=== PATIENT | male | born 1965 | race Asian ===

== ENCOUNTER 2022-06-20 12:45 | Outpatient (REF) | payer MEDICAID, SELFPAY ==
--- NOTE | ~2022-06-20 | XR_ITS ---
EXAMINATION: XR HAND, RIGHT CLINICAL INFORMATION: Thumb pain. COMPARISON: None available. TECHNIQUE: PA, lateral, and oblique views of the right hand. FINDINGS: First digit: No evidence of acute fracture or dislocation. Joint spaces are relatively maintained. No abnormal soft tissue calcification. No acute fracture or dislocation in the remainder of the visualized bones. No significant arthropathy XR/XR hand RT min 3V IMPRESSION: No radiographic evidence of acute fracture or dislocation of the thumb.
--- NOTE | ~2022-06-20 | XR_ITS ---
EXAMINATION: XR FOOT, RIGHT CLINICAL INFORMATION: Heel pain. COMPARISON: None available. TECHNIQUE: AP, lateral, and oblique views of the right foot. FINDINGS: No visible acute fracture or dislocation. Alignment is anatomic. Joint spaces are relatively maintained. Moderate Achilles tendon insertional enthesopathy. XR/XR foot RT min 3V IMPRESSION: Moderate calcaneal enthesopathy at the Achilles tendon insertion. No evidence of acute fracture.
== END 2022-06-20 12:46 | disposition home or self-care (01) ==
LOC: HO.XRAY 12:45
PROVIDERS: Visit Provider Family Medicine
DX: M79.671 Pain in right foot (principal); M65.311 Trigger thumb, right thumb
CPT/HCPCS: 73130; 73630

== ENCOUNTER 2022-06-20 13:19 | Emergency (ER) | payer MEDICAID, SELFPAY ==
[2022-06-20 14:07] VITALS: BP 96/71; PULSE 85; RESP 18; TEMP 36.7; O2SAT 99; BMI 26.2
--- NOTE | 2022-06-20 14:11 | ED.GENADULT ---
HPI - General Adult General Chief complaint: Extremity Problem <ARIK Brooks - Last Filed: 06/20/22 20:44> Stated complaint: pain in R hand <ARIK Brooks Last Filed: 06/20/22 20:44> Time Seen by Provider: 06/20/22 14:51 <ARIK Brooks Last Filed: 06/20/22 20:44> Source: patient <ARIK Collins Last Filed: 06/20/22 17:36> Mode of arrival: ambulatory <ARIK Collins Last Filed: 06/20/22 17:36> Limitations: no limitations <ARIK Collins Last Filed: 06/20/22 17:36> History of Present Illness HPI narrative: Patient is a 56 year old assigned male at with no reported medical history presenting to the emergency department today with right thumb pain. Patient states that over the last 2 weeks he has had worsening right thumb pain and is having a harder time holding objects. Patient states that he is unable to touch his right thumb to his other fingers on his right hand. Patient denies any dizziness, lightheadedness, abdominal pain, nausea, vomiting, fever, chills, blurry vision, double vision, loss of vision, chest pain, difficulty breathing, shortness of breath, back pain, night sweats, pain with urination, increased urinary frequency, increased urinary urgency, blood in his urine or stool, syncope or a near syncopal episode, recent trauma or falls, bowel incontinence, bladder incontinence, bowel retention, bladder retention, or any other complaints at this time. <ARIK Collins - Last Filed: 06/20/22 17:36> Onset (ago): week(s) (2) <ARIK Collins - Last Filed: 06/20/22 17:36> Location: right (thumb) <ARIK Collins Last Filed: 06/20/22 17:36> Radiation: non-radiation <ARIK Collins Last Filed: 06/20/22 17:36> Severity: mild <ARIK Collins Last Filed: 06/20/22 17:36> Severity scale (1-10): 2 <ARIK Collins Last Filed: 06/20/22 17:36> Relieving factors: none <ARIK Collins Last Filed: 06/20/22 17:36> Exacerbating factors: none <ARIK Collins Last Filed: 06/20/22 17:36> Associated symptoms: denies other symptoms <ARIK Collins Last Filed: 06/20/22 17:36> Treatments prior to arrival: none <ARIK Collins Last Filed: 06/20/22 17:36> Related Data Home medications: Previous Rx's Medication Instructions Recorded prednisone 20 mg tablet 20 mg PO DAILY 7 days #7 tabs 06/20/22 <ARIK Brooks Last Filed: 06/20/22 20:44> Allergies/adverse reactions: Allergies Allergy/AdvReac Type Severity Reaction Status Date / Time No Known Allergies Allergy Unverified 11/28/19 19:02 [No Known Allergies*] <ARIK Brooks Last Filed: 06/20/22 20:44> Review of Systems Constitutional: Constitutional: Reports no additional constitutional complaints, Denies chills, Denies fever(s) and Denies night sweats <ARIK Collins Last Filed: 06/20/22 17:36> Eyes: Eyes: Reports no additional eye complaints, Denies blurry vision, Denies change in vision, Denies diplopia, Denies eye discharge, Denies loss of vision and Denies eye pain <ARIK Collins Last Filed: 06/20/22 17:36> ENT: Denies dizziness <ARIK Collins Last Filed: 06/20/22 17:36> Cardiovascular: Cardiovascular: Reports no additional cardiovascular complaints, Denies chest pain, Denies lightheadedness, Denies Loss of Consciousness and Denies dyspnea <ARIK Collins Last Filed: 06/20/22 17:36> Respiratory: Respiratory: Reports no additional respiratory complaints and Denies dyspnea <ARIK Collins Last Filed: 06/20/22 17:36> Gastrointestinal: Gastrointestinal: Reports no additional gastrointestinal complaints, Denies abdominal pain, Denies melena, Denies hematochezia, Denies change in bowel habits and Denies change in stool character <ARIK Collins Last Filed: 06/20/22 17:36> Genitourinary: Genitourinary: Reports no additional male genitourinary complaints, Denies hematuria, Denies oliguria, Denies difficulty urinating, Denies dysuria, Denies urinary frequency, Denies urinary hesitancy, Denies urinary incontinence and Denies urinary urgency <ARIK Collins - Last Filed: 06/20/22 17:36> Musculoskeletal: Musculoskeletal: Reports no additional musculoskeletal complaints, Denies numbness and Denies tingling <ARIK Collins - Last Filed: 06/20/22 17:36> Comments: right thumb pain <ARIK Collins - Last Filed: 06/20/22 17:36> Neurologic: Denies dizziness, Denies loss of vision, Denies numbness and Denies tingling <ARIK Collins - Last Filed: 06/20/22 17:36> Psychiatric: Psychiatric: Reports no additional psychiatric complaints <ARIK Collins - Last Filed: 06/20/22 17:36> Endocrine: Endocrine: Reports no additional endocrine complaints <ARIK Collins - Last Filed: 06/20/22 17:36> Hematologic/Lymphatic: Hematologic/Lymphatic: Reports no additional hematologic/lymphatic complaints <ARIK Collins - Last Filed: 06/20/22 17:36> Allergic/Immunologic: Allergic/Immunologic: Reports no additional allergic/immunologic complaints <ARIK Collins - Last Filed: 06/20/22 17:36> [facility] Past Medical History Attestation statement: The following information was validated with the patient. <ARIK Collins - Last Filed: 06/20/22 17:36> Source: old records reviewed and nursing notes reviewed <ARIK Collins - Last Filed: 06/20/22 17:36> Physical Exam ED Vital Signs: Vital Signs - 24 hr 06/20/22 14:07 Temperature 98.0 F Pulse Rate 85 Respiratory Rate 18 Blood Pressure 96/71 Pulse Oximetry 99 Oxygen Delivery Method Room Air BMI result Body Mass Index 26.2 <ARIK Brooks - Last Filed: 06/20/22 20:44> Vital Signs - 24 hr 06/20/22 14:07 Temperature 98.0 F Pulse Rate 85 Respiratory Rate 18 Blood Pressure 96/71 Pulse Oximetry 99 Oxygen Delivery Method Room Air BMI result Body Mass Index 26.2 <ARIK Collins - Last Filed: 06/20/22 17:36> Const General: cooperative, no acute distress, alert and awake <ARIK Collins - Last Filed: 06/20/22 17:36> Nutritional Appearance: well nourished <ARIK Collins - Last Filed: 06/20/22 17:36> Orientation/consciousness: patient oriented x3 <ARIK Collins - Last Filed: 06/20/22 17:36> Limitations: no limitations <ARIK Collins - Last Filed: 06/20/22 17:36> HENMT Head: Yes normal to inspection and Yes atraumatic <ARIK Collins - Last Filed: 06/20/22 17:36> Ears: hearing grossly normal bilaterally and external ears normal <ARIK Collins - Last Filed: 06/20/22 17:36> General nose exam: Normal external nose present, no nasal discharge noted and no epistaxis <ARIK Collins - Last Filed: 06/20/22 17:36> Face and sinus: Yes normal facial exam, No abrasion and No laceration <ARIK Collins - Last Filed: 06/20/22 17:36> Mouth: Normal oral and palatal mucosa present, no drooling and no muffled voice <ARIK Collins - Last Filed: 06/20/22 17:36> Eyes General: appearance normal, both eyes and all related structures <ARIK Collins - Last Filed: 06/20/22 17:36> Periorbital: periorbital findings normal <ARIK Collins - Last Filed: 06/20/22 17:36> Eyelids: Yes eyelids normal <ARIK Collins - Last Filed: 06/20/22 17:36> Conjunctivae: conjunctivae normal <RAIK Collins - Last Filed: 06/20/22 17:36> Pupils: Equal, round and reactive pupils present <ARIK Collins - Last Filed: 06/20/22 17:36> EOM: EOMs intact bilaterally <Nia Gerber NH - Last Filed: 06/20/22 17:36> Neck Neck: Yes normal visual inspection, Yes full ROM and Yes no lymphadenopathy <Nia Gerber NH - Last Filed: 06/20/22 17:36> Chest Chest palpation & inspection: normal inspection of the chest <Nia Gerber NH - Last Filed: 06/20/22 17:36> Resp Effort & Inspection: normal respiratory effort and able to speak in complete sentences <Nia Gerber NH - Last Filed: 06/20/22 17:36> GI Inspection: Yes normal to inspection <Nia Gerber NH - Last Filed: 06/20/22 17:36> Neuro General: patient oriented x3 and moves all extremities <Nia Gerber NH - Last Filed: 06/20/22 17:36> Cranial nerves: Yes Equal, round and reactive pupils present <Nia Gerber NH - Last Filed: 06/20/22 17:36> Cognition (Neuro): normal cognition <Nia Gerber NH - Last Filed: 06/20/22 17:36> Motor exam (neuro): 5/5 motor strength present throughout <Nia Gerber NH - Last Filed: 06/20/22 17:36> Sensory Exam: Normal double simultaneous stimulation for sensation <Nia Gerber NH - Last Filed: 06/20/22 17:36> Coordination: [id number] test normal <Nia Gerber NH - Last Filed: 06/20/22 17:36> Extrem Other: minimal swelling to the base of the right thumb, patient unable to touch tip of thumb to tips of other fingers on right hand <Nia Gerber NH - Last Filed: 06/20/22 17:36> General: Yes capillary refill normal <Nia Gerber NH - Last Filed: 06/20/22 17:36> Psych Appearance: grossly normal <Nia Fierroel PA - Last Filed: 06/20/22 17:36> Mental Status: mental status grossly normal <Nia GerberARIK - Last Filed: 06/20/22 17:36> Affect: normal affect <Nia FierroARIK gallegos - Last Filed: 06/20/22 17:36> Attitude: cooperative <ARIK Collins - Last Filed: 06/20/22 17:36> Thought process: Normal thought process present <ARIK Collins Last Filed: 06/20/22 17:36> Thought content: Normal thought content present <ARIK Collins Last Filed: 06/20/22 17:36> Insight: Good insight present (Psych) <ARIK Collins - Last Filed: 06/20/22 17:36> Course Course Course Narrative: RME: 56 yold male presents to the ED for 2 weeks of right thumb pain without any trauma. patient already has xray pending today. no swelling, redness, warmth, or deformity of thumb or rest of extremity. motor exam of thumb limited due to pain. RUE extremity motor, neuro, vascualr exam is intact. <ARIK Brooks - Last Filed: 06/20/22 20:44> Procedures Orthopedic Splinting/Casting Injury #1: Side: right <ARIK Collins - Last Filed: 06/20/22 17:36> Upper Extremity Injury Location: wrist and hand <ARIK Collins Last Filed: 06/20/22 17:36> Upper Extremity Immobilizer: thumb spica <ARIK Collins Last Filed: 06/20/22 17:36> Medical Decision Making Medical Decision Making MDM Narrative: Patient is a 56 year old assigned male at with no reported medical history presenting to the emergency department today with right thumb pain. Patient's physical exam showed minimal swelling to the base of the right thumb and the patient was unable to touch the tip of his right thumb to the tips of the other right fingers. Patient's right hand x-ray showed no acute process. I explained my physical exam findings as well as all test results to the patient. I answered all questions asked by the patient. Patient's right hand was placed in a thumb spica splint. Patient PMS was intact prior to and after splint placement. I stressed the importance of the patient taking his medication as prescribed. I stressed the importance of the patient following up with his primary care provider and an orthopedic provider. I stressed the importance of the patient returning to the emergency department immediately if his symptoms were to worsen or if he were to develop any dizziness, shortness of breath, difficulty breathing, chest pain, blurry vision, loss of vision, nausea, vomiting, abdominal pain, fever, chills, back pain, or any other complaints. Patient verbalized agreement and understanding with this treatment plan and discharge. <ARIK Collins Last Filed: 06/20/22 17:36> Differential Diagnosis Differential Diagnoses: The differential diagnosis associated with the presentation includes <ARIK Collins Last Filed: 06/20/22 17:36> Right UCL injury, right thumb sprain, right thumb strain <ARIK Collins Last Filed: 06/20/22 17:36> Independent Interpretation I performed an independent interpretation of an: Plain X-Ray <ARIK Collins Filed: 06/20/22 17:36> Interpretation: My interpretation is in agreement with the radiologist's impression of this imaging study. EXAMINATION: XR FOOT, RIGHT CLINICAL INFORMATION: Heel pain.? COMPARISON: None available.? TECHNIQUE: AP, lateral, and oblique views of the right foot. FINDINGS: No visible acute fracture or dislocation. Alignment is anatomic. Joint spaces are relatively maintained. Moderate Achilles tendon insertional enthesopathy.? XR/XR foot RT min 3V IMPRESSION: Moderate calcaneal enthesopathy at the Achilles tendon insertion. No evidence of acute fracture. Dictated By: Mario Martinez MD Signed By: Electronically signed by Mario Martinez MD 06/20/22 0008 <ARIK Collins Last Filed: 06/20/22 17:36> Discharge Plan Discharge Clinical Impression: Sprain, thumb <ARIK Brooks Last Filed: 06/20/22 20:44> Patient Disposition: Home, Self-Care <ARIK Brooks - Last Filed: 06/20/22 20:44> Instructions: Sprain (ED), Skier's Thumb (ED) <ARIK Brooks - Last Filed: 06/20/22 20:44> Additional Instructions: Follow up with your primary care provider and an orthopedic provider, as scheduled. Return to the emergency department immediately if your symptoms worsen or if you develop any dizziness, shortness of breath, difficulty breathing, chest pain, blurry vision, loss of vision, nausea, vomiting, abdominal pain, fever, chills, back pain, or any other complaints. <ARIK Brooks - Last Filed: 06/20/22 20:44> Prescriptions: New prednisone 20 mg tablet 20 mg PO DAILY 7 Days Qty: 7 0RF <ARIK Brooks - Last Filed: 06/20/22 20:44> Referrals: [facility] [Provider Group] (Follow up with Stephanie Juarez PA-C tomorrow at 1:30pm) <ARIK Brooks - Last Filed: 06/20/22 20:44> Stand Alone Forms: Work/School Release <ARIK Brooks - Last Filed: 06/20/22 20:44> Interventions: ED Discharge Assessment Last Done: 06/20/22 15:30 <ARIK Brooks - Last Filed: 06/20/22 20:44> Discharge Date/Time: 06/20/22 15:31 <ARIK Brooks - Last Filed: 06/20/22 20:44> Print Language: Djiboutian <ARIK Brooks - Last Filed: 06/20/22 20:44>
== END 2022-06-20 15:31 | disposition home or self-care (01) ==
PROVIDERS: Emergency Provider Emergency Medicine
DX: S63.601A Unspecified sprain of right thumb, initial encounter (principal); X58.XXXA Exposure to other specified factors, initial encounter; Y93.9 Activity, unspecified; Y92.9 Unspecified place or not applicable; Y99.9 Unspecified external cause status
CPT/HCPCS: 29130; 99282; 99284

== ENCOUNTER → 2022-06-21 13:09 | Outpatient (BNVA) | payer MEDICAID, SELFPAY | PROVIDERS: PCP Family Medicine; Visit Provider Physician Assistant | DX: M65.311 Trigger thumb, right thumb (principal) | CPT/HCPCS: 20550; 99202; J1100 ==

== ENCOUNTER → 2022-07-06 12:04 | Outpatient (BNVA) | payer MEDICAID, SELFPAY | PROVIDERS: PCP Family Medicine; Visit Provider Orthopaedic Surgery | DX: M65.311 Trigger thumb, right thumb (principal) | CPT/HCPCS: 99212 ==

== ENCOUNTER → 2022-07-20 08:38 | Outpatient (BNVA) | payer MEDICAID, SELFPAY | PROVIDERS: PCP Family Medicine; Visit Provider Orthopaedic Surgery | DX: M65.311 Trigger thumb, right thumb (principal) | CPT/HCPCS: 99212 ==

== ENCOUNTER 2022-07-25 10:16 | Day surgery (SDC) | payer MEDICAID, SELFPAY ==
[2022-07-25 10:27] VITALS: BMI 25.8
[2022-07-25 13:25] VITALS: BP 112/60; PULSE 89; RESP 18; O2SAT 100
--- NOTE | 2022-07-25 13:27 | MHC.SHP ---
Pre-Procedural Eval Section A Date of Service: 07/25/22 The patient is an INPATIENT: No Changes since office visit: No Cold of Flu in the past 2 weeks, No New Medical Problems, No Changes in Medication and No Patient answered all questions The History & Physical has been completed within 30 days and I have reviewed it.: Yes Section B Chief Complaint: Trigger thumb, right thumb Allergies: Allergies Allergy/AdvReac Type Severity Reaction Status Date / Time No Known Allergies Allergy Verified 07/25/22 10:28 [No Known Allergies*] Plan I have reviewed the history and physical and performed a pertinent physical examination on my patient. No changes have occurred unless specified. Time Spent With Patient Time: Total time managing care of this patient today ____ minutes.
--- NOTE | 2022-07-25 13:29 | W.PM.OPN ---
Operative Note Operative Note Date of Service: 07/25/22 Narrative: Operative Note Preop diagnosis: 1. Right thumb Trigger finger Postop diagnosis: 1. right thumb Trigger finger Procedure: 1. right thumb A1 scott release Surgeon: Sandee Harley MD Anesthesia: local block using 1% lidocaine with epinephrine Findings: No locking or catching after A1 scott release EBL: Less than 5 mL Tourniquet time: None Specimens: None Complications: None Disposition: Brought to recovery room in stable condition Plan: Follow-up for 10-14 days for wound check and suture removal Indications: The patient is 56 years old, with a right thumb trigger finger that has been unresponsive to nonoperative management. The risks and benefits of operative treatment including but not limited to risk of damage to blood vessels, nerves, tendons, infection, persistent pain, persistent symptoms, recurrence or possible need for additional surgery were discussed with the patient and the patient wishes to proceed with surgery. Procedure: Once consent was obtained a local block was performed in the preop area using a combination of 1% lidocaine with epinephrine. The patient was then brought back to the operating suite and placed on the operative table in supine position. The right upper extremity was prepped and draped in a standard surgical fashion. Once assured that we had a good block, a 1.5 cm oblique incision was made centered over the A1 scott of the right thumb . The incision was made through the skin to the subcutaneous tissues using a #15 blade. Careful dissection was made down to the level of the A1 scott using tenotomy scissors, with care being taken to protect the nearby neurovascular structures. A longitudinal incision was made in the A1 scott 1st using a #15 blade, then using tenotomy scissors under direct visualization. The A1 scott was noted to be thickened. Following our A1 scott release, we no longer saw any locking or catching of the digit with flexion and extension. Once satisfied with our A1 scott release the wound was copiously irrigated with normal saline and hemostasis was obtained with a brief period of local pressure. The skin edges were reapproximated with some 5.0 nylon suture material and a sterile dressing was applied. The patient appears to have tolerated the procedure well and with no complications. All digits were well vascularized at the conclusion of the case.
== END 2022-07-25 13:30 | disposition home or self-care (01) ==
PROVIDERS: PCP Family Medicine; Visit Provider Orthopaedic Surgery
PROC: (CPT 26055; principal; 2022-07-25 11:40)
DX: M65.311 Trigger thumb, right thumb (principal); E11.9 Type 2 diabetes mellitus without complications
CPT/HCPCS: 26055; J0171

== ENCOUNTER → 2022-08-09 08:40 | Outpatient (BNVA) | payer MEDICAID, SELFPAY | PROVIDERS: PCP Family Medicine; Visit Provider Orthopaedic Surgery | DX: M65.311 Trigger thumb, right thumb (principal) | CPT/HCPCS: 99212 ==

== ENCOUNTER 2022-12-22 10:17 | Outpatient (REF) | payer MEDICAID, SELFPAY ==
--- NOTE | ~2022-12-22 | XR_ITS ---
EXAMINATION: XR CERVICAL SPINE CLINICAL INFORMATION: Posterior neck and left shoulder pain status-post fall 2 weeks prior. COMPARISON: None available. TECHNIQUE: Frontal, lateral and odontoid views are obtained. FINDINGS: Vertebral body heights and alignment are normal. At C5-C6, there is moderate disc space narrowing, with spondylosis. The remaining disc spaces are well-maintained. No acute fracture or spondylolisthesis is seen. The posterior elements are intact. There is no prevertebral soft tissue swelling. The dens and C7-T1 interface are normal. XR/XR cervical spine 3V IMPRESSION: At C5-C6, there is moderate degenerative disc disease and spondylosis.
--- NOTE | ~2022-12-22 | XR_ITS ---
EXAMINATION: XR SHOULDER, LEFT CLINICAL INFORMATION: Pain status-post fall 2 weeks prior. COMPARISON: None available. TECHNIQUE: AP external rotation, Grashey, scapular Y, and axillary views of the left shoulder. FINDINGS: Bony alignment and mineralization are normal. The glenohumeral joint is intact. The acromioclavicular and coracoclavicular intervals are normal. There is mild osteoarthritic change of the acromioclavicular joint. No fracture or dislocation is seen. There is no abnormal soft tissue calcification or foreign body. No left pneumothorax is seen. XR/XR shoulder LT min 2V IMPRESSION: 1. No fracture or dislocation is seen. 2. There is mild osteoarthritic change of the left acromioclavicular joint.
== END 2022-12-22 10:18 | disposition home or self-care (01) ==
LOC: HO.HHCX 10:17
PROVIDERS: Visit Provider Family Medicine
DX: M25.512 Pain in left shoulder (principal); M54.2 Cervicalgia
CPT/HCPCS: 72040; 73030

== ENCOUNTER → 2023-01-25 07:53 | Outpatient (REF) | payer MEDICAID, SELFPAY ==
--- NOTE | 2023-01-25 07:56 | CA_ITS ---
Transthoracic Echocardiogram Patient (Last, First, Middle): Jackie Marlow, Gender: Male Date of : 1965 Age: 57 Procedure Date: 01/25/2023 Procedure Type: Transthoracic Echocardiogram Location: OP Height: 182.88 cm Weight: 82.56 kg BSA: 2.05 m2 Heart Rate: bpm BP: 130 / 75 mmHg Block Mason: LULY/MARIANNA Referring MD: Mandie Chavez DO Symptoms: SYNCOPE R55 Study Quality: Adequate ECG Rhythm: Sinus Conclusions: - The left ventricular systolic function is normal. The calculated ejection fraction is 58% by biplane method. - No obvious valvular pathology seen on this study. Findings Left Ventricle Normal left ventricular cavity size. There is normal left ventricular wall thickness. The left ventricular systolic function is normal. The calculated ejection fraction is 58% by biplane method. There is no evidence of regional wall motion abnormalities. Diastolic function is normal for age. Right Ventricle Normal right ventricular cavity size and systolic function. Atria Both atria are normal in size. Aortic Valve There is a normal trileaflet aortic valve. There is no aortic valve stenosis. There is trace (trivial) aortic valve regurgitation. Mitral Valve The mitral valve appears normal. There is trace mitral valve regurgitation. There is no mitral valve stenosis. Pulmonic Valve The pulmonic valve is likely normal. Tricuspid Valve Normal tricuspid valve structure. There is trace tricuspid valve regurgitation. There is no evidence of pulmonary hypertension. Great Vessels The asc aorta is normal in size. Venous The inferior vena cava is normal in size and collapses greater than 50% with inspiration. Pericardium/Pleural There is no evidence of pericardial effusion. Prior Study Comparison No prior study available for comparison. Recommendations, Care & Conclusions No obvious valvular pathology seen on this study. Measurements 2D Linear Measurements IVSd: 1.00 0.6-0.9/0.6-1.0 cm LVIDd: 4.37 3.9-5.3/4.2-5.9 cm LVIDd Index: 2.13 2.4-3.2/2.2-3.1 cm/m2 LVIDs: 2.56 2.0-3.6 cm LVPWd: 1.04 0.7-1.1 cm LA Diam: 2.50 2.7-3.8/3.0-4.0 cm LAIDs Index: 1.22 1.5-2.3 cm/m2 LV Mass: 187.12 67-162/88-224 g LV Mass Index: 91.28 43-95/49-115 g/m2 LVOT Diam: 2.00 3.0+(-)1.3 cm 2D Systolic Function EF 4C: 57.00 >55% EF 2C: 57.40 >55% EF BiP: 57.60 >55% Mitral Valve MV Pk E: 0.63 MV PK A: 0.69 MV Decel Time: 179.00 E/A: 0.90 E'Lateral: 7.29 E'Medial: 6.20 E/E' Med: 10.20 E/E' Lat: 8.70 PHT: 52.00 MVA PHT: 4.23 Decel [place]: 3.55 Aortic Valve AoV Pk Justin: 1.44 AoV Mn Justin: 1.04 AoV VTI: 0.27 AoV Pk Grad: 8.00 Aov Mn Grad: 5.00 TIP Cont.VTI: 2.11 LVOT LVOT Pk Justin: 1.03 LVOT Mn Justin: 0.68 LVOT VTI: 0.18 LVOT Pk Grad: 4.00 LVOT Mn Grad: 2.00 LVOT Diam: 2.00 LVOT Area: 3.14 Diastolic Function MV Pk E: 0.63 MV Pk A: 0.69 E/A: 0.90 E'Medial: 6.20 E/E' Med: 10.20 E' Laterial: 7.29 E/E' Lat: 8.70 Right Ventricle TAPSE (mm): 21.70 TVS' Justin: 12.30 Tricuspid Valve RA Press: 3.00 Great Vessels Aorta Sinus of Valsalva: 3.09 2.0-3.[address] [place]: 2.42 1.7-3.4 cm Ao Asc: 3.40 2.1-3.4 cm Updated in Other Vendor System with Status of Final Hang Barnett MD electronically signed on 01/27/2023 11:43:49 AM with status of Final
== END ==
LOC: HO.CARD 07:53
PROVIDERS: PCP Family Medicine; Visit Provider Family Medicine
DX: R55 Syncope and collapse (principal)
CPT/HCPCS: 93306

== ENCOUNTER → 2023-01-25 07:56 | Outpatient (BNV) | payer MEDICAID, SELFPAY | PROVIDERS: PCP Family Medicine; Visit Provider Internal Medicine | DX: R55 Syncope and collapse (principal) | CPT/HCPCS: 93306 ==

== ENCOUNTER 2023-01-27 17:50 | Outpatient (REF) | payer MEDICAID, SELFPAY ==
[2023-01-27 18:45] LABS: Influenza A PCR NEGATIVE (Negative); Influenza B PCR NEGATIVE (Negative); Resp Syncy Virus RNA Qual PCR NEGATIVE (Negative); SARS COV2 PCR INHOUSE NEGATIVE (Negative)
== END 2023-01-27 17:51 | disposition home or self-care (01) ==
LOC: HO.LNP 17:50
PROVIDERS: Visit Provider Family Medicine
DX: Z11.52 Encounter for screening for COVID-19 (principal); J06.9 Acute upper respiratory infection, unspecified
CPT/HCPCS: 0241U; 87070

== ENCOUNTER 2023-02-15 12:00 | Outpatient (RCR) | payer MEDICAID, SELFPAY ==
[2023-01-24 08:05] VITALS: BP 132/76
== END 2023-04-12 08:34 | disposition home or self-care (01) ==
LOC: HO.PT 12:00
PROVIDERS: PCP Family Medicine; Visit Provider Family Medicine
DX: R55 Syncope and collapse (principal)
CPT/HCPCS: 97110; 97112; 97162

== ENCOUNTER 2023-03-14 18:45 | Outpatient (REF) | payer MEDICAID, SELFPAY | END 2023-03-14 18:46 | disposition home or self-care (01) | LOC: HO.HHCLNP 18:45 | PROVIDERS: Visit Provider Emergency Medicine | DX: L02.415 Cutaneous abscess of right lower limb (principal) | CPT/HCPCS: 87070; 87077; 87186; 87205 ==

== ENCOUNTER 2024-01-08 09:02 | Outpatient (REF) | payer MEDICAID, SELFPAY ==
[2024-01-08 11:25] LABS: MANUAL DIFF FLAG NO
[2024-01-08 11:35] LABS: Basophils Absolute Auto 0.1 X10*3/uL (0.0-0.2); Basophils Percent Auto 0.6 % (0-2); Eosinophils Absolute Auto 0.4 X10*3/uL (0.0-0.4); Eosinophils Percent Auto 4.9 % (0-4); Hematocrit 41.3 % (42.0-52.0); Hemoglobin 13.5 g/dl (14.0-18.0); Imm Gran Abs Auto 0.06 X10*3/uL (0.00-0.03); Imm Gran Pct Auto 0.7 % (0.0-0.4); Lymphocytes Absolute Auto 1.5 X10*3/uL (1.2-4.9); Lymphocytes Percent Auto 16.4 % (20-40); Mean Corpuscular HGB Conc 32.7 g/dl (31.0-36.0); Mean Corpuscular Hemoglobin 26.6 pg (27.0-33.0); Mean Corpuscular Volume 81.3 fL (80.0-98.0); Mean Platelet Volume 11.4 fL (9.4-12.4); Monocytes Absolute Auto 0.7 X10*3/uL (0.1-1.2); Neutrophils Absolute Auto 6.2 x10*3/uL (2.0-8.3); Neutrophils Percent Auto 69.4 % (45-73); Platelet Count 250 X10*3/uL (160-400); Red Blood Count 5.08 X10*6/uL (4.60-5.80); Red Cell Distribution Width 13.6 % (11.0-16.0)
[2024-01-08 11:45] LABS: Estimated Average Glucose 163 mg/dL; Hemoglobin A1c % 7.3 % (<6.0); Total Hemoglobin (HGBA1C) 3577.4513 umol/L
[2024-01-08 12:08] LABS: Alanine Aminotransferase 37 U/L (0-40); Alkaline Phosphatase 95 U/L (39-117); Anion Gap 14 (12-20); Aspartate Amino Transferase 67 U/L (5-37); Bilirubin Total 0.4 mg/dL (0.0-1.0); Blood Urea Nitrogen 11 mg/dL (9-16); Calcium 8.9 mg/dL (8.4-10.2); Carbon Dioxide 21 mmol/L (22-29); Chloride 106 mmol/L (96-108); Cholesterol 137 mg/dL (<200); Estimated Glomerular Filt Rate > 60; Glucose Random 235 mg/dL (60-115); HDL Cholesterol 28 mg/dL (>40); LDL Cholesterol Calculated 63 mg/dL (<100); Potassium 3.8 mmol/L (3.3-5.1); Sodium 137 mmol/L (135-145); Total Protein 7.1 g/dL (6.5-8.0); Triglycerides 234 mg/dL (<150)
[2024-01-08 12:09] LABS: TSH reflex Free T4 1.26 uIU/mL (0.32-4.0); Vitamin D 25-OH Total 22.9 ng/mL (>30)
[2024-01-08 12:21] LABS: HIV AB/AG Nonreactive (Nonreactive); HIV Num 1 0.05 S/CO (0.00-0.99); ~HepC Num1 0.14 S/CO (0.00-0.79); ~Hepatitis C Antibody Nonreactive (Nonreactive)
[2024-01-08 13:21] LABS: Vitamin B12 226 pg/mL (200-900)
[2024-01-10 09:48] LABS: RPR Rapid Plasma Reagin NON-REACTIVE (NON-REACTIVE)
== END 2024-01-08 09:03 | disposition home or self-care (01) ==
LOC: HO.HHCL 09:02
PROVIDERS: Visit Provider Internal Medicine
DX: E11.21 Type 2 diabetes mellitus with diabetic nephropathy (principal); M79.604 Pain in right leg
CPT/HCPCS: 36415; 80053; 80061; 82306; 82607; 82746; 83036; 84443; 85025; 86592; 86803; 87389

== ENCOUNTER 2024-01-23 08:26 | Outpatient (REF) | payer MEDICAID, SELFPAY ==
--- NOTE | 2024-01-23 08:29 | EMG_ITS ---
Right tibial and peroneal motor studies were performed. Right superficial peroneal, sural and median and lateral mixed plantar studies were performed. Tibial H-reflex was obtained, and paraspinal muscles were tested with a needle. IMPRESSION: Mild axonal sensory motor peripheral neuropathy. MD YAMILE Adams/SETHL / [id number]
== END 2024-01-23 08:27 | disposition home or self-care (01) ==
LOC: HO.NEURO 08:26
PROVIDERS: Visit Provider Internal Medicine
DX: M79.604 Pain in right leg (principal)
CPT/HCPCS: 95886; 95910

== ENCOUNTER 2024-02-06 17:51 | Outpatient (REF) | payer MEDICAID, SELFPAY ==
[2024-02-06 18:01] LABS: Appearance Urine Turbid; Color Urine Yellow; Glucose Urine UA 500 mg/dL (Negative); Leukocyte Esterase Urine Negative (Negative); Nitrite Urine Negative (Negative); PH 5.5 (5.0-9.0); UMIC TRIGGER UACC YES; Urine Blood Moderate (2+) (Negative); Urine Ketones Trace mg/dL (Negative); Urine Protein Trace mg/dL (Neg-Trace)
[2024-02-06 18:07] LABS: Bacteria Urine None Seen (None Seen); Hyaline Casts Urine 0-2 /LPF (0-2); Squamous Epithelial Cell Urine 0-2 /HPF (0-2); UACC Culture Trigger YES
== END 2024-02-06 17:52 | disposition home or self-care (01) ==
LOC: HO.HHCLNP 17:51
PROVIDERS: Visit Provider Student in an Organized Health Care Education/Training Program
DX: R10.9 Unspecified abdominal pain (principal)
CPT/HCPCS: 81001; 87086

== ENCOUNTER 2024-02-15 09:44 | Outpatient (REF) | payer MEDICAID, SELFPAY | END 2024-02-15 09:45 | disposition home or self-care (01) | LOC: HO.HMGCX 09:44 | PROVIDERS: PCP Student in an Organized Health Care Education/Training Program; Visit Provider Student in an Organized Health Care Education/Training Program | DX: R10.9 Unspecified abdominal pain (principal) | CPT/HCPCS: 76770 ==

== ENCOUNTER 2024-02-15 16:07 | Outpatient (REF) | payer MEDICAID, SELFPAY | END 2024-02-15 16:08 | disposition home or self-care (01) | LOC: HO.XRAY 16:07 | PROVIDERS: PCP Student in an Organized Health Care Education/Training Program; Visit Provider Student in an Organized Health Care Education/Training Program | DX: R10.9 Unspecified abdominal pain (principal); M79.671 Pain in right foot | CPT/HCPCS: 73630; 74019 ==

== ENCOUNTER 2024-03-25 13:06 | Outpatient (REF) | payer MEDICAID, SELFPAY | END 2024-03-25 13:07 | disposition home or self-care (01) | LOC: HO.LNP 13:06 | PROVIDERS: Visit Provider Physician Assistant | DX: L03.031 Cellulitis of right toe (principal) | CPT/HCPCS: 87070; 87077; 87186; 87205 ==

== ENCOUNTER 2024-04-15 09:47 | Emergency (ER) | payer MEDICAID, SELFPAY ==
--- NOTE | ~2024-04-15 | XR_ITS ---
EXAMINATION: XR FOOT 3 OR MORE VIEWS RIGHT HISTORY: right big toe redness. osteo? COMPARISON: Comparison is made with the prior examination dated 02/15/2024. FINDINGS: Three views of the right foot are submitted. Osseous mineralization is normal. There is no fracture or dislocation. The joint spaces are preserved. The soft tissues are unremarkable. XR/XR foot RT min 3V IMPRESSION: Unremarkable examination of the right foot. Electronically signed by: Joce Savage MD 04/15/2024 02:21 PM EST
[2024-04-15 10:08] VITALS: BP 120/81; PULSE 84; RESP 18; TEMP 36.4; O2SAT 99; BMI 25.8
--- NOTE | 2024-04-15 13:58 | ED_ITS ---
HPI - General Adult General Chief complaint: Extremity Injury, Lower Stated complaint: Toe infection sent by walk in Time Seen by Provider: 04/15/24 13:49 Source: patient Mode of arrival: ambulatory Limitations: no limitations History of Present Illness ED Provider: Marlon Machuca [facility] narrative: 58-year-old male history of diabetes and asthma presents to the ED for right big toe pain with redness swelling and drainage yellow nail border. Patient states about 4 weeks ago he tried removing or ingrown toenail and after doing this self home procedure he big toe started having redness pain and drainage. Patient was placed on antibiotics for 2 weeks and has not improved. Patient was seen at urgent care today and referred to the ED. Related Data Home Medications ?Medication ?Instructions ?Recorded ?Confirmed albuterol sulfate 90 mcg/actuation 2 puff inhalation Q4H 06/21/22 aerosol inhaler (Ventolin HFA) amlodipine 5 mg tablet 5 mg PO DAILY 06/21/22 gabapentin 600 mg tablet 600 mg PO TID 06/21/22 metformin 1,000 mg tablet 1,000 mg PO BID 06/21/22 Previous Rx's ?Medication ?Instructions ?Recorded prednisone 20 mg tablet 20 mg PO DAILY 7 days #7 tabs 06/20/22 cephalexin 500 mg capsule 500 mg PO QID 7 days #28 caps 04/15/24 doxycycline hyclate 100 mg capsule 100 mg PO BID #14 caps 04/15/24 naproxen 500 mg tablet 500 mg PO BID PRN pain #14 tabs 04/15/24 oxycodone 5 mg capsule 5 mg PO Q8H PRN pain #9 caps 04/15/24 Allergies Allergy/AdvReac Type Severity Reaction Status Date / Time No Known Allergies Allergy Verified 04/15/24 10:10 [No Known Allergies*] Review of Systems 2 Review of Systems: Right big toe pain Yes all other systems are reviewed and are negative [facility] Past Medical History Medical History Diabetes Social History Social History Patient Tobacco Use Status: Never used Tobacco Advance Directives: No Advance Directives Information Provided: Yes Do you have a plan to hurt others: No Plan Current occupational status: employed Current occupation: [employer] Physical Exam ED Vital Signs: Vital Signs - 24 hr 04/15/24 10:08 04/15/24 17:10 Temperature 97.6 F 97.6 F Pulse Rate 84 84 Respiratory Rate 18 18 Blood Pressure 120/81 120/81 Pulse Oximetry 99 99 Oxygen Delivery Method Room Air BMI result Body Mass Index 25.8 Const General: cooperative, healthy appearing, comfortable, no acute distress, well developed, alert, awake and Physically active Orientation/consciousness: patient oriented x3 [facility] Head: Yes normal to inspection, Yes No palpable skull fracture present, Yes normocephalic and Yes atraumatic Eyes General: appearance normal, both eyes and all related structures Neck Neck: Yes normal visual inspection, Yes full ROM, Yes no lymphadenopathy, Yes no meningeal signs, Yes trachea midline, Yes supple, No anterior neck swelling and No tender Chest Chest palpation & inspection: normal inspection of the chest and normal palpation of entire chest wall Resp Effort & Inspection: normal respiratory effort and able to speak in complete sentences Cardio Jugular venous distension: no JVD Heart sounds: S1 normal heart sound present and S2 normal heart sound present GI Inspection: Yes normal to inspection Palpation (GI): Soft to palpation, not firm, nontender, no guarding and not rigid General: Yes no CVA tenderness Back/Spine/Pelvis Back: no CVA tenderness and No back tenderness Skin General skin exam: no rashes or lesions noted, elasticity normal and turgor normal Neuro General: patient oriented x3, gait normal, tone normal, moves all extremities, no meningeal signs, no focal motor deficits, CN's II-XI intact bilaterally and normal sensation to monofilament Cranial nerves: Yes CN's II-XII intact bilaterally Extrem Other: General: Yes normal to inspection and Yes full ROM Psych Appearance: grossly normal, well kempt and not disheveled Medications Administered Discontinued Medications Generic Name Dose Route Start Last Admin Trade Name Freq PRN Reason Stop Dose Admin Acetaminophen 975 mg 04/15/24 16:45 04/15/24 16:54 Acetaminophen 325 Mg Tablet PO 04/15/24 16:46 975 mg ONCE ONE Administration Ceftriaxone Sodium 1 gm 04/15/24 16:25 04/15/24 16:32 Ceftriaxone Sodium 1 Gm Vial IVPUSH 04/15/24 16:26 1 gm ONCE ONE Administration Diphtheria/Tetanus/Acell Pertussis 0.5 ml 04/15/24 16:57 04/15/24 17:09 Diphth,Pertus(Acell),Tet Adult 0.5 Ml Syringe IM 04/15/24 16:58 0.5 ml .ONCE ONE Administration Ketorolac Tromethamine 30 mg 04/15/24 14:37 04/15/24 15:03 Ketorolac Tromethamine 30 Mg/Ml Vial IVPUSH 04/15/24 14:38 30 mg ONCE ONE Administration Lidocaine HCl 2 ml 04/15/24 15:23 04/15/24 15:58 Lidocaine Hcl 1 % Mpf 2 Ml Vial INFILTRATI 04/15/24 15:24 2 ml ONCE ONE Administration Lidocaine HCl 2 ml 04/15/24 15:23 04/15/24 15:58 Lidocaine Hcl 1 % Mpf 2 Ml Vial INFILTRATI 04/15/24 15:24 2 ml ONCE ONE Administration Lidocaine HCl 2 ml 04/15/24 15:23 04/15/24 15:59 Lidocaine Hcl 1 % Mpf 2 Ml Vial INFILTRATI 04/15/24 15:24 2 ml ONCE ONE Administration Lidocaine HCl 2 ml 04/15/24 15:24 04/15/24 15:59 Lidocaine Hcl 1 % Mpf 2 Ml Vial INFILTRATI 04/15/24 15:25 2 ml ONCE ONE Administration Medical Decision Making Medical Decision Making MDM Narrative: History physical exam indicate ingrown toenail with cellulitis not improving Keflex and Bactrim. Once again redness and drainage began after patient removed ingrown toenail over 3 weeks ago. Due to patient being diabetic we will do labs ESR CRP and x-ray to rule out osteomyelitis. 4:54pm: X-ray negative for osteomyelitis. Negative for elevated white blood cell count. ESR CRP slightly elevated but non concerning. Case was discussed with Dr. Ramires recommends ingrown toenail excision and than patient should follow up outpatient with his anti tank missileman. Also recommended Wound culture. Digital block was done with lidocaine 1% 8 mL. Area was cleaned with Betadine and iodine and sterile saline. Forceps and scissors was used for ingrown toenail excision. Ingrown toenail was excised. Tdap ordered. Wound culture ordered. Dr. Holbrook recommend discharging patient with another round of Keflex and doxy. Patient wants IV antibiotics although the not indicated. Patient was given IV ceftriaxone. Patient has an appointment with Podiatry next month. Patient informed to call his podiatry for earlier appointment. Not suspecting osteomyelitis, arterial occlusion, DVT, compartment syndrome, lymphangitis, necrotizing fasciitis, or any other life-threatening etiology. Differential Diagnosis Differential Diagnoses: The differential diagnosis associated with the presentation includes Admission/Observation Consideration of admission/observation: Escalation of care including admission/observation considered (Ingrown toenail, cellulitis, osteomyelitis) Lab Data MDM Lab Attestation statement: I reviewed the patient's lab results. 04/15/24 14:09 04/15/24 14:09 Labs: Lab Results 04/15/24 04/15/24 Range/Units 14:09 15:04 WBC 8.5 (4.8-10.8) X10*3/uL RBC 5.61 (4.60-5.80) X10*6/uL Hgb 15.0 (14.0-18.0) g/dl Hct 44.9 (42.0-52.0) % MCV 80.0 (80.0-98.0) fL MCH 26.7 L (27.0-33.0) pg MCHC 33.4 (31.0-36.0) g/dl RDW 14.0 (11.0-16.0) % Plt Count 257 (160-400) X10*3/uL MPV 10.4 (9.4-12.4) fL Immature Gran % (Auto) 0.7 H (0.0-0.4) % Neut % (Auto) 71.3 (45-73) % Lymph % (Auto) 16.3 L (20-40) % [place] % (Auto) 6.7 (2-11) % Eos % (Auto) 4.3 H (0-4) % Baso % (Auto) 0.7 (0-2) % Lymph # (Auto) 1.4 (1.2-4.9) X10*3/uL [place] # (Auto) 0.6 (0.1-1.2) X10*3/uL Eos # (Auto) 0.4 (0.0-0.4) X10*3/uL Baso # (Auto) 0.1 (0.0-0.2) X10*3/uL Abs Immat Gran (auto) 0.06 H (0.00-0.03) X10*3/uL Absolute Neuts (auto) 6.0 (2.0-8.3) x10*3/uL Absolute Nucleated RBC 0.000 (0.0-0.012) X10*3/uL Nucleated RBC % (auto) 0.0 (0.0-0.2) /100WBC ESR 16 H (0-15) MM/HR Sodium 140 (135-145) mmol/L Potassium 4.4 (3.3-5.1) mmol/L Chloride 104 (96-108) mmol/L Carbon Dioxide 27 (22-29) mmol/L Anion Gap 13 (12-20) BUN 11 (9-16) mg/dL Creatinine 0.96 (0.5-1.4) mg/dL Estim Creat Clear Calc 88.2 Estimated GFR > 60 POC Glucose 114 (60-115) mg/dL Random Glucose 118 H (60-115) mg/dL Lactic Acid 1.3 (0.5-2.0) mmol/L Calcium 9.8 D (8.4-10.2) mg/dL Total Bilirubin 0.6 (0.0-1.0) mg/dL AST 33 (5-37) U/L ALT 37 (0-40) U/L Alkaline Phosphatase 92 (39-117) U/L C-Reactive Protein 1.09 H (< or = 0.50) mg/dL Total Protein 8.7 H (6.5-8.0) g/dL Albumin 4.8 (3.5-5.0) g/dL Independent Interpretation I performed an independent interpretation of an: Plain X-Ray Radiology Impression Discussion of test interpretation with radiology: I have reviewed the radiologist's reading. Independent Historian Clinical information obtained from an independent historian. History obtained from or confirmed by: Other (Patient) Prescription Management I considered prescription management with: Antibiotic Chronic Conditions Patient?s care impacted by: Diabetes Discharge Plan Discharge Clinical Impression: Ingrowing toenail Patient Disposition: Home, Self-Care Instructions: Ingrown Nail (ED), Nail Removal (ED) Additional Instructions: Recommend calling your anti tank missileman for earlier appointment. Recommend follow-up with your primary care provider. Return to the ED immediately for any worsening pain, redness, red streaks, bluish discolorations, calf pain, fever, chills, pus drainage, or any other concerning symptoms. [address] [address] XRay Report Signed Patient: Jackie Marlow MR#: [id number] : 1965 Acct:[id number] Age/Sex: 58 / M ADM Date: 04/15/24 Loc: HO.ED Attending Dr: Ordering Physician: Marlon Machuca Date of Service: 04/15/24 Procedure(s): XR foot RT min 3V Accession Number(s): [id number] cc: Maroln Machuca; Vi Keys MD~ EXAMINATION: XR FOOT 3 OR MORE VIEWS RIGHT HISTORY: right big toe redness. osteo? COMPARISON: Comparison is made with the prior examination dated 02/15/2024. FINDINGS: Three views of the right foot are submitted. Osseous mineralization is normal. There is no fracture or dislocation. The joint spaces are preserved. The soft tissues are unremarkable. XR/XR foot RT min 3V IMPRESSION: Unremarkable examination of the right foot. Electronically signed by: Joce Savage MD 04/15/2024 02:21 PM [facility] Dictated By: Joce Savage MD Signed By: <Electronically signed by Joce Savage MD in OV> 04/15/24 1421 DD/ 1416 TD/TT: 04/15/24 1416 Social Group Worker: Prescriptions: New cephalexin 500 mg capsule 500 mg PO QID 7 Days Qty: 28 0RF doxycycline hyclate 100 mg capsule 100 mg PO BID Qty: 14 0RF oxycodone 5 mg capsule 5 mg PO Q8H PRN (Reason: pain) Qty: 9 0RF Rx Instructions: Partial Fill upon patient request. naproxen 500 mg tablet 500 mg PO BID PRN (Reason: pain) Qty: 14 0RF No Action prednisone 20 mg tablet 20 mg PO DAILY 7 Days Qty: 7 0RF metformin 1,000 mg tablet 1,000 mg PO BID gabapentin 600 mg tablet 600 mg PO TID albuterol sulfate [Ventolin HFA] 90 mcg/actuation HFA aerosol inhaler 2 puff inhalation Q4H amlodipine 5 mg tablet 5 mg PO DAILY Stand Alone Forms: Work/School Release Interventions: ED Discharge Assessment Last Done: 04/15/24 17:10 Discharge Date/Time: 04/15/24 17:16 Print Language: Romanian
[2024-04-15 14:16] LABS: MANUAL DIFF FLAG NO
[2024-04-15 14:19] LABS: Basophils Absolute Auto 0.1 X10*3/uL (0.0-0.2); Basophils Percent Auto 0.7 % (0-2); Eosinophils Absolute Auto 0.4 X10*3/uL (0.0-0.4); Eosinophils Percent Auto 4.3 % (0-4); Hematocrit 44.9 % (42.0-52.0); Imm Gran Abs Auto 0.06 X10*3/uL (0.00-0.03); Imm Gran Pct Auto 0.7 % (0.0-0.4); Lymphocytes Absolute Auto 1.4 X10*3/uL (1.2-4.9); Lymphocytes Percent Auto 16.3 % (20-40); Mean Corpuscular HGB Conc 33.4 g/dl (31.0-36.0); Mean Corpuscular Hemoglobin 26.7 pg (27.0-33.0); Mean Platelet Volume 10.4 fL (9.4-12.4); Monocytes Absolute Auto 0.6 X10*3/uL (0.1-1.2); Monocytes Percent Auto 6.7 % (2-11); Neutrophils Percent Auto 71.3 % (45-73); Platelet Count 257 X10*3/uL (160-400); Red Blood Count 5.61 X10*6/uL (4.60-5.80); White Blood Count 8.5 X10*3/uL (4.8-10.8)
[2024-04-15 14:33] LABS: Lactic Acid 1.3 mmol/L (0.5-2.0)
[2024-04-15 14:38] LABS: Alanine Aminotransferase 37 U/L (0-40); Albumin Level 4.8 g/dL (3.5-5.0); Anion Gap 13 (12-20); Aspartate Amino Transferase 33 U/L (5-37); Bilirubin Total 0.6 mg/dL (0.0-1.0); Blood Urea Nitrogen 11 mg/dL (9-16); C Reactive Protein 1.09 mg/dL (< or = 0.50); Calcium 9.8 mg/dL (8.4-10.2); Carbon Dioxide 27 mmol/L (22-29); Chloride 104 mmol/L (96-108); Creatinine Clr Calc Pharmacy 88.2; Estimated Glomerular Filt Rate > 60; Glucose Random 118 mg/dL (60-115); Potassium 4.4 mmol/L (3.3-5.1); Sodium 140 mmol/L (135-145); Total Protein 8.7 g/dL (6.5-8.0)
[2024-04-15 14:52] LABS: Erythrocyte Sedimentation Rate 16 MM/HR (0-15)
[2024-04-15] MEDS: Ketorolac Tromethamine 30 MG/ML VIAL IVPUSH (15:03)
[2024-04-15 15:08] LABS: Glucose, Whole Blood 114 mg/dL (60-115)
[2024-04-15] MEDS: Lidocaine HCl 1 % MPF 2 ML VIAL INFILTRATI ×4 (15:58→15:59)
--- OUTSIDE RECORDS SUMMARY | 2024-04-15 16:18 | XMS_ITS | Encounter Summary ---
Author Organization [employer] Address [address] [place] [address] 7 h Floor [place] [id number] Care Team Providers Care Facility Practice Specialist Name Role Phone Carmelita Escalona Primary Care Provider +1- [phone] Vi Keys MD Primary Care Pro vider Encounter Details Date Type Department Care Team (Latest Contact Info) Description 11/23/2021 Abstract [facility] Dental, Provider, DDS Social History Tobacco Use Types Packs/Day Years Used Date Smoking Tobacco: Never Assessed Sex and Gender Information Value Date Recorded Sex Assigned at Male 01/10/2022 10:28 AM EDT Legal Sex Male 10:28 AM EDT Gender Identity Choose not to disclose 10:28 AM EDT Sexual Orientation Choose not to disclose 2021 10:28 AM EDT documented as of this encounter Plan of Treatment Upcoming Encounters Date Type Department Care Team (Late st Contact Info) Description 05/03/2024 3:00 PM EST Office Visit [facility] [address] [place] [address] Fannie Castañeda, OD [address] [place] [address] documented as of this encounter Visit Diagnoses Not on filedocumented in this encounter Care Teams Facility Practice Specialist Relationship Specialty Start Date End Date Carmelita Escalona FNP PCP - General Family Medicine 11/02/21 12/19/22 Vi Keys MD [address] [place] [address] PCP - General Internal Medicine 12/20/22 documented as of this encounter
--- OUTSIDE RECORDS SUMMARY | 2024-04-15 16:18 | XMS_ITS | Clinical Summary ---
Author Organization [facility] Address [address] [place] [address] Phone Care Team Providers Care Helmet Hat Puncher Name Role Phone Unavailable Primary Care Provider Unavailabl e Social History Tobacco Use Types Packs/Day Years Used Date Smoking Tobacco: Never Assessed Sex and Gender Information Value Date Recorded Sex Assigned at Not on file Gender Identity Not on file Sexual Orientation Not on file Plan of Treatment Upcoming Encounters Date Type Department Care Team ([facility] Contact Info) Description 05/07/2024 1:15 PM EST Consult Orthopedic Surgery [facility] [address] [phone] Nish Tavera DPM [address] [address] Health Maintenance Due Date Last Done Comments DTaP,Tdap,and Td Vaccines (1 - Tdap) 10/31/1983 Hepatitis B Vaccines (1 of 3 - 19+ 3-dose series) 10/31/1983 Zoster Vaccines (1 of 2) 2014 COVID-19 Vaccine (2023-2 5 season) 2023 Influenza Vaccine (#1) 2023 Cholesterol Screening (Lipid Panel) 02/23/2024 Colorectal Cancer Screening: Colonoscopy 02/23/2024 Depression Screening 02/23/2024 HIV Screening 02/23/2024 Hepatitis C Screening 02/23/2024 Social Influencers of Health Screening 02/23/2024 RSV Immunization Patients 60 + Years Old (1 - 1-dose 75+ series) 10/31/2039 HIB Vaccines Aged Out No longer eligi ble based on patient's age to complete this topic HPV Vaccines Aged Out No longer eligi ble based on patient's age to complete this topic Hepatitis A Vaccines Aged Out No long er eligible based on patient's age to complete this topic IPV Vaccines Aged Out No longer eligi ble based on patient's age to complete this topic MMR Vaccines Aged Out No longer eligi ble based on patient's age to complete this topic Meningococcal ACWY Vaccine Aged Out N o longer eligible based on patient's age to complete this topic Pneumococcal Vaccine: Pediat rics (0 to 5 Years) and At-Risk Patients (6 to 64 Years) Aged Out No longer eligible b ased on patient's age to complete this topic RSV Immunization Patients Un kimi 20 months Aged Out No longer eligible b ased on patient's age to complete this topic Varicella Vaccines Aged Out No longer eligible based on patient's age to complete this topic , [facility] [place] [id number]
--- OUTSIDE RECORDS SUMMARY | 2024-04-15 16:18 | XMS_ITS | Encounter Summary ---
Author Organization [employer] Address [address] [facility] 7t [place] [address] Care Team Providers Care Expanded Duty Dental Assistant Name Role Phone Carmelita Escalona Primary Care Provider +1- [phone] Vi Keys MD Primary Care Pro vider Reason for Visit * Reason Onset Date Comments Referral 06/20/2022 Encounter Details Date Type Department Care Team ([facility] st Contact Info) Description 06/20/2022 Telephone [facility] [address] [place] [address] Carmelita Escalona FNP [address] [place] [address] Dept [place] [address] Referral Social History Tobacco Use Types Packs/Day Years Used Date Smoking Tobacco: Never Passive Smoke Exposure: Never Smokeless Tobacco: Never Alcohol Use Standard Drinks/Week Comments Never 0 (1 standard drink = 0.6 oz pur e alcohol) Depression Answer Date Recorded Patient Health Questionnaire-9 Score 0 08/19/2022 Housing Stability Answer Date Recorded What is your housing situation today? I have karen angulo 12/27/[address] you li ve. Do you have problems with any of the following? None of the above 12/27/2022 Food Insecurity Answer Date Recorded Within the past 12 months, y ou worried that your food would run out before you got money to buy more: Never True 12/27/2022 Within the past 12 months,th e food you bought just didn't last and you didn't have enough money to get more: Never True Transportation Answer Date Recorded In the past 12 months, has l ack of transportation kept you from medical appts, meetings, work or from getting things needed for daily living? No 12/27/2022 Utilities Answer Date Recorded In the past 12 months, has t he electric, gas, oil or water company threatened to shut off services in your home? No 12/27/2022 Depression Answer Date Recorded Patient Health Questionnaire-2 Score 0 08/19/2022 Sex and Gender Information Value Date Recorded Sex Assigned at Male 01/10/2022 10:28 AM EDT Legal Sex Male 10:28 AM EDT Gender Identity Choose not to disclose 10:28 AM EDT Sexual Orientation Choose not to disclose 2021 10:28 AM EDT COVID-19 Exposure Response Date Recorded In the last 10 days, have yo u been in contact with someone who was confirmed or suspected to have Coronavirus/COVID-19? No / Unsure 08/19/2022 2:50 PM EDT documented as of this encounter Miscellaneous Notes * Telephone Encounter - Robin Atkinson - 06/20/2022 2:36 PM EDT Tc from pt requesting to new referral for orthopedics , pt was referred however needs a sooner apptthan August. Please contact at [phone] documented in this encounter Plan of Treatment Upcoming Encounters Date Type Department Care Team (Late st Contact Info) Description 05/03/2024 3:00 PM EST Office Visit [facility] [address] [place] [address] Fannie Castañeda, OD [address] [place] [address] documented as of this encounter Visit Diagnoses Not on filedocumented in this encounter Care Teams Expanded Duty Dental Assistant Relationship Specialty Start Date End Date Carmelita Escalona FNP PCP - General Family Medicine 11/02/21 12/19/22 Vi Keys MD [address] [place] [address] PCP - General Internal Medicine 12/20/22 documented as of this encounter
--- OUTSIDE RECORDS SUMMARY | 2024-04-15 16:18 | XMS_ITS | Encounter Summary ---
Author Organization [employer] Address [address] [facility] [address]t [place] [address] Care Team Providers Care Cemetery Vault Installer Name Role Phone Carmelita Escalona Primary Care Provider +1- [phone] Vi Keys MD Primary Care Pro vider Reason for Visit * Reason Onset Date Comments ER Follow-up 12/09/2022 Encounter Details Date Type Department Care Team ([facility] st Contact Info) Description 12/09/[address] [facility] [address] [place] [address] Carmelita Escalona FNP [address] [facility] Dept [place] [address] ER Follow-up Social History Tobacco Use Types Packs/Day Years Used Date Smoking Tobacco: Never Passive Smoke Exposure: Never Smokeless Tobacco: Never Alcohol Use Standard Drinks/Week Comments Never 0 (1 standard drink = 0.6 oz pur e alcohol) Depression Answer Date Recorded Patient Health Questionnaire-9 Score 0 08/19/2022 Depression Answer Date Recorded Patient Health Questionnaire-2 Score 0 08/19/2022 Sex and Gender Information Value Date Recorded Sex Assigned at Male 01/10/2022 10:28 AM EDT Legal Sex Male 10:28 AM EDT Gender Identity Choose not to disclose 10:28 AM EDT Sexual Orientation Choose not to disclose 2021 10:28 AM EDT documented as of this encounter Miscellaneous Notes * Telephone Encounter - Lauren Perez RN - 12/09/2022 1:36 PM EDT T/C to pt. For below message, pt. Was admitted at [facility] for loss of vision and suspected seizure from12/07 to 12/09. P. Schedule for HDF on 12/22/2022. Pt. Verbally agreed and understood. HDF summery and ED summery scanned into pt.'s chart. * Telephone Encounter - Nisa Ramos - 12/09/2022 10:50 AM EDT Patient calling to report ED visit on 12/09/2022 at [facility]. Diagnosed with nothing. Patient advised will forward to nurse for follow up. No symptoms Please contact pt at [phone] documented in this encounter Plan of Treatment Upcoming Encounters Date Type Department Care Team (Late st Contact Info) Description 05/03/2024 3:00 PM EST Office Visit [facility] [address] [place] [address] Garry, Fannie, OD [address] [place] [address] documented as of this encounter Visit Diagnoses Not on filedocumented in this encounter Additional Health Concerns Assessment Noted Time PHQ-9 Depression Total Score: 0 08/20/19 23 3:43 PM EDT documented as of this encounter Care Teams Cemetery Vault Installer Relationship Specialty Start Date End Date Carmelita Escalona FNP PCP - General Family Medicine 11/02/21 12/19/22 Vi Keys MD [address] [place] [address] PCP - General Internal Medicine 12/20/22 documented as of this encounter
--- OUTSIDE RECORDS SUMMARY | 2024-04-15 16:18 | XMS_ITS | Clinical Summary ---
Author Organization [facility] Address [address] [place] [address] Care Team Providers Care Pediatric Acute Care Unit Nurse Name Role Phone Unavailable Primary Care Provider Unavailabl e Source Comments PLEASE NOTE, if this patient is a minor, it may be UNLAWFUL to discuss sensitive information that is contained in these records (such as FAMILY PLANNING, MENTAL HEALTH or SUBSTANCE ABUSE) with the minor patient's parent or other person without the patient's specific authorization.[facility] Immunizations Name Administration Dates Next Due Moderna COVID-19 Vaccine, re d cap blue label, 12+ Primary Series 07/14/2020,06/15/2020 Social History Tobacco Use Types Packs/Day Years Used Date Smoking Tobacco: Never Assessed Social Connections Answer Date Recorded Social Connections and Isolation 0 06/15/2020 Financial Resource Strain Answer Date R ecorded Financial Resource Strain 0 2020 Stress Answer Date Recorded Stress 0 06/15/2020 Physical Activity Answer Date Recorded Physical Activity 0 06/15/2020 Food Insecurity Answer Date Recorded Food 0 06/15/2020 Transportation Needs Answer Date Record ed Transportation 0 06/15/2020 Housing Stability Answer Date Recorded Housing 0 06/15/2020 Safety and Environment Answer Date Todd rded Safety 0 06/15/2020 Utilities Answer Date Recorded Utilities 0 06/15/2020 Employment Answer Date Recorded Employment 0 06/15/2020 Sex and Gender Information Value Date Recorded Sex Assigned at Not on file Legal Sex Male 10:28 AM PDT Gender Identity Not on file Sexual Orientation Not on file Plan of Treatment Health Maintenance Due Date Last Done Comments Diabetes Screening 1965 Hepatitis C Screening 1965 Lipid Screening 1965 Tobacco Screening 1965 HIV Screening 10/31/1979 Hypertension Screening (#1) 1982 Imm-Hepatitis B (1 of 3 - 19 + 3-dose series) 10/31/1983 CT Colonography 2009 Colonoscopy 2009 Colorectal Cancer Screening 2009 FIT/gFOBT 2009 Fecal DNA 2009 Flexible Sigmoidoscopy 2009 Imm-Zoster, Recombinant (1 of 2) 2014 Eaj-MCHVT-15 ( season) 2023 021, 06/15/2020 Imm-Influenza (#1) 2023 03/27/2019, 0 05/30/2018, 02/15/2016, Additional history exists Alcohol and Drug Screen 03/13/2024 Depression Annual Screen 03/13/2024 Imm-DTaP/Tdap/Td (2 - Td or Tdap) 05/30/2028 [address]
--- OUTSIDE RECORDS SUMMARY | 2024-04-15 16:18 | XMS_ITS | Encounter Summary ---
Author Organization [employer] Address [address] [place] [address] Care Team Providers Care Activity Therapy Teacher Name Role Phone Vi Keys MD Primary Care Pro vider Encounter Details Date Type Department Care Team (Late st Contact Info) Description 04/15/2024 Orders Only GENERIC EXTERNAL DATA DEPARTMENT Provider, Generic External Data Social History Tobacco Use Types Packs/Day Years Used Date Smoking Tobacco: Never Passive Smoke Exposure: Never Smokeless Tobacco: Never Alcohol Use Standard Drinks/Week Comments Never 0 (1 standard drink = 0.6 oz pur e alcohol) Depression Answer Date Recorded Patient Health Questionnaire-9 Score 0 08/19/2022 Housing Stability Answer Date Recorded What is your housing situation today? I have karen angluo 12/27/[address] you li [...] Description 05/03/2024 3:00 PM EST Office Visit [facility] [address] [place] [address] GarryBrucen, OD [address] [place] [address] Pending Results Name Type Priority Associated Diagnoses Date /Time Comprehensive Metabolic Panel Lab Routine 04/15/2024 2:09 PM EST C-reactive Protein Lab Routine 2024 2:09 PM EST documented as of this encounter Procedures Procedure Name Priority Date/Time Associated Diagnosis Comments GLUCOSE, WHOLE BLOOD Routine 04/15/2024 3:04 PM EST XR FOOT 3+ VIEWS RIGHT Routine 2:16 PM EST CBC WITH AUTO DIFFERENTIAL Routine 04/15/2024 2:09 PM EST SED RATE BY MODIFIED WESTERGREN Routine 04/15/2024 2:09 PM EST C-REACTIVE PROTEIN Routine 04/15/2024 2: 09 PM EST LACTIC ACID Routine 04/15/2024 2:09 PM EST COMPREHENSIVE METABOLIC PANEL Routine 04/15/2024 2:09 PM EST documented in this encounter Results * Glucose, Whole Blood (04/15/2024 3:04 PM EST) Glucose, Whole Blood 114 60 - 115 mg/dL [facility] Comment:METER #: [id number] 04/15/2024 3:04 PM EST 04/15/2024 3:07 PM EST us Generic External Data Provider LAB BLOOD ORDERAB LES Final Result [facility] [address] [place] [phone] * XR Foot 3+ Views Right (04/15/2024 2:16 PM EST) Anatomical Region Laterality Modality Lower Extremities, Foot Right Radiogra phic Imaging 04/15/2024 2:16 PM EST Narrative 04/15/2024 2:23 PM EST ? [facility] ?[address] ?[place] [address] ?XRay Report ? Signed ? Patient: Jackie Marlow ?MR#: [id number] ? : 1965 ?Acct:[id number] ? Age/Sex: 58 / M ?ADM Date: 04/15/24 ? Loc: HO.ED ? Attending Dr: ? Ordering Physician: Marlon Machuca ?? Date of Service: 04/15/24 ?? Procedure(s): XR foot RT min 3V ?? Accession Number(s): [id number] ? cc: Marlon Machuca; Vi Keys MD ? EXAMINATION: ??XR FOOT 3 OR MORE VIEWS RIGHT ? HISTORY: right big toe redness. osteo? COMPARISON: Comparison is made with the prior examination dated ?? 02/15/2024. ? FINDINGS: ? Three views of the right foot are submitted. ??Osseous mineralization is ?? normal. ??There is no fracture or dislocation. ??The joint spaces are ?? preserved. ??The soft tissues are unremarkable. ? XR/XR foot RT min 3V ?? IMPRESSION: ? Unremarkable examination of the right foot. ? Electronically signed by: ??Joce Savage MD ??04/15/2024 02:21 PM EST ?? RP ? Dictated By: ?Joce Savaeg MD ? Signed By: ?<Electronically signed by Joce Savage MD in OV> ?04/15/24 1421 ? DD/ 1416 ? TD/TT: 04/15/24 1416 ? Service Station Equipment Mechanic: ? Procedure Note Mitchel, Image - 02/03/[address] [address] XRay Report Signed Patient: Seth Marlow#: [id number] : 1965Acct:[id number] Age/Sex: 58 / MADM Date: 04/15/24 Loc: HO.ED Attending Dr: Ordering Physician: Marlon Machuca Date of Service: 04/15/24 Procedure(s): XR foot RT min 3V Accession Number(s): [id number] cc: Marlon Machuca; Vi Keys MD EXAMINATION: XR FOOT 3 OR MORE VIEWS RIGHT HISTORY: right big toe redness. osteo? COMPARISON: Comparison is made with the prior examination dated 02/15/2024. FINDINGS: Three views of the right foot are submitted. Osseous mineralization is normal. There is no fracture or dislocation. The joint spaces are preserved. The soft tissues are unremarkable. XR/XR foot RT min 3V IMPRESSION: Unremarkable examination of the right foot. Electronically signed by: Joce Savage MD 04/15/2024 02:21 PM EST Dictated By: Joce Savage MD Signed By: <Electronically signed by Joce Savage MD in OV> 04/15/24 1421 DD/ 1416 TD/TT: 04/15/24 1416 Service Station Equipment Mechanic: [facility] External Provider IMG XR PROCEDURES Final Result * (ABNORMAL) Sed Rate by Modified Jannaren (04/15/2024 2:09 PM EST) Erythrocyte Sedimentation Rate 16(H) 0 - 15 MM/HR [facility] Comment:Patients with polycy themia and many hemoglobin abnormalitiesmay have depressed sed rates whereas patients with anemiamay have elevated sed rates. 04/15/2024 2:09 PM EST 04/15/2024 2:14 PM EST Generic External Data Provider LAB BLOOD ORDERAB LES Final Result [facility] [address] [place] [address] [phone] * Lactic Acid (04/15/2024 2:09 PM EST) [facility] Lactic Acid 1.3 0.5 - 2.0 mmol/L [facility] 04/15/2024 2:09 PM EST 04/15/2024 2:14 PM EST Generic External Data Provider LAB BLOOD ORDERAB LES Final Result Performing Organization Address City/[facility] Co de Phone Number [facility] [address] [place] [address] [phone] * (ABNORMAL) CBC auto differential (04/15/2024 2:09 PM EST) [facility] White Blood Count 8.5 4.8 - 10.8 X10*3/uL [facility] Red Blood Count 5.61 4.60 - 5.80 X10*6/uL [facility] Hemoglobin 15.0 14.0 - 18.0 g/dl [facility] Hematocrit 44.9 42.0 - 52.0 % [facility] Mean Corpuscular Volume 80.0 80.0 - 98.0 fL [facility] Mean Corpuscular Hemoglobin 26.7(L) 27.0 - 33.0 pg [facility] Mean Corpuscular HGB Conc 33.4 31.0 - 36.0 g/dl [facility] Red Cell Distribution Width 14.0 11.0 - 16.0 % [facility] Platelet Count 257 160 - 400 X10*3/uL [facility] Mean Platelet Volume 10.4 9.4 - 12.4 fL [facility] Neutrophils Percent Auto 71.3 45 - 73 % [facility] Imm Gran Pct Auto 0.7(H) 0.0 - 0.4 % [facility] Lymphocytes Percent Auto 16.3(L) 20 - 40 % [facility] Monocytes Percent Auto 6.7 2 - 11 % [facility] Eosinophils Percent Auto 4.3(H) 0 - 4 % [facility] Basophils Percent Auto 0.7 0 - 2 % [facility] NRBC Pct Auto 0.0 0.0 - 0.2 /100WBC [facility] Neutrophils Absolute Auto 6.0 2.0 - 8.3 x10*3/uL [facility] Imm Gran Abs Auto 0.06(H) 0.00 - 0.03 X10*3/uL [facility] Lymphocytes Absolute Auto 1.4 1.2 - 4.9 X10*3/uL [facility] Monocytes Absolute Auto 0.6 0.1 - 1.2 X10*3/uL [facility] Eosinophils Absolute Auto 0.4 0.0 - 0.4 X10*3/uL [facility] Basophils Absolute Auto 0.1 0.0 - 0.2 X10*3/uL [facility] NRBC Abs Auto 0.000 0.0 - 0.012 X10*3/uL [facility] 04/15/2024 2:09 PM EST 04/15/2024 2:14 PM EST us Generic External Data Provider LAB BLOOD ORDERAB LES Final Result [facility] [address] [place] [address] [phone] documented in this encounter Visit Diagnoses Not on filedocumented in this encounter Additional Health Concerns Assessment Noted Time PHQ-9 Depression Total Score: 0 08/20/19 3:43 PM EDT documented as of this encounter Care Teams Activity Therapy Teacher Relationship Specialty Start Date End Date Vi Keys MD [address] [place] [phone] PCP - General Internal Medicine 12/20/22 documented as of this encounter
--- OUTSIDE RECORDS SUMMARY | 2024-04-15 16:18 | XMS_ITS | Encounter Summary ---
Author Organization [employer] Address [address] [place] [address] Care Team Providers Care Net Making Supervisor Name Role Phone Vi Keys MD Primary Care Pro vider Reason for Visit * Reason Comments Nail Problem Encounter Details Date Type Department Care Team (Late st Contact Info) Description 04/15/2024 9:00 AM EST Office Visit [facility] [address] [place] [address] [phone] Lizandro Coyne MD [address] [place], [place] [phone] Toe infection (Primary Dx) Social History Tobacco Use Types Packs/Day Years [...] AM EDT documented as of this encounter Last Filed Vital Signs Vital Sign Reading Time Taken Comments Blood Pressure 133/85 04/15/2024 8:55 AM EST Pulse 88 04/15/2024 8:55 AM EST Temperature 36.6 ??C (97.8 ??F) 04/15/2024 8:55 AM ES T Respiratory Rate 17 04/15/2024 8:55 AM EST Oxygen Saturation 98% 04/15/2024 8:55 AM EST Inhaled Oxygen Concentration - - Weight 85.7 kg (189 lb) 04/15/2024 8:55 AM EST Height - - Body Mass Index 25.99 02/06/2024 1:33 PM EST documented in this encounter Progress Notes * Lizandro Coyne MD - 04/15/2024 9:00 AM EST Subjective Patient ID: Jackie Marlow is a 58 y.o. adult. HPI Jackie was seen in [facility] 2 weeks ago for 2 week h/o pain, swelling, tenderness, drainage at medial distal right great toe adjacent to nail. Was taking Tylenol with no relief of pain.prescribed Bactrim DS and Keflex, advised warm soaks. C&S of drainage done, grew MSSA. He returns today because sx have worsened, states unable to work due to severity of pain. Drainage persists. He finished antibiotics. Taking Tylenol with no relief. States had Podiatry tristan't in 1 month. Lives Alone. 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 Never smoked. Patient Active Problem List Diagnosis Atypical chest pain Carpal tunnel syndrome Essential hypertension Asthma Tinea pedis Tubular adenoma of colon Type 2 diabetes mellitus (CMS/HCC) Vitamin D deficiency Kidney stone Trigger finger of right thumb Chronic GERD Mixed anxiety depressive disorder Nonspecific reaction to tuberculin test Chronic left shoulder pain Right foot pain Left flank pain Health care maintenance HLD (hyperlipidemia) Transaminitis The following portions of the chart were reviewed this encounter and updated as appropriate: Tobacco Allergies Meds Problems Med Hx Surg Hx Fam Hx Review of Systems Constitutional: Negative for fever. Respiratory: Negative for shortness of breath. Cardiovascular: Negative for chest pain. Gastrointestinal: Negative for abdominal pain. Skin: Negative for rash. Neurological: Negative for headaches. Objective Physical Exam Vitals and nursing note reviewed. Constitutional: Appearance: Normal appearance. HENT: Head: Normocephalic and atraumatic. Nose: Nose normal. Eyes: Conjunctiva/sclera: Conjunctivae normal. Pupils: Pupils are equal, round, and reactive to light. Cardiovascular: Pulses: Dorsalis pedis pulses are 2+ on the right side. Pulmonary: Effort: Pulmonary effort is normal. Feet: Comments: Right great toe: swelling, tenderness, scant dried blood at medial distal corner adjacentto corner of nail. Skin: General: Skin is warm and dry. Neurological: Mental Status: Sajid is alert. Gait: Gait is intact. Psychiatric: Mood and Affect: Mood and affect normal. Behavior: Behavior normal. Procedures Assessment/Plan Diagnoses and all orders for this visit: Toe infection Worsening despite finishing courses of Keflex and Bactrim DS, warm soaks. C&S grew MSSA 03/25. ?Sx present for 4 weeks, ? osteomyelitis. Referred to ED now. * Vianca Chino RN - 04/15/2024 9:00 AM EST Expect via private car to [facility] per Dr. Coyne. Pt to F/U upon discharge. documented in this encounter Plan of Treatment Upcoming Encounters Date Type Department Care Team (Late st Contact Info) Description 05/03/2024 3:00 PM EST Office Visit [facility] [address] [place] [address] Fannie Castañeda, OD [address] [place] [address] documented as of this encounter Visit Diagnoses Diagnosis Toe infection- Primary documented in this encounter Additional Health Concerns Assessment Noted Time PHQ-9 Depression Total Score: 0 08/20/19 3:43 PM EDT documented as of this encounter Care Teams Net Making Supervisor Relationship Specialty Start Date End Date Vi Keys MD [address] [place] [phone] PCP - General Internal Medicine 12/20/22 documented as of this encounter
--- OUTSIDE RECORDS SUMMARY | 2024-04-15 16:18 | XMS_ITS | Encounter Summary ---
Author Organization [employer] Address [address] [place] [address] Care Team Providers Care Food Order Delivery Runner Name Role Phone Vi Keys MD Primary Care Pro vider Encounter Details Date Type Department Care Team (Late st Contact Info) Description 03/25/2024 Orders Only [facility] [address] [place], [place] [phone] Mandie Chavez DO [address] [place], [place] [phone] Social History Tobacco Use Types Packs/Day Years [...] Description 05/03/2024 3:00 PM EST Office Visit [facility] [address] [place], [place] [phone] Garry, Fannie, OD [address] [place] [address] documented as of this encounter Procedures Procedure Name Priority Date/Time Associated Diagnosis Comments GRAM STAIN Routine 03/25/2024 12:00 AM EST documented in this encounter Results * Gram stain (03/25/2024 12:00 AM EST) 03/25/2024 03/25/2024 Comment:Toe Rt Grt Narrative [facility] - 03/28/2024 7:25 AM EST Gram stain results: 2+ polys 2+ epithelial cells 2+ Gram-positive cocci Routine Culture Report - external Routine Culture 2+ Mixed skin hansel Staphylococcus aureus Quant Org ID 3+ Staphylococcus aureus: Clindamycin <=0.25(S) Staphylococcus aureus: Erythromycin <=0.25(S) Staphylococcus aureus: Levofloxacin 0.25(S) Staphylococcus aureus: Oxacillin 0.5(S) Staphylococcus aureus: Penicillin-G >=0.5(R) Staphylococcus aureus: Tetracycline <=1(S) Staphylococcus aureus: Trimethoprim/Sulfamethoxazole <=10(S) Specimen Source: Toe Right Great us Mandie Chavez DO LAB MICROBIOLOGY - GENERAL O RDERABLES Final Result [facility] [address] [place] [phone] documented in this encounter Visit Diagnoses Not on filedocumented in this encounter Additional Health Concerns Assessment Noted Time PHQ-9 Depression Total Score: 0 08/20/19 3:43 PM EDT documented as of this encounter Care Teams Food Order Delivery Runner Relationship Specialty Start Date End Date Vi Keys MD [address] [place] [address] PCP - General Internal Medicine 12/20/22 documented as of this encounter
--- OUTSIDE RECORDS SUMMARY | 2024-04-15 16:18 | XMS_ITS | Encounter Summary ---
Author Organization [employer] Address [address] [place] [address] Care Team Providers Care Product Safety Manager Name Role Phone Vi Keys MD Primary Care Pro vider Reason for Visit * Reason Onset Date Comments June04/04/2024 Encounter Details Date Type Department Care Team (Late st Contact Info) Description 04/04/2024 Telephone [facility] [address] [place] [address] Bailee Lopez MA June Social History Tobacco Use Types Packs/Day Years [...] encounter Miscellaneous Notes * Telephone Encounter - Bailee Lpoez MA - 04/04/2024 1:26 PM EST T/C-Corner Bead Operator called to schedule Transfer Patient for June. Patient will be on vacation onApril. Corner Bead Operator will call for July recall to schedule. documented in this encounter Plan of Treatment Upcoming Encounters Date Type Department Care Team (Late st Contact Info) Description 05/03/2024 3:00 PM EST Office Visit [facility] [address] [place], [place] [phone] Garry, Fannie, OD [address] [place], [place] [phone] documented as of this encounter Visit Diagnoses Not on filedocumented in this encounter Additional Health Concerns Assessment Noted Time PHQ-9 Depression Total Score: 0 08/20/19 3:43 PM EDT documented as of this encounter Care Teams Product Safety Manager Relationship Specialty Start Date End Date Vi Keys MD [address] [place], [place] [phone] PCP - General Internal Medicine 12/20/22 documented as of this encounter
--- OUTSIDE RECORDS SUMMARY | 2024-04-15 16:18 | XMS_ITS | Encounter Summary ---
Author Organization [employer] Address [address] [place] [address] [address] [place] [phone] Care Team Providers Care Ship'S Cook Name Role Phone Carmelita Escalona Primary Care Provider [phone] Vi Keys MD Primary Care Pro vider Encounter Details Date Type Department Care Team (Latest Contact Info) Description 07/13/2018 Abstract [facility] Dental, Provider, DDS Social History Tobacco [...] Description 05/03/2024 3:00 PM EST Office Visit [facility] [address] [place], [place] [phone] Fannie Castañeda, OD [address] [place] [address] documented as of this encounter Visit Diagnoses Not on filedocumented in this encounter Care Teams Ship'S Cook Relationship Specialty Start Date End Date Carmelita Escalona FNP PCP - General Family Medicine 11/02/21 12/19/22 Vi Keys MD [address] [place], [place] [phone] PCP - General Internal Medicine 12/20/22 documented as of this encounter
--- OUTSIDE RECORDS SUMMARY | 2024-04-15 16:18 | XMS_ITS | Encounter Summary ---
Author Organization [employer] Address [address] [place] [address] Care Team Providers Care Hand Brim Ironer Name Role Phone Vi Keys MD Primary Care Pro vider Reason for Referral * Consultation (Urgent) - Authorized Specialty Diagnoses / Procedures Referred By Britton calabrese Referred To Contact Podiatry Diagnoses Paronychia of great toe, right Mandie Chavez DO [address] [place] [address] Phone: tel: fax: Nish Tavera DPM [address] [facility] [address] [place] [id number] Phone: tel: fax: Referral ID Status Reason Start Date Expiration Date Visits Requested Visits Authorized [id number] Authorized Specialty Services Required 03/25/2024 03/25/2025 6 6 Encounter Details Date Type Department Care Team (Late st Contact Info) Description 03/25/2024 9:40 AM EST Office Visit [facility] [address] [place], [place] [phone] Mandie Chavez DO [address], [place] [phone] Paronychia of great toe, right (Primary Dx); Type 2 diabetes mellitus with diabetic nephropathy, without long-term current use of insulin ([facility]) Social History Tobacco Use Types Packs/Day Years [...] Sign Reading Time Taken Comments Blood Pressure 114/85 03/25/2024 9:55 AM EST Pulse 88 03/25/2024 9:55 AM EST Temperature 36.7 ??C (98 ??F) 03/25/2024 9:55 AM EST Respiratory Rate 16 03/25/2024 9:55 AM EST Oxygen Saturation 98% 03/25/2024 9:55 AM EST Inhaled Oxygen Concentration - - Weight 84.8 kg (187 lb) 03/25/2024 9:55 AM EST Height - - Body Mass Index 25.72 02/06/2024 1:33 PM EST documented in this encounter Progress Notes * Mandie Chavez, DO - 03/25/2024 9:40 AM EST SONIA Marlow is a 58 y.o. adult who presents for Sick Visit. He comes to [place] c/o infection in his toenail. He says that he had an ingrown toenail on his R great toe which he tried to cut ~ 2 weeks ago. He says that the pain started shortly after but has progressively worsened. He has had to sleep with his foot hanging off the bed for the last few nights o/w he wakes with exquisite pain. He has had to pray sitting in his chair for the last couple days as he can't put pressure on his toe. He says he tried tylenol 500 mg, but his pain is still 9-10/10 and isn't getting any sx relief. He says the skin around the nail is very red and swollen. He has purulent drainage. He denies any fevers, chills. He says he moisturizes his feet regularly d/t his DM. He does not follow regularly with podiatry. He was seen by them ~ 5 years ago when he had similar ingrown nail. He requests that his A1c and BG be tested today. History provided by: Patient certified court interpreter used: No Pain Severity: Severe Onset quality: Gradual Duration: 2 weeks Timing: Constant Progression: Worsening Chronicity: New Associated symptoms: no abdominal pain, no chest pain, no cough, no diarrhea, no fever, no headaches, no nausea, no rash, no shortness of breath and no vomiting Review of Systems Constitutional: Negative for activity change, appetite change, fever and unexpected weight change. Respiratory: Negative for cough, chest tightness and shortness of breath. Cardiovascular: Negative for chest pain and palpitations. Gastrointestinal: Negative for abdominal pain, diarrhea, nausea and vomiting. Skin: Positive for wound. Negative for rash. Neurological: Negative for dizziness, weakness and headaches. Patient Active Problem List Diagnosis Atypical chest pain Carpal tunnel syndrome Essential hypertension Asthma Tinea pedis Tubular adenoma of colon Type 2 diabetes mellitus (CMS/HCC) Vitamin D deficiency Kidney stone Trigger finger of right thumb Chronic GERD Mixed anxiety depressive disorder Nonspecific reaction to tuberculin test Chronic left shoulder pain Right foot pain Left flank pain Health care maintenance HLD (hyperlipidemia) Transaminitis Allergies Allergen Reactions Lisinopril Cough Pork Allergy synagogue reasons synagogue reasons OBJECTIVE Visit Vitals BP 114/85 (BP Location: Right arm, Patient Position: Sitting, BP Cuff Size: Adult) Pulse 88 Temp 98 ??F (36.7 ??C) (Temporal) Resp 16 Wt 187 lb (84.8 kg) SpO2 98% BMI 25.72 kg/m?? Smoking Status Never BSA 2.07 m?? Physical Exam Constitutional: General: Jackie is not in acute distress. Appearance: Normal appearance. Cardiovascular: Rate and Rhythm: Normal rate and regular rhythm. Heart sounds: Normal heart sounds. No murmur heard. Pulmonary: Effort: Pulmonary effort is normal. Breath sounds: Normal breath sounds. No wheezing or rhonchi. Skin: Findings: Wound present. Comments: Moderate swelling and erythema with significant TTP R great toe with small amt purulent drainage Neurological: General: No focal deficit present. Mental Status: Jackie is alert and oriented to person, place, and time. Cranial Nerves: No cranial nerve deficit. Motor: No weakness. Gait: Gait normal. Psychiatric: Mood and Affect: Mood normal. Hemoglobin A1c Date/Time Value Ref Range Status 01/08/2024 09:05 AM 7.3 (H) <6.0 % Final Comment: Hemoglobin A1C Reference Range Adults: 4.8 - 6.0 % Non diabetic: < 6.0 % Goal: < 7.0 %Additional Action Suggested: > 8.0 %Note: Hemoglobin A1c results are invalid for patients with abnormal amounts of HbF. Blood transfusions may impact the HbA1c concentration in the patient sample. Hemoglobin A1C Date/Time Value Ref Range Status 02/06/2024 01:36 PM 7.2 (A) 4.0 - 6.0 % Final Assessment/Plan Diagnoses and all orders for this visit: Paronychia of great toe, right With significant pain and TTP -provided reassurance -send bacterial culture -treat with keflex and bactrim x 1 week -encouraged frequent warm soaks -encouraged standing doses tylenol TID -trial tramadol for severe pain -referred to podiatry for eval -advised rtc if sx worsen or no improvement, he agrees with plans --Follow-up with PCP as scheduled or sooner prn-- Current Outpatient Medications: acetaminophen (Tylenol 8 Hour) 650 MG ER tablet, Take 1 tablet (650 mg) by mouth every 8 (eight) hours if needed for mild pain. Do not crush, chew, or split., Disp: 40 tablet, Rfl: 1 albuterol 108 (90 Base) MCG/ACT inhaler, Inhale 2 puffs every 4 (four) hours., Disp: 18 g, Rfl: 3 Alcohol Swabs (Alcohol Prep) pads, 1 each 2 times daily., Disp: 100 each, Rfl: 11 amLODIPine (Norvasc) 10 MG tablet, TAKE 1 TABLET BY MOUTH EVERY DAY FOR 30 DAYS, Disp: , Rfl: aspirin 81 MG chewable tablet, Chew 1 tablet (81 mg) Once per day., Disp: 90 tablet, Rfl: 1 atorvastatin (Lipitor) 20 MG tablet, Take 1 tablet by mouth every day, Disp: 90 tablet, Rfl: 3 Blood Glucose Calibration (FreeStyle Control Solution) liquid, USE 2 TIMES DAILY., Disp: , Rfl: Blood Glucose Monitoring Suppl w/Device kit, 1 each 2 times daily., Disp: 1 kit, Rfl: 0 Blood Pressure Monitoring (Blood Pressure Kit) kit, 1 each 2 (two) times a week., Disp: 1 kit, Rfl:0 cephalexin (Keflex) 500 MG capsule, Take 1 capsule (500 mg) by mouth 4 times daily for 7 days., Disp: 28 capsule, Rfl: 0 cholecalciferol (Vitamin D-3) 25 MCG (1000 UT) tablet, Take 1,000 Units by mouth Once per day., Disp: , Rfl: cyanocobalamin (Vitamin B-12) 500 MCG tablet, Take 1 tablet (500 mcg) by mouth Once per day., Disp:90 tablet, Rfl: 0 Diclofenac Sodium 1 % gel, Apply 1 Application topically if needed in the morning and at bedtime (right foot pain)., Disp: 50 g, Rfl: 1 docusate sodium (Colace) 100 MG capsule, Take 1 tab po bid prn constipation, Disp: 60 capsule, Rfl:2 econazole nitrate 1 % cream, Apply topically if needed each day for rash., Disp: 15 g, Rfl: 2 FREESTYLE LITE test strip, 1 each by Other route 2 times daily., Disp: 100 strip, Rfl: 11 gabapentin (Neurontin) 600 MG tablet, Take 1 tablet (600 mg) by mouth 3 times daily., Disp: 90 tablet, Rfl: 2 latanoprost (Xalatan) 0.005 % ophthalmic solution, Administer 1 drop into both eyes at bedtime., Disp: 2.5 mL, Rfl: 11 Lidoderm 5 % patch, Apply 1 patch topically in the morning. Remove & discard patch within 12 hours or as directed by MD., Disp: 30 patch, Rfl: 1 metFORMIN (Glucophage) 500 MG tablet, Take 2 tablets (1,000 mg) by mouth with breakfast and with evening meal., Disp: 360 tablet, Rfl: 1 psyllium (Metamucil Smooth Texture) 58.6 % powder, Take 5.12 g (3 g of fiber) by mouth 2 times daily., Disp: 283 g, Rfl: 2 sulfamethoxazole-trimethoprim (Bactrim DS) 800-160 MG tablet, Take 1 tablet by mouth 2 times daily for 7 days., Disp: 14 tablet, Rfl: 0 traMADol (Ultram) 50 MG tablet, Take 1 tablet (50 mg) by mouth every 8 (eight) hours if needed for severe pain for up to 5 days., Disp: 15 tablet, Rfl: 0 Scribe Attestation: Spencer Pinto, am serving as a scribe to document services personally performed by Mandie Kelsey, based on the patient's response to questions by provider and provider's statements to me. 03/25/24 10:32 AM Physicians Attestation: Mandie Pinto DO, have reviewed the information by the scribe, Spencer Silva, for accuracy and agree with its content. documented in this encounter Plan of Treatment Upcoming Encounters Date Type Department Care Team (Late st Contact Info) Description 05/03/2024 3:00 PM EST Office Visit [facility] [address] [place], [place] [phone] Fannie Castañeda, OD [address] [place] [address] Scheduled Orders Name Type Priority Associated Diagnoses Orde r Schedule Wound culture Microbiology Routine Paronychia of great toe, right Expected: 03/25/2024 (Approximate), Expires: 03/25/2025 Scheduled Referrals Name Type Priority Associated Diagnoses Orde r Schedule Referral to Podiatry Outpatient Referral Urgent Paronychia of great toe, right Expected: 03/25/2024 (Approximate), Expires: 03/25/2025 documented as of this encounter Visit Diagnoses Diagnosis Paronychia of great toe, right- Primary Type 2 diabetes mellitus with diabetic nephropathy, without long-term current use of insulin ([facility]) documented in this encounter Additional Health Concerns Assessment Noted Time PHQ-9 Depression Total Score: 0 08/20/19 3:43 PM EDT documented as of this encounter Care Teams Hand Brim Ironer Relationship Specialty Start Date End Date Vi Keys MD [address] [place] [address] PCP - General Internal Medicine 12/20/22 documented as of this encounter
--- OUTSIDE RECORDS SUMMARY | 2024-04-15 16:18 | XMS_ITS | Clinical Summary ---
Author Organization [employer] Address [address] [place] [address] Care Team Providers Care Plaster Tender Name Role Phone Vi Keys MD Primary Care Pro vider Allergies Active Allergy Reactions Criticality Noted Date Comments Lisinopril Cough 02/23/2021 Pork Allergy 12/22/2022 jewish reasons jewish reasons Medications econazole nitrate 1 % creamIndications: Tinea pedis of both feet Apply topically if needed each day for rash. 15 g 2 023 Active albuterol 108 (90 Base) MCG/ACT inhalerIndication s:Mild intermittent asthma without complication Inhale 2 puffs every 4 (four) hours. 18 g 3 023 2024 Active Lidoderm 5 % patch Apply 1 patch topically in the morning. Remove & discard patch within 12 hours or as directed by MD. 30 patch 1 023 Active Alcohol Swabs (Alcohol Prep) pads 1 each 2 times daily. 100 each 11 023 Active Blood Glucose Monitoring Suppl w/Device kitIndications:Ty pe 2 diabetes mellitus with diabetic nephropathy, without long-term current use of insulin ([facility]) 1 each 2 times daily. 1 kit 023 Active FREESTYLE LITE test stripIndications: Type 2 diabetes mellitus with diabetic nephropathy, without long-term current use of insulin (CMS/HCC) 1 each by Other route 2 times daily. 100 strip 11 023 Active Blood Glucose Calibration (FreeStyle Control Solution) liquid USE 2 TIMES DAILY. 023 Active Blood Pressure Monitoring (Blood Pressure Kit) kitIndications:Es sential hypertension 1 each 2 (two) times a week. 1 kit Active atorvastatin (Lipitor) 20 MG tabletIndications :Type 2 diabetes mellitus with diabetic nephropathy, without long-term current use of insulin ([facility]),Mixed hyperlipidemia Take 1 tablet by mouth every day 90 tablet 3 Active latanoprost (Xalatan) 0.005 % ophthalmic solution Administer 1 drop into both eyes at bedtime. 2.5 mL 11 2024 Active amLODIPine (Norvasc) 10 MG tablet TAKE 1 TABLET BY MOUTH EVERY DAY FOR 30 DAYS Active cholecalciferol (Vitamin D-3) 25 MCG (1000 UT) tablet Take 1,000 Units by mouth Once per day. Active cyanocobalamin (Vitamin B-12) 500 MCG tablet Take 1 tablet (500 mcg) by mouth Once per day. 90 tablet 2024 Active aspirin 81 MG chewable tablet Chew 1 tablet (81 mg) Once per day. 90 tablet 1 2024 Active metFORMIN (Glucophage) 500 MG tabletIndications :Type 2 diabetes mellitus with diabetic nephropathy, without long-term current use of insulin ([facility]) Take 2 tablets (1,000 mg) by mouth with breakfast and with evening meal. 360 tablet 1 Active Diclofenac Sodium 1 % gel Apply 1 Application topically if needed in the morning and at bedtime (right foot pain). 50 g 1 Active psyllium (Metamucil Smooth Texture) 58.6 % powder Take 5.12 g (3 g of fiber) by mouth 2 times daily. 283 g 2 2024 Active docusate sodium (Colace) 100 MG capsule Take 1 tab po bid prn constipation 60 capsule 2 Active gabapentin (Neurontin) 600 MG tabletIndications :Type 2 diabetes mellitus with diabetic nephropathy, without long-term current use of insulin ([facility]) Take 1 tablet (600 mg) by mouth 3 times daily. 90 tablet 2 Active acetaminophen (Tylenol 8 Hour) 650 MG ER tablet Take 1 tablet (650 mg) by mouth every 8 (eight) hours if needed for mild pain. Do not crush, chew, or split. 40 tablet 1 025 2024 Active acetaminophen (Tylenol) 500 MG tablet Take 2 tablets (1,000 mg) by mouth every 6 (six) hours if needed for moderate pain or fever for up to 25 doses. 40 tablet 024 2024 Discontinued cephalexin (Keflex) 500 MG capsule Take 1 capsule (500 mg) by mouth 4 times daily for 7 days. 28 capsule 025 2024 sulfamethoxazole- trimethoprim (Bactrim DS) 800-160 MG tablet Take 1 tablet by mouth 2 times daily for 7 days. 14 tablet 025 2024 traMADol (Ultram) 50 MG tabletIndications :Paronychia of great toe, right Take 1 tablet (50 mg) by mouth every 8 (eight) hours if needed for severe pain for up to 5 days. 15 tablet 025 2024 Active Problems Problem Noted Date Diagnosed Date Right foot pain 02/07/2024 Left flank pain 02/07/2024 Health care maintenance 02/07/2024 HLD (hyperlipidemia) 02/07/2024 Transaminitis 02/07/2024 Chronic left shoulder pain 01/05/2024 Chronic GERD 12/22/2022 12/22/2022 Mixed anxiety depressive disorder 12/22/2022 12/22/2022 Nonspecific reaction to tuberculin test 12/23/19 23 12/22/2022 Trigger finger of right thumb 08/21/2022 Kidney stone 01/17/2022 Atypical chest pain 11/13/2019 Essential hypertension 11/13/2019 Assessment & Plan (01/05/2024 3:55 PM EDT): - Aerobic exercise to reduce BP. Initial goal of 30 min walk 3-5x/week. Increase as tolerated. - low-sodium diet (goal: <2g/day) and heart healthy diet such as DASH to reduce BP and prevent ASCVD. - Home BP monitoring 1-2 x day with goal of <140/90. - Seek immediate medical attention for chest pain, palpitations, SOB, syncope, or sudden changes in mental status. - Do not change or discontinue current prescriptions without first consulting health care provider Type 2 diabetes mellitus 06/01/2018 Vitamin D deficiency 06/01/2018 Carpal tunnel syndrome 05/30/2018 Tubular adenoma of colon 07/28/2017 Tinea pedis 01/02/2017 Asthma 03/25/2016 Resolved Problems Problem Noted Date Diagnosed Date Resolved Date Acute low back pain 01/06/2021 08/20/19 23 Encounters Date Type Department Care Team Description 04/15/2024 9:00 AM EST Office Visit [facility] [address] [place] [phone] Lizandro Coyne MD Toe infection (Primary Dx) 04/15/2024 Orders Only GENERIC EXTERNAL DATA DEPARTMENT Provider, Generic External Data 04/04/2024 Telephone [facility] [address] [place] [address] Bailee Lopez MA June Recall 03/25/2024 9:40 AM EST Office Visit [facility] [address] [place] [phone] Mandie Chavez DO Paronychia of great toe, right (Primary Dx); Type 2 diabetes mellitus with diabetic nephropathy, without long-term current use of insulin (CMS/HCC) 03/25/2024 Orders Only [facility] [address] [place] [phone] Mandie Chavez DO 02/15/2024 11:00 AM EST Office Visit [facility] [address] [place] [address] Garry, Fannie, OD Presbyopia (Primary Dx) 02/15/2024 Travel 02/06/2024 1:30 PM EST Office Visit [facility] [address] [place] [phone] Vi Keys MD Abdominal pain, unspecified abdominal location (Primary Dx); Type 2 diabetes mellitus with diabetic nephropathy, without long-term current use of insulin ([facility]); Right foot pain; Essential hypertension; Chronic left shoulder pain; Left flank pain; Health care maintenance; Hyperlipidemia, unspecified hyperlipidemia type; Transaminitis 02/06/2024 Orders Only [facility] [address] [place] [phone] Vi Keys MD 02/06/2024 Travel 02/01/2024 Telephone [facility] [address] [place] [address] Bailee Lopez MA chart prep 01/30/2024 Telephone [facility] [address] [place] [address] GarryFannie trejo, KELLY from Last 3 Months Family History Medical History Relation Name Comments Diabetes Father Breast cancer Mother Diabetes Mother Relation Name Status Comments Father Mother Social History Tobacco Use Types Packs/Day Years Used Date Smoking Tobacco: Never Passive Smoke Exposure: Never Smokeless Tobacco: Never Tobacco Cessation:Counseling Given: Not Answered Alcohol Use Standard Drinks/Week Comments Never 0 [...] t he electric, gas, oil or water [employer] threatened to shut off services in your home? No 12/27/2022 Depression Answer Date Recorded Patient Health Questionnaire-2 Score 0 08/19/2022 Sex and Gender Information Value Date Recorded Sex Assigned at Male 01/10/2022 10:28 AM EDT Legal Sex Male 10:28 AM EDT Gender Identity Choose not to disclose 10:28 AM EDT Sexual Orientation Choose not to disclose 2021 10:28 AM EDT Last Filed Vital Signs Vital Sign Reading Time Taken Comments Blood Pressure 133/85 04/15/2024 8:55 AM EST Pulse 88 04/15/2024 8:55 AM EST Temperature 36.6 ??C (97.8 ??F) 04/15/2024 8:55 AM ES T Respiratory Rate 17 04/15/2024 8:55 AM EST Oxygen Saturation 98% 04/15/2024 8:55 AM EST Inhaled Oxygen Concentration - - Weight 85.7 kg (189 lb) 04/15/2024 8:55 AM EST Height 181.6 cm (5' 11.5 ) 02/06/2024 1:33 PM ES T Body Mass Index 25.99 02/06/2024 1:33 PM EST Plan of Treatment Upcoming Encounters Date Type Department Care Team (Late st Contact Info) Description 05/03/2024 3:00 PM EST Office Visit [facility] [address] [place], [place] [phone] Garry, Fannie, OD [address] [place] [address] Health Maintenance Due Date Last Done Comments CT Colonography 1965 Colonoscopy 1965 Colorectal Cancer Screening 1965 FIT DNA/Cologuard 1965 FIT 1965 FOBT 1965 Sigmoidoscopy 1965 Alcohol/Substance Use Screening 1976 Hepatitis B Vaccines (1 of 3 - 19+ 3-dose series) 10/31/1983 IPV Vaccines (2 of 3 - Adult catch-up series) 10/07/2009 09/09/2009 Zoster Vaccines (1 of 2) 2014 Pneumococcal Vaccine: 50+ Years (2 of 2 - PCV) 04/25/2017 04/25/2016, 04/23/2011 Diabetes: Foot Exam 02/23/2023 02/23/2022 Depression Screening 08/20/2023 08/19/2022, 08/20/19 23 SDOH Screening 08/20/2023 08/19/2022 COVID-19 Vaccine ( season) 2023 03/16/2021, 07/14/2020, 06/15/2020 Influenza Vaccine (#1) 2023 , 03/27/2019, 05/30/2018, Additional history exists Diabetes: Hemoglobin A1C 05/08/2024 024, 01/08/2024, 12/22/2022, Additional history exists Lipid Panel 01/07/2025 01/08/2024, 03/13, 11/23/2020 Tobacco Screening 04/15/2025 04/15/2024 Eye Exam 01/10/2026 01/11/2024, 12/13, 01/11/2024, Additional history exists DTaP/Tdap/Td Vaccines (2 - Td or Tdap) 05/30/2028 05/30/2018 RSV Patients and Patients Aged 60 years or older (1 - 1-dose 75+ series) 10/31/2039 Hepatitis A Vaccines Aged Out 05/09/2011, 09/10/19 10 No longer eligible based on patient's age to complete this topic Meningococcal Vaccine Aged Out 03/27/2019, 010 No longer eligible based on patient's age to complete this topic HIV Screening Completed 01/08/2024 Hepatitis C Screening Completed 01/08/2024 HIB Vaccines Aged Out No longer eligi ble based on patient's age to complete this topic HPV Vaccines Aged Out No longer eligi ble based on patient's age to complete this topic RSV under 20 months Aged Out No longe r eligible based on patient's age to complete this topic Rotavirus Vaccines Aged Out No longer eligible based on patient's age to complete this topic Procedures Procedure Name Priority Date/Time Associated Diagnosis Comments GLUCOSE, WHOLE BLOOD Routine 04/15/2024 3:04 PM EST XR FOOT 3+ VIEWS RIGHT Routine 2:16 PM EST SED RATE BY MODIFIED WESTERGREN Routine 04/15/2024 2:09 PM EST C-REACTIVE PROTEIN Routine 04/15/2024 2: 09 PM EST COMPREHENSIVE METABOLIC PANEL Routine 04/15/2024 2:09 PM EST LACTIC ACID Routine 04/15/2024 2:09 PM EST CBC WITH AUTO DIFFERENTIAL Routine 04/15/2024 2:09 PM EST GRAM STAIN Routine 03/25/2024 12:00 AM EST XR ABDOMEN 2V+ Routine 02/15/2024 4:30 PM EST XR FOOT 3+ VIEWS RIGHT Routine 4 4:17 PM EST Right foot pain US RETROPERITONEAL COMPLETE Routine 02/15/2024 9:49 AM EST Abdominal pain, unspecified abdominal location URINALYSIS, COMPLETE, WITH REFLEX TO CULTURE Routine 02/06/2024 2:10 PM EST Abdominal pain, unspecified abdominal location POCT GLYCATED HEMOGLOBIN, TOTAL Routine 02/06/2024 1:36 PM EST Type 2 diabetes mellitus with diabetic nephropathy, without long-term current use of insulin (CMS/HCC) POCT GLUCOSE Routine 02/06/2024 1:35 PM EST Type 2 diabetes mellitus with diabetic nephropathy, without long-term current use of insulin (CMS/HCC) CULTURE, URINE, ROUTINE Routine 02/06/20 24 12:00 AM EST HEPATITIS C AB W/REFL TO HCV RNA, QN, PCR Routine 01/08/2024 9:05 AM EDT Right leg pain HIV 1/2 ANTIGEN/ANTIBODY, FOURTH GENERATION W/RFL Routine 01/08/2024 9:05 AM EDT Right leg pain LIPID PANEL, STANDARD Routine 01/08/2024 9:05 AM EDT Right leg pain from Last 3 Months or Most Recently Relevant to Health Maintenance Results * Glucose, Whole Blood (04/15/2024 3:04 PM EST) Glucose, Whole Blood 114 60 - 115 mg/dL [facility] Comment:METER #: [id number] 04/15/2024 3:04 PM EST 04/15/2024 3:07 PM EST us Generic External Data Provider LAB BLOOD ORDERAB LES Final Result [facility] [address] [place] [address] [phone] * XR Foot 3+ Views Right (04/15/2024 2:16 PM EST) Only the most recent of2 resultswithin the time period is included. Anatomical Region Laterality Modality Lower Extremities, Foot Right Radiogra phic Imaging 04/15/2024 2:16 PM EST Narrative 04/15/2024 2:23 PM EST ? [facility] ?[address] ?[place] [address] ?XRay Report ? Signed ? Patient: Jackie Marlow ?MR#: [id number] ? : 1965 ?Acct:[id number] ? Age/Sex: 58 / M ?ADM Date: 04/15/24 ? Loc: HO.ED ? Attending Dr: ? Ordering Physician: Marlon Machuca ?? Date of Service: 04/15/24 ?? Procedure(s): XR foot RT min 3V ?? Accession Number(s): [id number] ? cc: Marlon Machuca; Vi Keys MD [...] EST ?? RP ? Dictated By: ?Joce Savage MD ? Signed By: ?<Electronically signed by Joce Savage MD in OV> ?04/15/241420 ? DD/ 15 ? TD/TT: 02/03/25 1416 ? Carpet Loom Fixer: ? Procedure Note Donotuseinterpreter, Image - 04/15/[address] [address] XRay Report Signed Patient: Seth Marlow#: [id number] : 1965Acct:[id number] Age/Sex: 58 / MADM Date: 04/15/24 Loc: HO.ED Attending Dr: Ordering Physician: Marlon Machuca Date of Service: 04/15/24 Procedure(s): XR foot RT min 3V Accession Number(s): [id number] cc: Marlon Machuca; Vi Keys MD EXAMINATION: [...] 04/15/24 1421 DD/ 1416 TD/TT: 04/15/24 1416 Carpet Loom Fixer: us [facility] External Provider IMG XR PROCEDURES Final Result * (ABNORMAL) CBC auto differential (04/15/2024 2:09 PM EST) White Blood Count 8.5 4.8 - 10.8 X10*3/uL [facility] Red Blood Count 5.61 4.60 - 5.80 X10*6/uL [facility] Hemoglobin 15.0 14.0 - 18.0 g/dl [facility] Hematocrit 44.9 42.0 - 52.0 % [facility] Mean Corpuscular Volume 80.0 80.0 - 98.0 fL [facility] Mean Corpuscular Hemoglobin 26.7(L) 27.0 - 33.0 pg [facility] Mean Corpuscular HGB Conc 33.4 31.0 - 36.0 g/dl [facility] Red Cell Distribution Width 14.0 11.0 - 16.0 % [facility] Platelet Count 257 160 - 400 X10*3/uL [facility] Mean Platelet Volume 10.4 9.4 - 12.4 fL [facility] Neutrophils Percent Auto 71.3 45 - 73 % [facility] Imm Gran Pct Auto 0.7(H) 0.0 - 0.4 % [facility] Lymphocytes Percent Auto 16.3(L) 20 - 40 % [facility] Monocytes Percent Auto 6.7 2 - 11 % [facility] Eosinophils Percent Auto 4.3(H) 0 - 4 % [facility] Basophils Percent Auto 0.7 0 - 2 % [facility] NRBC Pct Auto 0.0 0.0 - 0.2 /100WBC [facility] Neutrophils Absolute Auto 6.0 2.0 - 8.3 x10*3/uL [facility] Imm Gran Abs Auto 0.06(H) 0.00 - 0.03 X10*3/uL [facility] Lymphocytes Absolute Auto 1.4 1.2 - 4.9 X10*3/uL [facility] Monocytes Absolute Auto 0.6 0.1 - 1.2 X10*3/uL [facility] Eosinophils Absolute Auto 0.4 0.0 - 0.4 X10*3/uL [facility] Basophils Absolute Auto 0.1 0.0 - 0.2 X10*3/uL [facility] NRBC Abs Auto 0.000 0.0 - 0.012 X10*3/uL [facility] 04/15/2024 2:09 PM EST 04/15/2024 2:14 PM EST Generic External Data Provider LAB BLOOD ORDERAB LES Final Result Performing Organization Address [facility] Co de Phone Number [facility] [address] [place] [phone] * (ABNORMAL) Sed Rate by Modified Westergren (04/15/2024 2:09 PM EST) Erythrocyte Sedimentation Rate 16(H) 0 - 15 MM/HR [facility] Comment:Patients with polycy themia and many hemoglobin abnormalitiesmay have depressed sed rates whereas patients with anemiamay have elevated sed rates. 04/15/2024 2:09 PM EST 04/15/2024 2:14 PM EST us Generic External Data Provider LAB BLOOD ORDERAB LES Final Result Performing Organization Address [facility] Co de Phone Number [facility] [address] [place] [phone] * Lactic Acid (04/15/2024 2:09 PM EST) Lactic Acid 1.3 0.5 - 2.0 mmol/L [facility] 04/15/2024 2:09 PM EST 04/15/2024 2:14 PM EST Generic External Data Provider LAB BLOOD ORDERAB LES Final Result Performing Organization Address [facility] Co de Phone Number [facility] [address] [place] [phone] * Gram stain (03/25/2024 12:00 AM EST) 03/25/2024 03/25/2024 Comment:Toe Rt Grt Narrative [facility] - 03/28/2024 7:25 AM EST Gram [...] MICROBIOLOGY - GENERAL O RDERABLES Final Result [facility] [address] [place] [phone] [phone] * XR Abdomen 2 View minimum (02/15/2024 4:30 PM EST) Anatomical Region Laterality Modality Abdomen Radiographic Isabel ging 02/15/2024 4:30 PM EST Narrative 03/27/2024 12:36 PM EST ? [facility] ?[address] ?[place] [address] ?XRay Report ? Signed ? Patient: Jackie Marlow ?MR#: [id number] ? : 1965 ?Acct:[id number] ? Age/Sex: 58 / M ?ADM Date: 02/15/24 ? Loc: HO.XRAY ? Attending Dr: Vi Cardozo MD ? Ordering Physician: Vi Keys MD ?? Date of Service: 02/15/24 ?? Procedure(s): XR abdomen min 2V ?? Accession Number(s): [id number] ? cc: Vi Keys MD ? EXAMINATION: ?? XR ABDOMEN COMPLETE ? CLINICAL INDICATION: ?? Abdominal pain. ? COMPARISON: ?? US retroperitoneal complete 02/15/2024. ? TECHNIQUE: ?? 4 views of the abdomen. ? FINDINGS: ?? Large amount of stool throughout the colon characteristic of ?? constipation. Nonobstructive bowel gas pattern. ? Metallic object characteristic of zipper overlies the right lower ?? pelvis and additional metallic object overlies left lower quadrant on ?? single view, but these are not visualized on other views. ? A 0.8 cm calculus overlies the interpolar region of the left kidney. ?? Visualization of the bilateral kidneys is limited due to overlying ?? bowel. ? XR/XR abdomen min 2V ?? IMPRESSION: ?? 1. Large amount of stool throughout the colon characteristic of ?? constipation. Nonobstructive bowel gas pattern. ? 2. A 0.8 cm calculus overlies the interpolar region of the left kidney. ?? Visualization of the bilateral kidneys is limited due to overlying ?? bowel. ? Electronically signed by: ??Rose Hair MD ??03/27/2024 12:33 PM EST ?? RP ? Dictated By: ?oRse Hair MD ? Signed By: ?<Electronically signed by Rose Hair MD in OV> ? 03/27/24 1233 ? DD/ 1630 ? TD/TT: 02/15/24 1651 ? Carpet Loom Fixer: ? Procedure Note Mitchel, Stefano - 03/27/[address] [address] XRay Report Signed Patient: Seth Marlow#: [id number] : 1965Acct:[id number] Age/Sex: 58 / MADM Date: 02/15/24 Loc: HO.BETHANY Attending Dr: Vi Cardozo MD Ordering Physician: Vi Keys MD Date of Service: 02/15/24 Procedure(s): XR abdomen min 2V Accession Number(s): [id number] cc: Vi Keys MD EXAMINATION: XR ABDOMEN COMPLETE CLINICAL INDICATION: Abdominal pain. COMPARISON: US retroperitoneal complete 02/15/2024. TECHNIQUE: 4 views of the abdomen. FINDINGS: Large amount of stool throughout the colon characteristic of constipation. Nonobstructive bowel gas pattern. Metallic object characteristic of zipper overlies the right lower pelvis and additional metallic object overlies left lower quadrant on single view, but these are not visualized on other views. A 0.8 cm calculus overlies the interpolar region of the left kidney. Visualization of the bilateral kidneys is limited due to overlying bowel. XR/XR abdomen min 2V IMPRESSION: 1. Large amount of stool throughout the colon characteristic of constipation. Nonobstructive bowel gas pattern. 2. A 0.8 cm calculus overlies the interpolar region of the left kidney. Visualization of the bilateral kidneys is limited due to overlying bowel. Electronically signed by: Rose Hair MD 03/27/2024 12:33 PM EST RP Dictated By: Rose Hair MD Signed By: <Electronically signed by Rose Hair MD in OV> 03/27/24 1233 DD/ 1630 TD/TT: 02/15/24 1651 Carpet Loom Fixer: Vi Cardozo MD IMG XR PROCEDURES Final Result * US Retroperitoneal Complete (02/15/2024 9:49 AM EST) Anatomical Region Laterality Modality Ultrasound 02/15/2024 9:49 AM EST Narrative 03/27/2024 1:14 PM EST ? [facility] ?[address] ? [place] [address] ? Ultrasound Report ? Signed ? Patient: Jackie Marlow ?MR#: [id number] ? : 1965 ?Acct:[id number] ? Age/Sex: 58 / M ?ADM Date: 02/15/24 ? Loc: HO.HMGCX ? Attending Dr: Vi Cardozo MD ? Ordering Physician: Vi Keys MD ?? Date of Service: 02/15/24 ?? Procedure(s): US retroperitoneal comp ?? Accession Number(s): [id number] ? cc: Vi Keys MD ? EXAMINATION: ?? US RETROPERITONEAL COMPLETE (RENAL) ? CLINICAL INFORMATION: ?? Abdominal pain, evaluate for obstruction. ? COMPARISON: ?? Renal ultrasound 03/23/2018. ? TECHNIQUE: ?? Real-time imaging of the kidneys and bladder. ? FINDINGS: ? RIGHT KIDNEY: 11.1 x 4.7 x 4.9 cm (SAG x AP x TRV). Right renal 0.3 cm ?? lower pole calculus. No hydronephrosis. Renal cortical thickness is ?? normal. Limited visualization. ? 1.4 cm upper pole cyst with benign features. There is no indication for ?? followup imaging. ? LEFT KIDNEY: 10.2 x 6.2 x 5.9 cm (SAG x AP x TRV). 0.7 cm midpole and ?? 0.4 cm lower pole calculi. Left renal mild caliectasis. ? 2.6 cm left renal lower pole anechoic focus characteristic of a cyst ?? with benign features. There is no indication for followup imaging at ?? this time. ? BLADDER: Well distended. Bilateral ureteral jets are demonstrated. ?? Prevoid bladder volume is 233 mL. Postvoid bladder volume is 9 mL. Mild ?? diffuse trabeculation of the bladder wall. ? PROSTATE GLAND: The prostate volume is 26 mL. ? US/US retroperitoneal comp ?? IMPRESSION: ?? 1. Bilateral nephrolithiasis. Mild left pelvocaliectasis. ? 2. Prostate volume 26 mL. ? Electronically signed by: ??Rose Hair MD ??03/27/2024 01:12 PM EST ?? RP ? Dictated By: ?Rose Hair MD ? Signed By: ?<Electronically signed by Rose Hair MD in OV> ? 03/27/24 1312 ? DD/ 0949 ? TD/TT: 02/15/24 1009 ? Carpet Loom Fixer: ? Procedure Note Donotjenniferinterpreter, Image - 03/27/2024 [facility] [place] [address] Ultrasound Report Signed Patient: Seth Marlow#: [id number] : 1965Acct:[id number] Age/Sex: 58 / MADM Date: 02/15/24 Loc: HO.HMGCX Attending Dr: Vi Cardozo MD Ordering Physician: Vi Keys MD Date of Service: 02/15/24 Procedure(s): US retroperitoneal comp Accession Number(s): [id number] cc: Vi Keys MD EXAMINATION: US RETROPERITONEAL COMPLETE (RENAL) CLINICAL INFORMATION: Abdominal pain, evaluate for obstruction. COMPARISON: Renal ultrasound 03/23/2018. TECHNIQUE: Real-time imaging of the kidneys and bladder. FINDINGS: RIGHT KIDNEY: 11.1 x 4.7 x 4.9 cm (SAG x AP x TRV). Right renal 0.3 cm lower pole calculus. No hydronephrosis. Renal cortical thickness is normal. Limited visualization. 1.4 cm upper pole cyst with benign features. There is no indication for followup imaging. LEFT KIDNEY: 10.2 x 6.2 x 5.9 cm (SAG x AP x TRV). 0.7 cm midpole and 0.4 cm lower pole calculi. Left renal mild caliectasis. 2.6 cm left renal lower pole anechoic focus characteristic of a cyst with benign features. There is no indication for followup imaging at this time. BLADDER: Well distended. Bilateral ureteral jets are demonstrated. Prevoid bladder volume is 233 mL. Postvoid bladder volume is 9 mL. Mild diffuse trabeculation of the bladder wall. PROSTATE GLAND: The prostate volume is 26 mL. US/US retroperitoneal comp IMPRESSION: 1. Bilateral nephrolithiasis. Mild left pelvocaliectasis. 2. Prostate volume 26 mL. Electronically signed by: Rose Hair MD 03/27/2024 01:12 PM EST Dictated By: Rose Hair MD Signed By: <Electronically signed by Rose Hair MD in [place]> 03/27/24 1312 DD/ 0949 TD/TT: 02/15/24 1009 Carpet Loom Fixer: Vi Cardozo MD [place] US PROCEDURES Final Result * (ABNORMAL) Urinalysis, Complete, with Reflex to Culture (02/06/2024 2:10 PM EST) Color Urine Yellow [facility] Appearance Urine Turbid [facility] PH 5.5 5.0 - 9.0 [facility] Glucose Urine UA 500(A) Negative mg/dL [facility] Urine Blood Moderate (2+)(A) Negative [facility] Specific [place] - Urine 1.020 1.005 - 1.025 [facility] Urine Protein Trace Neg-Trace mg/dL [facility] Urine Ketones Trace Negative mg/dL [facility] Nitrite Urine Negative Negative [facility] Leukocyte Esterase Urine Negative Negative [facility] RBC Urine 6-10(A) 0 - 2 /HPF [facility] Urine WBC 6-10(A) 0 - 5 /HPF [facility] Urine Squamous Epithelial Cell 0-2 0 - 2 /HPF [facility] Urine Bacteria None Seen None Seen [facility] Hyaline Casts, Urine 0-2 0 - 2 /LPF [facility] Urine 02/06/2024 2:10 PM EST 02/06/2024 5:52 PM EST Narrative [facility] - 02/06/2024 6:10 PM EST Urine, Clean Catch Vi Cardozo MD LAB URINE ORDERAB LES Final Result Performing Organization Address City/State/[facility] Co de Phone Number [facility] [address] [place] [phone] * (ABNORMAL) POCT HGB A1C (02/06/2024 1:36 PM EST) Hemoglobin A1C 7.2(A) 4.0 - 6.0 % QC Media Lot # [id number] Lot# Expiration Date Blood 02/06/2024 1:36 PM EST Vi Cardozo MD POINT OF CARE EMILE T ENTER/EDIT ORDERABLES Final Result * (ABNORMAL) POCT Glucose (02/06/2024 1:35 PM EST) Glucose Blood, POC 236(A) 60 - 200 mg/dL QC Media Lot # [id number] Lot# Expiration Date Blood Capillary blood specimen / Unknown 02/06/2024 1:35 PM EST Vi Cardozo MD POINT OF CARE EMILE T ENTER/EDIT ORDERABLES Final Result * Culture, Urine, Routine (02/06/2024 12:00 AM EST) Urine Urine specimen obtained by clean catch procedure / Unknown 02/06/2024 02/06/2024 Comment:UACC Narrative [facility] - 02/08/2024 8:16 AM EST Urine Culture No growth. Specimen Source: Urine clean catch us Vi Cardozo MD LAB MICROBIOLOGY - GENERAL ORDERABLES Final Result [facility] [address] [place] [phone] * Hepatitis C Antibody with Reflex to HCV, RNA, Quantitative, Real-Time PCR (01/08/2024 9:05 AM EDT) Hepatitis C Antibody Nonreactive Nonreactive [facility] Comment:Antibodies to HCV no t detected; does not exclude early acuteHCV infection. Blood Venous blood specimen / Unknown 01/08/2024 9:05 AM EDT 01/08/2024 11:10 AM EDT us Vi Sierra MD LAB BLOOD ORDERABLES Final Result Performing Organization Address City/[facility]/ZIP Co de Phone Number [facility] [address] [place] [phone] * HIV-1/2 Antigen and Antibodies, Fourth Generation, with Reflexes (01/08/2024 9:05 AM EDT) HIV AB/AG Nonreactive Nonreactive [facility] Comment:HIV-1 p24 Ag and/or HIV-1/HIV-2 Ab not detected.A test result that is nonreactive does not exclude thepossibility of exposure to or infection with HIV-1 and/orHIV-2. Nonreactive results in this assay for individualswith prior exposure to HIV-1 and/or HIV-2 may be due toantigen and antibody levels that are below the limit ofdetection of this assay.The [employer] HIV Ag/Ab Combo assay result andsupplemental assay results should be interpreted inconjunction with the patient's clinical presentation,history and other laboratory results. If the results areinconsistent with clinical evidence, additional testing issuggested to confirm the result. Blood Venous blood specimen / Unknown 01/08/2024 9:05 AM EDT 01/08/2024 11:10 AM EDT Vi Sierra MD LAB BLOOD ORDERABLES Final Result [facility] [address] [place] [phone] * (ABNORMAL) Lipid Panel, Standard (01/08/2024 9:05 AM EDT) Triglycerides 234(H) <150 mg/dL [facility] Comment:Desirable Triglyceri de: less than 150 mg/dLBorderline High Triglyceride 150-199 mg/dLHigh Triglyceride: 200-499 mg/dLVery High Triglyceride: greater than or equal to 5OO mg/dL Cholesterol 137 <200 mg/dL [facility] Comment:Desirable Cholestero l: less than 200 mg/dLBorderline High Cholesterol: 200-239 mg/dLHigh Cholesterol: greater than 239 mg/dL LDL Cholesterol Calculated 63 <100 mg/dL [facility] Comment:Desirable LDL: less than 100 mg/dLNear Optimal/Above Optimal LDL: 110- 129 mg/dLBorderline High LDL: 130-159 mg/dLHigh LDL: 160-189 mg/dLVery High LDL: greater than or equal to 190 mg/dL HDL Cholesterol 28(L) >40 mg/dL [facility] Comment:Desirable HDL: great er than 40 mg/dL Note: This HDL assay may give artificially low results in patients with liver disease. Blood Venous blood specimen / Unknown 01/08/2024 9:05 AM EDT 01/08/2024 11:10 AM EDT Vi Sierra MD LAB BLOOD ORDERABLES Final Result [facility] [address] [place] [phone] from Last 3 Months or Most Recently Relevant to Health Maintenance Insurance HS FULL * Guarantor: Jackie Marlow Account Type Relation to Patient Date of Phone Billing Address Personal/Family Self [address] [facility] Antelmo Lozano MA Care Teams Plaster Tender Relationship Specialty Start Date End Date Vi Keys MD [address] [place] [address] PCP - General Internal Medicine 12/20/22
[2024-04-15] MEDS: cefTRIAXone sodium 1 GM VIAL IVPUSH (16:32)
[2024-04-15] MEDS: Acetaminophen 325 MG TABLET 975 MG PO (16:54)
[2024-04-15] MEDS: Diphth,Pertus(ACell),Tet Adult 0.5 ML SYRINGE IM (17:09)
[2024-04-15 17:10] VITALS: BP 120/81; PULSE 84; RESP 18; TEMP 36.4; O2SAT 99
[2024-04-15 17:48] LABS: Alkaline Phosphatase 92 U/L (39-117)
== END 2024-04-15 17:16 | disposition home or self-care (01) ==
PROVIDERS: Physician Assistant; Emergency Provider Emergency Medicine; PCP Student in an Organized Health Care Education/Training Program
DX: L60.0 Ingrowing nail (principal); M79.671 Pain in right foot; Z23 Encounter for immunization; Z79.899 Other long term (current) drug therapy
CPT/HCPCS: 11750; 36415; 73630; 80053; 82947; 83605; 85025; 85652; 86140; 87040; 87070; 87077; 87186; 87205; 90471; 90715; 96374; 96375; 99283; 99284; J0696; J1885; J2003

== ENCOUNTER → 2024-04-15 13:55 | Outpatient (BNV) | payer MEDICAID, SELFPAY | PROVIDERS: Emergency Provider Emergency Medicine; PCP Student in an Organized Health Care Education/Training Program; Visit Provider Radiology Diagnostic Radiology | DX: M79.674 Pain in right toe(s) (principal) | CPT/HCPCS: 73630 ==

== ENCOUNTER 2024-05-03 08:56 | Outpatient (REF) | payer MEDICAID, SELFPAY ==
--- OUTSIDE RECORDS SUMMARY | 2024-05-03 09:17 | XMS_ITS | Encounter Summary ---
Author Organization [employer] Address [address] [place] [address] Care Team Providers Care Toeing Stockings Name Role Phone Vi Keys MD Primary Care Pro vider Encounter Details Date Type Department Care Team ([facility] st Contact Info) Description 04/16/2024 Telephone [facility] [address] [place], [place] [phone] Aye Gaston, ESTEFANÍA Social History Tobacco Use Types Packs/Day Years [...] encounter Miscellaneous Notes * Telephone Encounter - Aye Gaston RN - 04/16/2024 1:20 PM EST Tc to pt via bls id: [id number] per covering provider Patient seen at ED for toenail infection-does not appear there was any evidence of osteomyelitis on the imaging. Please confirm that patient has follow-up with his simulation tech next week. If not, can schedule here but really would prefer podiatry. Pt went to [facility] ED yesterday [facility] for concerns of toe infection ( osteomyelitis). ED ruled out osteomyelitis and encouraged pt to call simulation tech to get an sooner appt. Pt reports they have a scheduled appt with their simulation tech at the end of the month. Pt advised the importance to follow up sooner in regards to toe infection. Pt reports still experiencing pain 09/19 and just took naproxen. Pt agrees to upcoming follow up scheduled on 04/25/24 with SUSANNAH Butterfield and advised to keep their scheduled follow up with the [facility]. Pt verbalized understanding and agrees with plan. * Telephone Encounter - Aye Gaston RN - 04/16/2024 1:20 PM EST ----- Message from Mayelin Langston sent at 04/16/2024 9:42 AM EST ----- Patient seen at ED for toenail infection-does not appear there was any evidence of osteomyelitis onthe imaging. Please confirm that patient has follow-up with his simulation tech next week. If not, can schedule here but really would prefer podiatry. documented in this encounter Plan of Treatment Upcoming Encounters Date Type Department Care Team (Late st Contact Info) Description 07/12/2024 3:30 PM EDT Office Visit [facility] OPTOM[facility]RY [address] [place], [place] [phone] Fannie Castañeda, KELLY [address] [place], [place] [phone] documented as of this encounter Visit Diagnoses Not on filedocumented in this encounter Additional Health Concerns Assessment Noted Time PHQ-9 Depression Total Score: 0 08/20/19 3:43 PM EDT documented as of this encounter Care Teams Toeing Stockings Relationship Specialty Start Date End Date Vi Keys MD [address] [place], [place] [phone] PCP - General Internal Medicine 12/20/22 documented as of this encounter
--- OUTSIDE RECORDS SUMMARY | 2024-05-03 09:17 | XMS_ITS | Clinical Summary ---
Author Organization [employer] Address [address] [place] [address] Care Team Providers Care Industrial Service Technician Name Role Phone Vi Keys MD Primary Care Pro vider Allergies Active Allergy Reactions Criticality Noted Date Comments Lisinopril Cough 02/23/2021 Pork Allergy 12/22/2022 samaritan reasons samaritan reasons Medications econazole nitrate 1 % creamIndications:T inea pedis of both feet Apply topically if needed each day for rash. 15 g 2 03/22/19 23 Active albuterol 108 (90 Base) MCG/ACT inhalerIndications :Mild intermittent asthma without complication Inhale 2 puffs every 4 (four) hours. 18 g 3 08/20/19 23 025 Active Lidoderm 5 % patch Apply 1 patch topically in the morning. Remove & discard patch within 12 hours or as directed by MD. 30 patch 1 08/20/19 23 Active Alcohol Swabs (Alcohol Prep) pads 1 each 2 times daily. 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) 1 each 2 times daily. 1 kit 12/23/19 Active FREESTYLE LITE test stripIndications:T ype 2 diabetes mellitus with diabetic nephropathy, without long-term current use of insulin (CMS/HCC) 1 each by Other route 2 times daily. 100 strip 11 12/23/19 Active Blood Glucose Calibration (FreeStyle Control Solution) liquid USE 2 TIMES DAILY. 12/23/19 Active Blood Pressure Monitoring (Blood Pressure Kit) kitIndications:Ess ential hypertension 1 each 2 (two) times a week. 1 kit 01/08/20 Active atorvastatin (Lipitor) 20 MG tabletIndications: Type 2 diabetes mellitus with diabetic nephropathy, without long-term current use of insulin (CMS/HCC),Mixed hyperlipidemia Take 1 tablet by mouth every day 90 tablet 3 01/05/20 Active latanoprost (Xalatan) 0.005 % ophthalmic solution Administer 1 drop into both eyes at bedtime. 2.5 mL 11 01/11/20 Active amLODIPine (Norvasc) 10 MG tablet TAKE 1 TABLET BY MOUTH EVERY DAY FOR 30 DAYS 01/17/20 Active cholecalciferol (Vitamin D-3) 25 MCG (1000 UT) tablet Take 1,000 Units by mouth Once per day. Active cyanocobalamin (Vitamin B-12) 500 MCG tablet Take 1 tablet (500 mcg) by mouth Once per day. 90 tablet 02/06/20 Active aspirin 81 MG chewable tablet Chew 1 tablet (81 mg) Once per day. 90 tablet 1 02/06/20 24 Active metFORMIN (Glucophage) 500 MG tabletIndications: Type 2 diabetes mellitus with diabetic nephropathy, without long-term current use of insulin ([facility]) Take 2 tablets (1,000 mg) by mouth with breakfast and with evening meal. 360 tablet 1 02/06/20 Active Diclofenac Sodium 1 % gel Apply 1 Application topically if needed in the morning and at bedtime (right foot pain). 50 g 1 02/06/20 Active psyllium (Metamucil Smooth Texture) 58.6 % powder Take 5.12 g (3 g of fiber) by mouth 2 times daily. 283 g 2 02/06/20 025 Active docusate sodium (Colace) 100 MG capsule Take 1 tab po bid prn constipation 60 capsule 2 02/06/20 Active gabapentin (Neurontin) 600 MG tabletIndications: Type 2 diabetes mellitus with diabetic nephropathy, without long-term current use of insulin (CMS/HCC) Take 1 tablet (600 mg) by mouth 3 times daily. 90 tablet 2 02/06/20 Active cyclobenzaprine (Flexeril) 5 MG tabletIndications: Type 2 diabetes mellitus with diabetic nephropathy, without long-term current use of insulin ([facility]) Take 1-2 tabs as needed up to TID 30 tablet 04/25/19 25 Active naproxen (Naprosyn) 375 MG tabletIndications: Type 2 diabetes mellitus with diabetic nephropathy, without long-term current use of insulin ([facility]) Take 1 tab twce daily with food as needed for back pain 40 tablet 04/25/19 25 Active acetaminophen (Tylenol 8 Hour) 650 MG ER tablet Take 1 tablet (650 mg) by mouth every 8 (eight) hours if needed for mild pain. Do not crush, chew, or split. 40 tablet 1 03/25/19 25 025 Active Problems Problem Noted Date Diagnosed Date Right foot pain 02/07/2024 Left flank pain 02/07/2024 Health care maintenance 02/07/2024 HLD (hyperlipidemia) 02/07/2024 Transaminitis 02/07/2024 Chronic left shoulder pain 01/05/2024 Chronic GERD 12/22/2022 12/22/2022 Mixed anxiety depressive disorder 12/22/2022 12/22/2022 Nonspecific reaction to tuberculin test 12/23/1912/22/2022 Trigger finger of right thumb 08/21/2022 Kidney [...] Encounters Date Type Department Care Team Description 04/25/2024 11:15 AM EST Office Visit [facility] [address] [place] [phone] Mayelin Langston ANP Type 2 diabetes mellitus with diabetic nephropathy, without long-term current use of insulin ([facility]/HCC) (Primary Dx); Low back pain at multiple sites 04/25/2024 Travel 04/16/2024 Telephone [facility] [address] [place] [phone] Aye Gaston, ESTEFANÍA 04/15/2024 9:00 AM EST Office Visit [facility] [address] [place] [phone] Lizandro Coyne MD Toe infection (Primary Dx) 04/15/2024 Orders Only GENERIC EXTERNAL DATA DEPARTMENT Provider, Generic External Data 04/04/2024 Telephone [facility] [address] [place] [address] Bailee Lopez MA June03/25/2024 9:40 AM EST Office Visit [facility] [address] [place] [phone] Mandie Chavez DO Paronychia of great toe, right (Primary Dx); Type 2 diabetes mellitus with diabetic nephropathy, without long-term current use of insulin ([facility]/HCC) 03/25/2024 Orders Only [facility] [address] [place] [phone] Mandie Chavez DO 02/15/2024 11:00 AM EST Office Visit [facility] [address] [place] [address] Garry, Fannie, OD Presbyopia (Primary Dx) 02/15/2024 Travel 02/06/2024 1:30 PM EST Office Visit [facility] [address] [place] [phone] Vi Keys MD Abdominal pain, unspecified abdominal location (Primary Dx); Type 2 diabetes mellitus with diabetic nephropathy, without long-term current use of insulin (CMS/HCC); Right foot pain; Essential hypertension; Chronic left shoulder pain; Left flank pain; Health care maintenance; Hyperlipidemia, unspecified hyperlipidemia type; Transaminitis 02/06/2024 Orders Only [facility] [address] [place] [address] Vi Keys MD 02/06/2024 Travel 02/01/2024 Telephone [facility] [address] [place] [address] Bailee Lopez MA chart prep from Last 3 Months Family History Medical [...] the past 12 months, has t he [employer], gas, oil or water [employer] threatened to shut off services in your [...] Sign Reading Time Taken Comments Blood Pressure 116/79 04/25/2024 11:09 AM EST Pulse 103 04/25/2024 11:09 AM EST Temperature 36.3 ??C (97.4 ??F) 04/25/2024 11:[address] Respiratory Rate 19 04/25/2024 11:09 AM EST Oxygen Saturation 98% 04/25/2024 11:09 AM EST Inhaled Oxygen Concentration - - Weight 85.7 kg (189 lb) 04/15/2024 8:55 AM EST Height 181.6 cm (5' 11.5 ) 02/06/2024 1:33 PM ES T Body Mass Index 25.99 02/06/2024 1:33 PM EST Plan of Treatment Upcoming Encounters Date Type Department Care Team (Late st Contact Info) Description 07/12/2024 3:30 PM EDT Office Visit [facility] [address] [place] [address] Garry, Fannie, OD [address] [place] [address] Health Maintenance Due Date Last Done Comments [...] Panel 01/07/2025 01/08/2024, 03/13, 11/23/2020 Tobacco Screening 04/25/2025 04/25/2024 Eye Exam 01/10/2026 01/11/2024, 12/13, 01/11/2024, Additional history exists DTaP/Tdap/Td Vaccines (3 - Td or Tdap) 04/15/2034 04/15/2024, 05/30/2018 RSV Patients and Patients Aged 60 [...] Date/Time Associated Diagnosis Comments GRAM STAIN Routine 04/15/2024 4:45 PM EST WOUND CULTURE Routine 04/15/2024 4:45 PM EST GLUCOSE, WHOLE BLOOD Routine 04/15/2024 3:04 PM EST BLOOD CULTURE (SECOND) Routine 2:18 PM EST XR FOOT 3+ VIEWS RIGHT Routine 2:16 PM EST SED RATE BY MODIFIED WESTERGREN Routine 04/15/2024 2:09 PM EST C-REACTIVE PROTEIN Routine 04/15/2024 2: 09 PM EST COMPREHENSIVE METABOLIC PANEL Routine 04/15/2024 2:09 PM EST LACTIC ACID Routine 04/15/2024 2:09 PM EST CBC WITH AUTO DIFFERENTIAL Routine 04/15/2024 2:09 PM EST BLOOD CULTURE (FIRST) Routine 04/15/2024 2:09 PM EST GRAM STAIN Routine 03/25/2024 12:00 AM EST XR ABDOMEN 2V+ Routine 02/15/2024 4:30 PM EST XR FOOT 3+ VIEWS RIGHT Routine 4:17 PM EST Right foot pain US [...] insulin (CMS/HCC) CULTURE, URINE, ROUTINE Routine 02/06/20 12:00 AM EST HEPATITIS C AB W/REFL TO HCV RNA, QN, PCR Routine 01/08/2024 9:05 AM EDT Right leg pain HIV 1/2 ANTIGEN/ANTIBODY, FOURTH GENERATION W/RFL Routine 01/08/2024 9:05 AM EDT Right leg pain LIPID PANEL, STANDARD Routine 01/08/2024 9:05 AM EDT Right leg pain from Last 3 Months or Most Recently Relevant to Health Maintenance Results * Gram stain (04/15/2024 4:45 PM EST) Only the most recent of2 resultswithin the time period is included. 04/15/2024 4:45 PM EST 04/15/2024 4:52 PM EST Comment:Toe Rt Grt Narrative [facility] - 04/18/2024 7:45 AM EST Gram stain results: No polys 1+ Gram-positive cocci Routine Culture Report - external Routine Culture 1+ Mixed skin hansel Staphylococcus aureus Quant Org ID 1+ Staphylococcus aureus: Clindamycin <=0.25(S) Staphylococcus aureus: Erythromycin <=0.25(S) Staphylococcus aureus: Levofloxacin 0.25(S) Staphylococcus aureus: Oxacillin 0.5(S) Staphylococcus aureus: Penicillin-G >=0.5(R) Staphylococcus aureus: Tetracycline <=1(S) Staphylococcus aureus: Trimethoprim/Sulfamethoxazole <=10(S) Specimen Source: Toe Right Great Generic External Data Provider LAB MICROBIOLOGY - GENERAL ORDERABLES Final Result Performing Organization Address [facility]/ZIP Co de Phone Number [facility] [address] [place] [address] [phone] * Glucose, Whole Blood (04/15/2024 3:04 PM EST) Glucose, Whole Blood 114 60 - 115 mg/dL [facility] Comment:METER #: [id number] 04/15/2024 3:04 PM EST 04/15/2024 3:07 PM EST Generic External Data Provider LAB BLOOD ORDERAB LES Final Result Performing Organization Address [facility] Co de Phone Number [facility] [address] [place] [phone] * Blood Culture (Second) (04/15/2024 2:18 PM EST) Blood Venous blood specimen / Unknown 04/15/2024 2:18 PM EST 04/15/2024 2:23 PM EST Comment:Blood Narrative [facility] - 04/20/2024 4:23 PM EST Blood Culture (Second) No growth after 5 days. Specimen Source: Blood us Generic External Data Provider LAB MICROBIOLOGY - GENERAL ORDERABLES Final Result [facility] [address] [place] [phone] [phone] * XR Foot 3+ Views Right (04/15/2024 2:16 PM EST) Only the most recent of2 resultswithin the time period is included. Anatomical Region Laterality Modality Lower Extremities, Foot Right Radiogra phic Imaging 04/15/2024 2:16 PM EST Narrative 04/15/2024 2:23 PM EST ? [facility] ?[address] ?[place] [address] ?XRay Report ? Signed ? Patient: Jackie Marlow ?MR#: [id number] ? : 1965 ?Acct:[id number] ? Age/Sex: 58 / M ?ADM Date: 04/15/24 ? Loc: HO.ED ? Attending Dr: ? Ordering Physician: Marlon Machuca ?? Date of Service: 04/15/24 ?? Procedure(s): XR foot RT min 3V ?? Accession Number(s): [id number] ? cc: Marlon Machuca; Vi Keys MD [...] DD/ 1416 ? TD/TT: 04/15/24 1416 ? Executive Officer Special Warfare Team: ? Procedure Note Donmatilde, Image - 04/15/[address] [address] XRay Report Signed Patient: Seth Marlow#: [id number] : 1965Acct:[id number] Age/Sex: 58 / MADM Date: 04/15/24 Loc: HO.ED Attending Dr: Ordering Physician: Marlon Machuca Date of Service: 04/15/24 Procedure(s): XR foot RT min 3V Accession Number(s): [id number] cc: Marlon Machuca; Vi Keys MD EXAMINATION: [...] in OV> 04/15/24 1421 DD/ 1416 TD/TT: 04/15/241415 Executive Officer Special Warfare Team: [facility] External Provider IMG XR PROCEDURES Final Result * Blood Culture (First) (04/15/2024 2:09 PM EST) Blood Venous blood specimen / Unknown 04/15/2024 2:09 PM EST 04/15/2024 2:14 PM EST Comment:Blood Narrative [facility] - 04/20/2024 4:14 PM EST Blood Culture (First) No growth after 5 days. Specimen Source: Blood us Generic External Data Provider LAB MICROBIOLOGY - GENERAL ORDERABLES Final Result [facility] [address] [place] [phone] * (ABNORMAL) CBC auto differential (04/15/2024 2:09 PM EST) White Blood Count 8.5 4.8 - 10.8 X10*3/uL [facility] Red Blood Count 5.61 4.60 - 5.80 X10*6/uL [facility] Hemoglobin 15.0 14.0 - 18.0 g/dl [facility] Hematocrit 44.9 42.0 - 52.0 % [facility] Mean Corpuscular Volume 80.0 80.0 - 98.0 fL [facility] Mean Corpuscular Hemoglobin 26.7(L) 27.0 - 33.0 pg [facility] Mean Corpuscular HGB Conc 33.4 31.0 - 36.0 g/dl [facility] Red Cell Distribution Width 14.0 11.0 - 16.0 % [facility] Platelet Count 257 160 - 400 X10*3/uL [facility] Mean Platelet Volume 10.4 9.4 - 12.4 fL [facility] Neutrophils Percent Auto 71.3 45 - 73 % [facility] Imm Gran Pct Auto 0.7(H) 0.0 - 0.4 % [facility] Lymphocytes Percent Auto 16.3(L) 20 - 40 % [facility] Monocytes Percent Auto 6.7 2 - 11 % [facility] Eosinophils Percent Auto 4.3(H) 0 - 4 % [facility] Basophils Percent Auto 0.7 0 - 2 % [facility] NRBC Pct Auto 0.0 0.0 - 0.2 /100WBC [facility] Neutrophils Absolute Auto 6.0 2.0 - 8.3 x10*3/uL [facility] Imm Gran Abs Auto 0.06(H) 0.00 - 0.03 X10*3/uL [facility] Lymphocytes Absolute Auto 1.4 1.2 - 4.9 X10*3/uL [facility] Monocytes Absolute Auto 0.6 0.1 - 1.2 X10*3/uL [facility] Eosinophils Absolute Auto 0.4 0.0 - 0.4 X10*3/uL [facility] Basophils Absolute Auto 0.1 0.0 - 0.2 X10*3/uL [facility] NRBC Abs Auto 0.000 0.0 - 0.012 X10*3/uL [facility] 04/15/2024 2:09 PM EST 04/15/2024 2:14 PM EST Generic External Data Provider LAB BLOOD ORDERAB LES Final Result Performing Organization Address [facility]/ZIP Co de Phone Number [facility] [address] [place] [phone] * (ABNORMAL) Sed Rate by Modified Kp (04/15/2024 2:09 PM EST) Erythrocyte Sedimentation Rate 16(H) 0 - 15 MM/HR [facility] Comment:Patients with polycy themia and many hemoglobin abnormalitiesmay have depressed sed rates whereas patients with anemiamay have elevated sed rates. 04/15/2024 2:09 PM EST 04/15/2024 2:14 PM EST us Generic External Data Provider LAB BLOOD ORDERAB LES Final Result Performing Organization Address [facility]/ZIP Co de Phone Number [facility] [address] [place] [phone] * (ABNORMAL) C-reactive Protein (04/15/2024 2:09 PM EST) Pathologist [facility] C Reactive Protein 1.09(H) < or = 0.50 mg/dL [facility] 04/15/2024 2:09 PM EST 04/15/2024 2:14 PM EST Generic External Data Provider LAB BLOOD ORDERAB LES Final Result Performing Organization Address [facility] Co de Phone Number [facility] [address] [place] [phone] * Lactic Acid (04/15/2024 2:09 PM EST) [facility] Lactic Acid 1.3 0.5 - 2.0 mmol/L [facility] 04/15/2024 2:09 PM EST 04/15/2024 2:14 PM EST [employer] External Data Provider LAB BLOOD ORDERAB LES Final Result Performing Organization Address [facility] Co de Phone Number [facility] [address] [place] [phone] * (ABNORMAL) Comprehensive Metabolic Panel (04/15/2024 2:09 PM EST) [facility] Sodium 140 135 - 145 mmol/L [facility] Potassium 4.4 3.3 - 5.1 mmol/L [facility] Chloride 104 96 - 108 mmol/L [facility] Carbon Dioxide 27 22 - 29 mmol/L [facility] Anion Gap 13 12 - 20 [facility] Urea Nitrogen (BUN) 11 9 - 16 mg/dL [facility] Creatinine, Serum 0.96 0.5 - 1.4 mg/dL [facility] Creatinine Clr Calc Pharmacy 88.2 [facility] Comment:eGFR (calculated fro m the MDRD study equation) and eCrCl(calculated from the Cockcroft-Gault equation) are based ondifferent parameters and may not yield comparable results.If eCrCl result is absurd, please check patient'sheight/weight. Estimated Glomerular Filt Rate >60 [facility] Comment:Chronic Kidney Disea se: Estimated GFR < 60 mL/min/[id number] Kidney Disease: Estimated GFR < 15 mL/min/1.73m2 Glucose 118(H) 60 - 115 mg/dL [facility] Calcium 9.8 8.4 - 10.2 mg/dL [facility] Bilirubin, Total 0.6 0.0 - 1.0 mg/dL [facility] Aspartate Amino Transferase 33 5 - 37 U/L [facility] Alanine Aminotransferase 37 0 - 40 U/L [facility] Total Protein 8.7(H) 6.5 - 8.0 g/dL [facility] Albumin Level 4.8 3.5 - 5.0 g/dL [facility] Alkaline Phosphatase 92 39 - 117 U/L [facility] 04/15/2024 2:09 PM EST 04/15/2024 2:14 PM EST us Generic External Data Provider LAB BLOOD ORDERAB LES Final Result [facility] [address] [place] [phone] [phone] * XR Abdomen 2 View minimum (02/15/2024 4:30 PM EST) Anatomical Region Laterality Modality Abdomen Radiographic Isabel ging 02/15/2024 4:30 PM EST Narrative 03/27/2024 12:36 PM EST ? [facility] ?[address] ?[place] [address] ?XRay Report ? Signed ? Patient: Ele,Jackie ?MR#: [id number] ? : 1965 ?Acct:[id number] ? Age/Sex: 58 / M ?ADM Date: 12/05/24 ? Loc: HO.XRAY ? Attending Dr: Vi Cardozo MD ? Ordering Physician: Vi Keys MD ?? Date of Service: 02/15/24 ?? Procedure(s): XR abdomen min 2V ?? Accession Number(s): [id number] ? cc: Vi Keys MD ? EXAMINATION: [...] DD/ 1630 ? TD/TT: 02/15/24 1651 ? Executive Officer Special Warfare Team: ? Procedure Note Mitchel, Image - 03/27/[address] [address] XRay Report Signed Patient: Seth Marlow#: [id number] : 1965Acct:[id number] Age/Sex: 58 / MADM Date: 02/15/24 Loc: [facility] Attending Dr: Vi Cardozo MD Ordering Physician: Vi Keys MD Date of Service: 02/15/24 Procedure(s): XR abdomen min 2V Accession Number(s): [id number] cc: Vi Keys MD EXAMINATION: XR ABDOMEN [...] 03/27/24 1233 DD/ 1630 TD/TT: 02/15/24 1651 Executive Officer Special Warfare Team: Vi Cardozo MD IMG XR PROCEDURES Final Result * US Retroperitoneal Complete (02/15/2024 9:49 AM EST) Anatomical Region Laterality Modality Ultrasound 02/15/2024 9:49 AM EST Narrative 03/27/2024 1:14 PM EST ? [facility] ?[address] [facility] [address] ? [place] [address] ? Ultrasound Report ? Signed ? Patient: Ele,Jackie ?MR#: [id number] ? : 1965 ?Acct:[id number] ? Age/Sex: 58 / M ?ADM Date: 12/05/24 ? Loc: HO.HMGCX ? Attending Dr: Vi Cardozo MD ? Ordering Physician: Vi Keys MD ?? Date of Service: 02/15/24 ?? Procedure(s): US retroperitoneal comp ?? Accession Number(s): [id number] ? cc: Vi Keys MD ? EXAMINATION: [...] DD/ 0949 ? TD/TT: 02/15/24 1009 ? Executive Officer Special Warfare Team: ? Procedure Note Mitchel, Image - 03/27/2024 [facility] [place] [address] Ultrasound Report Signed Patient: Taj MarlowKota#: [id number] : 1965Acct:[id number] Age/Sex: 58 / MADM Date: 02/15/24 Loc: HO.HMGCX Attending Dr: Vi Cardozo MD Ordering Physician: Vi Keys MD Date of Service: 02/15/24 Procedure(s): US retroperitoneal comp Accession Number(s): [id number] cc: Vi Keys MD EXAMINATION: US RETROPERITONEAL [...] 03/27/24 1312 DD/ 0949 TD/TT: 02/15/24 1009 Executive Officer Special Warfare Team: us Vi Cardozo MD IMG US PROCEDURES Final Result * (ABNORMAL) Urinalysis, Complete, with Reflex to Culture (02/06/2024 2:10 PM EST) Color Urine Yellow [facility] Appearance Urine Turbid [facility] PH 5.5 5.0 - 9.0 [facility] Glucose Urine UA 500(A) Negative mg/dL [facility] Urine Blood Moderate (2+)(A) Negative [facility] Specific [place] - Urine 1.020 1.005 - 1.025 [facility] Urine Protein Trace Neg-Trace mg/dL [facility] Urine Ketones Trace Negative mg/dL [facility] Nitrite Urine Negative Negative [facility] Leukocyte Esterase Urine Negative Negative [facility] RBC Urine 6-10(A) 0 - 2 /HPF [facility] Urine WBC 6-10(A) 0 - 5 /HPF [facility] Urine Squamous Epithelial Cell 0-2 0 - 2 /HPF [facility] Urine Bacteria None Seen None Seen [facility] Hyaline Casts, Urine 0-2 0 - 2 /LPF [facility] Urine 02/06/2024 2:10 PM EST 02/06/2024 5:52 PM EST Narrative [facility] - 02/06/2024 6:10 PM EST Urine, Clean Catch us Vi Cardozo MD LAB URINE ORDERAB LES Final Result Performing Organization Address City/State/[facility] Co de Phone Number [facility] [address] [place] [phone] * (ABNORMAL) POCT HGB A1C (02/06/2024 1:36 PM EST) Hemoglobin A1C 7.2(A) 4.0 - 6.0 % QC Media Lot # [id number] Lot# Expiration Date [id number] Blood 02/06/2024 1:36 PM EST us Vi Cardozo MD POINT OF CARE EMILE T ENTER/EDIT ORDERABLES Final Result * (ABNORMAL) POCT Glucose (02/06/2024 1:35 PM EST) Glucose Blood, POC 236(A) 60 - 200 mg/dL QC Media Lot # [id number] Lot# Expiration Date [id number] Blood Capillary blood specimen / Unknown 02/06/2024 1:35 PM EST Vi Cardozo MD POINT OF CARE EMILE T ENTER/EDIT ORDERABLES Final Result * Culture, Urine, Routine (02/06/2024 12:00 AM EST) Urine Urine specimen obtained by clean catch procedure / Unknown 02/06/2024 02/06/2024 Comment:UACC Narrative [facility] - 02/08/2024 8:16 AM EST Urine Culture No growth. Specimen Source: Urine clean catch Vi Cardozo MD LAB MICROBIOLOGY - GENERAL ORDERABLES Final Result Performing Organization Address [facility] Co de Phone Number [facility] [address] [place] [phone] * Hepatitis C Antibody with Reflex to HCV, RNA, Quantitative, Real-Time PCR (01/08/2024 9:05 AM EDT) Hepatitis C Antibody Nonreactive Nonreactive [facility] Comment:Antibodies to HCV no t detected; does not exclude early acuteHCV infection. Blood Venous blood specimen / Unknown 01/08/2024 9:05 AM EDT 01/08/2024 11:10 AM EDT us Vi Sierra MD LAB BLOOD ORDERABLES Final Result Performing Organization Address [place]/[facility] [facility]/ZIP Co de Phone Number [facility] [address] [place] [phone] * HIV-1/2 Antigen and Antibodies, Fourth Generation, with Reflexes (01/08/2024 9:05 AM EDT) HIV AB/AG Nonreactive Nonreactive [facility] Comment:HIV-1 p24 Ag and/or HIV-1/HIV-2 Ab not detected.A test result that is nonreactive does not exclude thepossibility of exposure to or infection with HIV-1 and/orHIV-2. Nonreactive results in this assay for individualswith prior exposure to HIV-1 and/or HIV-2 may be due toantigen and antibody levels that are below the limit ofdetection of this assay.The HYGIEIA HIV Ag/Ab Combo assay result andsupplemental assay results should be interpreted inconjunction with the patient's clinical presentation,history and other laboratory results. If the results areinconsistent with clinical evidence, additional testing issuggested to confirm the result. Blood Venous blood specimen / Unknown 01/08/2024 9:05 AM EDT 01/08/2024 11:10 AM EDT us Vi Sierra MD LAB BLOOD ORDERABLES Final Result [facility] [address] [place] [address] [phone] * (ABNORMAL) Lipid Panel, Standard (01/08/2024 9:05 AM EDT) Triglycerides 234(H) <150 mg/dL [facility] Comment:Desirable Triglyceri de: less than 150 mg/dLBorderline High Triglyceride 150-199 mg/dLHigh Triglyceride: 200-499 mg/dLVery High Triglyceride: greater than or equal to 5OO mg/dL Cholesterol 137 <200 mg/dL [facility] Comment:Desirable Cholestero l: less than 200 mg/dLBorderline High Cholesterol: 200-239 mg/dLHigh Cholesterol: greater than 239 mg/dL LDL Cholesterol Calculated 63 <100 mg/dL [facility] Comment:Desirable LDL: less than 100 mg/dLNear Optimal/Above Optimal LDL: 110- 129 mg/dLBorderline High LDL: 130-159 mg/dLHigh LDL: 160-189 mg/dLVery High LDL: greater than or equal to 190 mg/dL HDL Cholesterol 28(L) >40 mg/dL [facility] Comment:Desirable HDL: great er than 40 mg/dL Note: This HDL assay may give artificially low results in patients with liver disease. Blood Venous blood specimen / Unknown 01/08/2024 9:05 AM EDT 01/08/2024 11:10 AM EDT us Vi Sierra MD LAB BLOOD ORDERABLES Final Result [facility] [address] [place] [address] [phone] from Last 3 Months or Most Recently Relevant to Health Maintenance Insurance [facility] C3 HSN FULL Care Teams Industrial Service Technician Relationship Specialty Start Date End Date Vi Keys MD [address] [place] [address] [phone] PCP - General Internal Medicine 12/20/22
--- OUTSIDE RECORDS SUMMARY | 2024-05-03 09:17 | XMS_ITS | Clinical Summary ---
Author Organization [address] [facility] Address [address] [place] [address] Phone Care Team Providers Care Neurological Surgeon Name Role Phone Physician, Pcp Unknown Primary Care Provider Maggie vailable Allergies No known active allergies Medications ammonium lactate (AmLactin) 12 % lotion Apply topically if needed for dry skin. Dry skin 400 g 5 04/18/19 26 Active ciclopirox (LOPROX) 0.77 % gel Apply topically 2 (two) times a day. Left 3rd toe 45 g 5 07/18/19 25 Active mupirocin (BACTROBAN) 2 % ointment Apply topically 1 (one) time each day for 10 days. Right big toe 22 g 5 04/28/19 25 Encounters Date Type Department Care Team Description 04/18/2024 10:30 AM EST Consult Orthopedic Surgery - [place] [address] [place] [phone] Nish Tavera, DPM Dermatophytosis of nail (Primary Dx); Pain in right foot; Ingrowing nail; Cellulitis of great toe, right; Lichenification; Diabetic mononeuropathy simplex (CMS/HCC); Pain in toe of left foot [M79.675] from Last 3 Months Social History Tobacco Use Types Packs/Day Years Used Date Smoking Tobacco: Never Assessed Sex and Gender Information Value Date Recorded Sex Assigned at Not on file Legal Sex Male 11:27 AM EST Gender Identity Not on file Sexual Orientation Not on file Last Filed Vital Signs Vital Sign Reading Time Taken Comments Blood Pressure - - Pulse - - Temperature - - Respiratory Rate - - Oxygen Saturation - - Inhaled Oxygen Concentration - - Weight 83.5 kg (184 lb) 04/18/2024 10:32 AM EST Height 180.3 cm (5' 11 ) 04/18/2024 10:32 AM EST Body Mass Index 25.66 04/18/2024 10:32 AM EST Plan of Treatment Health Maintenance Due Date Last Done Comments Diabetes: Annual Foot Exam 1974 Diabetes: Annual Retina Eye Exam 1974 Hepatitis B Vaccines (1 of 3 - 19+ 3-dose series) 10/31/1983 IPV Vaccines (2 of 3 - Adult catch-up series) 10/07/2009 09/09/2009 Zoster Vaccines (1 of 2) 2014 Pneumococcal Vaccine: 50+ Years (2 of 2 - PCV) 04/25/2017 04/25/2016, 04/23/2011 Pneumococcal Vaccine: Pediatrics (0 to 5 Years) and At-Risk Patients (6 to 64 Years) (2 of 2 - PCV) 04/25/2017 04/25/2016, 04/23/2011 COVID-19 Vaccine ( season) 2023 03/16/2021, 07/14/2020, 06/15/2020 Influenza Vaccine (#1) 2023 , 03/27/2019, 05/30/2018, Additional history exists Colorectal Cancer Screening: Colonoscopy 02/23/2024 Depression Screening 02/23/2024 08/19/2022 Social Influencers of Health Screening 02/23/2024 Diabetes: Annual Urine Albumin-Creatinine Ratio (uACR) 04/18/2024 Diabetes: Blood Sugar Control Test (HGBA1C) 08/05/2024 02/06/2024 Diabetes: Annual GFR (Glomerular Filtration Rate) 04/15/2025 04/15/2024 Hypertension/CHF/CAD Annual BMP Blood Test 04/15/2025 04/15/2024 Cholesterol Screening (Lipid Panel) 01/07/2029 01/08/2024 DTaP,Tdap,and Td Vaccines (3 - Td or Tdap) 04/15/2034 04/15/2024, 05/30/2018 RSV Immunization Patients 60+ Years Old (1 - 1-dose 75+ series) 10/31/2039 Hepatitis A Vaccines Aged Out 05/09/2011, 09/10/19 10 No longer eligible based on patient's age to complete this topic Meningococcal ACWY Vaccine Aged Out 03/27/2019, No longer eligible based on patient's age [...] patient's age to complete this topic Meningococcal B Vacine Aged Out No lo nger eligible based on patient's age to complete this topic RSV Immunization Patients Under 20 months Aged Out No longer eligible based on patient's age to complete this topic Varicella Vaccines Aged Out No longer eligible based on patient's age to complete this topic Insurance , [place] [address] MEDICAID - [place] Care Teams Neurological Surgeon Relationship Specialty Start Date End Date Physician, Pcp Unknown PCP - General 04/18/24
--- OUTSIDE RECORDS SUMMARY | 2024-05-03 09:17 | XMS_ITS | Clinical Summary ---
Author Organization [facility] Address [address] [place] [address] Care Team Providers Care Grocery Store Clerk Name Role Phone Unavailable Primary Care Provider [...] 2009 Imm-Zoster, Recombinant (1 of 2) 2014 [id number] ( season) 2023 021, 06/15/2020 Imm-Influenza (#1) 2023 03/27/2019, 0 05/30/2018, 02/15/2016, Additional history exists Alcohol and Drug Screen 03/13/2024 Depression Annual Screen 03/13/2024 Imm-DTaP/Tdap/Td (2 - Td or Tdap) 05/30/2028 [address]
--- OUTSIDE RECORDS SUMMARY | 2024-05-03 09:17 | XMS_ITS | Encounter Summary ---
Author Organization [facility] Address [id number] [place] [phone] Care Team Providers Care Fire Sprinkler Installer Name Role Phone Physician, Pcp Unknown Primary Care Provider Maggie vailable Reason for Visit * Reason Comments Consult Right foot pain * Consultation (Routine) - Closed Specialty Diagnoses / Procedures Referred By Contact Referred To Contact Podiatry / Orthopaedic Surgery Diagnoses Pain in right foot Vi Keys MD [address] [place] [address] Phone: tel: fax: Nish Tavera DPM [address] [address] Phone: tel: fax: Referral ID Status Reason Start Date Expiration Date V isits Requested Visits Authorized [id number] Closed Specialty Services Required 02/23/2024 02/05/2025 6 6 Encounter Details Date Type Department Care Team (Late st Contact Info) Description 04/18/2024 10:30 AM EST Consult Orthopedic Surgery - [place] [id number] [phone] Nish Tavera DPM [address] [address] Dermatophytosis of nail (Primary Dx); Pain in right foot; Ingrowing nail; Cellulitis of great toe, right; Lichenification; Diabetic mononeuropathy simplex (CMS/HCC); Pain in toe of left foot [M79.675] Social History Tobacco Use Types Packs/Day Years Used Date Smoking Tobacco: Never Assessed Sex and Gender Information Value Date Recorded Sex Assigned at Not on file Legal Sex Male 11:27 AM EST Gender Identity Not on file Sexual Orientation Not on file documented as of this encounter Last Filed [...] Mass Index 25.66 04/18/2024 10:32 AM EST documented in this encounter Ordered Prescriptions Prescription Sig Dispense Quantity Refills Last Filled Start Date End Date ciclopirox (LOPROX) 0.77 % gel Apply topically 2 (two) times a day. Left 3rd toe 45 g 04/18/2024 5 ammonium lactate (AmLactin) 12 % lotion Apply topically if needed for dry skin. Dry skin 400 g 04/18/2024 6 mupirocin (BACTROBAN) 2 % ointment Apply topically 1 (one) time each day for 10 days. Right big toe 22 g 04/18/2024 5 documented in this encounter Progress Notes * Nish Tavera DPM - 04/18/2024 10:30 AM EST Last PCP visit:Referring MD: Vi Keys* 02/06/24 IDENTIFIER: Ele is a 58 y.o. year old male who presents for consultation. CC: Foot pain HPI: Patient presents with a complex past medical history is type II diabetic with occasional numbness and tingling to his feet he notes that he had a recurring ingrown nail of his right great toe he states he went to urgent care and was removed with some areas of dried blood he states he was started onoral antibiotic reports that the redness and swelling has continued to improve but has not gone away he notes he is getting dryness and irritation of the tops of his skin he physic they are very scaly he also notes that his left foot has some discoloration of his nail plate which is bothering him as well reports his last A1c was 7.3 on 01/08/2024 denies nausea vomiting fever chills or shortness of breath ROS: GENERAL: Pt denies nausea, fever, vomiting, chills, or shortness of breath. Pt in NAD. CARDIOLOGY: pt denies chest pain, palpitations LUNGS: pt denies shortness of breath MUSCULOSKELETAL: See HPI, otherwise no joint pain or swelling, back pain, or muscle pain. SKIN: see HPI, otherwise no lesions, rash or itching NEURO: No persistent headache, weakness or numbness The remainder of the review of systems is noncontributory PAST MEDICAL HISTORY: There is no problem list on file for this patient. Hypertension hyperlipidemia type 2 diabetes hepatic liver inflammation SOCIAL HISTORY: Social History Tobacco Use Smoking status: Not on file Smokeless tobacco: Not on file Substance Use Topics Alcohol use: Not on file ACTIVE MEDICATIONS: No outpatient medications have been marked as taking for the 04/18/24 encounter (Consult) with Nish Tavera DPM. ALLERGIES: No Known Allergies PHYSICAL EXAM: Visit Vitals Ht 1.803 m (71 ) Wt 83.5 kg (184 lb) BMI 25.66 kg/m?? BSA 2.04 m?? PODIATRIC EXAMINATION: GENERAL: Patient appears well nourished, with NAD. VASCULAR: Dorsalis pedis pulses are 2/4 bilaterally and Posterior tibial pulses are 2/4 bilaterally. Capillary filling time within normal limits the digits. No pallor on elevation or rubor on dependency. No varicosities. Denies rest pain or claudication pain. NEUROLOGICAL: Sharp/dull sensation , protective sensation 6/10 with 5.07 semmes marv bilaterally, vibratory sensation with tuning fork intact to the tibial tuberosity. ORTHOPEDIC: Good muscle strength 5/5 of all flexors and extensors. Dorsi flexion of ankle ,10 degrees, plantar flexion WNL. No muscle atrophy. DERMATOLOGICAL:. Toenails: Left Toenail(s) third digit crumbling upon debridement, subungual debris, discoloration, dystrophy, elongation, mycotic appearance, onychomycosis, pain and thickening. Abnormal curvature right great toenail ingrowth medial nail fold localized redness swelling irritation Annular scaling bilateral feet moccasin distribution Skin thinning texture shiny appearance diffuse hyperpigmentation bilaterally pedal hair decreased Extensive lichenification noted of the dorsal aspects of both feet with thickening of the skin along the midfoot and forefoot of both feet BIOMECHANICS: Ankle ROM WNL, STJ ROM wnl, MTJ ROM wnl, 1st MPJ ROM wnl. IMAGING: IMPRESSION: 1. Dermatophytosis of nail 2. Pain in right foot 3. Ingrowing nail 4. Cellulitis of great toe, right 5. Lichenification 6. Diabetic mononeuropathy simplex (CMS/HCC) PLAN: Pt was seen and examined, history reviewed. Concerns with cellulitis of right great toe were discussed and reviewed patient is already on a course of oral antibiotics recommend he finish his course Bactroban prescribed Did discuss broadening antibiotics if redness or swelling does not resolve given he is a type II diabetic Revisional nail removal minor surgical procedure of nail both matrixectomy was discussed patient states not interested at this time he thinks is getting clear without additional surgical procedures and states he is already had the nail removed I did reinforce the patient that if this does not happen minor surgical procedure of nail removal matrixectomy was discussed recovery expectations reviewedwith him in detail as well as patient-specific risk factors being a type II diabetic Concerns for dermatophytosis of nails discussed Ciclopirox prescribed Labs reviewed patient is not a candidate for oral therapy given transaminase and elevated liver function studies Treatment options for lichenification discussed reviewed Ammonium lactate prescribed for skin softener Low-grade steroid medication may be tried if this fails Discussed with patient regarding proper glucose control, exercise, and diet. Explained to patient proper shoe gear, and importance of daily foot checks. I reviewed neuropathy and why it occurs in diabetics. I educated the patient on proper blood sugar control and the importance of an HgBA1c of less than 7.0%. I reviewed the signs and symptoms of neuropathy with the patient Follow-up in 2 to 3 weeks Debridement of mycotic toenails 1: Verbal informed consent was obtained from the patient. less than6 nails were aseptically debrided in thickness and length with nail nippers Nish Tavera DPM documented in this encounter Plan of Treatment Not on file documented as of this encounter Visit Diagnoses Diagnosis Dermatophytosis of nail- Primary Pain in right foot Pain in soft tissues of limb Ingrowing nail Cellulitis of great toe, right Lichenification Lichenification and lichen simplex chronicus Diabetic mononeuropathy simplex (CMS/HCC) Type II or unspecified type diabetes mellitus with neurological manifestations, not stated as uncontrolled Pain in toe of left foot [M79.675] Pain in soft tissues of limb documented in this encounter Orders Outpatient Referral Count Last Ordered Date Fir st Ordered Date AMB REFERRAL TO PODIATRY 1 04/18/2024 documented in this encounter Care Teams Fire Sprinkler Installer Relationship Specialty Start Date End Date Physician, Pcp Unknown PCP - General 04/18/24 documented as of this encounter
--- OUTSIDE RECORDS SUMMARY | 2024-05-03 09:18 | XMS_ITS | Encounter Summary ---
Author Organization [employer] Address [address] [place] [id number] Care Team Providers Care Munitions Handler Name Role Phone Vi Keys MD Primary Care Pro vider Encounter Details Date Type Department Care Team (Late st Contact Info) Description 04/25/2024 11:15 AM EST Office Visit [facility] [address] [place], [place] [phone] Mayelin Langston, ANP [address] [place] [address] Type 2 diabetes mellitus with diabetic nephropathy, without long-term current use of insulin (CMS/[facility]) (Primary Dx); Low back pain at multiple sites Social History Tobacco Use Types Packs/Day Years [...] EST Inhaled Oxygen Concentration - - Weight - - Height - - Body Mass Index - - documented in this encounter Progress Notes * SUSANNAH Butterfield - 04/25/2024 11:15 AM EST Subjective Patient ID: Jackie Marlow is a 58 y.o. adult who presents for ED follow-up. HPI PMH diabetes, asthma, hypertension, kidney stone, GERD, depression, dyslipidemia, transaminitis Here today for emergency room follow-up after visit to [facility] for right foot great toenail infection. Was seen here at walk-in center 03/25/24, started on Keflex and Bactrim and then returned to walk-in center 04/15/2024 and sent to ED for rule out osteomyelitis due to symptoms worsening despite finishing courses of Keflex and Bactrim DS, warm soaks. C&S grew MSSA 03/25. At ED: X-ray negative for osteomyelitis. Negative for elevated white blood cell count. ESR CRP slightly elevated but non concerning. Case was discussed with Dr. Ramires recommends ingrown toenail excision and than patient should follow up outpatient with his welding machine operator plasma arc. Also recommended Wound culture. Digital block was done with lidocaine 1% 8 mL. Area was cleaned with Betadine and iodine and sterile saline. Forceps and scissors was used for ingrown toenail excision. Ingrown toenail was excised. Tdap ordered. Wound culture ordered. Dr. Holbrook recommend discharging patient with another roundof Keflex and doxy. Patient wants IV antibiotics although the not indicated. Patient was given IV ce ftriaxone. Patient has an appointment with Podiatry next month. Patient informed to call his podiatry for earlier appointment. Not suspecting osteomyelitis, arterial occlusion, DVT, compartment syndrome, lymphangitis, necrotizing fasciitis, or any other life-threatening etiology. He then was seen by podiatry 04/18/24 who noted DERMATOLOGICAL:. Toenails: Left Toenail(s) third digit crumbling [...] the midfoot and forefoot of both feet He has a follow-up appointment with Dr. Tavera (podiatry) 05/10/2024. Today he shows me right great toenail with mild redness and no swelling at the tip of the toe and medial nail fold. No discharge. He reports he stopped taking antibiotics after 7 days though he stillhad a few pills remaining. Reports pain has improved. Lab Results Component Value Date HGBA1C 7.2 (A) 02/06/2024 HGBA1C 7.3 (H) 01/08/2024 HGBA1C 6.8 (A) 12/22/2022 HGBA1C 5.9 (H) 03/23/2022 Also reports low back pain started after moving some furniture by himself at home. Started 5 days ago. No weakness or incontinence or genital numbness. Non-smoker Review of Systems Constitutional: Negative for chills and fever. HENT: Negative for sore throat. Respiratory: Negative for cough and shortness of breath. Cardiovascular: Negative for chest pain. Gastrointestinal: Negative for constipation and diarrhea. Endocrine: Negative for polydipsia, polyphagia and polyuria. Genitourinary: Negative for dysuria. Objective BP 116/79 (BP Location: Left arm, Patient Position: Sitting, BP Cuff Size: Adult) [id number] Temp 97.4 ??F (36.3 ??C) (Temporal) Resp 19 SpO2 98% Physical Exam Vitals reviewed. Constitutional: General: Jackie is not in acute distress. Appearance: Normal appearance. Jackie is not ill-appearing. HENT: Head: Normocephalic and atraumatic. Eyes: General: No scleral icterus. Extraocular Movements: Extraocular movements intact. Pupils: Pupils are equal, round, and reactive to light. Cardiovascular: Rate and Rhythm: Normal rate and regular rhythm. Pulmonary: Effort: Pulmonary effort is normal. No accessory muscle usage or respiratory distress. Musculoskeletal: Right lower leg: No edema. Left lower leg: No edema. Skin: Capillary Refill: Capillary refill takes less than 2 seconds. Comments: right great toenail with mild redness and no swelling at the tip of the toe and medial nail fold. No discharge Neurological: Mental Status: Jackie is alert and oriented to person, place, and time. Psychiatric: Mood and Affect: Mood normal. Behavior: Behavior normal. Assessment/Plan Diagnoses and all orders for this visit: Type 2 diabetes mellitus with diabetic nephropathy, without long-term current use of insulin ([facility]) and Ingrown right great toenail and paronychia Is now status post partial right great toenail removal and 7-day Keflex and doxy. Also was given IVceftriaxone at emergency room. It appears symptoms are improving. Recommend recheck CRP. Will check A1c and urine albumin and renal function as below for routine check. Follow-up with PCP for DM routine visit 3 months. - Hemoglobin A1c; Future - Albumin, Random Urine W/Creatinine; Future - Basic Metabolic Panel; Future - C-reactive Protein; Future Low back pain Started after moving some furniture by himself at home. Started 5 days ago. No weakness or incontinence or genital numbness. Recommend heat, ice, stretching and short course of cyclobenzaprine as needed and Naprosyn as below. Let us know if symptoms continue or do not improve. - cyclobenzaprine (Flexeril) 5 MG tablet; Take 1-2 tabs as needed up to TID - naproxen (Naprosyn) 375 MG tablet; Take 1 tab twce daily with food as needed for back pain documented in this encounter Plan of Treatment Upcoming Encounters Date Type Department Care Team (Late st Contact Info) Description 07/12/2024 3:30 PM EDT Office Visit [facility] [address] [place], [place] [phone] GarryFannie trejo, OD [address] [place] [address] Scheduled Orders Name Type Priority Associated Diagnoses Orde r Schedule Hemoglobin A1c Lab Routine Type 2 diabetes mellitus with diabetic nephropathy, without long-term current use of insulin (CMS/HCC) Expected: 04/25/2024 (Approximate), Expires: 04/25/2025 Albumin, Random Urine W/Creatinine Lab Routine Type 2 diabetes mellitus with diabetic nephropathy, without long-term current use of insulin (CMS/HCC) Expected: 04/25/2024 (Approximate), Expires: 04/25/2025 Basic Metabolic Panel Lab Routine Type 2 diabetes mellitus with diabetic nephropathy, without long-term current use of insulin (CMS/HCC) Expected: 04/25/2024 (Approximate), Expires: 04/25/2025 C-reactive Protein Lab Routine Type 2 diabetes mellitus with diabetic nephropathy, without long-term current use of insulin (CMS/HCC) Expected: 04/25/2024 (Approximate), Expires: 04/25/2025 documented as of this encounter Visit Diagnoses Diagnosis Type 2 diabetes mellitus with diabetic nephropathy, without long-term current use of insulin (CMS/HCC)- Primary Low back pain at multiple sites documented in this encounter Additional Health Concerns Assessment Noted Time PHQ-9 Depression Total Score: 0 08/20/19 3:43 PM EDT documented as of this encounter Care Teams Munitions Handler Relationship Specialty Start Date End Date Vi Keys MD [address] [place] [address] PCP - General Internal Medicine 12/20/22 documented as of this encounter
--- OUTSIDE RECORDS SUMMARY | 2024-05-03 09:18 | XMS_ITS | Encounter Summary ---
Author Organization [employer] Address [address] [address] [facility] [address] [place] [address] Care Team Providers Care Log Inspector Name Role Phone Vi Keys MD Primary Care Pro vider Reason for Visit * Reason Onset Date Comments June04/04/2024 Encounter Details Date Type Department Care Team (Late st Contact Info) Description 04/04/2024 Telephone [facility] [address] [place] [address] Bailee Lopez MA June Social History Tobacco [...] Miscellaneous Notes * Telephone Encounter - Bailee Lopez MA - 04/04/2024 1:26 PM EST [employer] called to schedule Transfer Patient for June. Patient will be on vacation onApril. [employer] will call for July recall to schedule. documented in this encounter Plan of Treatment Upcoming Encounters Date Type Department Care Team (Late st Contact Info) Description 07/12/2024 3:30 PM EDT Office Visit [facility] [address] [place], [place] [phone] Garry, Fannie, OD [address] [place], [place] [phone] documented as of this encounter Visit Diagnoses Not on filedocumented in this encounter Additional Health Concerns Assessment Noted Time PHQ-9 Depression Total Score: 0 08/20/19 3:43 PM EDT documented as of this encounter Care Teams Log Inspector Relationship Specialty Start Date End Date Vi Keys MD [address] [place], [place] [phone] PCP - General Internal Medicine 12/20/22 documented as of this encounter
--- OUTSIDE RECORDS SUMMARY | 2024-05-03 09:18 | XMS_ITS | Encounter Summary ---
Author Organization [employer] Address [address] [place] [address] Care Team Providers Care Dimethylaniline Sulfator Operator Name Role Phone Vi Keys MD Primary [...] as of this encounter Miscellaneous Notes * Result Encounter Note - SUSANNAH Butterfield - 04/15/2024 2:20 PM EST Patient seen at ED for toenail infection-does not appear there was any evidence of osteomyelitis onthe imaging. 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 If not, can schedule here but really would prefer podiatry. documented in this encounter Plan of Treatment Upcoming Encounters Date Type Department Care Team (Late st Contact Info) Description 07/12/2024 3:30 PM EDT Office Visit [facility] [address] [place] [address] GarryFannie, OD [address] [place] [address] Pending Results Name Type Priority Associated Diagnoses Date /Time Wound culture Microbiology Routine 4:45 PM EST documented as of this encounter Procedures Procedure Name Priority Date/Time Associated Diagnosis Comments WOUND CULTURE Routine 04/15/2024 4:45 PM EST GRAM STAIN Routine 04/15/2024 4:45 PM EST GLUCOSE, WHOLE BLOOD Routine 04/15/2024 3:04 PM EST BLOOD CULTURE (SECOND) Routine 2:18 PM EST XR FOOT 3+ VIEWS RIGHT Routine 2:16 PM EST BLOOD CULTURE (FIRST) Routine 04/15/2024 2:09 PM EST CBC WITH AUTO DIFFERENTIAL Routine 04/15/2024 2:09 PM EST SED RATE BY MODIFIED WESTERGREN Routine 04/15/2024 2:09 PM EST C-REACTIVE PROTEIN Routine 04/15/2024 2: 09 PM EST LACTIC ACID Routine 04/15/2024 2:09 PM EST COMPREHENSIVE METABOLIC PANEL Routine 04/15/2024 2:09 PM EST documented in this encounter Results * Gram stain (04/15/2024 4:45 PM EST) 04/15/2024 4:45 PM EST 04/15/2024 4:52 PM EST Comment:Toe Rt Grt Narrative [facility] - 04/18/2024 7:45 AM EST [...] <=10(S) Specimen Source: Toe Right Great us Generic External Data Provider LAB MICROBIOLOGY - GENERAL ORDERABLES Final Result Performing Organization Address City/[facility]/ZIP Co de Phone Number [facility] [address] [place] [phone] * Glucose, Whole Blood (04/15/2024 3:04 PM EST) Glucose, Whole Blood 114 60 - 115 mg/dL [facility] Comment:METER #: [id number] 04/15/2024 3:04 PM EST 04/15/2024 3:07 PM EST Generic External Data Provider LAB BLOOD ORDERAB LES Final Result [facility] [address] [place] [phone] [phone] * Blood Culture (Second) (04/15/2024 2:18 PM EST) Blood Venous blood specimen / Unknown 04/15/2024 2:18 PM EST 04/15/2024 2:23 PM EST Comment:Blood Narrative [facility] - 04/20/2024 4:23 PM EST Blood Culture (Second) No growth after 5 days. Specimen Source: Blood us Generic External Data Provider LAB MICROBIOLOGY - GENERAL ORDERABLES Final Result [facility] [address] [place] [address] [phone] * XR Foot 3+ Views Right (04/15/2024 2:16 PM EST) Anatomical Region Laterality Modality Lower Extremities, Foot Right Radiogra phic Imaging 04/15/2024 2:16 PM EST Narrative 04/15/2024 2:23 PM EST ? [facility] ?[address] ?[place] [address] ?XRay Report ? Signed ? Patient: Jackie Marlow ?MR#: [id number] ? : 1965 ?Acct:[id number] ? Age/Sex: 58 / M ?ADM Date: 04/15/24 ? Loc: HO.ED ? Attending Dr: ? Ordering Physician: Marlon Machuca ?? Date of Service: 04/15/24 ?? Procedure(s): XR foot RT min 3V ?? Accession Number(s): [id number] ? cc: Marlon Machuca; Vi Keys MD [...] DD/ 1416 ? TD/TT: 04/15/24 1416 ? Data Software Engineer: ? Procedure Note Donotjenniferinterpreter, Image - 04/15/[address] [address] XRay Report Signed Patient: Seth Marlow#: [id number] : 1965Acct:[id number] Age/Sex: 58 / MADM Date: 04/15/24 Loc: HO.ED Attending Dr: Ordering Physician: Marlon Machuca Date of Service: 04/15/24 Procedure(s): XR foot RT min 3V Accession Number(s): [id number] cc: Marlon Machuca; Vi Keys MD EXAMINATION: [...] OV> 04/15/24 1421 DD/ 1416 TD/TT: 04/15/24 141 Data Software Engineer: [facility] External Provider IMG XR PROCEDURES Final Result * Blood Culture (First) (04/15/2024 2:09 PM EST) Blood Venous blood specimen / Unknown 04/15/2024 2:09 PM EST 04/15/2024 2:14 PM EST Comment:Blood Narrative [facility] - 04/20/2024 4:14 PM EST Blood Culture (First) No growth after 5 days. Specimen Source: Blood us Generic External Data Provider LAB MICROBIOLOGY - GENERAL ORDERABLES Final Result Performing Organization Address [facility] Co de Phone Number [facility] [address] [place] [phone] * (ABNORMAL) Sed Rate by Modified Jannaren (04/15/2024 2:09 PM EST) Pathologist [facility] Erythrocyte Sedimentation Rate 16(H) 0 - 15 MM/HR [facility] Comment:Patients with polycy themia and many hemoglobin abnormalitiesmay have depressed sed rates whereas patients with anemiamay have elevated sed rates. 04/15/2024 2:09 PM EST 04/15/2024 2:14 PM EST us Generic External Data Provider LAB BLOOD ORDERAB LES Final Result Performing Organization Address [facility] Co de Phone Number [facility] [address] [place] [phone] * (ABNORMAL) C-reactive Protein (04/15/2024 2:09 PM EST) C Reactive Protein 1.09(H) < or = 0.50 mg/dL [facility] 04/15/2024 2:09 PM EST 04/15/2024 2:14 PM EST Generic External Data Provider LAB BLOOD ORDERAB LES Final Result Performing Organization Address [facility] Co de Phone Number [facility] [address] [place] [phone] * (ABNORMAL) Comprehensive Metabolic Panel (04/15/2024 2:09 PM EST) Sodium 140 135 - 145 mmol/L [facility] Potassium 4.4 3.3 - 5.1 mmol/L [facility] Chloride 104 96 - 108 mmol/L [facility] Carbon Dioxide 27 22 - 29 mmol/L [facility] Anion Gap 13 12 - 20 [facility] Urea Nitrogen (BUN) 11 9 - 16 mg/dL [facility] Creatinine, Serum 0.96 0.5 - 1.4 mg/dL [facility] Creatinine Clr Calc Pharmacy 88.2 [facility] Comment:eGFR (calculated fro m the MDRD study equation) and eCrCl(calculated from the Cockcroft-Gault equation) are based ondifferent parameters and may not yield comparable results.If eCrCl result is absurd, please check patient'sheight/weight. Estimated Glomerular Filt Rate >60 [facility] Comment:Chronic Kidney Disea se: Estimated GFR < 60 mL/min/1.47o9Ofmtvk Kidney Disease: Estimated GFR < 15 mL/min/1.73m2 Glucose 118(H) 60 - 115 mg/dL [facility] Calcium 9.8 8.4 - 10.2 mg/dL [facility] Bilirubin, Total 0.6 0.0 - 1.0 mg/dL [facility] Aspartate Amino Transferase 33 5 - 37 U/L [facility] Alanine Aminotransferase 37 0 - 40 U/L [facility] Total Protein 8.7(H) 6.5 - 8.0 g/dL [facility] Albumin Level 4.8 3.5 - 5.0 g/dL [facility] Alkaline Phosphatase 92 39 - 117 U/L [facility] 04/15/2024 2:09 PM EST 04/15/2024 2:14 PM EST us Generic External Data Provider LAB BLOOD ORDERAB LES Final Result [facility] [address] [place] [phone] * Lactic Acid (04/15/2024 2:09 PM EST) Lactic Acid 1.3 0.5 - 2.0 mmol/L [facility] 04/15/2024 2:09 PM EST 04/15/2024 2:14 PM EST us Generic External Data Provider LAB BLOOD ORDERAB LES Final Result [facility] [address] [place] [phone] * (ABNORMAL) CBC auto differential (04/15/2024 2:09 PM EST) Pathologist [facility] White Blood Count 8.5 4.8 - 10.8 X10*3/uL [facility] Red Blood Count 5.61 4.60 - 5.80 X10*6/uL [facility] Hemoglobin 15.0 14.0 - 18.0 g/dl [facility] Hematocrit 44.9 42.0 - 52.0 % [facility] Mean Corpuscular Volume 80.0 80.0 - 98.0 fL [facility] Mean Corpuscular Hemoglobin 26.7(L) 27.0 - 33.0 pg [facility] Mean Corpuscular HGB Conc 33.4 31.0 - 36.0 g/dl [facility] Red Cell Distribution Width 14.0 11.0 - 16.0 % [facility] Platelet Count 257 160 - 400 X10*3/uL [facility] Mean Platelet Volume 10.4 9.4 - 12.4 fL [facility] Neutrophils Percent Auto 71.3 45 - 73 % [facility] Imm Gran Pct Auto 0.7(H) 0.0 - 0.4 % [facility] Lymphocytes Percent Auto 16.3(L) 20 - 40 % [facility] Monocytes Percent Auto 6.7 2 - 11 % [facility] Eosinophils Percent Auto 4.3(H) 0 - 4 % [facility] Basophils Percent Auto 0.7 0 - 2 % [facility] NRBC Pct Auto 0.0 0.0 - 0.2 /100WBC [facility] Neutrophils Absolute Auto 6.0 2.0 - 8.3 x10*3/uL [facility] Imm Gran Abs Auto 0.06(H) 0.00 - 0.03 X10*3/uL [facility] Lymphocytes Absolute Auto 1.4 1.2 - 4.9 X10*3/uL [facility] Monocytes Absolute Auto 0.6 0.1 - 1.2 X10*3/uL [facility] Eosinophils Absolute Auto 0.4 0.0 - 0.4 X10*3/uL [facility] Basophils Absolute Auto 0.1 0.0 - 0.2 X10*3/uL [facility] NRBC Abs Auto 0.000 0.0 - 0.012 X10*3/uL [facility] 04/15/2024 2:09 PM EST 04/15/2024 2:14 PM EST us Generic External Data Provider LAB BLOOD ORDERAB LES Final Result [facility] [address] [place] [phone] documented in this encounter Visit Diagnoses Not on filedocumented in this encounter Additional Health Concerns Assessment Noted Time PHQ-9 Depression Total Score: 0 08/20/19 3:43 PM EDT documented as of this encounter Care Teams Dimethylaniline Sulfator Operator Relationship Specialty Start Date End Date Vi Keys MD [address] [place] [address] PCP - General Internal Medicine 12/20/22 documented as of this encounter
--- OUTSIDE RECORDS SUMMARY | 2024-05-03 09:18 | XMS_ITS | Encounter Summary ---
Author Organization [employer] Address [address] [place] [address] Care Team Providers Care Trawl Net Maker Name Role Phone Vi Keys MD Primary Care Pro vider Reason for Visit * Reason Comments Nail Problem Encounter Details Date Type Department Care Team (Late st Contact Info) Description 04/15/2024 9:00 AM EST Office Visit [facility] [address] [place] [phone] Lizandro Coyne MD [address] [place], [place] [phone] Toe infection (Primary Dx) Social History Tobacco [...] y.o. adult. HPI Jackie was seen in [facility] 2 weeks ago for 2 week h/o [...] in 1 month. Lives Alone. 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 Never smoked. Patient Active Problem List Diagnosis [...] AM EST Expect via private car to [facility] ED per Dr. Coyne. Pt to F/U upon discharge. documented in this encounter Plan of Treatment Upcoming Encounters Date Type Department Care Team (Late st Contact Info) Description 07/12/2024 3:30 PM EDT Office Visit [facility] [address] [place] [address] Fannie Castañeda, OD [address] [place] [address] documented as of this encounter Visit Diagnoses Diagnosis Toe infection- Primary documented in this encounter Additional Health Concerns Assessment Noted Time PHQ-9 Depression Total Score: 0 08/20/19 3:43 PM EDT documented as of this encounter Care Teams Trawl Net Maker Relationship Specialty Start Date End Date Vi Keys MD [address] [place] [phone] PCP - General Internal Medicine 12/20/22 documented as of this encounter
--- OUTSIDE RECORDS SUMMARY | 2024-05-03 09:18 | XMS_ITS | Encounter Summary ---
Author Organization [employer] Address [address] [place] [address] [address]t h Floor [place] [phone] Care Team Providers Care Earth Moving Technician Name Role Phone Carmelita Escalona Primary Care Provider +1- [phone] Vi Keys MD Primary Care Pro vider Encounter Details Date Type Department Care Team (Latest Contact Info) Description 11/23/2021 Abstract [facility] CONVERSIONS Dental, Provider, DDS Social [...] Description 07/12/2024 3:30 PM EDT Office Visit [facility] [address] [place] [address] Fannie Castañeda, OD [address] [place] [address] documented as of this encounter Visit Diagnoses Not on filedocumented in this encounter Care Teams Earth Moving Technician Relationship Specialty Start Date End Date Carmelita Escalona FNP PCP - General Family Medicine 11/02/21 12/19/22 Vi Keys MD [address] [place] [address] PCP - General Internal Medicine 12/20/22 documented as of this encounter
--- OUTSIDE RECORDS SUMMARY | 2024-05-03 09:18 | XMS_ITS | Encounter Summary ---
Author Organization [employer] Address [address] [facility] [address] [place] [address] Care Team Providers Care Regional Controller Name Role Phone Carmelita Escalona Primary Care Provider +1- [phone] Vi Keys MD Primary Care Pro vider Reason for Visit * Reason Onset Date Comments Referral 06/20/2022 Encounter Details Date Type Department Care Team ([facility] st Contact Info) Description 06/20/2022 Telephone [facility] MEDICINE [address] [place] [address] Carmelita Escalona FNP [address] [place] [address] Dept [place] [address] Referral Social History Tobacco Use Types Packs/Day [...] a sooner apptthan August. Please contact at [phone] documented in this encounter Plan of Treatment Upcoming Encounters Date Type Department Care Team (Late st Contact Info) Description 07/12/2024 3:30 PM EDT Office Visit [facility] OPT[facility] [address] [place] [address] Fannie Castañeda, OD [address] [place] [address] documented as of this encounter Visit Diagnoses Not on filedocumented in this encounter Care Teams Regional Controller Relationship Specialty Start Date End Date Carmelita Escalona FNP PCP - General Family Medicine 11/02/21 12/19/22 Vi Keys MD [address] [place] [address] PCP - General Internal Medicine 12/20/22 documented as of this encounter
--- OUTSIDE RECORDS SUMMARY | 2024-05-03 09:18 | XMS_ITS | Encounter Summary ---
Author Organization [employer] Address [address] [facility] [address] [place] [address] Care Team Providers Care [employer] Sigma Black Trainer Name Role Phone Carmelita Escalona Primary Care Provider +1- [phone] Vi Keys MD Primary Care Pro vider Reason for Visit * Reason Onset Date Comments ER Follow-up 12/09/2022 Encounter Details Date Type Department Care Team ([facility] st Contact Info) Description 12/09/2022 Telephone [facility] [address] [place] [address] Carmelita Escalona FNP [address] [facility] Dept [place] [address] ER Follow-up Social History Tobacco Use Types [...] For below message, pt. Was admitted at [facility] for loss of vision and suspected seizure from12/07 to 12/09. P. Schedule for HDF on 12/22/2022. Pt. Verbally agreed and understood. HDF summery and ED summery scanned into pt.'s chart. * Telephone Encounter - Nisa Ramos - 12/09/2022 10:50 AM EDT Patient calling to report ED visit on 12/09/2022 at [facility]. Diagnosed with nothing. Patient advised will forward to nurse for follow up. No symptoms Please contact pt at [phone] documented in this encounter Plan of Treatment Upcoming Encounters Date Type Department Care Team (Late st Contact Info) Description 07/12/2024 3:30 PM EDT Office Visit [facility] [address] [place] [address] Garry, Fannie, OD [address] [place] [address] documented as of this encounter Visit Diagnoses Not on filedocumented in this encounter Additional Health Concerns Assessment Noted Time PHQ-9 Depression Total Score: 0 08/20/19 23 3:43 PM EDT documented as of this encounter Care Teams Six Sigma Black Trainer Relationship Specialty Start Date End Date Carmelita Escalona FNP PCP - General Family Medicine 11/02/21 12/19/22 Vi Keys MD [address] [place] [address] PCP - General Internal Medicine 12/20/22 documented as of this encounter
--- OUTSIDE RECORDS SUMMARY | 2024-05-03 09:18 | XMS_ITS | Encounter Summary ---
Author Organization [employer] Address [address] [place] [address] [address]t [address] Floor [place] [phone] Care Team Providers Care Rn Plastics Name Role Phone Carmelita Escalona Primary Care Provider +1- [phone] Vi Keys MD Primary Care Pro vider Encounter Details Date Type Department Care Team (Latest Contact Info) Description 07/13/2018 Abstract [facility] CONVERSIONS Dental, Provider, DDS Social History [...] Description 07/12/2024 3:30 PM EDT Office Visit [facility] OPT[facility] [address] [place], [place] [phone] Fannie Castañeda, OD [address] [place] [address] documented as of this encounter Visit Diagnoses Not on filedocumented in this encounter Care Teams Rn Plastics Relationship Specialty Start Date End Date Carmelita Escalona FNP PCP - General Family Medicine 11/02/21 12/19/22 Vi Keys MD [address] [place] [address] PCP - General Internal Medicine 12/20/22 documented as of this encounter
--- OUTSIDE RECORDS SUMMARY | 2024-05-03 09:18 | XMS_ITS | Encounter Summary ---
Author Organization [employer] Address [address] [facility] [address] [place] [address] Care Team Providers Care Doctor Of Nurse Anesthesia Name Role Phone Vi Keys MD Primary Care Pro vider Encounter Details Date Type Department Care Team (Latest Contact Info) Description 04/25/2024 Travel Social History Tobacco Use Types Packs/Day Years Used Date Smoking Tobacco: Never Passive Smoke Exposure: Never Smokeless Tobacco: Never Alcohol Use Standard Drinks/Week Comments Never 0 (1 standard drink = 0.6 oz pur e alcohol) Depression Answer Date Recorded Patient Health Questionnaire-9 Score 0 08/19/2022 Housing Stability Answer Date Recorded What is your housing situation today? I have [facility] angulo 12/27/[address] you [...] Description 07/12/2024 3:30 PM EDT Office Visit [facility] [address] [place], [place] [phone] Fannie Castañeda, OD [address] [place], [place] [phone] documented as of this encounter Visit Diagnoses Not on filedocumented in this encounter Additional Health Concerns Assessment Noted Time PHQ-9 Depression Total Score: 0 08/20/19 23 3:43 PM EDT documented as of this encounter Care Teams Doctor Of Nurse Anesthesia Relationship Specialty Start Date End Date Vi Keys MD [address] [place], [place] [phone] PCP - General Internal Medicine 12/20/22 documented as of this encounter
[2024-05-03 11:23] LABS: Estimated Average Glucose 143 mg/dL; Hemoglobin A1C 177.8819 umol/L; Hemoglobin A1c % 6.6 % (<6.0); Total Hemoglobin (HGBA1C) 3627.3234 umol/L
[2024-05-03 11:41] LABS: Anion Gap 12 (12-20); Blood Urea Nitrogen 11 mg/dL (9-16); C Reactive Protein 0.67 mg/dL (< or = 0.50); Calcium 9.7 mg/dL (8.4-10.2); Carbon Dioxide 28 mmol/L (22-29); Chloride 106 mmol/L (96-108); Estimated Glomerular Filt Rate > 60; Glucose Random 173 mg/dL (60-115); Sodium 142 mmol/L (135-145)
[2024-05-03 12:07] LABS: Creatinine Urine 254.55 mg/dL; Microalbum/Creatinine Ratio Ur 34.1 ug/mg cr (<30)
== END 2024-05-03 08:57 | disposition home or self-care (01) ==
LOC: HO.HHCL 08:56
PROVIDERS: Visit Provider Nurse Practitioner Primary Care
DX: E11.21 Type 2 diabetes mellitus with diabetic nephropathy (principal)
CPT/HCPCS: 36415; 80048; 82043; 82570; 83036; 86140

== ENCOUNTER 2024-10-09 08:13 | Outpatient (AMB) | payer MEDICAID, SELFPAY ==
--- NOTE | 2024-10-09 08:15 | MHC.OFFVIS ---
Intake Visit Reasons: nephrolithiasis Intake Note: New Patient is present for nephrolithiasis Urology Rx: none Blood Thinners:none Imaging completed: Data [employer] Software Consultant Required: No Accompanied by: Self / Same As Patient Allergies No Known Allergies (No Known Allergies*) Allergy (Verified 10/09/24 08:16) HPI Comments Details: 10/09/24 History of Present Illness - The patient is a 58-year-old male presenting with nephrolithiasis. - Recent renal ultrasound revealed a 3 mm stone in the right kidney and two stones in the left kidney, the largest measuring 7 to 8 mm. - Underwent laser lithotripsy approximately a year ago, partially successful, performed twice. - Reports intermittent pain, particularly after walking long distances, with recent episodes of pain on the left side. - Increased water intake as a preventative measure. - Urinary hesitancy noted, with initial slow stream improving after 20-30 seconds. Results - Renal ultrasound-02/15/24: 3 mm stone in the right kidney lower pole, 7 mm and 4 mm stones in the left kidney. - KUB: Visible stone in the left kidney, largest measuring 7 to 8 mm. Plan - Repeat renal ultrasound to evaluate for changes in stone size or position. - Consider left shockwave lithotripsy performed as an outpatient procedure with anesthesia. - Order blood work including PSA to assess prostate health due to urinary hesitancy. [facility] Medical History Diabetes Social History Patient Tobacco Use Status: Never used Tobacco Current occupational status: employed Current occupation: [employer] Review of Systems Const All systems reviewed & are unremarkable except as noted in HPI and below Reports no additional complaints Eyes Reports no additional complaints ENT Reports no additional complaints Card Reports no additional complaints Resp Reports no additional complaints GI Reports no additional complaints Reports as per HPI Musc Reports no additional complaints Skin/Breast Reports system reviewed and no additional complaints, except as documented Neuro Reports no additional complaints Psych Reports no additional complaints Endo Reports no additional complaints Dav/Lymph Reports no additional complaints Aller/Immun Reports no additional complaints Physical Exam Const General: healthy appearing, no acute distress and well developed Orientation/consciousness: patient oriented x3 HEENT Head: Yes normocephalic and Yes atraumatic Eyes Conjunctivae: conjunctivae normal Neck Neck: Yes normal visual inspection Chest Chest palpation & inspection: normal inspection of the chest Resp Effort & Inspection: normal respiratory effort GI Inspection: Yes normal to inspection Neuro General: patient oriented x3 Psych Appearance: grossly normal Affect: normal affect Results Reviewed Results Reviewed: Date of Service: 02/15/24 US RETROPERITONEAL COMPLETE (RENAL) CLINICAL INFORMATION: Abdominal pain, evaluate for obstruction. COMPARISON: Renal ultrasound 03/23/2018. TECHNIQUE: Real-time imaging of the kidneys and bladder. FINDINGS: RIGHT KIDNEY: 11.1 x 4.7 x 4.9 cm (SAG x AP x TRV). Right renal 0.3 cm lower pole calculus. No hydronephrosis. Renal cortical thickness is normal. Limited visualization. 1.4 cm upper pole cyst with benign features. There is no indication for followup imaging. LEFT KIDNEY: 10.2 x 6.2 x 5.9 cm (SAG x AP x TRV). 0.7 cm midpole and 0.4 cm lower pole calculi. Left renal mild caliectasis. 2.6 cm left renal lower pole anechoic focus characteristic of a cyst with benign features. There is no indication for followup imaging at this time. BLADDER: Well distended. Bilateral ureteral jets are demonstrated. Prevoid bladder volume is 233 mL. Postvoid bladder volume is 9 mL. Mild diffuse trabeculation of the bladder wall. PROSTATE GLAND: The prostate volume is 26 mL. IMPRESSION: 1. Bilateral nephrolithiasis. Mild left pelvocaliectasis. 2. Prostate volume 26 mL. Assessment & Plan Assessment & Plan (1) Bilateral kidney stones: Code(s): N20.0 - Calculus of kidney Category: Medical Plan Plan - Repeat renal ultrasound to evaluate for changes in stone size or position. - Schedule Left shockwave lithotripsy - Order PSA to assess prostate health due to urinary hesitancy. Patient Instructions: The patient had an opportunity to ask questions regarding treatment plan. The patient expressed understanding and agreement with the above treatment plan. The patient is aware they should contact our office by phone for worsening of their current condition or the appearance of new symptoms. Compliance is encouraged with any medications and followup testing that is ordered. It is a privilege to be allowed the opportunity to participate in the urologic care of your patient. If you have any questions or concerns regarding treatment for the above conditions please do not hesitate to contact me. The office telephone contact is [phone]. This note is constructed in part using voice recognition software. While every effort has been made to ensure accuracy card grinder errors may have been included. Yours sincerely, Santiago Yu MD Scribe Plan - Not visible on output: Patient was informed and verbally consented to the use of an ambient scribe for clinic note documentation during this visit. Coding Level of Care Code New Pt Level 4 (24502) Diagnoses Bilateral kidney stones N20.0
--- OUTSIDE RECORDS SUMMARY | 2024-10-09 08:17 | XMS_ITS | Clinical Summary ---
Author Organization [facility] Address [address] [place] [address] Care Team Providers Care News Broadcaster Name Role Phone Unavailable Primary Care Provider Unavailabl e Source Comments PLEASE NOTE, if this patient is a minor, it may be UNLAWFUL to discuss sensitive information that is contained in these records (such as FAMILY PLANNING, MENTAL HEALTH or SUBSTANCE ABUSE) with the minor patient's parent or other person without the patient's specific authorization.[facility] Immunizations Immunization Administration Dates Next Due Moderna COVID-19 Vaccine, [...] Health Maintenance Due Date Last Done Comments Anxiety Screening 1965 Diabetes Screening 1964 Hepatitis C Screening 1964 Lipid Screening 1964 Tobacco Screening 1964 HIV Screening 10/31/1979 Hypertension Screening (#1) 1982 Imm-Hepatitis B (1 of 3 - 19 + 3-dose series) 10/31/1983 CT Colonography 2009 Colonoscopy 2009 Colorectal Cancer Screening 2009 FIT/gFOBT 2009 Fecal DNA 2009 Flexible Sigmoidoscopy 2009 Imm-Zoster, Recombinant (1 of 2) 2014 Imm-Pneumococcal 50+ (2 of 2 - PCV) 04/25/2017 04/25/2016 [id number] ( season) 2023 021, 06/15/2020 Alcohol and Drug Screen 03/13/2024 Depression Annual Screen 03/13/2024 Imm-Influenza (#1) 2024 03/27/2019, 0 05/30/2018, 02/15/2016, Additional history exists Imm-DTaP/Tdap/Td (2 - Td or Tdap) 05/30/[address]28 [address] [employer]
--- OUTSIDE RECORDS SUMMARY | 2024-10-09 08:17 | XMS_ITS | Clinical Summary ---
Author Organization [facility] Address [address] [place] [address] Phone Care Team Providers Care Prototype Deicer Assembler Name Role Phone Physician, Pcp Unknown Primary Care Provider Maggie vailable Allergies No known active allergies Medications ammonium lactate (AmLactin) 12 % lotion Apply topically if needed for dry skin. Dry skin 400 g 5 07/17/19 26 Active terbinafine (LamISIL) 250 mg tablet Take 1 tablet (250 mg total) by mouth 1 (one) time each day. 90 each 5 10/15/19 25 Active Encounters Date Type Department Care Team Description 07/16/2024 8:15 AM EDT Office Visit Orthopedic Surgery - [facility] [address] [facility] [address] [place] [phone] Nish Tavera, DPChaitanya Ingrowing nail (Primary Dx); Dermatophytosis of nail; Diabetic mononeuropathy simplex (CMS/HCC V24, CMS/HCC V28); Pain in toe of left foot [M79.675]; Pain in right foot; Lichenification from Last 3 Months Social History Tobacco [...] Concentration - - Weight 83.5 kg (184 lb 1.4 oz) 07/16/2024 8:00 A M EDT Height 180.3 cm (5' 10.98 ) 07/16/2024 8:00 AM E DT Body Mass Index 25.69 07/16/2024 8:00 AM EDT Plan of Treatment Upcoming Encounters Date Type Department Care Team (Late st Contact Info) Description 01/16/2025 8:15 AM EST Office Visit Orthopedic Surgery - [facility] [address] [phone] Nish Tavera, DPM [address] [phone] Health Maintenance Due Date Last Done Comments [...] Vaccine ( season) 2023 03/16/2021, 07/14/2020, 06/15/2020 Colorectal Cancer Screening: Colonoscopy 02/23/2024 Social Influencers of Health Screening 02/23/2024 Depression Screening 03/13/2024 Diabetes: Annual Urine Albumin-Creatinine Ratio (uACR) 04/18/2024 Diabetes: Blood Sugar Control Test (HGBA1C) 10/31/2024 05/03/2024, 02/06/2024 Influenza Vaccine (#1) 2024 , 03/27/2019, 05/30/2018, Additional history exists Diabetes: Annual GFR (Glomerular Filtration Rate) 05/03/2025 05/03/2024, 04/15/2024 Hypertension/CHF/CAD Annual BMP Blood Test 05/03/2025 05/03/2024, 04/15/2024 Cholesterol Screening (Lipid Panel) 01/07/2029 01/08/2024 DTaP,Tdap,and Td Vaccines (3 - Td or Tdap) 04/15/2034 04/15/2024, 05/30/2018 RSV Immunization Adult Patients (1 - 1-dose 75+ series) 10/31/2039 Hepatitis [...] age to complete this topic Meningococcal B Vaccine Aged Out No l onger eligible based on patient's age to complete this topic RSV Immunization Patients Under 20 months Aged Out No longer eligible based on patient's age to complete this topic Varicella Vaccines Aged Out No longer eligible based on patient's age to complete this topic Insurance MEDICAID - [place] Care Teams Prototype Deicer Assembler Relationship Specialty Start Date End Date Physician, Pcp Unknown PCP - General 04/18/24
--- OUTSIDE RECORDS SUMMARY | 2024-10-09 08:17 | XMS_ITS | Clinical Summary ---
Author Organization [employer] Address [address] [facility] [address] [place] [address] Care Team Providers Care Machine Silver Stripper Name Role Phone Vi Keys MD Primary Care Pro vider Allergies Active Allergy Reactions Criticality Noted Date Comments Lisinopril Cough 02/23/2021 Pork Allergy 12/22/2022 caodaism reasons caodaism reasons Medications Alcohol Swabs (Alcohol Prep) pads 1 each 2 times daily. 100 each 11 023 Active Blood Glucose Calibration (FreeStyle Control Solution) liquid USE 2 TIMES DAILY. 023 Active Blood Pressure Monitoring (Blood Pressure Kit) kitIndications:Es sential hypertension 1 each 2 (two) times a week. 1 kit 024 Active latanoprost (Xalatan) 0.005 % ophthalmic solution Administer 1 drop into both eyes at bedtime. 2.5 mL 11 024 2024 Active ammonium lactate (Lac-Hydrin) 12 % lotion Apply topically if needed. 025 2025 Active terbinafine (LamISIL) 250 MG tablet Take 250 mg by mouth Once per day. 025 2024 Active Blood Glucose Monitoring Suppl w/Device kitIndications:Ty pe 2 diabetes mellitus with diabetic nephropathy, without long-term current use of insulin (CMS/HCC) USE TO CHECK BLOOD SUGAR DAILY 1 kit 025 Active FREESTYLE LITE test stripIndications: Type 2 diabetes mellitus with diabetic nephropathy, without long-term current use of insulin (CMS/HCC) 1 each by Other route 2 times daily. 180 each 025 2025 Active gabapentin (Neurontin) 600 MG tabletIndications :Type 2 diabetes mellitus with diabetic nephropathy, without long-term current use of insulin ([facility]) Take 1 tablet (600 mg) by mouth 2 times daily. 180 tablet Active metFORMIN (Glucophage) 1000 MG tablet Take 1 tablet (1,000 mg) by mouth with breakfast and with evening meal. 180 tablet 2025 Active empagliflozin (Jardiance) 10 MG Take 1 tablet (10 mg) by mouth Once per day. 90 tablet 025 2025 Active amLODIPine (Norvasc) 10 MG tablet Take 1 tablet (10 mg) by mouth Once per day. 90 tablet 2024 Active lidocaine (Lidoderm) 5 % patch Apply 1 patch topically Once per day. Remove & discard patch within 12 hours or as directed by MD. 30 patch 2 Active cyanocobalamin (Vitamin B-12) 500 MCG tablet Take 1 tablet (500 mcg) by mouth Once per day. 90 tablet 025 2025 Active aspirin (Aspirin Low Dose) 81 MG chewable tablet Chew 1 tablet (81 mg) Once per day. 90 tablet Active albuterol 108 (90 Base) MCG/ACT inhalerIndication s:Mild intermittent asthma without complication Inhale 2 puffs every 4 (four) hours. 18 g 2 025 2026 Active atorvastatin (Lipitor) 20 MG tabletIndications :Type 2 diabetes mellitus with diabetic nephropathy, without long-term current use of insulin ([facility]),Mixed hyperlipidemia Take 1 tablet (20 mg) by mouth Once per day. Take 1 tablet by mouth every day 90 tablet Active Restasis 0.05 % ophthalmic emulsion Administer 1 drop into both eyes 2 times daily. Active econazole nitrate 1 % creamIndications: Tinea pedis of both feet Apply topically if needed each day for rash. 15 g 2 023 2024 Discontinued(O ther) albuterol 108 (90 Base) MCG/ACT inhalerIndication s:Mild intermittent asthma without complication Inhale 2 puffs every 4 (four) hours. 18 g 3 023 2024 Discontinued(R eorder (will not trigger notification to Pharmacy)) atorvastatin (Lipitor) 20 MG tabletIndications :Type 2 diabetes mellitus with diabetic nephropathy, without long-term current use of insulin ([facility]),Mixed hyperlipidemia Take 1 tablet by mouth every day 90 tablet 3 024 2024 Discontinued(O ther) amLODIPine (Norvasc) 10 MG tablet TAKE 1 TABLET BY MOUTH EVERY DAY FOR 30 DAYS 2024 Discontinued(R eorder (will not trigger notification to Pharmacy)) gabapentin (Neurontin) 600 MG tabletIndications :Type 2 diabetes mellitus with diabetic nephropathy, without long-term current use of insulin ([facility]) Take 1 tablet (600 mg) by mouth 3 times daily. 90 tablet 025 2024 Discontinued(R eorder (will not trigger notification to Pharmacy)) metFORMIN (Glucophage) 1000 MG tablet Take 1 tablet (1,000 mg) by mouth with breakfast and with evening meal. 180 tablet 1 025 2024 Discontinued(R eorder (will not trigger notification to Pharmacy)) cyanocobalamin (Vitamin B-12) 500 MCG tablet Take 1 tablet (500 mcg) by mouth Once per day. 90 tablet 025 2024 Discontinued(R eorder (will not trigger notification to Pharmacy)) Lidoderm 5 % patch Apply 1 patch topically Once per day. Remove & discard patch within 12 hours or as directed by MD. 30 patch 1 025 2024 Discontinued empagliflozin (Jardiance) 10 MG Take 1 tablet (10 mg) by mouth Once per day. 90 tablet 025 2024 Discontinued(R eorder (will not trigger notification to Pharmacy)) Aspirin Low Dose 81 MG chewable tablet CHEW 1 TABLET (81 MG) ONCE PER DAY. 90 tablet 1 025 2024 Discontinued(R eorder (will not trigger notification to Pharmacy)) lidocaine (Lidoderm) 5 % patch APPLY 1 PATCH TOPICALLY ONCE PER DAY. REMOVE & DISCARD PATCH WITHIN 12 HOURS OR DIRECTED BY . 30 patch 1 025 2024 Discontinued(R eorder (will not trigger notification to Pharmacy)) zoster vaccine-recombina nt adjuvanted (Shingrix) 50 MCG/0.5ML vaccine Inject 0.5 mL (50 mcg) into the muscle 1 (one) time for 1 dose. Start series 0.5 mL 025 2024 Active Problems Problem Noted Date Diagnosed Date Glaucoma 07/25/2024 Impingement syndrome of left shoulder region 08/2024 Right foot pain 02/07/2024 Health care maintenance 02/07/2024 HLD (hyperlipidemia) 02/07/2024 Transaminitis 02/07/2024 Chronic GERD 12/22/2022 12/22/2022 Mixed anxiety depressive disorder 12/22/2022 12/22/2022 Nonspecific reaction to tuberculin test 12/23/1912/22/2022 Trigger finger of right thumb 08/21/2022 Kidney stone 01/17/2022 Essential hypertension 11/13/2019 Assessment & Plan (01/05/2024 [...] Problem Noted Date Diagnosed Date Resolved Date Left flank pain 02/07/2024 09/28/2024 Acute low back pain 01/06/2021 08/20/19 23 Encounters Date Type Department Care Team Description 10/08/2024 3:30 PM EDT Office Visit [facility] [address] [place] [address] Fannie Castañeda, OD Dry eyes (Primary Dx) 10/08/2024 Travel 09/25/2024 9:45 AM EDT Office Visit [facility] [address] [place] [address] [phone] Vi Keys MD Health care maintenance (Primary Dx); Type 2 diabetes mellitus with diabetic nephropathy, without long-term current use of insulin (CMS/HCC); Mild intermittent asthma without complication; Mixed hyperlipidemia; Neck pain; Essential hypertension; Encounter for immunization; Chronic left shoulder pain; Kidney stone; Transaminitis; Glaucoma, unspecified glaucoma type, unspecified laterality 09/25/2024 Travel 09/24/2024 Telephone [facility] [address] [place] [address] [phone] Vi Keys MD CHART PREP 09/19/2024 Refill [facility] [address] [place] [address] [phone] Vi Keys MD 09/18/2024 Patient Outreach [facility] [address] [place] [address] [phone] Vi Keys MD Pre-visit Planning (SDOH screening completed on 07/24/24 ) 09/04/2024 Refill [facility] [address] [place] [address] [phone] Corina Vera MD Type 2 diabetes mellitus with diabetic nephropathy, without long-term current use of insulin (CMS/HCC) 09/04/2024 Refill [facility] [address] [place] [address] [phone] Mandie Chavez DO Type 2 diabetes mellitus with diabetic nephropathy, without long-term current use of insulin (CMS/HCC) 09/04/2024 Telephone [facility] [address] [place] [address] [phone] Elizabeth Hermosillo NP 09/03/2024 Orders Only [facility] [address] [place] [address] [phone] Vi Keys MD Type 2 diabetes mellitus with diabetic nephropathy, without long-term current use of insulin (CMS/HCC) 09/03/2024 Telephone [facility] [address] [place] [address] Vi Keys MD Medication Question 09/03/2024 Refill [facility] [address] [place] [address] Vi Keys MD Type 2 diabetes mellitus with diabetic nephropathy, without long-term current use of insulin ([facility]) 09/02/2024 Refill [facility] [address] [place] [address] Vi Keys MD Type 2 diabetes mellitus with diabetic nephropathy, without long-term current use of insulin ([facility]) 09/02/2024 Telephone [facility] [address] [place] [address] [phone] Vi Keys MD Nurse Triage 08/09/2024 Telephone [facility] [address] [place] [address] [phone] Vi Keys MD Referral 07/31/2024 Refill [facility] [address] [place] [address] [phone] Vi Keys MD 07/24/2024 9:45 AM EDT Office Visit [facility] [address] [place] [address] [phone] Vi Keys MD Nephrolithiasis (Primary Dx); Type 2 diabetes mellitus with diabetic nephropathy, without long-term current use of insulin ([facility]); Essential hypertension; Dietary counseling; Exercise counseling; Mild intermittent asthma without complication; Hyperlipidemia, unspecified hyperlipidemia type; Left flank pain; Health care maintenance; Kidney stone; Glaucoma, unspecified glaucoma type, unspecified laterality 07/24/2024 Travel 07/23/2024 Telephone [facility] [address] [place] [address] [phone] Vi Keys MD CHART PREP 07/17/2024 Patient Outreach [facility] [address] [place] [address] [phone] Vi Keys MD Pre-visit Planning ((Unable to reach for PVP screening, LVM)) 07/12/2024 11:00 AM EDT Office Visit [facility] [address] [place] [address] Fannie Castañeda, OD Low-tension glaucoma of both eyes, mild stage (Primary Dx) 07/12/2024 Travel from Last 3 Months Immunizations Immunization Administration Dates Next Due Hep A, Adult 05/09/2011,09/09/2009 IPV 09/09/2009 Influenza injectable quadriv alent IIV4 with preservative 02/15/2016,04/23/2015 Influenza injectable quadriv alent preservative free 12/10/2020,03/27/2019,05/30/2018 Influenza, IIV3, injectable 04/05/2011 Meningococcal ACWY, unspecified 09/09/2009 Meningococcal MCV4P ACYW-135 03/27/2019 Pneumococcal Conjugate PCV 20 09/25/2024 Pneumococcal Polysaccharide PPSV23 04/25/2016, Tdap 04/15/2024,05/30/2018 Typhoid, ViCPs 09/09/2009 Family History Medical History Relation Name Comments Dm2 Brother Diabetes Father Breast cancer Mother Diabetes Mother Relation Name Status Comments Brother Father Mother Social History Tobacco Use Types Packs/Day Years Used Date Smoking Tobacco: Never Passive Smoke Exposure: Never Smokeless Tobacco: Never Tobacco Cessation:Counseling Given: Not Answered Alcohol Use Standard Drinks/Week Comments Never 0 (1 standard drink = 0.6 oz pur e alcohol) Depression Answer Date Recorded Patient Health Questionnaire-9 Score 0 09/25/2024 Patient Health Questionnaire-9 Score 0 09/25/2024 Last PHQ-9: Questionnaire Data Not on file 0 09/25/2024 Housing Stability Answer Date Recorded What is your housing situation today? I have karen angulo 07/24/[address] you li ve. Do you have problems with any of the following? None of the above 07/24/2024 Food Insecurity Answer Date Recorded Within the past 12 months, y ou worried that your food would run out before you got money to buy more: Never True 07/24/2024 Within the past 12 months,th e food you bought just didn't last and you didn't have enough money to get more: Never True Transportation Answer Date Recorded In the past 12 months, has l ack of transportation kept you from medical appts, meetings, work or from getting things needed for daily living? No 07/24/2024 Utilities Answer Date Recorded In the past 12 months, has t he electric, gas, oil or water company threatened to shut off services in your home? No 07/24/2024 Depression Answer Date Recorded Patient Health Questionnaire-2 Score 0 09/25/2024 Internet Access Answer Date Recorded Internet Access Q1 No 07/24/2024 Internet Access Q2 I do not want or need it 07/11 Sex and Gender Information Value Date Recorded Sex Assigned at Male 01/10/2022 10:28 AM EDT Legal Sex Male 10:28 AM EDT Gender Identity Choose not to disclose 10:28 AM EDT Sexual Orientation Straight 09/25/2024 10 :24 AM EDT Last Filed Vital Signs Vital Sign Reading Time Taken Comments Blood Pressure 130/62 09/25/2024 10:23 AM EDT Pulse 87 09/25/2024 10:23 AM EDT Temperature 36.1 C (96.9 F) 09/25/2024 10:23 AM EDT Respiratory Rate 20 09/25/2024 10:2 3 AM EDT Oxygen Saturation 99% 09/25/2024 10: 23 AM EDT Inhaled Oxygen Concentration - - Weight 85.6 kg (188 lb 12.8 oz) 025 10:23 AM EDT Height 181.6 cm (5' 11.5 ) 09/25/2024 1 0:23 AM EDT Body Mass Index 25.97 09/25/2024 10:23 AM EDT Plan of Treatment Upcoming Encounters Date Type Department Care Team (Late st Contact Info) Description 11/20/2024 9:00 AM EDT Office Visit [facility] [address] [place] [address] [phone] Vi Keys MD [address] [place], [place] [phone] Health Maintenance Due Date Last Done Comments CT Colonography 1964 Colonoscopy 1964 Colorectal Cancer Screening 1964 FIT DNA/Cologuard 1964 FIT 1964 FOBT 1964 Sigmoidoscopy 1964 Hepatitis B Vaccines (1 of 3 - 19+ 3-dose series) 10/31/1983 IPV Vaccines (2 of 3 - Adult catch-up series) 10/07/2009 09/09/2009 Zoster Vaccines (1 of 2) 2014 Diabetes: Foot Exam 02/23/2023 02/23/2022 COVID-19 Vaccine ( season) 2023 03/16/2021, 07/14/2020, 06/15/2020 Diabetes: Hemoglobin A1C 10/24/2024 025, 05/03/2024, 02/06/2024, Additional history exists Influenza Vaccine (#1) 2024 , 03/27/2019, 05/30/2018, Additional history exists Lipid Panel 01/07/2025 01/08/2024, 03/13, 11/23/2020 Alcohol/Substance Use Screening 07/24/2025 07/24/2024 Disability Screening 07/24/2025 07/24/2024 SDOH Screening 07/24/2025 07/24/2024 Depression Screening 09/25/2025 09/25/2024, 09/26/19 Tobacco Screening 09/25/2025 09/25/2024 Eye Exam 07/12/2026 07/12/2024, 12/13, 01/11/2024, Additional history exists DTaP/Tdap/Td Vaccines [...] Completed 01/08/2024 Hepatitis C Screening Completed 01/08/2024 Pneumococcal Vaccine: 50+ Years Completed 09/25/2024, 04/25/2016, 04/23/2011 HIB Vaccines Aged Out No longer eligi [...] Procedure Name Priority Date/Time Associated Diagnosis Comments ECG 12-LEAD Routine 09/25/2024 11:13 AM EDT Essential hypertension POCT GLYCATED HEMOGLOBIN, TOTAL Routine 07/24/2024 9:57 AM EDT Type 2 diabetes mellitus with diabetic nephropathy, without long-term current use of insulin (CMS/HCC) POCT GLUCOSE Routine 07/24/2024 9:54 AM EDT Type 2 diabetes mellitus with diabetic nephropathy, without long-term current use of insulin (CMS/[facility]) AUTOMATED VISUAL FIELD, EXTENDED - OU - BOTH EYES Routine 07/12/2024 12:00 PM EDT Low-tension glaucoma of both eyes, mild stage HEPATITIS C AB W/REFL TO HCV RNA, QN, PCR Routine 01/08/2024 9:05 AM EDT Right leg pain HIV 1/2 ANTIGEN/ANTIBODY, FOURTH GENERATION W/RFL Routine 01/08/2024 9:05 AM EDT Right leg pain LIPID PANEL, STANDARD Routine 01/08/2024 9:05 AM EDT Right leg pain from Last 3 Months or Most Recently Relevant to Health Maintenance Results * ECG 12 lead (09/25/2024 11:13 AM EDT) Narrative Vi Keys MD - 09/25/2024 11:13 AM EDT EKG today 09/2024 for baseline HR 83x',Qtc 396, NSR,no ischemic findings us Vi Cardozo MD ECG ORDERABLES F inal Result * (ABNORMAL) POCT HGB A1C (07/24/2024 9:57 AM EDT) Hemoglobin A1C 7.7(A) 4.0 - 6.0 % QC Media Lot # [id number] Lot# Expiration Date , Blood 07/24/2024 9:57 AM EDT Vi Cardozo MD POINT OF CARE EMILE T ENTER/EDIT ORDERABLES Final Result * (ABNORMAL) POCT Glucose (07/24/2024 9:54 AM EDT) Glucose Blood, POC 317(A) 60 - 200 mg/dL QC Media Lot # [id number] Lot# Expiration Date Blood Capillary blood specimen / Unknown 07/24/2024 9:54 AM EDT Result [facility] Vi Cardozo MD POINT OF CARE EIMLE T ENTER/EDIT ORDERABLES Final Result * Automated Visual Field, Extended - OU - Both Eyes (07/12/2024 12:00 PM EDT) Narrative Fannie Castañeda, OD - 08/02/2024 4:17 PM EDT VISUAL FIELD INTERPRETATION Visual Field Interpretation Test Details: Jose David Oswald Pulsar/200/TOP Octopus VF Reliability Indices: False positive errors OD: 0/11 OS: 0/9 False negative errors OD: 0/12 OS: 0/10 Statistical Indices: MS [src]: OD: 20.4 dB OS: 19.5 dB MD [< 2.0 src]: OD: 1.4 dB OS: 2.2 dB sLV [< 2.5 src]: OD: 3.0 dB OS: 3.0 dB Impression: Reason for testing: Normal Tension Glaucoma (OU) Test Reliability: Borderline reliability. Patient had a hard time keeping eyes open during testing. Upper eyelids routinely drooped down over visual axis and he needed to be reminded constantly to keep eyes open and look at the fixation target. Impression: Right eye: Superior arcuate defect extending temporally Left eye: Peripheral constriction of field in superior nasal, superior temporal, and inferior temporal quadrants Progression: Right eye: Superior defect is repeatable, but today's field shows it may be progressing temporally (May be artificial due to lid defect) Left eye: Superior defect appears to have progressed to a larger arcuate extending temporally and nasally (May be artificial due to lid defect) Management Plan: Patient educated on findings. Visual field findings suggest he may be progressing, however, reliability is in question due to patient having a hard time keeping his eyes open during testing. He will follow up with Dr. Krishna [facility] for further management and treatment. Will have him return here in Advised to continue regular follow ups with his Site Leader, Dr. Krishna, at [facility] for management/treatment. Will have him return here in 6 months for his annual diabetic eye exam. us Fannie Castañeda OD OPHTH VISUAL FIELD Final Resu lt * Hepatitis C Antibody with Reflex to HCV, RNA, Quantitative, Real-Time PCR (01/08/2024 9:05 AM EDT) Hepatitis C Antibody Nonreactive Nonreactive [facility] Comment:Antibodies to HCV no t detected; does not exclude early acuteHCV infection. Blood Venous blood specimen / Unknown 01/08/2024 9:05 AM EDT 01/08/2024 11:10 AM EDT us Vi Sierra MD LAB BLOOD ORDERABLES Final Result [facility] [address] [place] [address] [phone] * HIV-1/2 Antigen and Antibodies, Fourth Generation, with Reflexes (01/08/2024 9:05 AM EDT) HIV AB/AG Nonreactive Nonreactive [facility] Comment:HIV-1 p24 Ag and/or HIV-1/HIV-2 Ab not detected.A test result that is nonreactive does not exclude thepossibility of exposure to or infection with HIV-1 and/orHIV-2. Nonreactive results in this assay for individualswith prior exposure to HIV-1 and/or HIV-2 may be due toantigen and antibody levels that are below the limit ofdetection of this assay.The [employer] HIV Ag/Ab Combo assay result andsupplemental assay results should be interpreted inconjunction with the patient's clinical presentation,history and other laboratory results. If the results areinconsistent with clinical evidence, additional testing issuggested to confirm the result. Blood Venous blood specimen / Unknown 01/08/2024 9:05 AM EDT 01/08/2024 11:10 AM EDT us Vi Sierra MD LAB BLOOD ORDERABLES Final Result [facility] [address] [place] [address] [phone] * (ABNORMAL) Lipid Panel, Standard (01/08/2024 9:05 AM EDT) Triglycerides 234(H) <150 mg/dL [facility] Comment:Desirable Triglyceri de: less than 150 mg/dLBorderline High Triglyceride 150-199 mg/dLHigh Triglyceride: 200-499 mg/dLVery High Triglyceride: greater than or equal to 5OO mg/dL Cholesterol 137 <200 mg/dL [facility] Comment:Desirable Cholestero l: less than 200 mg/dLBorderline High Cholesterol: 200-239 mg/dLHigh Cholesterol: greater than 239 mg/dL LDL Cholesterol Calculated 63 <100 mg/dL [facility] Comment:Desirable LDL: less than 100 mg/dLNear Optimal/Above Optimal LDL: 110- 129 mg/dLBorderline High LDL: 130-159 mg/dLHigh LDL: 160-189 mg/dLVery High LDL: greater than or equal to 190 mg/dL HDL Cholesterol 28(L) >40 mg/dL [facility] Comment:Desirable HDL: great er than 40 mg/dL Note: This HDL assay may give artificially low results in patients with liver disease. Blood Venous blood specimen / Unknown 01/08/2024 9:05 AM EDT 01/08/2024 11:10 AM EDT Vi Sierra MD LAB BLOOD ORDERABLES Final Result [facility] [address] [place] [phone] [phone] from Last 3 Months or Most Recently Relevant to Health Maintenance Insurance [facility] STANDARD * Guarantor: Jackie Marlow Account Type Relation to Patient Date of Phone Billing Address Personal/Family Self [address] [place] Lozano Care Teams Machine Silver Stripper Relationship Specialty Start Date End Date Vi Keys MD [address] [place] [address] [phone] PCP - General Internal Medicine 12/20/22
== END 2024-10-09 08:29 | disposition home or self-care (01) ==
LOC: HO.HUSH 08:14
PROVIDERS: PCP Student in an Organized Health Care Education/Training Program; Visit Provider Urology
DX: N20.0 Calculus of kidney (principal)
CPT/HCPCS: 99204

== ENCOUNTER → 2024-10-09 08:13 | Outpatient (BNVA) | payer MEDICAID, SELFPAY | PROVIDERS: PCP Student in an Organized Health Care Education/Training Program; Visit Provider Urology | DX: N20.0 Calculus of kidney (principal) | CPT/HCPCS: 99202 ==

== ENCOUNTER 2024-10-24 09:43 | Outpatient (REF) | payer MEDICAID, SELFPAY ==
--- NOTE | ~2024-10-24 | US_ITS ---
CLINICAL HISTORY: N20.0 - Calculus of kidney US of kidneys Comparison: US/SR - US RETROPERITONEUM - 02/15/24 09:47 EST Findings: Right kidney is normal in size and echogenicity, 10.5 cm in length. 9 mm simple cortical cyst at the midpole, 5 mm calculus at the lower pole, no hydronephrosis or abnormal vascular flow. Left kidney is normal in size and echogenicity, 10.2 cm in length. Moderate hydronephrosis. Calyceal calculi 3 mm in the upper pole, 4 mm in the midpole, 5 mm in the lower pole. No focal lesion is identified. No abnormal vascular flow. Impression: 1. Moderate left hydronephrosis, progressed, distal obstructive process needs to be excluded. Recommend CT renal stone protocol. 2. Nonobstructing bilateral nephrolithiasis. This document has been electronically signed by: Aimee Franklin MD on 10/24/2024 12:23:09
--- OUTSIDE RECORDS SUMMARY | 2024-10-24 10:25 | XMS_ITS | Clinical Summary ---
Author Organization [employer] Address [address] [facility] [facility] [address] [place] [address] Care Team Providers Care Director Emergency Name Role Phone Vi Keys MD Primary Care Pro vider Allergies Active Allergy Reactions Criticality Noted Date Comments Lisinopril Cough 02/23/2021 Pork Allergy 12/22/2022 scientology reasons scientology reasons Medications Alcohol Swabs (Alcohol Prep) pads [...] Apply topically if needed. 025 2025 Active Blood Glucose Monitoring Suppl w/Device kitIndications:Ty [...] breakfast and with evening meal. 180 tablet 025 2025 Active empagliflozin (Jardiance) 10 MG Take 1 tablet (10 mg) by mouth Once per day. 90 tablet 025 2025 Active amLODIPine (Norvasc) 10 MG tablet Take 1 tablet (10 mg) by mouth Once per day. 90 tablet 025 2024 Active lidocaine (Lidoderm) 5 % patch [...] nephropathy, without long-term current use of insulin ([facility]),Mixed hyperlipidemia Take 1 tablet (20 mg) by [...] every 4 (four) hours. 18 g 3 08/19/ 023 2024 Discontinued(R eorder (will not trigger notification to Pharmacy)) atorvastatin (Lipitor) 20 MG tabletIndications :Type 2 diabetes mellitus with diabetic nephropathy, without long-term current use of insulin ([facility]),Mixed hyperlipidemia Take 1 tablet by mouth every day 90 tablet 3 024 2024 Discontinued(O ther) amLODIPine (Norvasc) 10 MG tablet TAKE 1 TABLET BY MOUTH EVERY DAY FOR 30 DAYS 2024 Discontinued(R eorder (will not trigger notification to Pharmacy)) gabapentin (Neurontin) 600 MG tabletIndications :Type 2 diabetes mellitus with diabetic nephropathy, without long-term current use of insulin ([facility]) Take 1 tablet (600 mg) by mouth [...] eorder (will not trigger notification to Pharmacy)) empagliflozin (Jardiance) 10 MG Take 1 tablet (10 mg) by mouth Once per day. 90 tablet 025 2024 Discontinued(R eorder (will not trigger notification to Pharmacy)) Aspirin Low Dose 81 MG chewable tablet CHEW 1 TABLET (81 MG) ONCE PER DAY. 90 tablet 1 025 2024 Discontinued(R eorder (will not trigger notification to Pharmacy)) terbinafine (LamISIL) 250 MG tablet Take 250 mg by mouth Once per day. 025 2024 lidocaine (Lidoderm) 5 % patch APPLY 1 PATCH TOPICALLY ONCE PER DAY. REMOVE & DISCARD PATCH WITHIN 12 HOURS OR DIRECTED BY MD. 30 patch 1 025 2024 Discontinued(R eorder [...] Description 10/08/2024 3:30 PM EDT Office Visit [facility] [address] [place] [address] Garry, Fannie, OD Dry eyes (Primary Dx) 10/08/2024 Travel 09/25/2024 9:45 AM EDT Office Visit [facility] [address] [place] [phone] Vi Keys MD Health care maintenance (Primary Dx); Type 2 diabetes mellitus with diabetic nephropathy, without long-term current use of insulin ([facility]); Mild intermittent asthma without complication; Mixed hyperlipidemia; Neck pain; Essential hypertension; Encounter for immunization; Chronic left shoulder pain; Kidney stone; Transaminitis; Glaucoma, unspecified glaucoma type, unspecified laterality 09/25/2024 Travel 09/24/2024 Telephone [facility] [address] [place] [phone] Vi Keys MD CHART PREP 09/19/2024 Refill [facility] [address] [place] [phone] Vi Keys MD 09/18/2024 Patient Outreach [facility] [address] [place] [address] [phone] Vi Keys MD Pre-visit Planning (SDNM screening completed on 07/24/24 ) 09/04/2024 Refill [facility] [address] [place] [phone] Corina Vera MD Type 2 diabetes mellitus with diabetic nephropathy, without long-term current use of insulin ([facility]) 09/04/2024 Refill [facility] [address] [place] [phone] Madnie Chavez DO Type 2 diabetes mellitus with diabetic nephropathy, without long-term current use of insulin (CMS/HCC) 09/04/2024 Telephone [facility] [address] [place] [phone] Elizabeth Hermosillo NP 09/03/2024 Orders Only [facility] [address] [place] [address] [phone] Vi Keys MD Type 2 diabetes mellitus with diabetic nephropathy, without long-term current use of insulin (CMS/HCC) 09/03/2024 Telephone [facility] [address] [place] [phone] Vi Keys MD Medication Question 09/03/2024 Refill [facility] [address] [place] [address] Vi Keys MD Type 2 diabetes mellitus with diabetic nephropathy, without long-term current use of insulin ([facility]) 09/02/2024 Refill [facility] [address] [place] [address] Vi Keys MD Type 2 diabetes mellitus with diabetic nephropathy, without long-term current use of insulin ([facility]) 09/02/2024 Telephone [facility] [address] [place] [address] Vi Keys MD Nurse Triage 08/09/2024 Telephone [facility] [address] [place] [address] Vi Keys MD Referral 07/31/2024 Refill [facility] [address] [place] [address] Vi Keys MD 07/24/2024 9:45 AM EDT Office Visit [facility] [address] [place] [address] Vi Keys MD Nephrolithiasis (Primary Dx); Type 2 diabetes mellitus with diabetic nephropathy, without long-term current use of insulin ([facility]); Essential hypertension; Dietary counseling; Exercise counseling; Mild intermittent asthma without complication; Hyperlipidemia, unspecified hyperlipidemia type; Left flank pain; Health care maintenance; Kidney stone; Glaucoma, unspecified glaucoma type, unspecified laterality 07/24/2024 Travel from Last 3 Months Immunizations Immunization [...] Description 11/20/2024 9:00 AM EDT Office Visit [facility] [address] [place] [address] Vi Keys MD [address] [place] [address] 02/24/2025 9:00 AM EST Office Visit [facility] [address] [place] [address] Garry, Fannie, OD [address] [place] [address] Health Maintenance Due Date Last Done Comments [...] without long-term current use of insulin (CMS/HCC) HEPATITIS C AB W/REFL TO HCV RNA, QN, PCR Routine 01/08/2024 9:05 AM EDT Right leg pain HIV 1/2 ANTIGEN/ANTIBODY, FOURTH GENERATION W/RFL Routine 01/08/2024 9:05 AM EDT Right leg pain LIPID PANEL, STANDARD Routine 01/08/2024 9:05 AM EDT Right leg pain from Last 3 Months or Most Recently Relevant to Health Maintenance Results * ECG 12 lead (09/25/2024 11:13 AM EDT) Narrative iV Keys MD - 09/25/2024 11:13 AM EDT EKG today 09/2024 for baseline HR 83x',Qtc 396, NSR,no ischemic findings Vi Cardozo MD ECG ORDERABLES F inal Result * (ABNORMAL) POCT HGB A1C (07/24/2024 9:57 AM EDT) Hemoglobin A1C 7.7(A) 4.0 - 6.0 % QC Media Lot # [id number] Lot# Expiration Date 699 Blood 07/24/2024 9:57 AM EDT Vi Cardozo MD POINT OF CARE EMILE T ENTER/EDIT ORDERABLES Final Result * (ABNORMAL) POCT Glucose (07/24/2024 9:54 AM EDT) Glucose Blood, POC 317(A) 60 - 200 mg/dL QC Media Lot # [id number] Lot# Expiration Date 518 Blood Capillary blood specimen / Unknown 07/24/2024 9:54 AM EDT Vi Cardozo MD POINT OF CARE EMILE T ENTER/EDIT ORDERABLES Final Result * Hepatitis C Antibody with Reflex to HCV, RNA, Quantitative, Real-Time PCR (01/08/2024 9:05 AM EDT) Pathologist [facility] Hepatitis C Antibody Nonreactive Nonreactive [facility] Comment:Antibodies to HCV no t detected; does not exclude early acuteHCV infection. Blood Venous blood specimen / Unknown 01/08/2024 9:05 AM EDT 01/08/2024 11:10 AM EDT Vi Sierra MD LAB BLOOD ORDERABLES Final Result [facility] [address] [place] [phone] * HIV-1/2 Antigen and Antibodies, Fourth Generation, with Reflexes (01/08/2024 9:05 AM EDT) Pathologist [facility] HIV AB/AG Nonreactive Nonreactive [facility] Comment:HIV-1 p24 Ag and/or HIV-1/HIV-2 Ab not detected.A test result that is nonreactive does not exclude thepossibility of exposure to or infection with HIV-1 and/orHIV-2. Nonreactive results in this assay for individualswith prior exposure to HIV-1 and/or HIV-2 may be due toantigen and antibody levels that are below the limit ofdetection of this assay.The [place]the [employer] HIV Ag/Ab Combo assay result andsupplemental assay results should be interpreted inconjunction with the patient's clinical presentation,history and other laboratory results. If the results areinconsistent with clinical evidence, additional testing issuggested to confirm the result. Blood Venous blood specimen / Unknown 01/08/2024 9:05 AM EDT 01/08/2024 11:10 AM EDT us Vi Sierra MD LAB BLOOD ORDERABLES Final Result Performing Organization Address [facility] Co de Phone Number [facility] [address] [place] [address] [phone] * (ABNORMAL) Lipid Panel, Standard (01/08/2024 9:05 AM EDT) Triglycerides 234(H) <150 mg/dL [facility] Comment:Desirable Triglyceri de: less than 150 mg/dLBorderline High Triglyceride 150-199 mg/dLHigh Triglyceride: 200-499 mg/dLVery High Triglyceride: greater than or equal to 5OO mg/dL Cholesterol 137 <200 mg/dL [facility] Comment:Desirable Cholestero l: less than 200 mg/dLBorderline High Cholesterol: 200-239 mg/dLHigh Cholesterol: greater than 239 mg/dL LDL Cholesterol Calculated 63 <100 mg/dL [facility] Comment:Desirable LDL: less than 100 mg/dLNear Optimal/Above Optimal LDL: 110- 129 mg/dLBorderline High LDL: 130-159 mg/dLHigh LDL: 160-189 mg/dLVery High LDL: greater than or equal to 190 mg/dL HDL Cholesterol 28(L) >40 mg/dL [facility] Comment:Desirable HDL: great er than 40 mg/dL Note: This HDL assay may give artificially low results in patients with liver disease. Blood Venous blood specimen / Unknown 01/08/2024 9:05 AM EDT 01/08/2024 11:10 AM EDT us Vi Sierra MD LAB BLOOD ORDERABLES Final Result Performing Organization Address [facility]/ZIP Co de Phone Number [facility] [address] [place] [address] [phone] from Last 3 Months or Most Recently Relevant to Health Maintenance Insurance [facility] * Guarantor: Jackie Marlow Account Type Relation to Patient Date of Phone Billing Address Personal/Family Self [address] [place]oz[place] Care Teams Director Emergency Relationship Specialty Start Date End Date Vi Keys MD [address] [place] [phone] PCP - General Internal Medicine 12/20/22
--- OUTSIDE RECORDS SUMMARY | 2024-10-24 10:25 | XMS_ITS | Clinical Summary ---
Author Organization [address] [facility] Address [address] [place] [address] Phone Care Team Providers Care Director Financial Systems Name Role Phone Physician, Pcp Unknown Primary Care Provider Maggie vailable Allergies No known active allergies Medications ammonium lactate (AmLactin) 12 % lotion Apply topically if needed for dry skin. Dry skin 400 g 5 07/17/19 26 Active terbinafine (LamISIL) 250 mg tablet Take 1 tablet (250 mg total) by mouth 1 (one) time each day. 90 each 5 10/15/19 25 Social History Tobacco Use Types Packs/Day Years [...] AM EST Office Visit [facility] [place] [address] [phone] Nish Tavera, DPM [address] [address] Health Maintenance Due Date Last Done Comments [...] topic Insurance MEDICAID - [place] Care Teams Director Financial Systems Relationship Specialty Start Date End Date Physician, Pcp Unknown PCP - General 04/18/24
--- OUTSIDE RECORDS SUMMARY | 2024-10-24 10:25 | XMS_ITS | Clinical Summary ---
Author Organization [facility] Address [address] [place] [address] Care Team Providers Care Aircraft Pneudraulics Repairer Name Role Phone Unavailable Primary Care Provider [...] (2 of 2 - PCV) 04/25/2017 04/25/2016 [id number] ( season) 2023 021, 06/15/2020 Alcohol and Drug Screen 03/13/2024 Depression Annual Screen 03/13/2024 Imm-Influenza (#1) 2024 03/27/2019, 0 05/30/2018, 02/15/2016, Additional history exists Imm-DTaP/Tdap/Td (2 - Td or Tdap) 05/30/[address]28 [address] [employer]
== END 2024-10-24 09:44 | disposition home or self-care (01) ==
LOC: HO.US 09:43
PROVIDERS: PCP Student in an Organized Health Care Education/Training Program; Visit Provider Urology
DX: N20.0 Calculus of kidney (principal)
CPT/HCPCS: 76775

== ENCOUNTER → 2024-10-24 09:45 | Outpatient (BNV) | payer MEDICAID, SELFPAY | PROVIDERS: PCP Student in an Organized Health Care Education/Training Program; Visit Provider Radiology Diagnostic Radiology | DX: N13.2 Hydronephrosis with renal and ureteral calculous obstruction (principal) | CPT/HCPCS: 76775 ==

== ENCOUNTER 2024-11-22 08:48 | Outpatient (REF) | payer MEDICAID, SELFPAY ==
--- OUTSIDE RECORDS SUMMARY | 2024-11-20 09:00 | XMS_ITS | Encounter Summary ---
Author Organization [employer] Address [address] [place] [address] 7 [place] [address] Care Team Providers Care Correctional Agency Director Name Role Phone Vi Keys MD Primary Care Pro vider Reason for Referral * Consultation (Routine) - Closed Specialty Diagnoses / Procedures Referred By Britton calabrese Referred To Contact Gastroenterology Diagnoses Polyp of colon, unspecified part of colon, unspecified type Vi Keys MD [address] [place] [address] Phone: tel: fax: [facility] Referral ID Status Reason Start Date Expiration Date V isits Requested Visits Authorized [id number] Closed Specialty Services Required 11/22/2024 11/22/2025 6 6 * Consultation (Routine) - Authorized Specialty Diagnoses / Procedures Referred By Britton calabrese Referred To Contact Family Medicine Diagnoses Skin cyst Vi Keys MD [address] [place] [address] Phone: tel: fax: Referral ID Status Reason Start Date Expiration Date Visits Requested Visits Authorized [id number] Authorized Specialty Services Required 11/20/2024 11/20/2025 1 1 Encounter Details Date Type Department Care Team (Latest Contact Info) Description 11/20/2024 9:00 AM EDT Office Visit [facility] MEDICINE [address] [place] [address] [phone] Vi Keys MD [address] [place] [address] Skin cyst (Primary Dx); Type 2 diabetes mellitus with diabetic nephropathy, without long-term current use of insulin (CMS/HCC); Polyp of colon, unspecified part of colon, unspecified type; Essential hypertension; Hyperlipidemia, unspecified hyperlipidemia type; Health care maintenance; Mixed anxiety depressive disorder; Primary insomnia; Epidermal cyst Social History Tobacco Use Types Packs/Day Years [...] Orientation Straight 09/25/2024 10 :24 AM EDT documented as of this encounter Last Filed Vital Signs Vital Sign Reading Time Taken Comments Blood Pressure 126/72 11/20/2024 9:08 AM EDT Pulse 82 11/20/2024 9:08 AM EDT Temperature 36.2 C (97.1 F) 11/20/2024 9:08 AM EDT Respiratory Rate 20 11/20/2024 9:08 AM EDT Oxygen Saturation 99% 11/20/2024 9:08 AM EDT Inhaled Oxygen Concentration - - Weight 83.4 kg (183 lb 12.8 oz) 11/20/2024 9:08 AM EDT Height 181.6 cm (5' 11.5 ) 11/20/2024 9:08 AM ED T Body Mass Index 25.28 11/20/2024 9:08 AM EDT documented in this encounter Progress Notes * Vi Cardozo MD - 11/20/2024 9:00 AM EDT Subjective Patient ID: Jcakie Marlow is a 59 y.o. 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 States falling sleep at 2 am ----- Assessment and Plan: Health care maintenance -Annual exam done 09/2024 -PSA-order already -Colonoscopy 07/2017 #1 polyp bx tubular adenoma rec to repeat in 5 y ---referred today back to GI -vaccines s/p hep Ax2, meningococcal vaccine x2, covid 19 vaccine x3, Tdap 04/2024 , typhoid vaccinex1 . P20 09/2024 ,advised for RSV at pharmacy .prescribed Shingrix vaccine to our px -Pd to get advised for COVID 19 and Flu vaccine in 11/2024 --- -start medbox---got apt today for pt for 11/22/2024 at 9 am ----- Pd to do annual labs -will inform pt w results and will f pt in 3 months for chronic conditions HTN Reports home BP always < 140/90 Reported allergy to lisinopril-cause cough -opthalmo 12/2023 Low-tension glaucoma of both eyes, mild stage -apt w eye care 02/24/2025 ,seen last 09/2024 -TTE 2022 The left ventricular systolic function is normal. The calculated ejection fraction is 58%No obvious valvular pathology seen on this study. -EKG 09/2024 for baseline HR 83x',Qtc 396, NSR,no ischemic findings -continue amlodipine 10 mg -advised to bring home BP readings at next visit -Saw cards 01/2024 To f in 1 y for atypical CP DM2/HLD Capillary hb1AC 6.2 today -01/08/2024 hb1AC 7.3 <---6.8 <--- 5.9 --- trig 234, LDL 63, total ch 137, HDL 28 ASCVD 20.6% ( rec for statins and ASA) -apt w eye care 02/24/2025 ,seen last 09/2024 -apt w merchandise worker for 01/16/25 -ASA 81 mg for primary prevention -already taking lipitor for past 2 months -metformin 1000 mg BID -jardiance 10 mg daily -Referred to waist fitter --pt to schedule apt w FD -pd to do DM labs ordered already Neuropathy -EMG 01/2024 Mild axonal sensory motor peripheral neuropathy. -gabapentin 600 mg BID Transaminitis -01/08/2024 AST 67 ,ALT 37 no etoh, no herbal products ,no excess tylenol nor NSAIDS -possible associated w not controlled DM 2? -repeat chem, if persisit elevated would do Abd US -pd to repeat labs ,encouraged today to repeat Left shoulder pain -to see orthopedic for left shoulder pain --s/p inj helped Right foot pain -right foot XR 04/2024 unremarkable examination of the right foot. -01/08/2024 Vit B 12 226 -wnl but low normal ,RPR neg ,TSH wnl,hep C neg,HIV neg -EMG 01/2024 Right tibial and peroneal motor studies were performed. -----Mild axonal sensory motorperipheral neuropathy. Symptoms described today are not suggestive of neuropathy ,reports pain in right Achilles tendon area that exacerbates after walking w no deformities ,denies numbness ,tingling nor weakness -04/2023 CRP 0.67<--1.09 -vit B12 500 mg daily -repeat level and inflammatory markers -advised home foot exercises -referred to merchandise worker -already following -diclofenac gel PRN Nephrolithiasis s/p lithotripsy -Abd XR 02/2024 Large amount of stool throughout the colon characteristic of constipation. Nonobstructive bowel gas pattern. A 0.8 cm calculus overlies the interpolar region of the left kidney. -US Renal 02/2024 Right kidney: 1.4 cm upper pole cyst with benign features. Left kidney 0.4 cm lower pole calculi. Left renal mild caliectasis. 2.6 cm left renal lower pole anechoic focus characteristic of a cyst with benign features. -US renal BI 10/2024 Moderate left hydronephrosis, progressed, distal obstructive process needs to be excluded. Recommend CT renal stone protocol. Nonobstructing bilateral nephrolithiasis. -f w urologist -planned for lithotripsy for 11/27/2024 per pt Neck pain -better -XR cervical spine 2022 At C5-C6, there is moderate degenerative disc disease and spondylosis. 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 States falling sleep at 2 am -melatonin 5 mg HS -requested ( Glenis Oswald ) to call pt for anxiety and insomnia for eval and psychoTx referral ---Pt interested in CBT for anxiety and insomnia Left popliteal fossa cyst bothersome -not appears infected , likely epidemal cyst -referred today to [facility] derm for eval for excision -hydrocortisone for itching BID x 10 days only PRN Review of Systems -insomnia -left popliteal fossa soft lesion causing discomfort and itching Objective BP 126/72 (BP Location: Left arm, Patient Position: Sitting, BP Cuff Size: Adult) Pulse 82 Temp97.1 ??F (36.2 ??C) (Temporal) Resp 20 Ht 5' 11.5 (1.816 m) Wt 183 lb 12.8 oz (83.4 kg) SpO2 99% BMI 25.28 kg/m?? Physical Exam Left popliteal soft ,superficial nodule aprox 1 cm ,does not have swelling, erythema nor increase skin temp, no drainage Assessment/Plan Problem List Items Addressed This Visit Essential hypertension Type 2 diabetes mellitus (CMS/HCC) Relevant Medications empagliflozin (Jardiance) 10 MG Other Relevant Orders POCT Glucose (Completed) POCT Hgb A1c (Completed) Mixed anxiety depressive disorder Relevant Medications melatonin 5 MG tablet Health care maintenance HLD (hyperlipidemia) Insomnia Relevant Medications melatonin 5 MG tablet Epidermal cyst Relevant Medications ammonium lactate (Lac-Hydrin) 12 % lotion hydrocortisone 2.5 % cream Other Visit Diagnoses Skin cyst - Primary Relevant Medications ammonium lactate (Lac-Hydrin) 12 % lotion hydrocortisone 2.5 % cream Other Relevant Orders Referral to [facility] Derm Skin Adult Polyp of colon, unspecified part of colon, unspecified type Relevant Medications hydrocortisone 2.5 % cream Other Relevant Orders Referral to Gastroenterology documented in this encounter Plan of Treatment Upcoming Encounters Date Type Department Care Team (Late st Contact Info) Description 02/24/2025 9:00 AM EST Office Visit [facility] OPTOMETRY [address] [place] [address] Fannie Castañeda, OD [address] [place] [address] Scheduled Referrals Name Type Priority Associated Diagnoses Order Schedule Referral to [facility] Derm Skin Adult Outpatient Referral Routine Skin cyst Expected: 11/20/2024 (Approximate), Expires: 11/20/2025 Referral to Gastroenterology Outpatient Referral Routine Polyp of colon, unspecified part of colon, unspecified type Expected: 11/20/2024 (Approximate), Expires: 11/20/2025 documented as of this encounter Procedures Procedure Name Priority Date/Time Associated Diagnosis Comments POCT GLYCATED HEMOGLOBIN, TOTAL Routine 11/20/2024 9:12 AM EDT Type 2 diabetes mellitus with diabetic nephropathy, without long-term current use of insulin ([facility]) POCT GLUCOSE Routine 11/20/2024 9:09 AM EDT Type 2 diabetes mellitus with diabetic nephropathy, without long-term current use of insulin ([facility]) documented in this encounter Results * (ABNORMAL) POCT Hgb A1c (11/20/2024 9:12 AM EDT) Hemoglobin A1C 6.2(A) 4.0 - 5.7 % QC Media Lot # [id number] Lot# Expiration Date 553 Blood 11/20/2024 9:12 AM EDT Vi Cardozo MD POINT OF CARE EMILE T ENTER/EDIT ORDERABLES Final Result * POCT Glucose (11/20/2024 9:09 AM EDT) Glucose Blood, POC 198 60 - 200 mg/dL QC Media Lot # [id number] Lot# Expiration Date ,754,158 Blood Capillary blood specimen / Unknown 11/20/2024 9:09 AM EDT Vi Cardozo MD POINT OF CARE EMILE T ENTER/EDIT ORDERABLES Final Result documented in this encounter Visit Diagnoses Diagnosis Skin cyst- Primary Sebaceous cyst Type 2 diabetes mellitus with diabetic nephropathy, without long-term current use of insulin ([facility]) Polyp of colon, unspecified part of colon, unspecified type Essential hypertension Unspecified essential hypertension Hyperlipidemia, unspecified hyperlipidemia type Health care maintenance Mixed anxiety depressive disorder Primary insomnia Persistent disorder of initiating or maintaining sleep Epidermal cyst Sebaceous cyst documented in this encounter Additional Health Concerns Assessment Noted Time PHQ-9 Depression Total Score: 0 09/26/19 25 10:23 AM EDT documented as of this encounter Care Teams Correctional Agency Director Relationship Specialty Start Date End Date Vi Keys MD [address] [place] [address] PCP - General Internal Medicine 12/20/22 documented as of this encounter
--- OUTSIDE RECORDS SUMMARY | 2024-11-22 09:30 | XMS_ITS | Encounter Summary ---
Author Organization [employer] Address [address] [place] [address] 7t [place] [address] Care Team Providers Care Barrel Finisher Name Role Phone Vi Keys MD Primary Care Pro vider Reason for Visit * Reason Comments Med Change Request Encounter Details Date Type Department Care Team ([facility] st Contact Info) Description 09/03/2024 Refill [facility] MEDICINE 230 [place], [place] [phone] Vi Keys MD [address] [place] [address] Type 2 diabetes mellitus with diabetic nephropathy, without long-term current use of insulin ([facility]) Social History Tobacco Use Types [...] Description 02/24/2025 9:00 AM EST Office Visit [facility] OPTOMETRY [address] [place] [address] Fannie Castañeda, OD 230 [place] [address] documented as of this encounter Visit Diagnoses Diagnosis Type 2 diabetes mellitus with diabetic nephropathy, without long-term current use of insulin ([facility]) documented in this encounter Additional Health Concerns Assessment Noted Time PHQ-9 Depression Total Score: 0 08/20/19 23 3:43 PM EDT documented as of this encounter Care Teams Barrel Finisher Relationship Specialty Start Date End Date Vi Keys MD [address] [place] [address] PCP - General Internal Medicine 12/20/22 documented as of this encounter
--- OUTSIDE RECORDS SUMMARY | 2024-11-22 09:30 | XMS_ITS | Clinical Summary ---
Author Organization [employer] Address [address] [facility] 7t [place] [address] Care Team Providers Care Warehouse Operations Manager Name Role Phone Vi Keys MD Primary Care Pro vider Allergies Active Allergy Reactions Criticality Noted Date Comments Lisinopril Cough 02/23/2021 Pork Allergy 12/22/2022 zoroastrianism reasons zoroastrianism reasons Medications Alcohol Swabs (Alcohol Prep) pads [...] nephropathy, without long-term current use of insulin ([facility]) USE TO CHECK BLOOD SUGAR DAILY 1 kit 025 Active FREESTYLE LITE test stripIndications: Type 2 diabetes mellitus with diabetic nephropathy, without long-term current use of insulin ([facility]) 1 each by Other route 2 times [...] nephropathy, without long-term current use of insulin ([facility]) Take 1 tablet (600 mg) by mouth 2 times daily. 180 tablet 025 2024 Discontinued(R eorder (will not trigger notification to Pharmacy)) empagliflozin (Jardiance) 10 MG Take 1 tablet (10 mg) by mouth Once per day. 90 tablet 025 2024 Discontinued(R eorder (will not trigger notification to Pharmacy)) Active Problems Problem Noted Date Diagnosed Date Insomnia 11/20/2024 Epidermal cyst 11/20/2024 Glaucoma 07/25/2024 Impingement syndrome of left shoulder [...] Encounters Date Type Department Care Team Description 11/22/2024 Travel 11/20/2024 9:00 AM EDT Office Visit [facility] MEDICINE [address] [place] [address] Vi Keys MD Skin cyst (Primary Dx); Type 2 diabetes mellitus with diabetic nephropathy, without long-term current use of insulin ([facility]); Polyp of colon, unspecified part of colon, unspecified type; Essential hypertension; Hyperlipidemia, unspecified hyperlipidemia type; Health care maintenance; Mixed anxiety depressive disorder; Primary insomnia; Epidermal cyst 11/20/2024 Travel 11/19/2024 Telephone [facility] MED[facility] [address] [place] [address] Vi Keys MD chart prep 11/08/2024 Orders Only [facility] [address] [place] [address] Vi Keys MD Type 2 diabetes mellitus with diabetic nephropathy, without long-term current use of insulin (CMS/HCC) 11/07/2024 Refill [facility] [address] [place] [address] Vi Keys MD Type 2 diabetes mellitus with diabetic nephropathy, without long-term current use of insulin ([facility]/HCC) 10/24/2024 Results Follow-Up [facility] [address] [place] [address] Vi Keys MD US Renal Complete 10/24/2024 Orders Only [facility] External Provider, [facility] 10/08/2024 3:30 PM EDT Office Visit [facility] OPTOMETRY [address] [place] [address] Garry, Fannie, OD Double vision (Primary Dx) 10/08/2024 Travel 09/25/2024 9:45 AM EDT Office Visit [facility] MEDICINE [address] [place] [address] Vi Keys MD Health care maintenance (Primary Dx); Type 2 diabetes mellitus with diabetic nephropathy, without long-term current use of insulin (CMS/[facility]); Mild intermittent asthma without complication; Mixed hyperlipidemia; Neck pain; Essential hypertension; Encounter for immunization; Chronic left shoulder pain; Kidney stone; Transaminitis; Glaucoma, unspecified glaucoma type, unspecified laterality 09/25/2024 Travel 09/24/2024 Telephone [facility] [address] [place] [address] Vi Keys MD CHART PREP 09/19/2024 Refill [facility] [address] [place] [address] Vi Keys MD 09/18/2024 Patient Outreach [facility] [address] [place] [address] Vi Keys MD Pre-visit Planning ([facility] screening completed on 07/24/24 ) 09/04/2024 Refill [facility] [address] [place] [address] Corina Vera MD Type 2 diabetes mellitus with diabetic nephropathy, without long-term current use of insulin ([facility]) 09/04/2024 Refill [facility] [address] [place] [address] Mandie Chavez DO Type 2 diabetes mellitus with diabetic nephropathy, without long-term current use of insulin ([facility]) 09/04/2024 Telephone [facility] [address] [place] [address] Elizabeth Hermosillo NP 09/03/2024 Orders Only [facility] [address] [place] [address] [phone] Vi Keys MD Type 2 diabetes mellitus with diabetic nephropathy, without long-term current use of insulin (CMS/HCC) 09/03/2024 Telephone [facility] [address] [place] [address] Vi Keys MD Medication Question 09/03/2024 Refill [facility] [address] [place] [address] Vi Keys MD Type 2 diabetes mellitus with diabetic nephropathy, without long-term current use of insulin ([facility]) 09/02/2024 Refill [facility] [address] [place] [address] Vi Keys MD Type 2 diabetes mellitus with diabetic nephropathy, without long-term current use of insulin ([facility]) 09/02/2024 Telephone [facility] [address] [place] [address] Vi Keys MD Nurse Triage from Last [...] your housing situation today? I have karen adele 07/24/[address] you li [...] Sign Reading Time Taken Comments Blood Pressure 128/70 11/22/2024 9:21 AM EDT Pulse 81 11/22/2024 9:21 AM EDT Temperature 36.2 C (97.1 F) [...] Description 02/24/2025 9:00 AM EST Office Visit [facility] OPTOMETRY [address] [place], [place] [phone] Garry, Fannie, OD [address] [place] [address] Health Maintenance Due Date Last Done Comments [...] years 1-dose series) 2024 COVID-19 Vaccine ( - season) 2024 03/16/2021, 07/14/2020, 06/15/2020 Influenza Vaccine [...] nephropathy, without long-term current use of insulin (CMS/[facility]) POCT GLUCOSE Routine 11/20/2024 9:09 AM EDT Type 2 diabetes mellitus with diabetic nephropathy, without long-term current use of insulin (CMS/[facility]) US RENAL COMPLETE Routine 10/24/2024 12: 23 [...] - 5.7 % QC Media Lot # [id number] Lot# Expiration Date [id number] Blood 11/20/2024 9:12 AM EDT us Vi Cardozo MD POINT OF CARE EMILE T ENTER/EDIT ORDERABLES Final Result * POCT Glucose (11/20/2024 9:09 AM EDT) Glucose Blood, POC 198 60 - 200 mg/dL QC Media Lot # [id number] Lot# Expiration Date [id number] Blood Capillary blood specimen / Unknown 11/20/2024 9:09 AM EDT us Vi Cardozo MD POINT OF CARE EMILE T ENTER/EDIT ORDERABLES Final Result * US Renal Complete (10/24/2024 12:23 PM EDT) Anatomical Region Laterality Modality Kidney Ultrasound 10/24/2024 12:2 3 PM EDT Narrative 10/24/2024 12:23 PM EDT [place] [phone] Ultrasound Report Signed with Addenda Patient: Jackie Marlow MR#: [id number] : 1965 Acct:[id number] Age/Sex: 58 / M ADM Date: 10/24/24 Loc: . Attending Dr: Santiago Yu MD Ordering Physician: Santiago Yu MD Date of Service: 10/24/24 Procedure(s): US renal BI Accession Number(s): [id number] cc: Santiago Yu MD; Vi Keys MD [...] signed by Aimee Franklin MD in OV> 10/28/240 Addendum Cosigned By: DD/ TD/TT: 10/28/24 [...] in OV> 10/24/241222 DD/ 22 TD/TT: 10/24/241222 Sourcing Analyst: Procedure Note Donotuseinterpreter, Image - 10/28/2024 [place] [id number] Ultrasound Report Signed with Addenda Patient: Seth Marlow#: [id number] : 1965Acct:[id number] Age/Sex: 58 / MADM Date: 10/24/24 Loc: HO.US Attending Dr: Santiago Yu MD Ordering Physician: Santiago Yu MD Date of Service: 10/24/24 Procedure(s): US renal BI Accession Number(s): [id number] cc: Santiago Yu MD; Vi Keys MD [...] <Electronically signed by Aimee Franklin MD inOV> 10/28/24 1210 Addendum Cosigned By: DD/ TD/TT: [...] OV> 10/24/24 1223 DD/ 1223 TD/TT: 10/24/24 1223 Sourcing Analyst: [facility] External Provider IMG US PROCEDURES Edited [...] AM EDT) Hepatitis C Antibody Nonreactive Nonreactive [facility] Comment:Antibodies to HCV no t detected; does not exclude early acuteHCV infection. Blood Venous blood specimen / Unknown 01/08/2024 9:05 AM EDT 01/08/2024 11:10 AM EDT Vi Sierra MD LAB BLOOD ORDERABLES Final Result [facility] [address] [place] [phone] * HIV-1/2 Antigen and Antibodies, Fourth Generation, with Reflexes (01/08/2024 9:05 AM EDT) HIV AB/AG Nonreactive Nonreactive [facility] Comment:HIV-1 p24 Ag and/or HIV-1/HIV-2 Ab not detected.A test result that is nonreactive does not exclude thepossibility of exposure to or infection with HIV-1 and/orHIV-2. Nonreactive results in this assay for individualswith prior exposure to HIV-1 and/or HIV-2 may be due toantigen and antibody levels that are below the limit ofdetection of this assay.The [email or web address] HIV Ag/Ab Combo assay result andsupplemental assay results should be interpreted inconjunction with the patient's clinical presentation,history and other laboratory results. If the results areinconsistent with clinical evidence, additional testing issuggested to confirm the result. Blood Venous blood specimen / Unknown 01/08/2024 9:05 AM EDT 01/08/2024 11:10 AM EDT Vi Sierra MD LAB BLOOD ORDERABLES Final Result Performing Organization Address City/[facility]/ZIP Co de Phone Number [facility] [address] [place] [address] [phone] * (ABNORMAL) Lipid Panel, Standard (01/08/2024 9:05 AM EDT) Triglycerides 234(H) <150 mg/dL [facility] Comment:Desirable Triglyceri de: less than 150 mg/dLBorderline High Triglyceride 150-199 mg/dLHigh Triglyceride: 200-499 mg/dLVery High Triglyceride: greater than or equal to 5OO mg/dL Cholesterol 137 <200 mg/dL [facility] Comment:Desirable Cholestero l: less than 200 mg/dLBorderline High Cholesterol: 200-239 mg/dLHigh Cholesterol: greater than 239 mg/dL LDL Cholesterol Calculated 63 <100 mg/dL [facility] Comment:Desirable LDL: less than 100 [...] Sierra MD LAB BLOOD ORDERABLES Final Result [facility] [address] [place] [address] [phone] from Last 3 Months or Most Recently Relevant to Health Maintenance Insurance [facility] C3 Care Teams Warehouse Operations Manager Relationship Specialty Start Date End Date Vi Keys MD [address] [place] [address] [phone] PCP - General Internal Medicine 12/20/22
--- OUTSIDE RECORDS SUMMARY | 2024-11-22 09:30 | XMS_ITS | Encounter Summary ---
Author Organization [employer] Address [address] [facility] 7t [place] [address] Care Team Providers Care Senior Finance Manager Name Role Phone Carmelita Escalona CART DRIVER Primary Care Provider Vi Guardado MD Primary Care Pro vider Reason for Visit * Reason Onset Date Comments ER Follow-up 12/09/2022 Encounter Details Date Type Department Care Team ([facility] st Contact Info) Description 12/09/2022 Telephone [facility] [address] [place] [phone] Carmelita Escalona FNP ER Follow-up Social History [...] For below message, pt. Was [facility] for loss of vision and suspected seizure from12/07 to 12/09. P. Schedule for HDF on 12/22/2022. Pt. Verbally agreed and understood. HDF cristopher and ED cristopher scanned into pt.'s chart. * Telephone Encounter - Nisa Ramos - 12/09/2022 10:50 AM EDT Patient calling to report ED visit on 12/09/[address] [facility]. Diagnosed with nothing. Patient advised will forward to nurse for follow up. No symptoms Please contact pt at [phone] documented in this encounter Plan of Treatment Upcoming Encounters Date Type Department Care Team ([facility] st Contact Info) Description 02/24/2025 9:00 AM EST Office Visit [facility] OPTOMETRY [address] [place] [address] Fannie Castañeda, OD [address] [place] [address] documented as of this encounter Visit Diagnoses Not on filedocumented in this encounter Additional Health Concerns Assessment Noted Time PHQ-9 Depression Total Score: 0 08/20/19 3:43 PM EDT documented as of this encounter Care Teams Senior Finance Manager Relationship Specialty Start Date End Date Carmelita Escalona FNP PCP - General Family Medicine 11/02/21 12/19/22 Vi Keys MD [address] [place] [address] PCP - General Internal Medicine 12/20/22 documented as of this encounter
--- OUTSIDE RECORDS SUMMARY | 2024-11-22 09:30 | XMS_ITS | Encounter Summary ---
Author Organization [employer] Address [address] 7[address] [place] [address] Care Team Providers Care Director Ambulatory Name Role Phone Vi Keys MD Primary Care Pro vider Reason for Visit * Reason Comments Med Refill Encounter Details Date Type Department Care Team ([facility] st Contact Info) Description 09/04/2024 Refill [facility] MEDICINE [address] [place], [place] [phone] Mandie Chavez DO 230 [place], [place] [phone] Type 2 diabetes mellitus with diabetic nephropathy, without long-term current use of insulin ([facility]) Social History Tobacco Use [...] Description 02/24/2025 9:00 AM EST Office Visit [facility] OPTOMETRY [address] [place] [address] Fannie Castañeda, OD [address] [place] [address] documented as of this encounter Visit Diagnoses Diagnosis Type 2 diabetes mellitus with diabetic nephropathy, without long-term current use of insulin ([facility]) documented in this encounter Additional Health Concerns Assessment Noted Time PHQ-9 Depression Total Score: 0 08/20/19 23 3:43 PM EDT documented as of this encounter Care Teams Director Ambulatory Relationship Specialty Start Date End Date Vi Keys MD 230 [place] [address] PCP - General Internal Medicine 12/20/22 documented as of this encounter
--- OUTSIDE RECORDS SUMMARY | 2024-11-22 09:30 | XMS_ITS | Clinical Summary ---
Author Organization [facility] Address [address] [place] [address] Care Team Providers Care Junior Buyer Name Role Phone Unavailable Primary Care Provider [...] Drug Screen 03/13/2024 Depression Annual Screen 03/13/2024 Iri-XEKQF-12 (3 - 2024- season) 2024 07/14/2020, 06/15/2020 Imm-Influenza (#1) 2024 03/27/2019, 0 05/30/2018, 02/15/2016, Additional history exists Imm-DTaP/Tdap/Td (2 - Td or Tdap) 05/30/2028 05/30/2018 Imm-Hepatitis B Aged Out No longer el igible based on patient's age to complete this topic Insurance C3 [facility]
--- OUTSIDE RECORDS SUMMARY | 2024-11-22 09:30 | XMS_ITS | Encounter Summary ---
Author Organization [employer] Address [address] [facility] 7t [place] [address] Care Team Providers Care Faculty I On Call Medical Assistant Name Role Phone Vi Keys MD Primary Care Pro vider Encounter Details Date Type Department Care Team (Late st Contact Info) Description 10/24/2024 Results Follow-Up [facility] MEDICINE [address] [place], [place] [phone] Vi Keys MD 230 [place] [address] US Renal Complete Social History Tobacco Use [...] Notes * Result Encounter Note - Vi Cardozo MD - 10/24/2024 8:02 PM EDT Labs done by outside provider documented in this encounter Plan of Treatment Upcoming Encounters Date Type Department Care Team (Late st Contact Info) Description 02/24/2025 9:00 AM EST Office Visit [facility] OPTOMETRY [address] [place] [address] Garry, Fannie, OD 230 [place] [address] documented as of this encounter Visit Diagnoses Not on filedocumented in this encounter Additional Health Concerns Assessment Noted Time PHQ-9 Depression Total Score: 0 09/26/19 25 10:23 AM EDT documented as of this encounter Care Teams Faculty I On Call Medical Assistant Relationship Specialty Start Date End Date Vi Keys MD 230 [place] [address] PCP - General Internal Medicine 12/20/22 documented as of this encounter
--- OUTSIDE RECORDS SUMMARY | 2024-11-22 09:30 | XMS_ITS | Encounter Summary ---
Author Organization [employer] Address [address] 7[address] [place] [address] Care Team Providers Care Call Box Wirer Name Role Phone Vi Keys MD Primary Care Pro vider Encounter Details Date Type Department Care Team (Latest Contact Info) Description 11/22/2024 Travel Social History Tobacco Use Types Packs/Day [...] Description 02/24/2025 9:00 AM EST Office Visit [facility] OPTOMETRY [address] [place], [place] [phone] Fannie Castañeda, OD 230 [place] [address] documented as of this encounter Visit Diagnoses Not on filedocumented in this encounter Additional Health Concerns Assessment Noted Time PHQ-9 Depression Total Score: 0 09/26/19 25 10:23 AM EDT documented as of this encounter Care Teams Call Box Wirer Relationship Specialty Start Date End Date Vi Keys MD 230 [place] [address] PCP - General Internal Medicine 12/20/22 documented as of this encounter
--- OUTSIDE RECORDS SUMMARY | 2024-11-22 09:30 | XMS_ITS | Encounter Summary ---
Author Organization [employer] Address [address] [place] [address] 7t [place] [address] Care Team Providers Care Cloth Shrinker Name Role Phone Vi Keys MD Primary Care Pro vider Reason for Visit * Reason Comments Med Refill Encounter Details Date Type Department Care Team (Late st Contact Info) Description 06/27/2024 Refill [facility] MEDICINE [address] [place], [place] [phone] Vi Keys MD [address] [place] [address] Essential hypertension Social History Tobacco Use Types [...] Description 02/24/2025 9:00 AM EST Office Visit [facility] OPTOMETRY [address] [place], [place] [phone] Fannie Castañeda, OD 230 [place], [place] [phone] documented as of this encounter Visit Diagnoses Diagnosis Essential hypertension Unspecified essential hypertension documented in this encounter Additional Health Concerns Assessment Noted Time PHQ-9 Depression Total Score: 0 08/20/19 3:43 PM EDT documented as of this encounter Care Teams Cloth Shrinker Relationship Specialty Start Date End Date Vi Keys MD [address] [place] [address] PCP - General Internal Medicine 12/20/22 documented as of this encounter
--- OUTSIDE RECORDS SUMMARY | 2024-11-22 09:30 | XMS_ITS | Encounter Summary ---
Author Organization [employer] Address [address] [place] [address] 7 [place] [address] Care Team Providers Care Wardrobe Technician Name Role Phone Carmelita Escalona Primary Care Provider Maggie Vi Jean MD Primary Care Pro vider Encounter Details Date Type Department Care Team (Latest Contact Info) Description 11/23/2021 Abstract [facility] CONVERSIONS Dental, Provider, DDS Social History Tobacco [...] Visit [facility] OPTOMETRY [address] [place] [address] Fannie Castañeda, OD 230 [place] [address] documented as of this encounter Visit Diagnoses Not on filedocumented in this encounter Care Teams Wardrobe Technician Relationship Specialty Start Date End Date Carmelita Escalona FNP PCP - General Family Medicine 11/02/21 12/19/22 Vi Keys MD 230 [place] [address] PCP - General Internal Medicine 12/20/22 documented as of this encounter
--- OUTSIDE RECORDS SUMMARY | 2024-11-22 09:30 | XMS_ITS | Clinical Summary ---
Author Organization [address] [facility] Address [address] [place] [address] Phone Care Team Providers Care Rnp Name Role Phone Physician, Pcp Unknown Primary [...] Upcoming Encounters Date Type Department Care Team ([facility] Contact Info) Description 01/16/2025 8:15 AM EST Office Visit Orthopedic Surgery [facility] [address] [phone] Nish Tavera DPM [address] [phone] Health Maintenance Due Date Last [...] age to complete this topic Insurance , [place] [address] MEDICAID - [place] Care Teams Rnp Relationship Specialty Start Date End Date Physician, Pcp Unknown PCP - General 04/18/24
--- OUTSIDE RECORDS SUMMARY | 2024-11-22 09:30 | XMS_ITS | Encounter Summary ---
Author Organization [employer] Address [address] [facility] [address]t h Floor [place] [phone] Care Team Providers Care Technical Support Internship Name Role Phone Vi Keys MD Primary Care Pro vider Reason for Visit * Reason Onset Date Comments chart prep 11/19/2024 Encounter Details Date Type Department Care Team ([facility] st Contact Info) Description 11/19/2024 Telephone [facility] MEDICINE 230 [place], [place] [phone] Vi Keys MD 230 [place] [address] chart prep Social History Tobacco Use Types [...] Description 02/24/2025 9:00 AM EST Office Visit [facility] OPTOMETRY [address] [place], [place] [phone] Fannie Castañeda, OD 230 [place] [address] documented as of this encounter Visit Diagnoses Not on filedocumented in this encounter Additional Health Concerns Assessment Noted Time PHQ-9 Depression Total Score: 0 09/26/19 25 10:23 AM EDT documented as of this encounter Care Teams Technical Support Internship Relationship Specialty Start Date End Date Vi Keys MD 230 [place] [address] PCP - General Internal Medicine 12/20/22 documented as of this encounter
--- OUTSIDE RECORDS SUMMARY | 2024-11-22 09:30 | XMS_ITS | Encounter Summary ---
Author Organization [employer] Address [address] [facility] [facility] [address] [place] [address] Care Team Providers Care Account Group Supervisor Name Role Phone Vi Keys MD [...] Description 02/24/2025 9:00 AM EST Office Visit [facility] OPTOMETRY [address] [place], [place] [phone] Fannie Castañeda, OD [address] [place] [address] documented as of this encounter Visit Diagnoses Not on filedocumented in this encounter Additional Health Concerns Assessment Noted Time PHQ-9 Depression Total Score: 0 09/26/19 25 10:23 AM EDT documented as of this encounter Care Teams Account Group Supervisor Relationship Specialty Start Date End Date Vi Keys MD 230 [place] [address] PCP - General Internal Medicine 12/20/22 documented as of this encounter
--- OUTSIDE RECORDS SUMMARY | 2024-11-22 09:30 | XMS_ITS | Encounter Summary ---
Author Organization [employer] Address [address] [place] [address] 7 [place] [address] Care Team Providers Care Urgent Care Physician Assistant Name Role Phone Carmelita Escalona Primary Care Provider Vi Guardado MD Primary Care Pro vider Encounter Details Date Type Department Care Team (Latest Contact Info) Description 07/13/2018 Abstract [facility] CONVERSIONS Dental, Provider, DDS Social History [...] Description 02/24/2025 9:00 AM EST Office Visit [facility] OPTOMETRY [address] [place] [address] Fannie Castañeda, OD 230 [place] [address] documented as of this encounter Visit Diagnoses Not on filedocumented in this encounter Care Teams Urgent Care Physician Assistant Relationship Specialty Start Date End Date Carmelita Escalona FNP PCP - General Family Medicine 11/02/21 12/19/22 Vi Keys MD [address] [place] [address] PCP - General Internal Medicine 12/20/22 documented as of this encounter
--- OUTSIDE RECORDS SUMMARY | 2024-11-22 09:30 | XMS_ITS | Encounter Summary ---
Author Organization [employer] Address [address] [place] [address] 7t [place] [address] Care Team Providers Care Premium Card Cancellation Clerk Name Role Phone Vi Keys MD Primary Care Pro vider Reason for Visit * Reason Comments Med Change Request Encounter Details Date Type Department Care Team ([facility] st Contact Info) Description 11/07/2024 Refill [facility] MEDICINE [address] [place], [place] [phone] iV Keys MD 230 [place] [address] Type 2 diabetes mellitus with diabetic nephropathy, without long-term current use of insulin ([facility]) Social History Tobacco Use Types [...] Description 02/24/2025 9:00 AM EST Office Visit [facility] OPTOMETRY [address] [place] [address] Garry, Fannie, OD 230 [place], [place] [phone] documented as of this encounter Visit Diagnoses Diagnosis Type 2 diabetes mellitus with diabetic nephropathy, without long-term current use of insulin ([facility]) documented in this encounter Additional Health Concerns Assessment Noted Time PHQ-9 Depression Total Score: 0 09/26/19 25 10:23 AM EDT documented as of this encounter Care Teams Premium Card Cancellation Clerk Relationship Specialty Start Date End Date Vi Keys MD [address] [place], [place] [phone] PCP - General Internal Medicine 12/20/22 documented as of this encounter
[2024-11-22 11:22] LABS: Hematocrit 42.5 % (42.0-52.0); Hemoglobin 14.1 g/dl (14.0-18.0); Mean Corpuscular HGB Conc 33.2 g/dl (31.0-36.0); Mean Corpuscular Hemoglobin 26.4 pg (27.0-33.0); Mean Corpuscular Volume 79.4 fL (80.0-98.0); NRBC Abs Auto 0.000 X10*3/uL (0.0-0.012); NRBC Pct Auto 0.0 /100WBC (0.0-0.2); Platelet Count 262 X10*3/uL (160-400); Red Blood Count 5.35 X10*6/uL (4.60-5.80); White Blood Count 8.4 X10*3/uL (4.8-10.8)
[2024-11-22 11:51] LABS: Hemoglobin A1C 161.1327 umol/L; Total Hemoglobin (HGBA1C) 3669.4635 umol/L
[2024-11-22 11:59] LABS: HBS Num1 0.60 mIU/mL (0-7.99); HBc Num1 0.06 S/CO (0.00-0.79); HBsAGNum1 0.41 S/CO (0.00-0.99); HIV Num 1 0.04 S/CO (0.00-0.99); Hepatitis B Surface Antigen Negative (Negative); ~HepC Num1 0.07 S/CO (0.00-0.79); ~Hepatitis B Surface Antibody NONREACTIVE (Nonreactive); ~Hepatitis C Antibody Nonreactive (Nonreactive)
[2024-11-22 12:30] LABS: Alanine Aminotransferase 27 U/L (0-40); Albumin Level 4.7 g/dL (3.5-5.0); Alkaline Phosphatase 76 U/L (39-117); Anion Gap 13 (12-20); Aspartate Amino Transferase 30 U/L (5-37); Blood Urea Nitrogen 18 mg/dL (9-16); Calcium 9.0 mg/dL (8.4-10.2); Carbon Dioxide 26 mmol/L (22-29); Chloride 107 mmol/L (96-108); Cholesterol 105 mg/dL (<200); Estimated Glomerular Filt Rate > 60; HDL Cholesterol 27 mg/dL (>40); Potassium 3.8 mmol/L (3.3-5.1); Sodium 142 mmol/L (135-145); Total Protein 7.5 g/dL (6.5-8.0); Triglycerides 109 mg/dL (<150)
[2024-11-22 12:47] LABS: Prostate Specific Antigen 1.12 ng/mL (<0.05-4.0)
[2024-11-22 12:58] LABS: Folate 5.6 ng/mL (> or = 4.0); Prostate Specific Antigen 1.11 ng/mL (<0.05-4.0); Vitamin B12 492 pg/mL (200-900)
[2024-11-22 13:38] LABS: Microalbum/Creatinine Ratio Ur 28.8 ug/mg cr (<30)
[2024-11-22 13:45] LABS: CT PCR Urine NOT DETECTED (Not Detect.); NG PCR Urine NOT DETECTED (Not Detect.)
[2024-11-23 06:32] LABS: Rubeola IgG (Measles) >300.00 AU/mL
[2024-11-23 09:23] LABS: Syphilis Screen Nonreactive (Nonreactive)
== END 2024-11-22 08:49 | disposition home or self-care (01) ==
LOC: HO.HHCL 08:48
PROVIDERS: Urology; PCP Student in an Organized Health Care Education/Training Program; Visit Provider Student in an Organized Health Care Education/Training Program
DX: Z00.00 Encounter for general adult medical examination without abnormal findings (principal); Z12.5 Encounter for screening for malignant neoplasm of prostate; Z11.4 Encounter for screening for human immunodeficiency virus [HIV]; Z11.3 Encounter for screening for infections with a predominantly sexual mode of transmission; Z11.8 Encounter for screening for other infectious and parasitic diseases; Z11.59 Encounter for screening for other viral diseases
CPT/HCPCS: 36415; 80053; 80061; 82043; 82306; 82570; 82607; 82746; 83036; 84153; 84443; 85027; 85652; 86140; 86704; 86706; 86735; 86762; 86765; 86780; 86803; 87340; 87389; 87491; 87591

== ENCOUNTER 2024-11-27 06:57 | Day surgery (SDC) | payer MEDICAID, SELFPAY ==
--- OUTSIDE RECORDS SUMMARY | 2024-11-20 09:00 | XMS_ITS | Encounter Summary ---
Author Organization [employer] Address [address] [place] [address] 7 [place] [address] Care Team Providers Care Milk Treater Name Role Phone Vi Keys MD Primary Care Pro vider Reason for Referral * Consultation (Routine) - Pending Review Specialty Diagnoses / Procedures Referred By Contac t Referred To Contact Gastroenterology Diagnoses Polyp of colon, unspecified part of colon, unspecified type Vi Keys MD [address] [place] [address] Phone: tel: fax: Referral ID Status Reason Start Date Expiration Date Visits Requested Visits Authorized [id number] Pending Review Specialty Services Required 11/20/2024 11/20/2025 1 1 * Consultation (Routine) - Authorized Specialty Diagnoses / Procedures Referred By Contac t Referred To Contact Family Medicine Diagnoses Skin cyst Vi Keys MD [address] [place] [address] Phone: tel: fax: Referral ID Status Reason Start Date Expiration Date Visits Requested Visits Authorized [id number] Authorized Specialty Services Required 11/20/2024 11/20/2025 1 1 Encounter Details Date Type Department Care Team ([facility] st Contact Info) Description 11/20/2024 9:00 AM EDT Office Visit [facility] MEDICINE [address] [place] [phone] Vi Keys MD [address] [place] [address] Skin cyst (Primary Dx); Type 2 diabetes mellitus with diabetic nephropathy, without long-term current use of insulin (CMS/HCC); Polyp of colon, unspecified part of colon, unspecified type Social History Tobacco Use Types Packs/Day Years [...] housing situation today? I have karenmadison angulo 07/24/[address] you [...] 9:08 AM EDT Oxygen Saturation 99% 11/20/2024 9: 08 AM EDT Inhaled Oxygen Concentration - - Weight 83.4 kg (183 lb 12.8 oz) 11/20/2024 9:08 AM EDT Height 181.6 cm (5' 11.5 ) 11/20/2024 9:08 AM ED T Body Mass Index 25.28 11/20/2024 9:08 AM EDT documented in this encounter Plan of Treatment Upcoming Encounters Date Type Department Care Team (Late st Contact Info) Description 11/22/2024 9:00 AM EDT Medication Management [facility] [address] [place] [address] Lina Hayden, PharmD [address] [place] [address] 02/24/2025 9:00 AM EST Office Visit [facility] OPTOMETRY [address] [place] [address] Garry, Fannie, OD [address] [place] [address] Scheduled Referrals Name Type Priority Associated Diagnoses Order Schedule Referral to [facility] Derm Skin Adult Outpatient Referral Routine [...] nephropathy, without long-term current use of insulin ([facility]) POCT GLUCOSE Routine 11/20/2024 9:09 AM EDT Type 2 diabetes mellitus with diabetic nephropathy, without long-term current use of insulin ([facility]) documented in this encounter Results * (ABNORMAL) POCT Hgb A1c (11/20/2024 9:12 AM EDT) Hemoglobin A1C 6.2(A) 4.0 - 5.7 % QC Media Lot # [id number] Lot# Expiration Date 524,623 Blood 11/20/2024 9:12 AM EDT Vi Cardozo MD POINT OF CARE EMILE T ENTER/EDIT ORDERABLES Final Result * POCT Glucose (11/20/2024 9:09 AM EDT) Glucose Blood, POC 198 60 - 200 mg/dL QC Media Lot # [id number] Lot# Expiration Date ,701,416 Blood Capillary blood specimen / Unknown 11/20/2024 9:09 AM EDT Vi Cardozo MD POINT OF CARE EMILE T ENTER/EDIT ORDERABLES Final Result documented in this encounter Visit Diagnoses Diagnosis Skin cyst- Primary Sebaceous cyst Type 2 diabetes mellitus with diabetic nephropathy, without long-term current use of insulin ([facility]) Polyp of colon, unspecified part of colon, unspecified type documented in this encounter Additional Health Concerns Assessment Noted Time PHQ-9 Depression Total Score: 0 09/26/19 25 10:23 AM EDT documented as of this encounter Care Teams Milk Treater Relationship Specialty Start Date End Date Vi Keys MD [address] [place] [phone] PCP - General Internal Medicine 12/20/22 documented as of this encounter
--- OUTSIDE RECORDS SUMMARY | 2024-11-20 17:21 | XMS_ITS | Encounter Summary ---
Author Organization [employer] Address [address] [facility] 7[address] [place] [address] Care Team Providers Care In Flight Crew Member Name Role Phone Carmelita Escalona ART HISTORIAN Primary Care Provider Vi Guardado MD Primary Care Pro vider Reason for Visit * Reason Onset Date Comments ER Follow-up 12/09/2022 Encounter Details Date Type Department Care Team ([facility] st Contact Info) Description 12/09/2022 Telephone [facility] [address] [place] [phone] Carmelita Escalona FNP ER Follow-up Social History Tobacco Use Types [...] For below message, pt. Was admitted at [facility] for loss of vision and suspected seizure from12/07 to 12/09. P. Schedule for HDF on 12/22/2022. Pt. Verbally agreed and understood. HDF cristopher and ED darielay scanned into pt.'s chart. * Telephone Encounter - Nisa Ramos - 12/09/2022 10:50 AM EDT Patient calling to report ED visit on 12/09/2022 at [facility]. Diagnosed with nothing. Patient advised will forward to nurse for follow up. No symptoms Please contact pt at [phone] documented in this encounter Plan of Treatment Upcoming Encounters Date Type Department Care Team (Late st Contact Info) Description 11/22/2024 9:00 AM EDT Medication Management [facility] [address] [place] [address] Lina Hayden, MaryD [address] [place] [address] 02/24/2025 9:00 AM EST Office Visit [facility] OPT[facility] [address] [place] [address] Fannie Castañeda, OD [address] [place] [address] documented as of this encounter Visit Diagnoses Not on filedocumented in this encounter Additional Health Concerns Assessment Noted Time PHQ-9 Depression Total Score: 0 08/20/19 23 3:43 PM EDT documented as of this encounter Care Teams In Flight Crew Member Relationship Specialty Start Date End Date Carmelita Escalona FNP PCP - General Family Medicine 11/02/21 12/19/22 Vi Keys MD [address] [place] [address] PCP - General Internal Medicine 12/20/22 documented as of this encounter
--- OUTSIDE RECORDS SUMMARY | 2024-11-20 17:21 | XMS_ITS | Clinical Summary ---
Author Organization [facility] Address [address] [place] [address] Care Team Providers Care It Systems Analyst Consultant Name Role Phone Unavailable Primary Care Provider [...] HIV Screening 10/31/1979 Hypertension Screening (#1) 1982 CT Colonography 2009 Colonoscopy 2009 Colorectal Cancer Screening 2009 FIT/gFOBT 2009 Fecal DNA 2009 Flexible Sigmoidoscopy 2009 Imm-Zoster, Recombinant (1 of 2) 2014 Imm-Pneumococcal 50+ (2 of 2 - PCV) 04/25/2017 04/25/2016 Alcohol and Drug Screen 03/13/2024 Depression Annual Screen 03/13/2024 [id number] (3 - 2024- season) 2024 07/14/2020, 06/15/2020 Imm-Influenza (#1) 2024 03/27/2019, 0 05/30/2018, 02/15/2016, Additional history exists Imm-DTaP/Tdap/Td (2 - Td or Tdap) 05/30/2028 05/30/2018 Imm-Hepatitis B Aged Out No longer el igible based on patient's age to complete this topic Insurance C3 [facility]
--- OUTSIDE RECORDS SUMMARY | 2024-11-20 17:21 | XMS_ITS | Encounter Summary ---
Author Organization [employer] Address [address] [place] [address] 7t [place] [address] Care Team Providers Care Oil Changer Name Role Phone Vi Keys MD Primary Care Pro vider Reason for Visit * Reason Comments Med Change Request Encounter Details Date Type Department Care Team ([facility] st Contact Info) Description 09/03/2024 Refill [facility] [address] [place], [place] [phone] Vi Keys MD [address] [place] [address] Type 2 diabetes mellitus with diabetic nephropathy, without long-term current use of insulin ([facility]) Social History Tobacco Use Types Packs/Day [...] Recorded Patient Health Questionnaire-2 Score 0 08/19/2022 Internet Access Answer Date Recorded Internet Access [...] Description 11/22/2024 9:00 AM EDT Medication Management [facility] [address] [place] [address] Lina Hayden, PharmD [address] [place] [address] 02/24/2025 9:00 AM EST Office Visit [facility] OPTOMETRY [address] [place] [address] Fannie Castañeda, OD [address] [place] [address] documented as of this encounter Visit Diagnoses Diagnosis Type 2 diabetes mellitus with diabetic nephropathy, without long-term current use of insulin ([facility]) documented in this encounter Additional Health Concerns Assessment Noted Time PHQ-9 Depression Total Score: 0 08/20/19 23 3:43 PM EDT documented as of this encounter Care Teams Oil Changer Relationship Specialty Start Date End Date Vi Keys MD [address] [place] [address] PCP - General Internal Medicine 12/20/22 documented as of this encounter
--- OUTSIDE RECORDS SUMMARY | 2024-11-20 17:21 | XMS_ITS | Clinical Summary ---
Author Organization [employer] Address [address] [facility] 7[address] [place] [address] Care Team Providers Care Health Services Coordinator Name Role Phone Vi Keys MD Primary Care Pro vider Allergies Active Allergy Reactions Criticality Noted Date Comments Lisinopril Cough 02/23/2021 Pork Allergy 12/22/2022 cheondoism reasons cheondoism reasons Medications Alcohol Swabs (Alcohol Prep) pads [...] bedtime. 2.5 mL 11 024 2024 Active Blood Glucose Monitoring Suppl w/Device kitIndications:Ty pe 2 diabetes mellitus with diabetic nephropathy, without long-term current use of insulin ([facility]) USE TO CHECK BLOOD SUGAR DAILY 1 kit 025 Active FREESTYLE LITE test stripIndications: Type 2 diabetes mellitus with diabetic nephropathy, without long-term current use of insulin ([facility]) 1 each by Other route 2 times daily. 180 each 025 2025 Active metFORMIN (Glucophage) 1000 MG tablet Take 1 tablet (1,000 mg) by mouth with breakfast and with evening meal. 180 tablet 025 2025 Active amLODIPine (Norvasc) 10 [...] every 4 (four) hours. 18 g 2 2026 Active atorvastatin (Lipitor) 20 MG tabletIndications :Type 2 diabetes mellitus with diabetic nephropathy, without long-term current use of insulin (CMS/HCC),Mixed hyperlipidemia Take 1 tablet (20 mg) by mouth Once per day. Take 1 tablet by mouth every day 90 tablet Active Restasis 0.05 % ophthalmic emulsion Administer 1 drop into both eyes 2 times daily. Active gabapentin (Neurontin) 600 MG tabletIndications :Type 2 diabetes mellitus with diabetic nephropathy, without long-term current use of insulin (CMS/HCC) Take 1 tablet (600 mg) by mouth 2 times daily. 180 tablet Active ammonium lactate (Lac-Hydrin) 12 % lotion Apply topically if needed for dry skin. 396 g 1 025 2025 Active empagliflozin (Jardiance) 10 MG Take 1 tablet (10 mg) by mouth Once per day. 90 tablet 025 2025 Active hydrocortisone 2.5 % cream Apply pea sized amount to skin bid for 1 week behind left knee 3.5 g Active melatonin 5 MG tablet Take 1 tablet (5 mg) by mouth at bedtime. 30 tablet 2 025 2025 Active ammonium lactate (Lac-Hydrin) 12 % lotion Apply topically if needed. 2024 Discontinued(R eorder (will not trigger notification to Pharmacy)) gabapentin (Neurontin) 600 MG tabletIndications :Type 2 diabetes mellitus with diabetic nephropathy, without long-term current use of insulin ([facility]) Take 1 tablet (600 mg) by mouth 2 times daily. 180 tablet 025 2024 Discontinued(R eorder (will not trigger notification to Pharmacy)) empagliflozin (Jardiance) 10 MG Take 1 tablet (10 mg) by mouth Once per day. 90 tablet 025 2024 Discontinued(R eorder (will not trigger notification to Pharmacy)) Active Problems Problem Noted Date Diagnosed Date [...] Encounters Date Type Department Care Team Description 11/20/2024 9:00 AM EDT Office Visit [facility] [address] [place] [address] Vi Keys MD Skin cyst (Primary Dx); Type 2 diabetes mellitus with diabetic nephropathy, without long-term current use of insulin ([facility]); Polyp of colon, unspecified part of colon, unspecified type 11/20/2024 Travel 11/19/2024 Telephone [facility] [address] [place] [address] Vi Keys MD chart prep 11/08/2024 Orders Only [facility] [address] [place] [address] Vi Keys MD Type 2 diabetes mellitus with diabetic nephropathy, without long-term current use of insulin ([facility]/HCC) 11/07/2024 Refill [facility] [address] [place] [address] Vi Keys MD Type 2 diabetes mellitus with diabetic nephropathy, without long-term current use of insulin ([facility]/HCC) 10/24/2024 Results Follow-Up [facility] [address] [place] [address] Vi Keys MD US Renal Complete 10/24/2024 Orders Only [facility] External Provider, [facility] 10/08/2024 3:30 PM EDT Office Visit [facility] [address] [place] [address] Garry, Fannie, OD Double vision (Primary Dx) 10/08/2024 Travel 09/25/2024 9:45 AM EDT Office Visit [facility] [address] [place] [address] Vi Keys MD Health care maintenance (Primary Dx); Type 2 diabetes mellitus with diabetic nephropathy, without long-term current use of insulin ([facility]); Mild intermittent asthma without complication; Mixed hyperlipidemia; Neck pain; Essential hypertension; Encounter for immunization; Chronic left shoulder pain; Kidney stone; Transaminitis; Glaucoma, unspecified glaucoma type, unspecified laterality 09/25/2024 Travel 09/24/2024 Telephone [facility] [address] [place] [phone] Vi Keys MD CHART PREP 09/19/2024 Refill [facility] [address] [place] [phone] Vi Keys MD 09/18/2024 Patient Outreach [facility] [address] [place] [phone] Vi Keys MD Pre-visit Planning ([facility] screening completed on 07/24/24 ) 09/04/2024 Refill [facility] [address] [place] [phone] Corina Vera MD Type 2 diabetes mellitus with diabetic nephropathy, without long-term current use of insulin ([facility]/HCC) 09/04/2024 Refill [facility] [address] [place] [phone] Mandie Chavez DO Type 2 diabetes mellitus with diabetic nephropathy, without long-term current use of insulin (CMS/HCC) 09/04/2024 Telephone [facility] [address] [place] [phone] Elizabeth Hermosillo NP 09/03/2024 Orders Only [facility] [address] [place] [phone] Vi Keys MD Type 2 diabetes mellitus with diabetic nephropathy, without long-term current use of insulin (CMS/HCC) 09/03/2024 Telephone [facility] [address] [place] [phone] Vi Keys MD Medication Question 09/03/2024 Refill [facility] [address] [place] [phone] Vi Keys MD Type 2 diabetes mellitus with diabetic nephropathy, without long-term current use of insulin (CMS/HCC) 09/02/2024 Refill [facility] [address] [place] [phone] Vi Keys MD Type 2 diabetes mellitus with diabetic nephropathy, without long-term current use of insulin (CMS/HCC) 09/02/2024 Telephone [facility] [address] [place], [place] [phone] Vi Keys MD Nurse Triage from Last 3 Months Immunizations Immunization Administration [...] Mass Index 25.28 11/20/2024 9:08 AM EDT Plan of Treatment Upcoming Encounters Date Type Department Care Team (Late st Contact Info) Description 11/22/2024 9:00 AM EDT Medication Management [facility] [address] [place] [address] Lina Hayden, PharmD [address] [place] [address] 02/24/2025 9:00 AM EST Office Visit [facility] [address] [place] [address] Fannie Castañeda, OD [address] [place] [address] Health Maintenance Due Date Last Done Comments CT Colonography 1965 Colonoscopy 1965 Colorectal Cancer Screening 1965 FIT DNA/Cologuard 1965 FIT 1965 FOBT 1965 Sigmoidoscopy 1965 IPV Vaccines (2 of 3 - Adult catch-up series) 10/07/2009 09/09/2009 Zoster Vaccines (1 of 2) 2014 Diabetes: Foot Exam 02/23/2023 02/23/2022 RSV Patients and Patients Aged 60 years or older (1 - Risk 60-74 years 1-dose series) 2024 COVID-19 Vaccine ( season) 2024 03/16/2021, 07/14/2020, 06/15/2020 Influenza Vaccine (#1) 2024 , 03/27/2019, 05/30/2018, Additional history exists Lipid Panel 01/07/2025 01/08/2024, 03/13, 11/23/2020 Diabetes: Hemoglobin A1C 05/20/2025 025, 07/24/2024, 05/03/2024, Additional history exists Alcohol/Substance Use Screening 07/24/2025 07/24/2024 Disability Screening 07/24/2025 07/24/2024 SDOH Screening 07/24/2025 07/24/2024 Depression Screening 09/25/2025 09/25/2024, 09/26/19 25 Tobacco Screening 11/20/2025 11/20/2024 Eye Exam 10/08/2026 10/08/2024, 05/0 04/2024, 01/11/2024, Additional history exists DTaP/Tdap/Td Vaccines (3 - Td or Tdap) 04/15/2034 04/15/2024, 05/30/2018 Hepatitis A Vaccines Aged Out 05/09/2011, 09/10/19 [...] patient's age to complete this topic Hepatitis B Vaccines Aged Out No long er eligible [...] nephropathy, without long-term current use of insulin ([facility]) POCT GLUCOSE Routine 11/20/2024 9:09 AM EDT Type 2 diabetes mellitus with diabetic nephropathy, without long-term current use of insulin ([facility]) US RENAL COMPLETE Routine 10/24/2024 12: 23 PM EDT ECG 12-LEAD Routine 09/25/2024 11:13 AM EDT Essential hypertension HEPATITIS C AB W/REFL TO HCV RNA, QN, PCR Routine 01/08/2024 9:05 AM EDT Right leg pain HIV 1/2 ANTIGEN/ANTIBODY, FOURTH GENERATION W/RFL Routine 01/08/2024 9:05 AM EDT Right leg pain LIPID PANEL, STANDARD Routine 01/08/2024 9:05 AM EDT Right leg pain from Last 3 Months or Most Recently Relevant to Health Maintenance Results * (ABNORMAL) POCT Hgb A1c (11/20/2024 9:12 AM EDT) Hemoglobin A1C 6.2(A) 4.0 - 5.7 % QC Media Lot # [id number] Lot# Expiration Date [id number] Blood 11/20/2024 9:12 AM EDT Vi Cardozo MD POINT OF CARE EMILE T ENTER/EDIT ORDERABLES Final Result * POCT Glucose (11/20/2024 9:09 AM EDT) Glucose Blood, POC 198 60 - 200 mg/dL QC Media Lot # [id number] Lot# Expiration Date [id number] Blood Capillary blood specimen / Unknown 11/20/2024 9:09 AM EDT Vi Cardozo MD POINT OF CARE EMILE T ENTER/EDIT ORDERABLES Final Result * US Renal Complete (10/24/2024 12:23 PM EDT) Anatomical Region Laterality Modality Kidney Ultrasound 10/24/2024 12:2 3 PM EDT Narrative 10/24/2024 12:23 PM EDT [place] [address] Ultrasound Report Signed with Dottie Patient: Jackie Marlow MR#: [id number] : 1965 Acct:[id number] Age/Sex: 58 / M ADM Date: 10/24/24 Loc: . Attending Dr: Santiago Yu MD Ordering Physician: Santiago Yu MD Date of Service: 10/24/24 Procedure(s): US renal BI Accession Number(s): [id number] cc: Santiago Yu MD; Vi Keys MD ADDENDUM This document has been electronically signed by: Aimee Franklin MD on 10/24/2024 12:23:09 ADDENDUM: Receipt of this report by the clinical staff was confirmed with Stephanie Marrero MA on Oct 28, 2024 12:09:00 EDT. This document has been electronically signed by: Samantha Grimes on 10/28/2024 12:09:31 Addendum Dictated By: Aimee Franklin MD Addendum Signed By: <Electronically signed by Aimee Franklin MD in OV> 10/28/24 1210 Addendum Cosigned By: DD/ TD/TT: 10/28/24 CLINICAL HISTORY: N20.0 - Calculus of kidney US of kidneys Comparison: US/SR - US RETROPERITONEUM - 02/15/24 09:47 EST Findings: Right kidney is normal in size and echogenicity, 10.5 cm in length. 9 mm simple cortical cyst at the midpole, 5 mm calculus at the lower pole, no hydronephrosis or abnormal vascular flow. Left kidney is normal in size and echogenicity, 10.2 cm in length. Moderate hydronephrosis. Calyceal calculi 3 mm in the upper pole, 4 mm in the midpole, 5 mm in the lower pole. No focal lesion is identified. No abnormal vascular flow. Impression: 1. Moderate left hydronephrosis, progressed, distal obstructive process needs to be excluded. Recommend CT renal stone protocol. 2. Nonobstructing bilateral nephrolithiasis. This document has been electronically signed by: Aimee Franklin MD on 10/24/2024 12:23:09 Dictated By: Aimee Franklin MD Signed By: <Electronically signed by Aimee Franklin MD in OV> 10/24/24 1223 DD/ 1223 TD/TT: 10/24/24 122 Oil Deliverer: Procedure Note Donotuseinterpreter, Image - 10/28/2024 [place] [address] Ultrasound Report Signed with Addenda Patient: Seth Marlow#: [id number] : 1965Acct:[id number] Age/Sex: 58 / MADM Date: 10/24/24 Loc: HO.US Attending Dr: Santiago Yu MD Ordering Physician: Santiago Yu MD Date of Service: 10/24/24 Procedure(s): US renal BI Accession Number(s): [id number] cc: Santiago Yu MD; Vi Keys MD ADDENDUM This document has been electronically signed by: Aimee Franklin MD on 10/24/2024 12:23:09 ADDENDUM: Receipt of this report by the clinical staff was confirmed with Stephanie Marrero MA on Oct 28, 2024 12:09:00 EDT. This document has been electronically signed by: Samantha Grimes on 10/28/2024 12:09:31 Addendum Dictated By: Aieme Franklin MD Addendum Signed By: <Electronically signed by Aimee Franklin MD inOV> 10/28/240 Addendum Cosigned By: DD/ TD/TT: 10/28/24 CLINICAL HISTORY: N20.0 - Calculus of kidney US of kidneys Comparison: US/SR - US RETROPERITONEUM - 02/15/24 09:47 EST Findings: Right kidney is normal in size and echogenicity, 10.5 cm in length. 9 mm simple cortical cyst at the midpole, 5 mm calculus at the lower pole, no hydronephrosis or abnormal vascular flow. Left kidney is normal in size and echogenicity, 10.2 cm in length. Moderate hydronephrosis. Calyceal calculi 3 mm in the upper pole, 4 mm in the midpole, 5 mm in the lower pole. No focal lesion is identified. No abnormal vascular flow. Impression: 1. Moderate left hydronephrosis, progressed, distal obstructive process needs to be excluded. Recommend CT renal stone protocol. 2. Nonobstructing bilateral nephrolithiasis. This document has been electronically signed by: Aimee Franklin MD on 10/24/2024 12:23:09 Dictated By: Aimee Franklin MD Signed By: <Electronically signed by Aimee Franklin MD in OV> 10/24/241222 DD/ 22 TD/TT: 10/24/241222 Oil Deliverer: us [facility] External Provider IMG US PROCEDURES Edited Result - Final * ECG 12 lead (09/25/2024 11:13 AM EDT) Narrative Vi Keys MD - 09/25/2024 11:13 AM EDT EKG today 09/2024 for baseline HR 83x',Qtc 396, NSR,no ischemic findings Vi Cardozo MD ECG ORDERABLES F inal Result * Hepatitis C Antibody with Reflex to HCV, RNA, Quantitative, Real-Time PCR (01/08/2024 9:05 AM EDT) Pathologist [facility] Hepatitis C Antibody Nonreactive Nonreactive [facility] Comment:Antibodies to HCV no t detected; does not exclude early acuteHCV infection. Blood Venous blood specimen / Unknown 01/08/2024 9:05 AM EDT 01/08/2024 11:10 AM EDT Vi Sierra MD LAB BLOOD ORDERABLES Final Result [facility] [address] [place] [phone] * HIV-1/2 Antigen and Antibodies, Fourth Generation, with Reflexes (01/08/2024 9:05 AM EDT) [facility] HIV AB/AG Nonreactive Nonreactive [facility] Comment:HIV-1 p24 Ag and/or HIV-1/HIV-2 Ab not detected.A test result that is nonreactive does not exclude thepossibility of exposure to or infection with HIV-1 and/orHIV-2. Nonreactive results in this assay for individualswith prior exposure to HIV-1 and/or HIV-2 may be due toantigen and antibody levels that are below the limit ofdetection of this assay.The [employer] HIV Ag/Ab Combo assay result andsupplemental assay results should be interpreted inconjunction with the patient's clinical presentation,history and other laboratory results. If the results areinconsistent with clinical evidence, additional testing issuggested to confirm the result. Blood Venous blood specimen / Unknown 01/08/2024 9:05 AM EDT 01/08/2024 11:10 AM EDT us Vi Sierra MD LAB BLOOD ORDERABLES Final Result Performing Organization Address [facility]/ZIP Co de Phone Number [facility] [address] [place] [phone] * (ABNORMAL) Lipid Panel, Standard (01/08/2024 9:05 AM EDT) Triglycerides 234(H) <150 mg/dL [facility] Comment:Desirable Triglyceri de: less than 150 mg/dLBorderline High Triglyceride 150-199 mg/dLHigh Triglyceride: 200-499 mg/dLVery High Triglyceride: greater than or equal to 5OO mg/dL Cholesterol 137 <200 mg/dL [facility] Comment:Desirable Cholestero l: less than 200 mg/dLBorderline High Cholesterol: 200-239 mg/dLHigh Cholesterol: greater than 239 mg/dL LDL Cholesterol Calculated 63 <100 mg/dL [facility] Comment:Desirable LDL: less than 100 mg/dLNear Optimal/Above Optimal LDL: 110- 129 mg/dLBorderline High LDL: 130-159 mg/dLHigh LDL: 160-189 mg/dLVery High LDL: greater than or equal to 190 mg/dL HDL Cholesterol 28(L) >40 mg/dL [facility] Comment:Desirable HDL: great er than 40 mg/dL Note: This HDL assay may give artificially low results in patients with liver disease. Blood Venous blood specimen / Unknown 01/08/2024 9:05 AM EDT 01/08/2024 11:10 AM EDT us Vi Sierra MD LAB BLOOD ORDERABLES Final Result Performing Organization Address City/[facility]/ZIP Co de Phone Number [facility] [address] [place] [address] [phone] from Last 3 Months or Most Recently Relevant to Health Maintenance Insurance [facility] C3 Care Teams Health Services Coordinator Relationship Specialty Start Date End Date Vi Keys MD [address] [place] [phone] PCP - General Internal Medicine 12/20/22
--- OUTSIDE RECORDS SUMMARY | 2024-11-20 17:21 | XMS_ITS | Clinical Summary ---
Author Organization [address] [facility] Address [address] [place] [address] Phone Care Team Providers Care Tobacco Weigher Name Role Phone Physician, Pcp Unknown Primary Care Provider Maggie vailable Allergies No known active allergies Medications ammonium lactate (AmLactin) 12 % lotion Apply topically if needed for dry skin. Dry skin 400 g 07/17/19 26 Active Social History Tobacco Use Types Packs/Day Years [...] Upcoming Encounters Date Type Department Care Team ([facility] Contact Info) Description 01/16/2025 8:15 AM EST Office Visit Orthopedic Surgery [facility] [address] [phone] Nish Tavera DPM [address] [phone] Health Maintenance Due Date Last Done Comments Diabetes: Annual Foot Exam 1974 Diabetes: Annual Retina Eye Exam 1974 IPV Vaccines (2 of 3 - Adult catch-up series) 10/07/2009 09/09/2009 Zoster Vaccines (1 of 2) 2014 Pneumococcal Vaccine: 50+ Years (2 of 2 - PCV) 04/25/2017 04/25/2016, 04/23/2011 Colorectal Cancer Screening: Colonoscopy 02/23/2024 Social Influencers of Health Screening 02/23/2024 Depression Screening 03/13/2024 Diabetes: Annual Urine Albumin-Creatinine Ratio (uACR) 04/18/2024 RSV Immunization Adult Patients (1 - Risk 60-74 years 1-dose series) 2024 Diabetes: Blood Sugar Control Test (HGBA1C) 10/31/2024 05/03/2024, 02/06/2024 COVID-19 Vaccine ( season) 2024 03/16/2021, 07/14/2020, [...] age to complete this topic Insurance , [place] [address] MEDICAID - [place] Care Teams Tobacco Weigher Relationship Specialty Start Date End Date Physician, Pcp Unknown PCP - General 04/18/24
--- OUTSIDE RECORDS SUMMARY | 2024-11-20 17:21 | XMS_ITS | Encounter Summary ---
Author Organization [employer] Address [address] [place] [address] [address]t [address] Floor [place] [id number] Care Team Providers Care Straightedge Man Name Role Phone Vi Keys MD Primary Care Pro vider Reason for Visit * Reason Comments Med Refill Encounter Details Date Type Department Care Team (Late st Contact Info) Description 06/27/2024 Refill [facility] [address] [place], [place] [phone] Vi Keys MD [address] [place] [address] Essential hypertension Social History Tobacco Use Types Packs/Day Years [...] Description 11/22/2024 9:00 AM EDT Medication Management [facility] [address] [place] [address] Lina Hayden, PharmD [address] [place] [address] 02/24/2025 9:00 AM EST Office Visit [facility] [address] [place] [address] Garry, Fannie, OD [address] [place] [address] documented as of this encounter Visit Diagnoses Diagnosis Essential hypertension Unspecified essential hypertension documented in this encounter Additional Health Concerns Assessment Noted Time PHQ-9 Depression Total Score: 0 08/20/19 3:43 PM EDT documented as of this encounter Care Teams Straightedge Man Relationship Specialty Start Date End Date Vi Keys MD [address] [place] [address] PCP - General Internal Medicine 12/20/22 documented as of this encounter
--- OUTSIDE RECORDS SUMMARY | 2024-11-20 17:21 | XMS_ITS | Encounter Summary ---
Author Organization [employer] Address [address] [place] [address] Care Team Providers Care Transformer Repairer Name Role Phone Vi Keys MD Primary Care Pro vider Reason for Visit * Reason Comments Med Refill Encounter Details Date Type Department Care Team ([facility] st Contact Info) Description 09/04/2024 Refill [facility] [address] [place], [place] [phone] Mandie Chavez DO [address] [place], [place] [phone] Type 2 diabetes mellitus with diabetic nephropathy, without long-term current use of insulin ([facility]) Social History Tobacco Use Types Packs/Day Years [...] Description 11/22/2024 9:00 AM EDT Medication Management [facility] [address] [place] [address] Lina Hayden, PharmD [address] [place] [address] 02/24/2025 9:00 AM EST Office Visit [facility] [address] [place] [address] Fannie Castañeda, OD [address] [place] [address] documented as of this encounter Visit Diagnoses Diagnosis Type 2 diabetes mellitus with diabetic nephropathy, without long-term current use of insulin ([facility]) documented in this encounter Additional Health Concerns Assessment Noted Time PHQ-9 Depression Total Score: 0 08/20/19 23 3:43 PM EDT documented as of this encounter Care Teams Transformer Repairer Relationship Specialty Start Date End Date Vi Keys MD [address] [place] [address] PCP - General Internal Medicine 12/20/22 documented as of this encounter
--- OUTSIDE RECORDS SUMMARY | 2024-11-20 17:22 | XMS_ITS | Encounter Summary ---
Author Organization [employer] Address [address] [facility] 7t h Floor [place] [phone] Care Team Providers Care Neighborhood Service Center Director Name Role Phone Vi Keys MD Primary Care Pro vider Reason for Visit * Reason Onset Date Comments chart prep 11/19/2024 Encounter Details Date Type Department Care Team ([facility] st Contact Info) Description 11/19/2024 Telephone [facility] [address] [place], [place] [phone] Vi Keys MD 230 [place] [address] chart prep Social History Tobacco Use Types Packs/Day Years [...] Telephone Encounter - Bailee Lopez MA - 11/19/2024 9:40 AM EDT Chart Prep Labs: not done Images: done Screenings: Colonoscopy and Foot Exam Vaccines due: Covid Due, Flu Due, RSV in Pharmacy Due, and Shingles in pharmacy Due Referrals: Completed Overdue care gaps: A1C and Glucose documented in this encounter Plan of Treatment Upcoming Encounters Date Type Department Care Team (Late st Contact Info) Description 11/22/2024 9:00 AM EDT Medication Management [facility] [address] [place] [address] Lina Hayden, PharmD 230 [place] [address] 02/24/2025 9:00 AM EST Office Visit [facility] [address] [place] [address] Fannie Castañeda, OD 230 [place] [address] documented as of this encounter Visit Diagnoses Not on filedocumented in this encounter Additional Health Concerns Assessment Noted Time PHQ-9 Depression Total Score: 0 09/26/19 25 10:23 AM EDT documented as of this encounter Care Teams Neighborhood Service Center Director Relationship Specialty Start Date End Date Vi Keys MD [address] [place] [phone] PCP - General Internal Medicine 12/20/22 documented as of this encounter
--- OUTSIDE RECORDS SUMMARY | 2024-11-20 17:22 | XMS_ITS | Encounter Summary ---
Author Organization [employer] Address [address] [facility] [address] 7t [place] [address] Care Team Providers Care Account Executive Metalworking Name Role Phone Vi Keys MD Primary Care Pro vider Encounter Details Date Type Department Care Team (Latest Contact Info) Description 11/20/2024 Travel Social History Tobacco Use Types Packs/Day [...] Description 11/22/2024 9:00 AM EDT Medication Management [facility] MEDICINE 230 [place] [address] Lina Hayden, PharmD 230 [place] [address] 02/24/2025 9:00 AM EST Office Visit [facility] OPTOMETRY [address] [place] [address] Garry, Fannie, OD 230 [place] [address] documented as of this encounter Visit Diagnoses Not on filedocumented in this encounter Additional Health Concerns Assessment Noted Time PHQ-9 Depression Total Score: 0 09/26/19 25 10:23 AM EDT documented as of this encounter Care Teams Account Executive Metalworking Relationship Specialty Start Date End Date Vi Keys MD [address] [place] [address] PCP - General Internal Medicine 12/20/22 documented as of this encounter
--- OUTSIDE RECORDS SUMMARY | 2024-11-20 17:22 | XMS_ITS | Encounter Summary ---
Author Organization [employer] Address 75 [facility] 7t [place] [address] Care Team Providers Care Paint Mixer Hand Name Role Phone Carmelita Escalona Primary Care Provider Vi Guardado MD Primary Care Pro vider Encounter Details Date Type Department Care Team (Latest Contact Info) Description 07/13/2018 Abstract [facility] CONVERSIONS Dental, Provider, DDS Social History Tobacco [...] Description 11/22/2024 9:00 AM EDT Medication Management [facility] MEDICINE [address] [place] [address] Lina Hayden, PharmD 230 [place] [address] 02/24/2025 9:00 AM EST Office Visit [facility] OPTOMETRY [address] [place] [address] Fannie Castañeda, OD 230 [place] [address] documented as of this encounter Visit Diagnoses Not on filedocumented in this encounter Care Teams Paint Mixer Hand Relationship Specialty Start Date End Date Carmelita Escalona FNP PCP - General Family Medicine 11/02/21 12/19/22 Vi Keys MD [address] [place] [address] [phone] PCP - General Internal Medicine 12/20/22 documented as of this encounter
--- OUTSIDE RECORDS SUMMARY | 2024-11-20 17:22 | XMS_ITS | Encounter Summary ---
Author Organization [employer] Address [address] [facility] 7t [place] [address] Care Team Providers Care Poultry Husbandry Worker Name Role Phone Carmelita Escalona SHOVELER Primary Care Provider Vi Guardado MD Primary Care Pro vider Encounter Details Date Type Department Care Team (Latest Contact Info) Description 11/23/[address] [facility] CONVERSIONS Dental, Provider, DDS Social History [...] Description 11/22/2024 9:00 AM EDT Medication [address] [facility] MEDICINE [address] [place] [address] Lina Hayden, PharmD 230 [place] [address] 02/24/2025 9:00 AM EST Office Visit [facility] OPTOMETRY [address] [place] [address] Fannie Castañeda, OD 230 [place] [address] documented as of this encounter Visit Diagnoses Not on filedocumented in this encounter Care Teams Poultry Husbandry Worker Relationship Specialty Start Date End Date Carmelita Escalona FNP PCP - General Family Medicine 11/02/21 12/19/22 Vi Keys MD [address] [place] [address] [phone] PCP - General Internal Medicine 12/20/22 documented as of this encounter
--- OUTSIDE RECORDS SUMMARY | 2024-11-20 17:22 | XMS_ITS | Encounter Summary ---
Author Organization [employer] Address 75 [facility] 7t [place] [address] Care Team Providers Care Neon Sign Worker Name Role Phone Vi Keys MD Primary Care Pro vider Encounter Details Date Type Department Care Team (Late st Contact Info) Description 10/24/2024 Results Follow-Up [facility] MED[facility]INE 230 [place], [place] [phone] Vi Keys MD 230 [place] [address] US Renal Complete Social History Tobacco Use Types Packs/Day Years [...] Miscellaneous Notes * Result Encounter Note - Vi Carodzo MD - 10/24/2024 8:02 PM EDT Labs done by outside provider documented in this encounter Plan of Treatment Upcoming Encounters Date Type Department Care Team (Late st Contact Info) Description 11/22/2024 9:00 AM EDT Medication Management [facility] [address] [place] [address] Lina Hayden, PharmD 230 [place] [address] 02/24/2025 9:00 AM EST Office Visit [facility] OPTOMETRY [address] [place] [address] Garry, Fannie, OD 230 [place] [address] documented as of this encounter Visit Diagnoses Not on filedocumented in this encounter Additional Health Concerns Assessment Noted Time PHQ-9 Depression Total Score: 0 09/26/19 25 10:23 AM EDT documented as of this encounter Care Teams Neon Sign Worker Relationship Specialty Start Date End Date Vi Keys MD [address] [place] [phone] PCP - General Internal Medicine 12/20/22 documented as of this encounter
--- OUTSIDE RECORDS SUMMARY | 2024-11-20 17:22 | XMS_ITS | Encounter Summary ---
Author Organization [employer] Address [address] [place] [address] 7t [place] [address] Care Team Providers Care Distribution Field Technician Name Role Phone Vi Keys MD Primary Care Pro vider Reason for Visit * Reason Comments Med Change Request Encounter Details Date Type Department Care Team ([facility] st Contact Info) Description 11/07/2024 Refill [facility] MEDICINE 230 [place], [place] [phone] Vi Keys MD 230 [place] [address] Type 2 diabetes mellitus with diabetic nephropathy, without long-term current use of insulin ([facility]) Social History Tobacco Use Types Packs/Day Years [...] encounter Miscellaneous Notes * Telephone Encounter - Vi Cardozo MD - 11/08/2024 11:14 AM EDT Sent already documented in this encounter Plan of Treatment Upcoming Encounters Date Type Department Care Team (Late st Contact Info) Description 11/22/2024 9:00 AM EDT Medication Management [facility] MEDICINE [address] [place] [address] Lina Hayden, PharmD 230 [place] [address] 02/24/2025 9:00 AM EST Office Visit [facility] OPTOMETRY [address] [place] [address] Fannie Castañeda, OD 230 [place] [address] documented as of this encounter Visit Diagnoses Diagnosis Type 2 diabetes mellitus with diabetic nephropathy, without long-term current use of insulin ([facility]/HCC) documented in this encounter Additional Health Concerns Assessment Noted Time PHQ-9 Depression Total Score: 0 09/26/19 25 10:23 AM EDT documented as of this encounter Care Teams Distribution Field Technician Relationship Specialty Start Date End Date Vi Keys MD [address] [place] [phone] PCP - General Internal Medicine 12/20/22 documented as of this encounter
[2024-11-25 11:32] VITALS: BMI 25.7
--- NOTE | 2024-11-26 10:13 | HO.ANESPROP2 ---
Documented by User: Janessa Encinas NP 11/26/24 10:15 HPI - Anesthesia Eval Consult details Narrative: 59 yr old male for left lithotripsy ESW Typ 2 DM: A1C 6.2% Anesthesia Pre-Procedure Meds Is the patient on any of the following meds?: SGLT2 Inhib PMFSH Active Problems Active Problems: All Active Problems (Updated 11/25/24 @ 11:14 by Alice Mina RN) Bilateral kidney stones (Acute) Trigger finger of right thumb (Acute) Past Medical History Medical History Asthma Transaminitis Mixed anxiety depressive disorder GERD (gastroesophageal reflux disease) Renal calculi HLD (hyperlipidemia) Left flank pain Right foot pain Left shoulder pain HTN (hypertension) Atypical chest pain Diabetes Surgical History Surgical History History of extracorporeal shockwave lithotripsy (ESWL) Hx of colonoscopy Social History Social History Patient Tobacco Use Status: Never used Tobacco Use of substances other than those prescribed or required for medical reasons: No Are you DNR?: No Advance Directives: No Advance Directives Information Provided: Yes Advance Directives on File: No Poor oral hygiene: No Current occupational status: employed Current occupation: [employer] Meds Allergies Allergy/AdvReac Type Severity Reaction Status Date / Time No Known Allergies (No Known Allergy Verified 10/09/24 08:16 Allergies*) Home Medications ?Medication ?Instructions ?Recorded ?Confirmed ?Last Taken ?Type albuterol sulfate 90 mcg/actuation 2 puff inhalation Q4H 06/21/22 11/27/24 Unknown History aerosol inhaler (Ventolin HFA) amlodipine 5 mg tablet 5 mg PO DAILY 06/21/22 11/27/24 11/27/24 History gabapentin 600 mg tablet 600 mg PO BID 06/21/22 11/27/24 Unknown History metformin 1,000 mg tablet 1,000 mg PO BID 06/21/22 11/27/24 Unknown History aspirin 81 mg chewable tablet 1 tab PO DAILY 11/25/24 11/27/24 11/15/24 History empagliflozin 10 mg tablet 10 mg PO DAILY 11/25/24 11/27/24 11/24/24 History (Jardiance) Exam Height,Weight and Vital Signs: Height 5 ft 11 in Weight 83.461 kg Documented by User: Katey Cutler MD 11/27/24 08:01 [facility] Past Medical History Medical History Asthma Transaminitis Mixed anxiety depressive disorder GERD (gastroesophageal reflux disease) Renal calculi HLD (hyperlipidemia) Left flank pain Right foot pain Left shoulder pain HTN (hypertension) Atypical chest pain Diabetes Family History Family history of problems with anesthesia: No Surgical History Surgical History History of extracorporeal shockwave lithotripsy (ESWL) Hx of colonoscopy History of Problems with Anesthesia: No Social History Social History Patient Tobacco Use Status: Never used Tobacco Use of substances other than those prescribed or required for medical reasons: No Are you DNR?: No Advance Directives: No Advance Directives Information Provided: Yes Advance Directives on File: No Poor oral hygiene: No Current occupational status: employed Current occupation: [employer] Allergies Allergy/AdvReac Type Severity Reaction Status Date / Time No Known Allergies (No Known Allergy Verified 10/09/24 08:16 Allergies*) Home Medications ?Medication ?Instructions ?Recorded ?Confirmed ?Last Taken ?Type albuterol sulfate 90 mcg/actuation 2 puff inhalation Q4H 06/21/22 11/27/24 Unknown History aerosol inhaler (Ventolin HFA) amlodipine 5 mg tablet 5 mg PO DAILY 06/21/22 11/27/24 11/27/24 History gabapentin 600 mg tablet 600 mg PO BID 06/21/22 11/27/24 Unknown History metformin 1,000 mg tablet 1,000 mg PO BID 06/21/22 11/27/24 Unknown History aspirin 81 mg chewable tablet 1 tab PO DAILY 11/25/24 11/27/24 11/15/24 History empagliflozin 10 mg tablet 10 mg PO DAILY 11/25/24 11/27/24 11/24/24 History (Jardiance) Exam Airway Mallampati Class: II TM Dist: >3cm Neck ROM: Full Heart: rrr Lungs: cta Assessment and Plan Assessment Anesthesia Assessment: Anesthesia Plan Discussed and Chart Reviewed Final Anesthetic Review Family History of Problems with Anesthesia: No History of Problems with Anesthesia: No NPO: Yes ASA Class: II Final Preanesthetic Review: No Changes in Pt Med Stat, Meds/Allgs Chart Reviewed, Consent Obtained/Reviewed and Anes Risks/Benef Reviewed Patient Risk: Intermediate Procedure Risk: Low Anesthetic Plan Anesthetic Plan: MAC: Disposition: Standard PACU
--- NOTE | ~2024-11-27 | XR_ITS ---
EXAMINATION: XR ABDOMEN 1 VIEW (KUB) HISTORY: left renal stone COMPARISON: Comparison is made with the prior examination dated 02/15/2024. FINDINGS: Two supine views of the abdomen are submitted. The bowel gas pattern is unremarkable, without evidence of mechanical obstruction. There is a large amount of stool throughout the colon. There is a 13 mm calcification in the left upper quadrant, likely related to the left kidney. This appears larger than on the prior study. There are no abnormal soft tissue masses. The bones are intact. XR/XR KUB IMPRESSION: 1. 13 mm calcification in the left upper quadrant, likely related to the left kidney. 2. Large amount of stool throughout the colon. Electronically signed by: Joce Savage MD 11/27/2024 07:19 AM EDT
[2024-11-27 08:05] VITALS: BP 120/80; PULSE 78; RESP 12; TEMP 36.7; O2SAT 98
[2024-11-27] MEDS: Lactated Ringers 1,000 ML 999 ML IV (08:06)
[2024-11-27 08:27] LABS: Glucose, Whole Blood 128 mg/dL (60-115)
--- NOTE | 2024-11-27 08:33 | MHC.SHP ---
Pre-Procedural Eval Section A - 24 Hr Update-Section A only Date of Service: 11/27/24 The patient is an INPATIENT: No Changes since office visit: No Cold of Flu in the past 2 weeks, No New Medical Problems, No Changes in Medication and No Patient answered all questions The patient has been examined within 24 hours of the surgical procedure. The History & Physical has been completed within 30 days and I have reviewed it.: Yes Section B - Complete if H&P > 30 days Chief Complaint: Calculus of kidney Allergies: Allergies Allergy/AdvReac Type Severity Reaction Status Date / Time No Known Allergies (No Known Allergy Verified 10/09/24 08:16 Allergies*) Review of Systems Sugical H&P ROS: Negative: Constitution, Cardiovascular, Respiratory, Neurological, Psychiatric, Hem-Onc, Allergic/Immunologic, Gastrointestinal, Genitourinary, Musculoskeletal, Integumentary, Endocrine and Eyes/Ears/Nose/Throat Exam Surgical H&P Exam: Normal: HEENT, Normal: Heart, Normal: Lungs, Normal: Extremities, Normal: Abdomen, Normal: Skin and Normal: Neurological Plan Diagnosis/Plan: Unchanged I have reviewed the history and physical and performed a pertinent physical examination on my patient. No changes have occurred unless specified. Time Spent With Patient Time: Total time managing care of this patient today ____ minutes.
--- NOTE | 2024-11-27 09:47 | P.OP_ITS ---
Operative Note Operative Note Date of Service: 11/27/24 Narrative: PreOperative Diagnosis: left renal stones Post Operative Diagnosis: left Ureteric stones Procedure: left Ureteric ESWL Surgeon: Dr Joseph Portillo Anesthesia: mac/sedation Indications for procedure: The patient understands ESWL may be a staged procedure and subsequent inte rvention may be required based on imaging after ESWL. Quoted stone clearance rates for a solitary procedure are in the 70-80% range based primarily on stone location. They also understand there is a risk of bleeding to the ureter, infection, damage to adjacent organs, and stone migration following the procedure. - Imaging - reported 5mm left lower pole - at time of procedure 9mm left proximal ureter Procedure: After informed consent was verified the patient was brought to the operating room and placed in a supine position. Anesthesia was performed per protocol. Safety pause time-out was performed. Imaging was displayed in the room and laterality confirmed. Stone location confirmed with in room imaging through use of ultrasound and fluroscopy as required. Procedure optimization performed with 1 Liter of hydration using LR prior to initiation. ESWL was performed. The 1st 500 shocks were performed at 60 hertz. These were performed with increasing power. Once maximum power was reached the rate was increased to 120 hertz. A total of 3000 shocks were given. Targeted imaging with ultrasound/fluoroscopy showed stone smudging suggestive of disintegration. The patient tolerated the procedure well and was transferred to the recovery area upon completion. Post procedure imaging will be organized. There was no evidence for flank discoloration.
[2024-11-27 10:00] VITALS: BP 121/77; PULSE 68; RESP 12; TEMP 36.1; O2SAT 97
[2024-11-27 10:15] VITALS: BP 116/81; PULSE 72; RESP 16; O2SAT 94
[2024-11-27 10:30] VITALS: BP 118/81; PULSE 77; RESP 16; TEMP 36.1; O2SAT 96
== END 2024-11-27 11:29 | disposition home or self-care (01) ==
PROVIDERS: PCP Student in an Organized Health Care Education/Training Program; Visit Provider Urology
PROC: (CPT 50590; principal; 2024-11-27 09:20)
DX: N20.1 Calculus of ureter (principal); I10 Essential (primary) hypertension; E78.5 Hyperlipidemia, unspecified; E11.21 Type 2 diabetes mellitus with diabetic nephropathy; R74.01 Elevation of levels of liver transaminase levels; R10.9 Unspecified abdominal pain; M79.672 Pain in left foot; M79.671 Pain in right foot; J45.20 Mild intermittent asthma, uncomplicated; F41.8 Other specified anxiety disorders; H40.1230 Low-tension glaucoma, bilateral, stage unspecified; Z79.84 Long term (current) use of oral hypoglycemic drugs
CPT/HCPCS: 50590; 74018; 82947; J0131; J1885; J1938; J2003; J2250; J2704; J3010

== ENCOUNTER → 2024-11-27 06:57 | Outpatient (BNV) | payer MEDICAID, SELFPAY | PROVIDERS: PCP Student in an Organized Health Care Education/Training Program; Visit Provider Urology | DX: N20.1 Calculus of ureter (principal) | CPT/HCPCS: 50590 ==

== ENCOUNTER → 2024-11-27 07:00 | Outpatient (BNV) | payer MEDICAID, SELFPAY | PROVIDERS: PCP Student in an Organized Health Care Education/Training Program; Visit Provider Radiology Diagnostic Radiology | DX: R19.32 Left upper quadrant abdominal rigidity (principal) | CPT/HCPCS: 74018 ==

== ENCOUNTER 2024-11-29 17:14 | Inpatient (IN) | payer MEDICAID, SELFPAY ==
--- NOTE | ~2024-11-29 | FL_ITS ---
EXAMINATION: XR FLUOROSCOPY WITH IMAGES CLINICAL INFORMATION: Left retrograde ureteroscopy with stent placement. COMPARISON: CT abdomen and pelvis 11/29/2024 TECHNIQUE: Fluoroscopy provided to: Dr. Portillo Fluoroscopy time: 45 seconds DAP: 179.96 uGycm2 Images: 2 FINDINGS: 2 fluoroscopic spot images obtained during left retrograde ureteroscopy and stent placement. Please refer to the full operative report for details. FL/FL guidance in OR IMPRESSION: Fluoroscopic guidance. Electronically signed by: Aakahs Trevino MD 12/03/2024 08:18 AM EDT
--- NOTE | ~2024-11-29 | CT_ITS ---
CLINICAL HISTORY: left flank pain s p ureteral stent CT abdomen and pelvis without contrast Comparison: CR/SR - XR KUB - 11/27/24 07:04 EDT Findings: The lung bases are clear. Hepatic parenchyma is normal. Gallbladder is distended. Pancreas is normal. Stomach is decompressed. Adrenal glands are normal. Right kidney is normal. No hydronephrosis. No hydroureter. Left kidney demonstrates hydronephrosis with a dilated renal pelvis and hydroureter. There is a proximal left ureteral 2 mm stone and a distal obstructing 12 mm stone. Ureterovesicular junctions are normal. Bladder is partially distended. There is a small hyperdensity at the anterior bladder wall with associated wall thickening. Small bowel is normal. Large bowel is normal. Retrocecal appendix is normal. No diverticulitis. No pneumatosis or pneumoperitoneum. Pelvic contents unremarkable. No acute fracture. IMPRESSION: Left distal ureteral 12 mm stone with proximal hydroureter and periureteral fat stranding. Smaller proximal left ureteral lithiasis as above. Nonobstructing left renal lithiasis in the lower and interpolar kidney. Anti dependent bladder wall thickening and focal hyperdensity is incompletely evaluated due to nondistention of the bladder. If clinically indicated, further evaluation may be obtained with outpatient CT IVP or cystoscopy. This document has been electronically signed by: Adam Wise III, MD PHD on 11/29/2024 23:56:23
--- NOTE | 2024-11-29 17:22 | ED.GENADULT ---
HPI - General Adult General Chief complaint: Urogenital-Male Stated complaint: kidney stone Time Seen by Provider: 11/29/24 21:43 Source: patient Limitations: no limitations History of Present Illness ED Provider: Rosanne Dangelo PA-C HPI narrative: 59-year-old male with a history of kidney stones, now status post left ureteral stent with lithotripsy November [address] Sheffield, complains with left flank pain. Patient states his discomfort is mid to lower flank, with radiation to left lower abdomen at times. Pain fluctuates in intensity, becoming sharp and severe. Associated nausea at times, initial hematuria that has cleared. Denies dysuria or known fever. Related Data Home Medications ?Medication ?Instructions ?Recorded ?Confirmed albuterol sulfate 90 mcg/actuation 2 puff inhalation Q4H 06/21/22 11/27/24 aerosol inhaler (Ventolin HFA) amlodipine 5 mg tablet 5 mg PO DAILY 06/21/22 11/27/24 gabapentin 600 mg tablet 600 mg PO BID 06/21/22 11/27/24 metformin 1,000 mg tablet 1,000 mg PO BID 06/21/22 11/27/24 aspirin 81 mg chewable tablet 1 tab PO DAILY 11/25/24 11/27/24 empagliflozin 10 mg tablet 10 mg PO DAILY 11/25/24 11/27/24 (Jardiance) Previous Rx's ?Medication ?Instructions ?Recorded naproxen 500 mg tablet 500 mg PO BID PRN pain 7 days #14 11/27/24 tabs oxycodone 5 mg tablet 5 mg PO Q8H PRN pain 3 days #8 tabs 11/27/24 phenazopyridine 100 mg tablet 100 mg PO TID PRN Spasm 4 days #12 11/27/24 (Pyridium) tabs tamsulosin 0.4 mg capsule 0.4 mg PO BEDTIME 14 days #14 caps 11/27/24 Allergies Allergy/AdvReac Type Severity Reaction Status Date / Time No Known Allergies (No Known Allergy Verified 11/29/24 17:24 Allergies*) Review of Systems Review of Systems: Yes all other systems are reviewed and are negative Constitutional: Constitutional: Denies fatigue and Denies fever(s) Cardiovascular: Cardiovascular: Denies chest pain and Denies dyspnea Respiratory: Respiratory: Denies dyspnea Gastrointestinal: Gastrointestinal: Reports abdominal pain, Reports nausea and Denies vomiting Genitourinary: Genitourinary: Reports hematuria, Denies dysuria and Reports flank pain Endocrine: Endocrine: Denies fatigue [facility] Past Medical History Attestation statement: The following information was validated with the patient. Medical History Asthma Transaminitis Mixed anxiety depressive disorder GERD (gastroesophageal reflux disease) Renal calculi HLD (hyperlipidemia) Left flank pain Right foot pain Left shoulder pain HTN (hypertension) Atypical chest pain Diabetes Surgical History History of extracorporeal shockwave lithotripsy (ESWL) Hx of colonoscopy Social History Social History Patient Tobacco Use Status: Never used Tobacco Advance Directives: No Advance Directives Information Provided: No Current occupational status: employed Current occupation: [employer] Physical Exam ED Vital Signs: Vital Signs - 24 hr 11/29/24 17:23 11/29/24 20:45 11/29/24 23:05 Temperature 98.1 F 97.9 F 96.9 F Pulse Rate 73 58 71 Respiratory Rate 20 16 18 Blood Pressure 103/61 128/81 111/78 Pulse Oximetry 98 99 96 Oxygen Delivery Method Room Air Room Air Room Air BMI result Body Mass Index 25.7 Const Other: Alert well-appearing Orientation/consciousness: patient oriented x3 Resp Effort & Inspection: normal respiratory effort Cardio Other: Normal peripheral perfusion GI Other: Abdomen is soft, nondistended, moderate tenderness left mid to lower abdomen with a mild involuntary guarding at times General: Yes no CVA tenderness Back/Spine/Pelvis Back: no CVA tenderness Skin Other: Warm dry no rash Neuro General: patient oriented x3, gait normal, no focal motor deficits and CN's II-XI intact bilaterally Psych Other: Cooperative Course Course Course Narrative: RME, this is a rapid medical exam performed by Dane Grimes please refer to primary provider for complete H&P- 59-year-old male presents for evaluation of left flank pain. He had a left cystoscopy 2 days ago with ureteral stones. He reports worsening pain since then. Plan for labs and urinalysis Medications Administered Discontinued Medications Generic Name Dose Route Start Last Admin Trade Name Freq PRN Reason Stop Dose Admin Ceftriaxone Sodium 2 gm 11/30/24 00:02 11/30/24 00:25 Ceftriaxone Sodium 2 Gm Vial IVPUSH 11/30/24 00:03 2 gm ONCE ONE Administration Hydromorphone HCl 1 mg 11/29/24 21:43 11/29/24 22:04 Hydromorphone Hcl 1 Mg/Ml Syringe IVPUSH 11/29/24 21:44 1 mg ONCE ONE Administration Protocol Sodium Chloride 500 mls @ 500 mls/hr 11/29/24 21:43 11/30/24 00:26 Ns IV 11/29/24 22:42 Infused .Q1H ONE Infusion Sodium Chloride 1,000 mls @ 999 mls/hr 11/30/24 00:15 11/30/24 00:25 Ns IV 11/30/24 01:15 999 mls/hr .Q1H1M MARI Administration Ketorolac Tromethamine 15 mg 11/29/24 21:43 11/29/24 22:03 Ketorolac Tromethamine 15 Mg/Ml Vial IVPUSH 11/29/24 21:44 15 mg ONCE ONE Administration Ondansetron HCl 4 mg 11/29/24 21:43 11/29/24 22:03 Ondansetron Hcl 4 Mg/2 Ml Vial IVPUSH 11/29/24 21:44 4 mg ONCE ONE Administration Tamsulosin HCl 0.4 mg 11/30/24 00:02 11/30/24 00:25 Tamsulosin Hcl 0.4 Mg Capsule PO 11/30/24 00:03 0.4 mg ONCE ONE Administration Medical Decision Making Medical Decision Making MDM Narrative: 59-year-old male with a history of kidney stones, now status post left ureteral stent with lithotripsy November [address] Sheffield, complains with left flank pain. Patient states his discomfort is mid to lower flank, with radiation to left lower abdomen at times. Pain fluctuates in intensity, becoming sharp and severe. Associated nausea at times, initial hematuria that has cleared. Denies dysuria or known fever. Problem: Recent urologic procedure History: Per patient I have considered the following differential diagnoses: Urinary tract infection, pyelonephritis, renal colic, postoperative complication Plan: Given the patient is status post a stent, now with a worsening pain, obtaining a CT scan. Giving Toradol, Dilaudid, Zofran and fluid. Screening labs and urinalysis are in process I have independently reviewed the following tests: Labs: No leukocytosis, not anemic, no electrolyte abnormality noted, urine infected CT abdomen and pelvis:Findings: The lung bases are clear. Hepatic parenchyma is normal. Gallbladder is distended. Pancreas is normal. Stomach is decompressed. Adrenal glands are normal. Right kidney is normal. No hydronephrosis. No hydroureter. Left kidney demonstrates hydronephrosis with a dilated renal pelvis and hydroureter. There is a proximal left ureteral 2 mm stone and a distal obstructing 12 mm stone. Ureterovesicular junctions are normal. Bladder is partially distended. There is a small hyperdensity at the anterior bladder wall with associated wall thickening. Small bowel is normal. Large bowel is normal. Retrocecal appendix is normal. No diverticulitis. No pneumatosis or pneumoperitoneum. Pelvic contents unremarkable. No acute fracture. IMPRESSION: Left distal ureteral 12 mm stone with proximal hydroureter and periureteral fat stranding. Smaller proximal left ureteral lithiasis as above. Nonobstructing left renal lithiasis in the lower and interpolar kidney. Anti dependent bladder wall thickening and focal hyperdensity is incompletely evaluated due to nondistention of the bladder. If clinically indicated, further evaluation may be obtained with outpatient CT IVP or cystoscopy. Differential Diagnosis Differential Diagnoses: The differential diagnosis associated with the presentation includes See medical decision-making Admission/Observation Consideration of admission/observation: Escalation of care including admission/observation considered We will be admitted we will need urology Consult Healthcare Provider Management of the patient was discussed with: Hospitalist and Delivery Coordinator Lab Data MDM Lab Attestation statement: I reviewed the patient's lab results. 11/29/24 17:37 11/29/24 17:37 Labs: Lab Results 11/29/24 11/29/24 11/29/24 Range/Units 17:37 20:47 21:49 WBC 9.2 (4.8-10.8) X10*3/uL RBC 4.72 (4.60-5.80) X10*6/uL Hgb 12.5 L (14.0-18.0) g/dl Hct 36.5 L (42.0-52.0) % MCV 77.3 L (80.0-98.0) fL MCH 26.5 L (27.0-33.0) pg MCHC 34.2 (31.0-36.0) g/dl RDW 14.0 (11.0-16.0) % Plt Count 240 (160-400) X10*3/uL MPV 9.9 (9.4-12.4) fL Immature Gran % (Auto) 0.7 H (0.0-0.4) % Neut % (Auto) 65.9 (45-73) % Lymph % (Auto) 21.1 (20-40) % [place] % (Auto) 6.3 (2-11) % Eos % (Auto) 5.5 H (0-4) % Baso % (Auto) 0.5 (0-2) % Lymph # (Auto) 1.9 (1.2-4.9) X10*3/uL [place] # (Auto) 0.6 (0.1-1.2) X10*3/uL Eos # (Auto) 0.5 H (0.0-0.4) X10*3/uL Baso # (Auto) 0.1 (0.0-0.2) X10*3/uL Abs Immat Gran (auto) 0.06 H (0.00-0.03) X10*3/uL Absolute Neuts (auto) 6.0 (2.0-8.3) x10*3/uL Absolute Nucleated RBC 0.000 (0.0-0.012) X10*3/uL Nucleated RBC % (auto) 0.0 (0.0-0.2) /100WBC Smear Tech's Comments VERIFIED Sodium 141 (135-145) mmol/L Potassium 4.2 (3.3-5.1) mmol/L Chloride 105 (96-108) mmol/L Carbon Dioxide 27 (22-29) mmol/L Anion Gap 13 (12-20) BUN 14 (9-16) mg/dL Creatinine 1.05 (0.5-1.4) mg/dL Estim Creat Clear Calc 79.6 Estimated GFR > 60 POC Glucose 102 (60-115) mg/dL Random Glucose 136 H (60-115) mg/dL Lactic Acid (0.5-2.0) mmol/L Calcium 9.4 (8.4-10.2) mg/dL Urine Color Dark Yellow Urine Appearance Clear Urine pH 6.0 (5.0-9.0) Ur Specific [place] 1.010 (1.005-1.025) Urine Protein Trace (Neg-Trace) mg/dL Urine Glucose (UA) 500 H (Negative) mg/dL Urine Ketones Negative (Negative) mg/dL Urine Blood Large (3+) H (Negative) Urine Nitrite Positive H (Negative) Ur Leukocyte Esterase Moderate (2+) H (Negative) Urine RBC >20 H (0-2) /HPF Urine WBC 6-10 (0-5) /HPF Ur Squamous Epith Cells 0-2 (0-2) /HPF Urine Bacteria None Seen (None Seen) Hyaline Casts 0-2 (0-2) /LPF 11/30/24 Range/Units 00:21 WBC (4.8-10.8) X10*3/uL RBC (4.60-5.80) X10*6/uL Hgb (14.0-18.0) g/dl Hct (42.0-52.0) % MCV (80.0-98.0) fL MCH (27.0-33.0) pg MCHC (31.0-36.0) g/dl RDW (11.0-16.0) % Plt Count (160-400) X10*3/uL MPV (9.4-12.4) fL Immature Gran % (Auto) (0.0-0.4) % Neut % (Auto) (45-73) % Lymph % (Auto) (20-40) % [place] % (Auto) (2-11) % Eos % (Auto) (0-4) % Baso % (Auto) (0-2) % Lymph # (Auto) (1.2-4.9) X10*3/uL [place] # (Auto) (0.1-1.2) X10*3/uL Eos # (Auto) (0.0-0.4) X10*3/uL Baso # (Auto) (0.0-0.2) X10*3/uL Abs Immat Gran (auto) (0.00-0.03) X10*3/uL Absolute Neuts (auto) (2.0-8.3) x10*3/uL Absolute Nucleated RBC (0.0-0.012) X10*3/uL Nucleated RBC % (auto) (0.0-0.2) /100WBC Smear Tech's Comments Sodium (135-145) mmol/L Potassium (3.3-5.1) mmol/L Chloride (96-108) mmol/L Carbon Dioxide (22-29) mmol/L Anion Gap (12-20) BUN (9-16) mg/dL Creatinine (0.5-1.4) mg/dL Estim Creat Clear Calc Estimated GFR POC Glucose (60-115) mg/dL Random Glucose (60-115) mg/dL Lactic Acid 0.9 (0.5-2.0) mmol/L Calcium (8.4-10.2) mg/dL Urine Color Urine Appearance Urine pH (5.0-9.0) Ur Specific [place] (1.005-1.025) Urine Protein (Neg-Trace) mg/dL Urine Glucose (UA) (Negative) mg/dL Urine Ketones (Negative) mg/dL Urine Blood (Negative) Urine Nitrite (Negative) Ur Leukocyte Esterase (Negative) Urine RBC (0-2) /HPF Urine WBC (0-5) /HPF Ur Squamous Epith Cells (0-2) /HPF Urine Bacteria (None Seen) Hyaline Casts (0-2) /LPF Radiology Impression Discussion of test interpretation with radiology: I have reviewed the radiologist's reading. Critical Care Time Critical Care Time Critical Care Time: Yes Total Critical Care Time: 35 Attestation: I Rosanne Dangelo PA-C have personally performed 35 minutes of critical care time not including lines and procedures; need for IV analgesia, IV antibiotics, hospital admission, Urology consult Discharge Plan Discharge Clinical Impression: Calculus of left ureter, Hydronephrosis of left kidney, Urinary tract infection Patient Disposition: Admitted As Inpatient Print Language: [place]
[2024-11-29 17:23] VITALS: BP 103/61; PULSE 73; RESP 20; TEMP 36.7; O2SAT 98; BMI 25.7
[2024-11-29 17:42] LABS: Hematocrit 36.5 % (42.0-52.0); Hemoglobin 12.5 g/dl (14.0-18.0); Imm Gran Abs Auto 0.06 X10*3/uL (0.00-0.03); Imm Gran Pct Auto 0.7 % (0.0-0.4); Lymphocytes Absolute Auto 1.9 X10*3/uL (1.2-4.9); MANUAL DIFF FLAG SCAN; Mean Corpuscular HGB Conc 34.2 g/dl (31.0-36.0); Mean Corpuscular Hemoglobin 26.5 pg (27.0-33.0); Mean Corpuscular Volume 77.3 fL (80.0-98.0); NRBC Abs Auto 0.000 X10*3/uL (0.0-0.012); NRBC Pct Auto 0.0 /100WBC (0.0-0.2); Platelet Count 240 X10*3/uL (160-400); Red Blood Count 4.72 X10*6/uL (4.60-5.80); SCAN SMEAR FLAG 1; White Blood Count 9.2 X10*3/uL (4.8-10.8)
[2024-11-29 17:53] LABS: Anion Gap 13 (12-20); Blood Urea Nitrogen 14 mg/dL (9-16); Calcium 9.4 mg/dL (8.4-10.2); Carbon Dioxide 27 mmol/L (22-29); Chloride 105 mmol/L (96-108); Creatinine Clr Calc Pharmacy 79.6; Estimated Glomerular Filt Rate > 60; Potassium 4.2 mmol/L (3.3-5.1); Sodium 141 mmol/L (135-145)
--- OUTSIDE RECORDS SUMMARY | 2024-11-29 20:00 | XMS_ITS | Clinical Summary ---
Author Organization [address] [facility] Address [address] [place] [address] Phone Care Team Providers Care Hot End Operator Name Role Phone Physician, Pcp Unknown Primary [...] Upcoming Encounters Date Type Department Care Team ([facility] Contact Info) Description 01/16/2025 8:15 AM EST Office Visit Orthopedic [facility] [address] [phone] Nish Tavera DPM [address] [address] Health Maintenance Due Date Last [...] age to complete this topic Insurance , [place] [address] MEDICAID [place] Care Teams Hot End Operator Relationship Specialty Start Date End Date Physician, Pcp Unknown PCP - General 04/18/24
--- OUTSIDE RECORDS SUMMARY | 2024-11-29 20:00 | XMS_ITS | Clinical Summary ---
Author Organization [facility] Address [address] [place] [address] Care Team Providers Care Fiscal Assistant Name Role Phone Unavailable Primary Care Provider [...] Drug Screen 03/13/2024 Depression Annual Screen 03/13/2024 [id number] (3 - 2024- season) 2024 07/14/2020, 06/15/2020 Imm-Influenza (#1) 2024 03/27/2019, 0 05/30/2018, 02/15/2016, Additional history exists Imm-DTaP/Tdap/Td (2 - Td or Tdap) 05/30/2028 05/30/2018 Imm-Hepatitis B Aged Out No longer el igible based on patient's age to complete this topic Insurance [id number] [facility]
--- OUTSIDE RECORDS SUMMARY | 2024-11-29 20:01 | XMS_ITS | Encounter Summary ---
Author Organization [employer] Address [address] [place] [address] [address] [place] [address] Care Team Providers Care Rehabilitation Medicine Physician Name Role Phone Vi Keys MD Primary Care Pro vider Reason for Visit * Reason Comments Med Change Request Encounter Details Date Type Department Care Team ([facility] st Contact Info) Description 11/07/2024 Refill [facility] [address] [place], [place] [phone] Vi Keys MD [address] [place] [address] Type 2 diabetes mellitus with diabetic nephropathy, without long-term current use of insulin ([facility]) Social History Tobacco Use Types [...] Care Team (Late st Contact Info) Description 12/27/2024 10:30 AM EDT Telemedicine [facility] MEDICINE [address] [place] [address] Lina Hayden, PharmD 230 [place] [address] 01/28/2025 1:30 PM EST Immunization [facility] MEDICINE [address] [place] [address] 02/24/2025 9:00 AM EST Office Visit [facility] OPTOMETRY [address] [place] [address] Fannie Castañeda, OD [address] [place] [address] documented as of this encounter Visit Diagnoses Diagnosis Type 2 diabetes mellitus with diabetic nephropathy, without long-term current use of insulin ([facility]) documented in this encounter Additional Health Concerns Assessment Noted Time PHQ-9 Depression Total Score: 0 09/26/19 25 10:23 AM EDT documented as of this encounter Care Teams Rehabilitation Medicine Physician Relationship Specialty Start Date End Date Vi Keys MD [address] [place] [id number] PCP - General Internal Medicine 12/20/22 documented as of this encounter
--- OUTSIDE RECORDS SUMMARY | 2024-11-29 20:01 | XMS_ITS | Encounter Summary ---
Author Organization [employer] Address [address] [place] [address] 7[address] [place] [address] Care Team Providers Care Clerical Order Filler Name Role Phone Vi Keys MD Primary Care Pro vider Reason for Visit * Reason Comments Med Change Request Encounter Details Date Type Department Care Team ([facility] st Contact Info) Description 09/03/2024 Refill [facility] MEDICINE [address] [place], [place] [phone] Vi Keys MD [address] [place] [address] Type 2 diabetes mellitus with diabetic nephropathy, without long-term current use of insulin ([facility]) Social History Tobacco Use Types Packs/Day Years [...] Info) Description 12/27/2024 10:30 AM EDT Telemedicine [facility] MEDICINE [address] [place] [address] Lina Hayden, PharmD [address] [place] [address] 01/28/2025 1:30 PM EST Immunization [facility] MEDICINE [address] [place] [address] 02/24/2025 9:00 AM EST Office Visit [facility] OPTOMETRY [address] [place] [address] Fannie Castañeda, OD [address] [place] [address] documented as of this encounter Visit Diagnoses Diagnosis Type 2 diabetes mellitus with diabetic nephropathy, without long-term current use of insulin ([facility]) documented in this encounter Additional Health Concerns Assessment Noted Time PHQ-9 Depression Total Score: 0 08/20/19 3:43 PM EDT documented as of this encounter Care Teams Clerical Order Filler Relationship Specialty Start Date End Date Vi Keys MD [address] [place] [address] PCP - General Internal Medicine 12/20/22 documented as of this encounter
--- OUTSIDE RECORDS SUMMARY | 2024-11-29 20:01 | XMS_ITS | Encounter Summary ---
Author Organization [employer] Address [address] [facility] 7t [place] [address] Care Team Providers Care Qualifications Examiner Name Role Phone Vi Keys MD Primary Care Pro vider Encounter Details Date Type Department Care Team (Late st Contact Info) Description 10/24/2024 Results Follow-Up [facility] MEDICINE [address] [place], [place] [phone] Vi Keys MD [address] [place] [address] US Renal Complete Social History Tobacco Use [...] Info) Description 12/27/2024 10:30 AM EDT Telemedicine [facility] [address] [place] [address] Lina Hayden, [place] [address] [place] [address] 01/28/2025 1:30 PM EST Immunization [facility] [address] [place] [address] 02/24/2025 9:00 AM EST Office Visit [facility] OPTOMETRY [address] [place] [address] Fannie Castañeda, OD 230 [place] [address] documented as of this encounter Visit Diagnoses Not on filedocumented in this encounter Additional Health Concerns Assessment Noted Time PHQ-9 Depression Total Score: 0 09/26/19 25 10:23 AM EDT documented as of this encounter Care Teams Qualifications Examiner Relationship Specialty Start Date End Date Vi Keys MD [address] [place] [id number] PCP - General Internal Medicine 12/20/22 documented as of this encounter
--- OUTSIDE RECORDS SUMMARY | 2024-11-29 20:01 | XMS_ITS | Encounter Summary ---
Author Organization [employer] Address [address] [facility] 7t [place] [address] Care Team Providers Care Windchill Administrator Name Role Phone Vi Keys MD Primary Care Pro vider Reason for Visit * Reason Onset Date Comments Med Refill 11/25/2024 Encounter Details Date Type Department Care Team (Late st Contact Info) Description 11/25/2024 Refill [facility] PEDS [address] [place], [place] [phone] Vi Keys MD [address] [place] [address] Type 2 diabetes mellitus with diabetic nephropathy, without long-term current use of insulin ([facility]); Mixed hyperlipidemia Social History Tobacco Use Types Packs/Day Years [...] encounter Miscellaneous Notes * Telephone Encounter - Sylvie Chino LPN - 11/25/2024 11:20 AM EDT Last seen 11.20.24 documented in this encounter Plan of Treatment Upcoming Encounters Date Type Department Care Team (Late st Contact Info) Description 12/27/2024 10:30 AM EDT Telemedicine [facility] MEDICINE [address] [place] [address] Lina Hayden, PharmD [address] [place] [address] 01/28/2025 1:30 PM EST Immunization [facility] MEDICINE [address] [place] [address] 02/24/2025 9:00 AM EST Office Visit [facility] OPTOMETRY [address] [place] [address] Fannie Castañeda, OD [address] [place] [address] documented as of this encounter Visit Diagnoses Diagnosis Type 2 diabetes mellitus with diabetic nephropathy, without long-term current use of insulin ([facility]) Mixed hyperlipidemia documented in this encounter Additional Health Concerns Assessment Noted Time PHQ-9 Depression Total Score: 0 09/26/19 25 10:23 AM EDT documented as of this encounter Care Teams [place]ill Administrator Relationship Specialty Start Date End Date Vi Keys MD [address] [place] [id number] PCP - General Internal Medicine 12/20/22 documented as of this encounter
--- OUTSIDE RECORDS SUMMARY | 2024-11-29 20:01 | XMS_ITS | Encounter Summary ---
Author Organization [employer] Address [address] [place] [address] Care Team Providers Care Wind Commissioning Technician Name Role Phone Vi Keys MD Primary Care Pro vider Encounter Details Date Type Department Care Team (Late st Contact Info) Description 11/29/2024 Telephone [facility] MEDICINE [address] [place], [place] [phone] Lina Hayden, PharmD [address] [place] [address] Social History Tobacco Use Types Packs/Day Years [...] encounter Miscellaneous Notes * Telephone Encounter - Lina Hayden PharmD - 11/29/2024 10:31 AM EDT Patient was recently seen in [facility] and [facility] started; cardiology recently changed (on 11/20/24 visit)patient's HTN treatment regimen from amlodipine 10mg once daily to amlodipine 5mg once daily and losartan 100mg once daily. Discussed with PCP; please assist with RN BP check in about 2 weeks. PCP has ordered BMP recheck svetlana completed in about 2 weeks. MTM team has scheduled follow up with patient in ~ 4 weeks. Thank you! documented in this encounter Plan of Treatment Upcoming Encounters Date Type Department Care Team (Late st Contact Info) Description 12/27/2024 10:30 AM EDT Telemedicine [facility] MEDICINE [address] [place] [address] Lina Hayden PharmD [address] [place] [address] 01/28/2025 1:30 PM EST Immunization [facility] [address] [place] [address] 02/24/2025 9:00 AM EST Office Visit [facility] OPTOMETRY [address] [place], [place] [phone] Fannie Castañeda, OD [address] [place] [address] documented as of this encounter Visit Diagnoses Not on filedocumented in this encounter Additional Health Concerns Assessment Noted Time PHQ-9 Depression Total Score: 0 09/26/19 25 10:23 AM EDT documented as of this encounter Care Teams Wind Commissioning Technician Relationship Specialty Start Date End Date Vi Keys MD [address] [place], [place] [phone] PCP - General Internal Medicine 12/20/22 documented as of this encounter
--- OUTSIDE RECORDS SUMMARY | 2024-11-29 20:01 | XMS_ITS | Encounter Summary ---
Author Organization [employer] Address [address] [place] [address] Care Team Providers Care Buck Presser Name Role Phone Vi Keys MD Primary Care Pro vider Encounter Details Date Type Department Care Team (Late st Contact Info) Description 11/27/2024 Orders Only [facility] External Provider, [facility] Social History Tobacco Use Types Packs/Day Years [...] Info) Description 12/27/2024 10:30 AM EDT Telemedicine [facility] [address] [place] [address] Lina [place], [place] [address] [place] [address] 01/28/2025 1:30 PM EST Immunization [facility] [address] [place] [address] 02/24/2025 9:00 AM EST Office Visit [facility] [address] [place] [address] Fannie Castañeda, OD [address] [place] [address] documented as of this encounter Procedures Procedure Name Priority Date/Time Associated Diagnosis Comments GLUCOSE, WHOLE BLOOD Routine 11/27/2024 8:24 AM EDT XR KUB AND UPRIGHT 2 VIEWS Routine 11/27/2024 7:04 AM EDT documented in this encounter Results * (ABNORMAL) Glucose, Whole Blood (11/27/2024 8:24 AM EDT) Glucose, Whole Blood 128(H) 60 - 115 mg/dL [facility] Comment:METER #: [id number] 11/27/2024 8:24 AM EDT 11/27/2024 8:27 AM EDT us Generic External Data Provider LAB BLOOD ORDERAB LES Final Result [facility] [address] [place] [phone] * XR KUB and Upright 2 Views (11/27/2024 7:04 AM EDT) Anatomical Region Laterality Modality Radiographic Isabel ging 11/27/2024 7:04 AM EDT Narrative 11/27/2024 7:21 AM EDT [address] [address] XRay Report Signed Patient: Jackie Marlow MR#: [id number] : 1965 Acct:[id number] Age/Sex: 59 / M ADM Date: 11/27/24 Loc: [facility] Attending Dr: Joseph Portillo MD Ordering Physician: Joseph Portillo MD Date of Service: 11/27/24 Procedure(s): XR KUB Accession Number(s): [id number] cc: Joseph Portillo MD; Vi Keys MD Reason for Exam: left renal stone EXAMINATION: XR ABDOMEN 1 VIEW (KUB) HISTORY: left renal stone COMPARISON: Comparison is made with the prior examination dated 02/15/2024. FINDINGS: Two supine views of the abdomen are submitted. The bowel gas pattern is unremarkable, without evidence of mechanical obstruction. There is a large amount of stool throughout the colon. There is a 13 mm calcification in the left upper quadrant, likely related to the left kidney. This appears larger than on the prior study. There are no abnormal soft tissue masses. The bones are intact. XR/XR KUB IMPRESSION: 1. 13 mm calcification in the left upper quadrant, likely related to the left kidney. 2. Large amount of stool throughout the colon. Electronically signed by: Joce Savage MD 11/27/2024 07:19 AM EDT RP Dictated By: Joce Savage MD Signed By: <Electronically signed by Joce Savage MD in OV> 11/27/24718 DD/ 3 TD/TT: 11/27/24706 Public Address System Operator: Procedure Note Donotuseinterpreter, Image - 11/27/[address] [address] XRay Report Signed Patient: Seth Marlow#: [id number] : 1965Acct:[id number] Age/Sex: 59 / MADM Date: 11/27/24 Loc: HO.[facility] Attending Dr: Joseph Portillo MD Ordering Physician: Joseph Portillo MD Date of Service: 11/27/24 Procedure(s): XR KUB Accession Number(s): [id number] cc: Joseph Portillo MD; Vi Keys MD Reason for Exam: left renal stone EXAMINATION: XR ABDOMEN 1 VIEW (KUB) HISTORY: left renal stone COMPARISON: Comparison is made with the prior examination dated 02/15/2024. FINDINGS: Two supine views of the abdomen are submitted. The bowel gas pattern is unremarkable, without evidence of mechanical obstruction. There is a large amount of stool throughout the colon. There is a 13 mm calcification in the left upper quadrant, likely related to the left kidney. This appears larger than on the prior study. There are no abnormal soft tissue masses. The bones are intact. XR/XR KUB IMPRESSION: 1. 13 mm calcification in the left upper quadrant, likely related to the left kidney. 2. Large amount of stool throughout the colon. Electronically signed by: Joce Savage MD 11/27/2024 07:19 AM EDT Dictated By: Joce Savage MD Signed By: <Electronically signed by Joce Savage MD in OV> 11/27/24 07 DD/ 3 TD/TT: 11/27/24706 Public Address System Operator: [facility] External Provider IMG XR PROCEDURES Edited Result - Final documented in this encounter Visit Diagnoses Not on filedocumented in this encounter Additional Health Concerns Assessment Noted Time PHQ-9 Depression Total Score: 0 09/26/19 10:23 AM EDT documented as of this encounter Care Teams Buck Presser Relationship Specialty Start Date End Date Vi Keys MD [address] [place] [phone] PCP - General Internal Medicine 12/20/22 documented as of this encounter
--- OUTSIDE RECORDS SUMMARY | 2024-11-29 20:01 | XMS_ITS | Encounter Summary ---
Author Organization [employer] Address [address] [facility] [address] [place] [address] Care Team Providers Care Dinker Name Role Phone Carmelita Escalona TERRAZZO HELPER Primary Care Provider Vi Guardado MD Primary Care Pro vider Encounter Details Date Type Department Care Team (Latest Contact Info) Description 07/13/2018 Abstract [facility] CONVERSIONS Dental, Provider, DDS Social History Tobacco [...] Info) Description 12/27/2024 10:30 AM EDT Telemedicine [facility] MEDICINE [address] [place] [address] Lina [place], PharmD [address] [place] [address] 01/28/2025 1:30 PM EST Immunization [facility] [address] [place] [address] 02/24/2025 9:00 AM EST Office Visit [facility] OPTOMETRY [address] [place] [address] Fannie Castañeda, OD [address] [place] [address] documented as of this encounter Visit Diagnoses Not on filedocumented in this encounter Care Teams Dinker Relationship Specialty Start Date End Date Carmelita Escalona FNP PCP - General Family Medicine 11/02/21 12/19/22 Vi Keys MD [address] [place] [phone] PCP - General Internal Medicine 12/20/22 documented as of this encounter
--- OUTSIDE RECORDS SUMMARY | 2024-11-29 20:01 | XMS_ITS | Clinical Summary ---
Author Organization [employer] Address [address] [facility] [facility] [address] [place] [address] Care Team Providers Care Cardiology Technologist Name Role Phone Vi Keys MD Primary Care Pro vider Allergies Active Allergy Reactions Criticality Noted Date Comments Lisinopril Cough 02/23/2021 Pork Allergy 12/22/2022 advent reasons advent reasons Medications Alcohol Swabs (Alcohol Prep) pads [...] nephropathy, without long-term current use of insulin ([facility]) USE TO CHECK BLOOD SUGAR DAILY 1 kit 025 Active FREESTYLE LITE test stripIndications: Type 2 diabetes mellitus with diabetic nephropathy, without long-term current use of insulin ([facility]) 1 each by Other route 2 times daily. 180 each 025 2025 Active lidocaine (Lidoderm) 5 % patch Apply 1 patch topically Once per day. Remove & discard patch within 12 hours or as directed by MD. 30 patch 2 025 Active albuterol 108 (90 Base) MCG/ACT inhalerIndication s:Mild intermittent asthma without complication Inhale 2 puffs every 4 (four) hours. 18 g 2 025 2026 Active Restasis 0.05 % ophthalmic emulsion Administer 1 drop into both eyes 2 times daily. Active gabapentin (Neurontin) 600 MG tabletIndications :Type 2 diabetes mellitus with diabetic nephropathy, without long-term current use of insulin ([facility]) Take 1 tablet (600 mg) by mouth [...] bedtime. 30 tablet 2 025 2025 Active cholecalciferol (Vitamin D-3) 25 MCG (1000 UT) tablet Take 1 tablet (25 mcg) by mouth Once per day. 90 tablet 1 Active atorvastatin (Lipitor) 20 MG tabletIndications :Type 2 diabetes mellitus with diabetic nephropathy, without long-term current use of insulin ([facility]),Mixed hyperlipidemia Take 1 tablet (20 mg) by mouth Once per day. Take 1 tablet by mouth every day 90 tablet Active cyanocobalamin (Vitamin B-12) 500 MCG tablet Take 1 tablet (500 mcg) by mouth Once per day. 90 tablet 025 2025 Active metFORMIN (Glucophage) 1000 MG tablet Take 1 tablet (1,000 mg) by mouth with breakfast and with evening meal. 180 tablet 025 2025 Active aspirin (Aspirin Low Dose) 81 MG chewable tablet Chew 1 tablet (81 mg) Once per day. 90 tablet Active amLODIPine (Norvasc) 5 MG tablet Take 1 tablet by mouth Once per day. Active losartan (Cozaar) 100 MG tablet Take 1 tablet by mouth Once per day. Active ammonium lactate (Lac-Hydrin) 12 % lotion Apply topically if needed. 025 2024 Discontinued(R eorder (will not trigger notification to Pharmacy)) gabapentin (Neurontin) 600 MG tabletIndications :Type 2 diabetes mellitus with diabetic nephropathy, without long-term current use of insulin ([facility]) Take 1 tablet (600 mg) by mouth 2 times daily. 180 tablet 025 2024 Discontinued(R eorder (will not trigger notification to Pharmacy)) metFORMIN (Glucophage) 1000 MG tablet Take 1 tablet (1,000 mg) by mouth with breakfast and with evening meal. 180 tablet 2024 Discontinued(R eorder (will not trigger notification to Pharmacy)) empagliflozin (Jardiance) 10 MG Take 1 tablet (10 mg) by mouth Once per day. 90 tablet 2024 Discontinued(R eorder (will not trigger notification to Pharmacy)) amLODIPine (Norvasc) 10 MG tablet Take 1 tablet (10 mg) by mouth Once per day. 90 tablet 2024 Discontinued(D ose adjustment) cyanocobalamin (Vitamin B-12) 500 MCG tablet Take 1 tablet (500 mcg) by mouth Once per day. 90 tablet 025 2024 Discontinued(R eorder (will not trigger notification to Pharmacy)) aspirin (Aspirin Low Dose) 81 MG chewable tablet Chew 1 tablet (81 mg) Once per day. 90 tablet 025 2024 Discontinued(R eorder (will not trigger notification to Pharmacy)) atorvastatin (Lipitor) 20 MG tabletIndications :Type 2 diabetes mellitus with diabetic nephropathy, without long-term current use of insulin ([facility]),Mixed hyperlipidemia Take 1 tablet (20 mg) by mouth Once per day. Take 1 tablet by mouth every day 90 tablet 025 2024 Discontinued(R eorder (will not trigger notification to Pharmacy)) cholecalciferol (Vitamin D-3) 25 MCG (1000 UT) tablet Take 1 tablet (25 mcg) by mouth Once per day. 90 tablet 1 025 2024 Discontinued(R eorder [...] Encounters Date Type Department Care Team Description 11/29/2024 Orders Only GENERIC EXTERNAL DATA DEPARTMENT Provider, Generic External Data 11/29/2024 Telephone [facility] [address] [place] [address] Lina Hayden, [place] 11/27/2024 Orders Only [facility] [address] [place] [address] Vi Keys MD Hypertension, unspecified type (Primary Dx) 11/27/2024 Orders Only [facility] External Provider, [facility] 11/25/2024 Refill [facility] PEDS [address] [place] [address] Vi Keys MD Type 2 diabetes mellitus with diabetic nephropathy, without long-term current use of insulin ([facility]); Mixed hyperlipidemia 11/22/2024 Orders Only [address] [address] Vi Keys MD 11/22/2024 Results Follow-Up [address] [address] Vi Keys MD Chlamydia/Trichomonas/ Neisseria gonorrhoeae, PCR, Urine, Albumin, Random Urine W/Creatinine, CBC, Additional followed-up results: 14 11/22/2024 Orders Only [address] [address] Vi Keys MD Type 2 diabetes mellitus with diabetic nephropathy, without long-term current use of insulin ([facility]) (Primary Dx) 11/22/2024 Orders Only GENERIC EXTERNAL DATA DEPARTMENT Provider, Generic External Data 11/22/2024 Travel 11/20/2024 9:00 AM EDT Office Visit [address] [address] Vi Keys MD Skin cyst (Primary Dx); Type 2 diabetes mellitus with diabetic nephropathy, without long-term current use of insulin ([facility]/H[facility]); Polyp of colon, unspecified part of colon, unspecified type; Essential hypertension; Hyperlipidemia, unspecified hyperlipidemia type; Health care maintenance; Mixed anxiety depressive disorder; Primary insomnia; Epidermal cyst 11/20/2024 Travel 11/19/[address] [address] Vi Keys MD chart prep 11/08/2024 Orders Only [address] [address] Vi Keys MD Type 2 diabetes mellitus with diabetic nephropathy, without long-term current use of insulin ([facility]) 11/07/2024 Refill [facility] [address] [place] [address] Vi Keys MD Type 2 diabetes mellitus with diabetic nephropathy, without long-term current use of insulin ([facility]) 10/24/2024 Results Follow-Up [facility] [address] [place] [address] Vi Keys MD US Renal Complete 10/24/2024 Orders Only [facility] External Provider, [facility] 10/08/2024 3:30 PM EDT Office Visit [facility] OPTOM[facility] [address] [place] [address] Garry, Fannie, OD Double vision (Primary Dx) 10/08/2024 Travel 09/25/2024 9:45 AM EDT Office Visit [facility] [address] [place] [address] Vi Keys MD Health care maintenance (Primary Dx); Type 2 diabetes mellitus with diabetic nephropathy, without long-term current use of insulin ([facility]); Mild intermittent asthma without complication; Mixed hyperlipidemia; Neck pain; Essential hypertension; Encounter for immunization; Chronic left shoulder pain; Kidney stone; Transaminitis; Glaucoma, unspecified glaucoma type, unspecified laterality 09/25/2024 Travel 09/24/2024 Telephone [facility] [address] [place] [address] Vi Keys MD CHART PREP 09/19/2024 Refill [facility] [address] [place] [address] Vi Keys MD 09/18/2024 Patient Outreach [facility] [address] [place] [phone] Vi Keys MD Pre-visit Planning ([facility] screening completed on 07/24/24 ) 09/04/2024 Refill [facility] [address] [place] [address] Corina Vera MD Type 2 diabetes mellitus with diabetic nephropathy, without long-term current use of insulin ([facility]) 09/04/2024 Refill [facility] [address] [place] [address] Mandie Chavez DO Type 2 diabetes mellitus with diabetic nephropathy, without long-term current use of insulin ([facility]) 09/04/2024 Telephone [facility] [address] [place] [address] [phone] Elizabeth Hermosillo NP 09/03/2024 Orders Only [facility] [address] [place] [address] [phone] Vi Keys MD Type 2 diabetes mellitus with diabetic nephropathy, without long-term current use of insulin ([facility]) 09/03/2024 Telephone [facility] [address] [place] [address] [phone] Vi Keys MD Medication Question 09/03/2024 Refill [facility] [address] [place] [phone] Vi Keys MD Type 2 diabetes mellitus with diabetic nephropathy, without long-term current use of insulin ([facility]) 09/02/2024 Refill [facility] [address] [place] [address] [phone] Vi Keys MD Type 2 diabetes mellitus with diabetic nephropathy, without long-term current use of insulin ([facility]) 09/02/2024 Telephone [facility] [address] [place] [address] [phone] Vi Keys MD Nurse Triage from Last 3 Months Immunizations Immunization Administration Dates Next Due Hep A, Adult 05/09/2011,09/09/2009 IPV 09/09/2009 Influenza injectable quadriv alent IIV4 with preservative 02/15/2016,04/23/2015 Influenza injectable quadriv alent preservative free 12/10/2020,03/27/2019,05/30/2018 Influenza, IIV3, injectable 04/05/2011 Meningococcal ACWY, unspecified 09/09/2009 Meningococcal MCV4P ACYW-135 03/27/2019 Pneumococcal Conjugate PCV 20 09/25/2024 Pneumococcal Polysaccharide PPSV23 04/25/2016, RSV Bivalent 11/22/2024 Tdap 04/15/2024,05/30/2018 Typhoid, ViCPs 09/09/2009 Zoster, Recombinant 11/22/2024 Family History Medical History Relation Name Comments [...] Info) Description 12/27/2024 10:30 AM EDT Telemedicine [facility] [address] [place] [address] Lina Hayden, PharmD [address] [place] [address] 01/28/2025 1:30 PM EST Immunization [facility] [address] [place] [address] 02/24/2025 9:00 AM EST Office Visit [facility] OPTOMETRY [address] [place] [address] Fannie Castañeda, OD [address] [place] [address] Health Maintenance Due Date Last Done Comments CT Colonography 1965 Colonoscopy 1965 Colorectal Cancer Screening 1965 FIT DNA/Cologuard 1965 FIT 1965 FOBT 1965 Sigmoidoscopy 1965 IPV Vaccines (2 of 3 - Adult catch-up series) 10/07/2009 09/09/2009 Diabetes: Foot Exam 02/23/2023 02/23/2022 COVID-19 Vaccine ( season) 2024 03/16/2021, 07/14/2020, 06/15/2020 Influenza Vaccine (#1) 2024 , 03/27/2019, 05/30/2018, Additional history exists Zoster Vaccines (2 of 2) 01/17/2025 11/22/2024 Diabetes: Hemoglobin A1C 05/22/2025 025, 11/20/2024, 07/24/2024, Additional history exists Alcohol/Substance Use Screening 07/24/2025 07/24/2024 Disability Screening 07/24/2025 07/24/2024 SDOH Screening 07/24/2025 07/24/2024 Depression Screening 09/25/2025 09/25/2024, 09/26/19 25 Tobacco Screening 11/20/2025 11/20/2024 Lipid Panel 11/22/2025 11/22/2024, 12/12, 03/23/2022, Additional history exists Eye Exam 10/08/2026 10/08/2024, 05/0 04/2024, 01/11/2024, Additional history exists DTaP/Tdap/Td Vaccines (3 - Td or Tdap) 04/15/2034 04/15/2024, 05/30/2018 Hepatitis A Vaccines Aged Out 05/09/2011, 09/10/19 10 No longer eligible based on patient's age to complete this topic Meningococcal Vaccine Aged Out 03/27/2019, 010 No longer eligible based on patient's age to complete this topic Pneumococcal Vaccine: 50+ Years Completed 09/25/2024, 04/25/2016, 04/23/2011 HIV Screening Completed 11/22/2024, 01/08/2024 Hepatitis C Screening Completed 11/22/2024, 024 RSV Patients and Patients Aged 60 years or older Completed 11/22/2024 HIB Vaccines Aged Out No longer eligi [...] Procedure Name Priority Date/Time Associated Diagnosis Comments SLIDE REVIEW Routine 11/29/2024 5:37 PM EDT BASIC METABOLIC PANEL Routine 11/29/2024 5:37 PM EDT CBC WITH AUTO DIFFERENTIAL Routine 11/29/2024 5:37 PM EDT GLUCOSE, WHOLE BLOOD Routine 11/27/2024 8:24 AM EDT XR KUB AND UPRIGHT 2 VIEWS Routine 11/27/2024 7:04 AM EDT PSA, TOTAL Routine 11/22/2024 9:04 AM EDT SED RATE BY MODIFIED WESTERGREN Routine 11/22/2024 9:04 AM EDT Health care maintenance C-REACTIVE PROTEIN Routine 11/22/2024 9: 04 AM EDT Health care maintenance PSA, TOTAL Routine 11/22/2024 9:04 AM EDT Health care maintenance VITAMIN D,25-OH,TOTAL,IA Routine 11/22/2024 9:04 AM EDT Health care maintenance VITAMIN B12/FOLATE, SERUM PANEL Routine 11/22/2024 9:04 AM EDT Health care maintenance TSH W/REFLEX TO FT4 Routine 11/22/2024 9 :04 AM EDT Health care maintenance SYPHILIS SCREEN Routine 11/22/2024 9:04 AM EDT Health care maintenance LIPID PANEL, STANDARD Routine 11/22/2024 9:04 AM EDT Health care maintenance HIV 1/2 ANTIGEN/ANTIBODY, FOURTH GENERATION W/RFL Routine 11/22/2024 9:04 AM EDT Health care maintenance HEPATITIS C AB W/REFL TO HCV RNA, QN, PCR Routine 11/22/2024 9:04 AM EDT Health care maintenance HEPATITIS B SURFACE ANTIGEN, EIA Routine 11/22/2024 9:04 AM EDT Health care maintenance HEPATITIS B SURFACE ANTIBODY, QUALITATIVE Routine 11/22/2024 9:04 AM EDT Health care maintenance HEPATITIS B CORE AB TOTAL Routine 11/22/2024 9:04 AM EDT Health care maintenance HEMOGLOBIN A1C Routine 11/22/2024 9:04 AM EDT Health care maintenance COMPREHENSIVE METABOLIC PANEL Routine 11/22/2024 9:04 AM EDT Health care maintenance CBC Routine 11/22/2024 9:04 AM EDT Health care maintenance ALBUMIN, RANDOM URINE W/CREATININE Routine 11/22/2024 9:04 AM EDT Health care maintenance MEASLES, MUMPS, AND RUBELLA (MMR) AB (IGG) PANEL, IMMUNE STATUS Routine 11/22/2024 9:00 AM EDT Health care maintenance CHLAMYDIA/TRICHOMONAS /NEISSERIA GONORRHOEAE, PCR, URINE Routine 11/22/2024 9:00 AM EDT Health care maintenance POCT GLYCATED HEMOGLOBIN, TOTAL Routine 11/20/2024 9:12 AM EDT Type 2 diabetes mellitus with diabetic nephropathy, without long-term current use of insulin (CMS/HCC) POCT GLUCOSE Routine 11/20/2024 9:09 AM EDT Type 2 diabetes mellitus with diabetic nephropathy, without long-term current use of insulin ([facility]) US RENAL COMPLETE Routine 10/24/2024 12: 23 PM EDT ECG 12-LEAD Routine 09/25/2024 11:13 AM EDT Essential hypertension from Last 3 Months Results * Slide Review (11/29/2024 5:37 PM EDT) Slide Review VERIFIED [facility] 11/29/2024 5:37 PM EDT 11/29/2024 5:39 PM EDT us Generic External Data Provider LAB BLOOD ORDERAB LES Final Result [facility] [address] [place] [phone] * (ABNORMAL) CBC auto differential (11/29/2024 5:37 PM EDT) White Blood Count 9.2 4.8 - 10.8 X10*3/uL [facility] Red Blood Count 4.72 4.60 - 5.80 X10*6/uL [facility] Hemoglobin 12.5(L) 14.0 - 18.0 g/dl [facility] Hematocrit 36.5(L) 42.0 - 52.0 % [facility] Mean Corpuscular Volume 77.3(L) 80.0 - 98.0 fL [facility] Mean Corpuscular Hemoglobin 26.5(L) 27.0 - 33.0 pg [facility] Mean Corpuscular HGB Conc 34.2 31.0 - 36.0 g/dl [facility] Red Cell Distribution Width 14.0 11.0 - 16.0 % [facility] Platelet Count 240 160 - 400 X10*3/uL [facility] Mean Platelet Volume 9.9 9.4 - 12.4 fL [facility] Neutrophils Percent Auto 65.9 45 - 73 % [facility] Imm Gran Pct Auto 0.7(H) 0.0 - 0.4 % [facility] Lymphocytes Percent Auto 21.1 20 - 40 % [facility] Monocytes Percent Auto 6.3 2 - 11 % [facility] Eosinophils Percent Auto 5.5(H) 0 - 4 % [facility] Basophils Percent Auto 0.5 0 - 2 % [facility] NRBC Pct Auto 0.0 0.0 - 0.2 /100WBC [facility] Neutrophils Absolute Auto 6.0 2.0 - 8.3 x10*3/uL [facility] Imm Gran Abs Auto 0.06(H) 0.00 - 0.03 X10*3/uL [facility] Lymphocytes Absolute Auto 1.9 1.2 - 4.9 X10*3/uL [facility] Monocytes Absolute Auto 0.6 0.1 - 1.2 X10*3/uL [facility] Eosinophils Absolute Auto 0.5(H) 0.0 - 0.4 X10*3/uL [facility] Basophils Absolute Auto 0.1 0.0 - 0.2 X10*3/uL [facility] NRBC Abs Auto 0.000 0.0 - 0.012 X10*3/uL [facility] 11/29/2024 5:37 PM EDT 11/29/2024 5:39 PM EDT us Generic External Data Provider LAB BLOOD ORDERAB LES Edited Result - Final [facility] [address], [place] [phone] * (ABNORMAL) Basic Metabolic Panel (11/29/2024 5:37 PM EDT) Sodium 141 135 - 145 mmol/L [facility] Potassium 4.2 3.3 - 5.1 mmol/L [facility] Chloride 105 96 - 108 mmol/L [facility] Carbon Dioxide 27 22 - 29 mmol/L [facility] Anion Gap 13 12 - 20 [facility] Urea Nitrogen (BUN) 14 9 - 16 mg/dL [facility] Creatinine, Serum 1.05 0.5 - 1.4 mg/dL [facility] Creatinine Clr Calc Pharmacy 79.6 [facility] Comment:eGFR (calculated fro m the MDRD study equation) and eCrCl(calculated from the Cockcroft-Gault equation) are based ondifferent parameters and may not yield comparable results.If eCrCl result is absurd, please check patient'sheight/weight. Estimated Glomerular Filt Rate >60 [facility] Comment:Chronic Kidney Disea se: Estimated GFR < 60 mL/min/[id number] Kidney Disease: Estimated GFR < 15 mL/min/1.73m2 Glucose 136(H) 60 - 115 mg/dL [facility] Calcium 9.4 8.4 - 10.2 mg/dL [facility] 11/29/2024 5:37 PM EDT 11/29/2024 5:39 PM EDT Generic External Data Provider LAB BLOOD ORDERAB LES Final Result Performing Organization Address [facility]/ZIP Co de Phone Number [facility] [address] [place] [phone] * (ABNORMAL) Glucose, Whole Blood (11/27/2024 8:24 AM EDT) Glucose, Whole Blood 128(H) 60 - 115 mg/dL [facility] Comment:METER #: [id number] 11/27/2024 8:24 AM EDT 11/27/2024 8:27 AM EDT Generic External Data Provider LAB BLOOD ORDERAB LES Final Result Performing Organization Address [facility]/ZIP Co de Phone Number [facility] [address] [place] [phone] * XR KUB and Upright 2 Views (11/27/2024 7:04 AM EDT) Anatomical Region Laterality Modality Radiographic Isabel ging 11/27/2024 7:04 AM EDT Narrative 11/27/2024 7:21 AM EDT [address] [address] XRay Report Signed Patient: Jackie Marlow MR#: [id number] : 1965 Acct:[id number] Age/Sex: 59 / M ADM Date: 11/27/24 Loc: HO.SSS Attending Dr: Joseph Portillo MD Ordering Physician: Joseph Portillo MD Date of Service: 11/27/24 Procedure(s): XR KUB Accession Number(s): [id number] cc: Joseph Portillo MD; Vi Keys MD [...] by Joce Savage MD in OV> 11/27/24 0719 DD/ 0704 TD/TT: 11/27/24 0707 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: [facility] External Provider IMG XR PROCEDURES Edited Result - Final * Syphilis Screen (11/22/2024 9:04 AM EDT) Syphilis Screen Nonreactive Nonreactive [facility] Blood 11/22/2024 9:04 AM EDT 11/22/2024 11:24 AM EDT Vi Cardozo MD LAB BLOOD ORDERAB LES Final Result [facility] [address] [place] [phone] * (ABNORMAL) Vitamin D, 25-Hydroxy, Total, Immunoassay (11/22/2024 9:04 AM EDT) Vitamin D 25-OH Total 24.2(L) >30 ng/mL [facility] Comment: Health Based Reference Values*< 20 ng/mL [id number] ng/mL Insufficient> 30 ng/mL Sufficient*Dwight ANDREW. N Engl J Med. 2007;357:266-280There is no well-established upper level of normal vitamin Dlevels. Some laboratories use 50 ng/mL as an upper limit ofnormal. However, toxicity is patient-dependent and may occurat any level. Careful correlation with the patient'spresentation is necessary and, if there is concern forvitamin D toxicity, treatment should be consideredirrespective of the serum level.Care must be taken in interpreting Vitamin D results fromdifferent laboratories and methodologies. Published datademonstrated that results from patients undergoinghemodialysis may show a negative bias when tested withvarious automated 25-OH vitamin D assays when compared toLC-MS/MS.When testing samples from patients whose predominant form ofVitamin D is Vitamin D2, such as patients receiving VitaminD2 supplementation, results that are subtherapeutic shouldbe confirmed with another method such as LC-MS/MS. Blood Venous blood specimen / Unknown 11/22/2024 9:04 AM EDT 11/22/2024 11:24 AM EDT us Vi Cardozo MD LAB BLOOD ORDERAB LES Final Result [facility] [address] [place] [phone] * Vitamin B12 (Cobalamin) and Folate Panel, Serum (11/22/2024 9:04 AM EDT) Vitamin B12 492 200 - 900 pg/mL [facility] Comment:NORMAL 200-900 PG/ML INDETERMINATE 160-199 PG/ML DEFICIENT < 160 PG/ML Folate 5.6 > or = 4.0 ng/mL [facility] Comment:Reference Values:> o r = 4.0 ng/mL< 4.0 ng/mL suggests folate deficiency Methotrexate, aminopterin and folinic acid(leucovorin) are chemotherapeutic agents whose molecularstructures are similar to folate; therefore, the Architectfolate assay cannot be used for patients using these drugs. Blood 11/22/2024 9:04 AM EDT 11/22/2024 11:24 AM EDT us Vi Cardozo MD LAB BLOOD ORDERAB LES Final Result Performing Organization Address [facility] Co de Phone Number [facility] [address] [place] [phone] * TSH with Reflex to Free T4 (11/22/2024 9:04 AM EDT) TSH reflex Free T4 0.97 0.32 - 4.0 uIU/mL [facility] Blood 11/22/2024 9:04 AM EDT 11/22/2024 11:24 AM EDT us Vi Cardozo MD LAB BLOOD ORDERAB LES Final Result Performing Organization Address [facility] de Phone Number [facility] [address] [place] [phone] * Albumin, Random Urine W/Creatinine (11/22/2024 9:04 AM EDT) Creatinine, Urine 173.17 mg/dL [facility] Microalbumin Urine 50.0 mg/L [facility] Microalbum Creatinine Ratio Ur 28.8 <30 ug/mg cr [facility] Comment:Albumin/Creatinine R atio Reference Ranges: Normal: < 30 ug/mg creatinine Microalbuminuria: 30 - 300 ug/mg creatinineClinical Albuminuria: > 300 ug/mg creatinine Urine (Urine, Random) 11/22/2024 9:04 AM EDT 11/22/2024 11:41 AM EDT us Vi Cardozo MD LAB URINE ORDERAB LES Final Result Performing Organization Address [facility]/ZIP Co de Phone Number [facility] [address] [place] [phone] * Hepatitis C Antibody with Reflex to HCV, RNA, Quantitative, Real-Time PCR (11/22/2024 9:04 AM EDT) Hepatitis C Antibody Nonreactive Nonreactive [facility] Comment:Antibodies to HCV no t detected; does not exclude early acuteHCV infection. Blood Venous blood specimen / Unknown 11/22/2024 9:04 AM EDT 11/22/2024 11:11 AM EDT us Vi Cardozo MD LAB BLOOD ORDERAB LES Final Result Performing Organization Address [facility] Co de Phone Number [facility] [address] [place] [phone] * Hepatitis B surface antigen, EIA (11/22/2024 9:04 AM EDT) Hepatitis B Surface Ag Negative Negative [facility] Blood Venous blood specimen / Unknown 11/22/2024 9:04 AM EDT 11/22/2024 11:11 AM EDT us Vi Cardozo MD LAB BLOOD ORDERAB LES Final Result Performing Organization Address [facility] Co de Phone Number [facility] [address] [place] [phone] * Hepatitis B Core Antibody, Total (11/22/2024 9:04 AM EDT) Hepatitis B Core Antibody Nonreactive Nonreactive [facility] Blood Venous blood specimen / Unknown 11/22/2024 9:04 AM EDT 11/22/2024 11:11 AM EDT us Vi Cardozo MD LAB BLOOD ORDERAB LES Final Result Performing Organization Address City[facility]/ZIP Co de Phone Number [facility] [address] [place] [address] [phone] * HIV-1/2 Antigen and Antibodies, Fourth Generation, with Reflexes (11/22/2024 9:04 AM EDT) HIV AB/AG Nonreactive Nonreactive [facility] Comment:HIV-1 p24 Ag and/or HIV-1/HIV-2 Ab not detected.A test result that is nonreactive does not exclude thepossibility of exposure to or infection with HIV-1 and/orHIV-2. Nonreactive results in this assay for individualswith prior exposure to HIV-1 and/or HIV-2 may be due toantigen and antibody levels that are below the limit ofdetection of this assay.The CardioMEMS HIV Ag/Ab Combo assay result andsupplemental assay results should be interpreted inconjunction with the patient's clinical presentation,history and other laboratory results. If the results areinconsistent with clinical evidence, additional testing issuggested to confirm the result. Blood Venous blood specimen / Unknown 11/22/2024 9:04 AM EDT 11/22/2024 11:11 AM EDT us Vi Cardozo MD LAB BLOOD ORDERAB LES Final Result Performing Organization Address [facility]/ZIP Co de Phone Number [facility] [address] [place] [phone] * Hepatitis B Surface Antibody, Qualitative (11/22/2024 9:04 AM EDT) ~Hepatitis B Surface Antibody NONREACTIVE Nonreactive [facility] Comment:Nonreactive: < 8.00 mIU/mL Blood Venous blood specimen / Unknown 11/22/2024 9:04 AM EDT 11/22/2024 11:11 AM EDT us Vi Cardozo MD LAB BLOOD ORDERAB LES Final Result Performing Organization Address [facility]/ZIP Co de Phone Number [facility] [address] [place] [phone] * Sed Rate by Modified Jongergren (11/22/2024 9:04 AM EDT) [facility] Erythrocyte Sedimentation Rate 7 0 - 15 MM/HR [facility] Comment:Patients with polycy themia and many hemoglobin abnormalitiesmay have depressed sed rates whereas patients with anemiamay have elevated sed rates. Blood Venous blood specimen / Unknown 11/22/2024 9:04 AM EDT 11/22/2024 11:11 AM EDT us Vi Cardozo MD LAB BLOOD ORDERAB LES Final Result [facility] [address] [place] [phone] [phone] * (ABNORMAL) CBC (11/22/2024 9:04 AM EDT) [facility] White Blood Count 8.4 4.8 - 10.8 X10*3/uL [facility] Red Blood Count 5.35 4.60 - 5.80 X10*6/uL [facility] Hemoglobin 14.1 14.0 - 18.0 g/dl [facility] Hematocrit 42.5 42.0 - 52.0 % [facility] Mean Corpuscular Volume 79.4(L) 80.0 - 98.0 fL [facility] Mean Corpuscular Hemoglobin 26.4(L) 27.0 - 33.0 pg [facility] Mean Corpuscular HGB Conc 33.2 31.0 - 36.0 g/dl [facility] Red Cell Distribution Width 14.0 11.0 - 16.0 % [facility] Platelet Count 262 160 - 400 X10*3/uL [facility] Mean Platelet Volume 11.0 9.4 - 12.4 fL [facility] NRBC Pct Auto 0.0 0.0 - 0.2 /100WBC [facility] NRBC Abs Auto 0.000 0.0 - 0.012 X10*3/uL [facility] Blood Venous blood specimen / Unknown 11/22/2024 9:04 AM EDT 11/22/2024 11:11 AM EDT us Vi Cardozo MD LAB BLOOD ORDERAB LES Final Result Performing Organization Address [facility]/ZIP Co de Phone Number [facility] [address] [place] [phone] * (ABNORMAL) C-reactive Protein (11/22/2024 9:04 AM EDT) C Reactive Protein 0.63(H) < or = 0.50 mg/dL [facility] Blood Venous blood specimen / Unknown 11/22/2024 9:04 AM EDT 11/22/2024 11:24 AM EDT us Vi Cardozo MD LAB BLOOD ORDERAB LES Final Result Performing Organization Address [facility] Co de Phone Number [facility] [address] [place] [phone] * PSA,Total (11/22/2024 9:04 AM EDT) Only the most recent of2 resultswithin the time period is included. Prostate Specific Antigen 1.12 <0.05 - 4.0 ng/mL [facility] Comment:PSA methodology: Abb anthony Alilupisty i ChemiluminescentMicroparticle Immunoassay (CMIA) 11/22/2024 9:04 AM EDT 11/22/2024 11:24 AM EDT us Generic External Data Provider LAB BLOOD ORDERAB LES Final Result Performing Organization Address [facility]/ZIP Co de Phone Number [facility] [address] [place] [phone] * (ABNORMAL) Hemoglobin A1c (11/22/2024 9:04 AM EDT) Hemoglobin A1c 6.2(H) <6.0 % [facility] Comment:Hemoglobin A1C Refer ence Range Adults: 4.8 - 6.0 % Non diabetic: < 6.0 % Goal: < 7.0 %Additional Action Suggested: > 8.0 %Note: Hemoglobin A1c results are invalid for patients with abnormal amounts of HbF. Blood transfusions may impact the HbA1c concentration in the patient sample. Estimated Average Glucose 131 mg/dL [facility] Comment:eAG = Estimated ave rage glucose which is %A1C expressed asaverage glucose, using the formula of the P8T-VgrbsmxToaeswv Glucose study (ADAG), Diabetes Care, Vol.31,#8,2007 Blood Venous blood specimen / Unknown 11/22/2024 9:04 AM EDT 11/22/2024 11:11 AM EDT us Vi Cardozo MD LAB BLOOD ORDERAB LES Final Result [facility] [address] [place] [phone] * (ABNORMAL) Lipid Panel, Standard (11/22/2024 9:04 AM EDT) Triglycerides 109 <150 mg/dL [facility] Comment:Desirable Triglyceri de: less than 150 mg/dLBorderline High Triglyceride 150-199 mg/dLHigh Triglyceride: 200-499 mg/dLVery High Triglyceride: greater than or equal to 5OO mg/dL Cholesterol 105 <200 mg/dL [facility] Comment:Desirable Cholestero l: less than 200 mg/dLBorderline High Cholesterol: 200-239 mg/dLHigh Cholesterol: greater than 239 mg/dL LDL Cholesterol Calculated 57 <100 mg/dL [facility] Comment:Desirable LDL: less than 100 mg/dLNear Optimal/Above Optimal LDL: 110- 129 mg/dLBorderline High LDL: 130-159 mg/dLHigh LDL: 160-189 mg/dLVery High LDL: greater than or equal to 190 mg/dL HDL Cholesterol 27(L) >40 mg/dL [facility] Comment:Desirable HDL: great er than 40 mg/dL Note: This HDL assay may give artificially low results in patients with liver disease. Blood Venous blood specimen / Unknown 11/22/2024 9:04 AM EDT 11/22/2024 11:24 AM EDT Vi Cardozo MD LAB BLOOD ORDERAB LES Final Result [facility] [address] [place] [phone] * (ABNORMAL) Comprehensive Metabolic Panel (11/22/2024 9:04 AM EDT) Sodium 142 135 - 145 mmol/L [facility] Potassium 3.8 3.3 - 5.1 mmol/L [facility] Chloride 107 96 - 108 mmol/L [facility] Carbon Dioxide 26 22 - 29 mmol/L [facility] Anion Gap 13 12 - 20 [facility] Urea Nitrogen (BUN) 18(H) 9 - 16 mg/dL [facility] Creatinine, Serum 0.88 0.5 - 1.4 mg/dL [facility] Estimated Glomerular Filt Rate >60 [facility] Comment:Chronic Kidney Disea se: Estimated GFR < 60 mL/min/[id number] Kidney Disease: Estimated GFR < 15 mL/min/1.73m2 Glucose 107 60 - 115 mg/dL [facility] Calcium 9.0 8.4 - 10.2 mg/dL [facility] Bilirubin, Total 0.6 0.0 - 1.0 mg/dL [facility] Aspartate Amino Transferase 30 5 - 37 U/L [facility] Alanine Aminotransferase 27 0 - 40 U/L [facility] Total Protein 7.5 6.5 - 8.0 g/dL [facility] Albumin Level 4.7 3.5 - 5.0 g/dL [facility] Alkaline Phosphatase 76 39 - 117 U/L [facility] Blood Venous blood specimen / Unknown 11/22/2024 9:04 AM EDT 11/22/2024 11:24 AM EDT Vi Cardozo MD LAB BLOOD ORDERAB LES Final Result [facility] [address] [place] [phone] * Chlamydia/Trichomonas/Neisseria gonorrhoeae, PCR, Urine (11/22/2024 9:00 AM EDT) CT PCR, Urine NOT DETECTED Not Detect. [facility] Comment:A not detected test result does not exclude the possibilityof infection because test results can be affected byimproper specimen collection, concurrent antibiotic therapy,or the number of organisms in the specimen which may bebelow the sensitivity of the test. As with many diagnostictests, results from the Xpert CT/NG assay should beinterpreted in conjunction with other laboratory andclinical data available to the clinician.The Xpert CT/NG assay should not be used for the evaluationof suspected sexual abuse or for other medico-legalindications. Additional testing is recommended in anycircumstance when false positive or false negative resultscould lead to adverse medical, social or psychologicalconsequences. NG PCR, Urine NOT DETECTED Not Detect. [facility] Comment:A not detected test result does not exclude the possibilityof infection because test results can be affected byimproper specimen collection, concurrent antibiotic therapy,or the number of organisms in the specimen which may bebelow the sensitivity of the test. As with many diagnostictests, results from the Xpert CT/NG assay should beinterpreted in conjunction with other laboratory andclinical data available to the clinician.The Xpert CT/NG assay should not be used for the evaluationof suspected sexual abuse or for other medico-legalindications. Additional testing is recommended in anycircumstance when false positive or false negative resultscould lead to adverse medical, social or psychologicalconsequences. Urine (Urine, Random) 11/22/2024 9:00 AM EDT 11/22/2024 12:10 PM EDT us Vi Cardozo MD LAB URINE ORDERAB LES Final Result [facility] [address] [place] [phone] * Measles, Mumps, and Rubella (MMR) Antibodies??(IgG) Panel, Immune Status (11/22/2024 9:00 AM EDT) Mumps Virus IgG Antibody 23.20 AU/mL [facility] Comment:AU/mL Interpretation ------- <9.00 Not consistent with immunity9.00-10.99 Equivocal>10.99 Consistent with immunityThe presence of mumps IgG antibody suggests immunizationor past or current infection with mumps virus. Rubella IgG Antibody 7.20 Index [facility] Comment:Index Interpretation ----- <0.90 Not consistent with immunity 0.90-0.99 Equivocal > or = 1.00 Consistent with immunityThe presence of rubella IgG antibody suggestsimmunization or past or current infection withrubella virus.THIS TEST WAS PERFORMED AT:[employer] [place] [phone] LO MD Rubeola IgG (Measles) >300.00 AU/mL [facility] Comment:AU/mL Interpretatio n----- <13.50 Not consistent with rjqqmvot22.50-16.49 Equivocal>16.49 Consistent with immunityThe presence of measles IgG suggests immunization orpast or current infection with measles virus.For additional information, please refer tohttp://education.[employer]/faq/GDS309(This link is being provided for informational/educational purposes only.) Blood Venous blood specimen / Unknown 11/22/2024 9:00 AM EDT 11/22/2024 11:24 AM EDT Vi Cardozo MD LAB BLOOD ORDERAB LES Final Result [facility] [address] [place] [phone] * (ABNORMAL) POCT Hgb A1c (11/20/2024 9:12 AM EDT) Hemoglobin A1C 6.2(A) 4.0 - 5.7 % QC Media Lot # [id number] Lot# Expiration Date [id number] Blood 11/20/2024 9:12 AM EDT Vi Cardozo MD POINT OF CARE EMILE T ENTER/EDIT ORDERABLES Final Result * POCT Glucose (11/20/2024 9:09 AM EDT) Glucose Blood, POC 198 60 - 200 mg/dL QC Media Lot # [id number] Lot# Expiration Date [id number] Blood Capillary blood specimen / Unknown 11/20/2024 9:09 AM EDT Vi Cardozo MD POINT OF CARE EMILE T ENTER/EDIT ORDERABLES Final Result * US Renal Complete (10/24/2024 12:23 PM EDT) Anatomical Region Laterality Modality Kidney Ultrasound 10/24/2024 12:2 3 PM EDT Narrative 10/24/2024 12:23 PM EDT [address] [address] Ultrasound Report Signed with Addenda Patient: Jackie Marlow MR#: [id number] : 1965 Acct:[id number] Age/Sex: 58 / M ADM Date: 10/24/24 Loc: HO.US Attending Dr: Santiago Yu MD Ordering Physician: Santiago Yu MD Date of Service: 10/24/24 Procedure(s): US renal BI Accession Number(s): [id number] cc: Santiago Yu MD; Vi Keys MD [...] in OV> 10/24/241222 DD/ 22 TD/TT: 10/24/241222 Coal Hauler Operator: Procedure Note Donotuseinterpreter, Image - 10/28/[address] [address] Ultrasound Report Signed with Addenda Patient: Seth Marlow#: [id number] : 1965Acct:[id number] Age/Sex: 58 / MADM Date: 10/24/24 Loc: HO.US Attending Dr: Santiago Yu MD Ordering Physician: Santiago uY MD Date of Service: 10/24/24 Procedure(s): US renal BI Accession Number(s): [id number] cc: Santiago Yu MD; Vi Keys MD [...] 10/24/24 1223 DD/ 1223 TD/TT: 10/24/24 1223 Coal Hauler Operator: [facility] External Provider IMG US PROCEDURES Edited Result - Final * ECG 12 lead (09/25/2024 11:13 AM EDT) Narrative Vi Keys MD - 09/25/2024 11:13 AM EDT EKG today 09/2024 for baseline HR 83x',Qtc 396, NSR,no ischemic findings us Vi Cardozo MD ECG ORDERABLES F inal Result from Last 3 Months Insurance [facility] C3 Care Teams Cardiology Technologist Relationship Specialty Start Date End Date Vi Keys MD [address] [place] [phone] PCP - General Internal Medicine 12/20/22
--- OUTSIDE RECORDS SUMMARY | 2024-11-29 20:01 | XMS_ITS | Encounter Summary ---
Author Organization [employer] Address [address] [facility] 7t [place] [address] Care Team Providers Care Workforce Management Analyst Name Role Phone Carmelita Escalona ALLOY WEIGHER Primary Care Provider Vi Guardado MD Primary Care Pro vider Encounter Details Date Type Department Care Team (Latest Contact Info) Description 11/23/2021 Abstract [facility] CONVERSIONS Dental, Provider, DDS Social [...] Info) Description 12/27/2024 10:30 AM EDT Telemedicine [facility] MEDICINE [address] [place] [address] Lina Hayden, PharmD [address] [place] [address] 01/28/2025 1:30 PM EST Immunization [facility] MEDICINE [address] [place] [address] 02/24/2025 9:00 AM EST Office Visit [facility] OPTOMETRY [address] [place] [address] Fannie Castañeda, OD [address] [place] [address] documented as of this encounter Visit Diagnoses Not on filedocumented in this encounter Care Teams Workforce Management Analyst Relationship Specialty Start Date End Date Carmelita Escalona FNP PCP - General Family Medicine 11/02/21 12/19/22 Vi Keys MD [address] [place] [phone] PCP - General Internal Medicine 12/20/22 documented as of this encounter
--- OUTSIDE RECORDS SUMMARY | 2024-11-29 20:01 | XMS_ITS | Encounter Summary ---
Author Organization [employer] Address [address] [facility] [address] [place] [address] Care Team Providers Care Travel Counselor [employer]obile Club Name Role Phone Vi Keys MD Primary Care Pro vider Reason for Visit * Reason Comments Med Refill Encounter Details Date Type Department Care Team ([facility] st Contact Info) Description 09/04/2024 Refill [facility] MEDICINE [address] [place], [place] [phone] Mandie Chavez DO [address] [place], [place] [phone] Type 2 diabetes mellitus with diabetic nephropathy, without long-term current use of insulin ([facility]) Social History Tobacco Use Types Packs/Day Years [...] Info) Description 12/27/2024 10:30 AM EDT Telemedicine [facility] MEDICINE [address] [place] [address] Lina Hayden, PharmD [address] [place] [address] 01/28/2025 1:30 PM EST Immunization [facility] MEDICINE [address] [place] [address] 02/24/2025 9:00 AM EST Office Visit [facility] OPTOMETRY [address] [place] [address] Fannie Castañeda, OD [address] [place] [address] documented as of this encounter Visit Diagnoses Diagnosis Type 2 diabetes mellitus with diabetic nephropathy, without long-term current use of insulin ([facility]) documented in this encounter Additional Health Concerns Assessment Noted Time PHQ-9 Depression Total Score: 0 08/20/19 3:43 PM EDT documented as of this encounter Care Teams Travel Counselor [employer]obile Club Relationship Specialty Start Date End Date Vi Keys MD [address] [place] [address] PCP - General Internal Medicine 12/20/22 documented as of this encounter
--- OUTSIDE RECORDS SUMMARY | 2024-11-29 20:01 | XMS_ITS | Encounter Summary ---
Author Organization [employer] Address [address] [facility] 7t [place] [address] Care Team Providers Care Layout Technician Name Role Phone Carmelita Escalona LOCATION DIRECTOR Primary Care Provider Vi Guardado MD Primary Care Pro vider Reason for Visit * Reason Onset Date Comments ER Follow-up 12/09/2022 Encounter Details Date Type Department Care Team ([facility] st Contact Info) Description 12/09/2022 Telephone [facility] MEDICINE [address] [place] [phone] Carmelita Escalona FNP ER Follow-up Social History [...] For below message, pt. Was admitted at [facility] for loss of vision and suspected seizure from12/07 to 12/09. P. Schedule for HDF on 12/22/2022. Pt. Verbally agreed and understood. HDF cristopher and ED darielay scanned into pt.'s chart. * Telephone Encounter - Nisa Ramos - 12/09/2022 10:50 AM EDT Patient calling to report ED visit on 12/09/2022 at [facility]. Diagnosed with nothing. Patient advised will forward to nurse for follow up. No symptoms Please contact pt at [phone] documented in this encounter Plan of Treatment Upcoming Encounters Date Type Department Care Team (Late st Contact Info) Description 12/27/2024 10:30 AM EDT Telemedicine [facility] MEDICINE [address] [place] [address] Lina Hayden PharmD [address] [place] [address] 01/28/2025 1:30 PM EST Immunization [facility] MEDICINE [address] [place] [address] 02/24/2025 9:00 AM EST Office Visit [facility] OPTOMETRY [address] [place] [address] Garry, Fannie, OD [address] [place] [address] documented as of this encounter Visit Diagnoses Not on filedocumented in this encounter Additional Health Concerns Assessment Noted Time PHQ-9 Depression Total Score: 0 08/20/19 3:43 PM EDT documented as of this encounter Care Teams Layout Technician Relationship Specialty Start Date End Date Carmelita Escalona FNP PCP - General Family Medicine 11/02/21 12/19/22 Vi Keys MD [address] [place] [phone] PCP - General Internal Medicine 12/20/22 documented as of this encounter
--- OUTSIDE RECORDS SUMMARY | 2024-11-29 20:01 | XMS_ITS | Encounter Summary ---
Author Organization [employer] Address [address] [facility] 7t [place] [address] Care Team Providers Care Motorcycle Racer Name Role Phone Vi Keys MD Primary Care Pro vider Encounter Details Date Type Department Care Team (Late st Contact Info) Description 11/27/2024 Orders Only [facility] MEDICINE [address] [place], [place] [phone] Vi Keys MD [address] [place] [address] Hypertension, unspecified type (Primary Dx) Social History Tobacco Use Types [...] 12/27/2024 10:30 AM EDT Telemedicine [facility] MEDICINE [address] [place] [phone] Lina Hayden, PharmD [address] [place] [address] 01/28/2025 1:30 PM EST Immunization [facility] MEDICINE [address] [place] [phone] 02/24/2025 9:00 AM EST Office Visit [facility] OPTOMETRY [address] [place] [address] Fannie Castañeda, OD [address] [place] [address] Scheduled Orders Name Type Priority Associated Diagnoses Orde r Schedule Comprehensive Metabolic Panel Lab Routine Hypertension, unspecified type Expected: 12/11/2024 (Approximate), Expires: 11/27/2025 documented as of this encounter Visit Diagnoses Diagnosis Hypertension, unspecified type- Primary documented in this encounter Additional Health Concerns Assessment Noted Time PHQ-9 Depression Total Score: 0 09/26/19 25 10:23 AM EDT documented as of this encounter Care Teams Motorcycle Racer Relationship Specialty Start Date End Date Vi Keys MD [address] [place] [phone] PCP - General Internal Medicine 12/20/22 documented as of this encounter
--- OUTSIDE RECORDS SUMMARY | 2024-11-29 20:01 | XMS_ITS | Encounter Summary ---
Author Organization [employer] Address [address] [place] [address] Care Team Providers Care Home Care Coordinator Name Role Phone Vi Keys MD Primary Care Pro vider Encounter Details Date Type Department Care Team (Late st Contact Info) Description 11/29/2024 Orders Only GENERIC EXTERNAL DATA [...] Info) Description 12/27/2024 10:30 AM EDT Telemedicine [facility] [address] [place] [address] Lina Hayden, [place] [address] [place] [address] 01/28/2025 1:30 PM EST Immunization [facility] [address] [place] [address] 02/24/2025 9:00 AM EST Office Visit [facility] [address] [place] [address] Fannie Castañeda, OD [address] [place] [address] documented as of this encounter Procedures Procedure Name Priority Date/Time Associated Diagnosis Comments SLIDE REVIEW Routine 11/29/2024 5:37 PM EDT CBC WITH AUTO DIFFERENTIAL Routine 11/29/2024 5:37 PM EDT BASIC METABOLIC PANEL Routine 11/29/2024 5:37 PM EDT documented in this encounter Results * Slide Review (11/29/2024 5:37 PM EDT) Slide Review VERIFIED [facility] 11/29/2024 5:37 PM EDT 11/29/2024 5:39 PM EDT us Generic External Data Provider LAB BLOOD ORDERAB LES Final Result Performing Organization Address City/[facility]/ZIP Co de Phone Number [facility] [address] [place] [address] [phone] * (ABNORMAL) Basic Metabolic Panel (11/29/2024 5:37 PM EDT) [facility] Sodium 141 135 - 145 mmol/L [facility] Potassium 4.2 3.3 - 5.1 mmol/L [facility] Chloride 105 96 - 108 mmol/L [facility] Carbon Dioxide 27 22 - 29 mmol/L [facility] Anion Gap 13 12 - 20 [facility] Urea Nitrogen (BUN) 14 9 - 16 mg/dL [facility] Creatinine, Serum 1.05 0.5 - 1.4 mg/dL [facility] Creatinine Clr Calc Pharmacy 79.6 [facility] Comment:eGFR (calculated fro m the MDRD study equation) and eCrCl(calculated from the Cockcroft-Gault equation) are based ondifferent parameters and may not yield comparable results.If eCrCl result is absurd, please check patient'sheight/weight. Estimated Glomerular Filt Rate >60 [facility] Comment:Chronic Kidney Disea se: Estimated GFR < 60 mL/min/1.42q3Kcmrbn Kidney Disease: Estimated GFR < 15 mL/min/1.73m2 Glucose 136(H) 60 - 115 mg/dL [facility] Calcium 9.4 8.4 - 10.2 mg/dL [facility] 11/29/2024 5:37 PM EDT 11/29/2024 5:39 PM EDT us Generic External Data Provider LAB BLOOD ORDERAB LES Final Result Performing Organization Address City/[facility]/ZIP Co de Phone Number [facility] [address] [place] [address] [phone] * (ABNORMAL) CBC auto differential (11/29/2024 5:37 PM EDT) White Blood Count 9.2 4.8 - 10.8 X10*3/uL [facility] Red Blood Count 4.72 4.60 - 5.80 X10*6/uL [facility] Hemoglobin 12.5(L) 14.0 - 18.0 g/dl [facility] Hematocrit 36.5(L) 42.0 - 52.0 % [facility] Mean Corpuscular Volume 77.3(L) 80.0 - 98.0 fL [facility] Mean Corpuscular Hemoglobin 26.5(L) 27.0 - 33.0 pg [facility] Mean Corpuscular HGB Conc 34.2 31.0 - 36.0 g/dl [facility] Red Cell Distribution Width 14.0 11.0 - 16.0 % [facility] Platelet Count 240 160 - 400 X10*3/uL [facility] Mean Platelet Volume 9.9 9.4 - 12.4 fL [facility] Neutrophils Percent Auto 65.9 45 - 73 % [facility] Imm Gran Pct Auto 0.7(H) 0.0 - 0.4 % [facility] Lymphocytes Percent Auto 21.1 20 - 40 % [facility] Monocytes Percent Auto 6.3 2 - 11 % [facility] Eosinophils Percent Auto 5.5(H) 0 - 4 % [facility] Basophils Percent Auto 0.5 0 - 2 % [facility] NRBC Pct Auto 0.0 0.0 - 0.2 /100WBC [facility] Neutrophils Absolute Auto 6.0 2.0 - 8.3 x10*3/uL [facility] Imm Gran Abs Auto 0.06(H) 0.00 - 0.03 X10*3/uL [facility] Lymphocytes Absolute Auto 1.9 1.2 - 4.9 X10*3/uL [facility] Monocytes Absolute Auto 0.6 0.1 - 1.2 X10*3/uL [facility] Eosinophils Absolute Auto 0.5(H) 0.0 - 0.4 X10*3/uL [facility] Basophils Absolute Auto 0.1 0.0 - 0.2 X10*3/uL [facility] NRBC Abs Auto 0.000 0.0 - 0.012 X10*3/uL [facility] 11/29/2024 5:37 PM EDT 11/29/2024 5:39 PM EDT us Generic External Data Provider LAB BLOOD ORDERAB LES Edited Result - Final [facility] [address] [place] [address] [phone] documented in this encounter Visit Diagnoses Not on filedocumented in this encounter Additional Health Concerns Assessment Noted Time PHQ-9 Depression Total Score: 0 09/26/19 25 10:23 AM EDT documented as of this encounter Care Teams Home Care Coordinator Relationship Specialty Start Date End Date Vi Keys MD [address] [place] [address] PCP - General Internal Medicine 12/20/22 documented as of this encounter
--- OUTSIDE RECORDS SUMMARY | 2024-11-29 20:01 | XMS_ITS | Encounter Summary ---
Author Organization [employer] Address [address] [place] [address] [address] [place] [address] Care Team Providers Care Pinsetter Mechanic Automatic Name Role Phone Vi Keys MD Primary Care Pro vider Reason for Visit * Reason Comments Med Refill Encounter Details Date Type Department Care Team (Late st Contact Info) Description 06/27/2024 Refill [facility] [address] [place], [place] [phone] Vi Keys MD [address] [place] [address] Essential hypertension Social History Tobacco Use Types [...] 12/27/2024 10:30 AM EDT Telemedicine [facility] [address] [place] [phone] Lina Hayden, [place] [address] [place] [address] 01/28/2025 1:30 PM EST Immunization [facility] [address] [place] [address] 02/24/2025 9:00 AM EST Office Visit [facility] [address] [place] [address] Fannie Castañeda, OD [address] [place] [address] documented as of this encounter Visit Diagnoses Diagnosis Essential hypertension Unspecified essential hypertension documented in this encounter Additional Health Concerns Assessment Noted Time PHQ-9 Depression Total Score: 0 08/20/19 3:43 PM EDT documented as of this encounter Care Teams Pinsetter Mechanic Automatic Relationship Specialty Start Date End Date Vi Keys MD [address] [place] [address] PCP - General Internal Medicine 12/20/22 documented as of this encounter
[2024-11-29 20:45] VITALS: BP 128/81; PULSE 58; RESP 16; TEMP 36.6; O2SAT 99
[2024-11-29 20:56] LABS: Appearance Urine Clear; Glucose Urine UA 500 mg/dL (Negative); PH 6.0 (5.0-9.0); Specific Gravity - Urine 1.010 (1.005-1.025); UMIC TRIGGER UACC YES
--- NOTE | 2024-11-29 20:57 | PC.NURSE ---
assumed care of pt, urine sample sent to lab, pt complains of abdominal pain 10/10 pain. renal stent placed recently nd pain has not subsided, it has gotten worse
[2024-11-29 21:06] LABS: UACC Culture Trigger YES
[2024-11-29 21:53] LABS: Glucose, Whole Blood 102 mg/dL (60-115)
--- NOTE | 2024-11-29 22:10 | PC.NURSE ---
pt medicated per MAR. friend at bedside
[2024-11-29 23:05] VITALS: BP 111/78; PULSE 71; RESP 18; TEMP 36.1; O2SAT 96
[2024-11-30] VITALS (9 sets, daily range): BP systolic 122–150; BP diastolic 55–83; PULSE 65–80; RESP 12–18; TEMP 36–37.1; O2SAT 93–98; BMI 25.8
--- NOTE | 2024-11-30 00:16 | PC.NURSE ---
fluids and antibiotics ordered, sepsis not called per provider, blood cultures drawn.
--- NOTE | 2024-11-30 00:28 | PC.NURSE ---
pt medicated per MAR
--- NOTE | 2024-11-30 01:38 | P.HPHOSP_ITS ---
History of Present Illness Date of Service: 11/30/24 Attending physician on admission: Radha Denise Chief Complaint: Left flank pain Reji Marlow is a very pleasant 59 years old man with a past medical history significant for nephrolithiasis s/p recent ESWL (11/27/2024) by Dr. Portillo, type 2 diabetes mellitus on metformin only, essential hypertension and hyperlipidemia presents to the emergency department complaining of left flank pain that has been getting worse since associated blood in urine and passing gravel- like fragments. He did not report nausea, vomiting, fever or chills. In the ED, he was found to have normal vital signs. CBC showed hemoglobin of 12.5, MCV 77.3, WBC 9.2 and platelets 240. There is not lactic acidosis. There are no electrolyte imbalances. BUN is 14 and creatinine 1.05. Urinalysis consistent with hematuria and UTI with positive nitrites. Abdominal pelvis CT scan without IV contrast showed left distal ureteral 12 mm stone with proximal hydroureter and periureteral fat stranding, small proximal left ureteral lithiasis as above, nonobstructive left renal lithiasis in the lower and interpolar kidney. ED tx: Dilaudid 1 g, Toradol 15 mg IV, Zofran mg IV, ceftriaxone 2 g IV, NS 1.5 L bolus, tamsulosin 0.4 mg p.o. Review of Systems 2 Review of Systems: All 12 systems were reviewed and normal except as noted in HPI. [facility] Medical History Asthma Transaminitis Mixed anxiety depressive disorder GERD (gastroesophageal reflux disease) Renal calculi HLD (hyperlipidemia) Left flank pain Right foot pain Left shoulder pain HTN (hypertension) Atypical chest pain Diabetes Surgical History History of extracorporeal shockwave lithotripsy (ESWL) Hx of colonoscopy Social History Patient Tobacco Use Status: Never used Tobacco Advance Directives: No Advance Directives Information Provided: No Current occupational status: employed Current occupation: [employer] Allergies Allergy/AdvReac Type Severity Reaction Status Date / Time No Known Allergies (No Known Allergy Verified 11/29/24 17:24 Allergies*) Active Medications: Current Medications Acetaminophen (Acetaminophen 325 Mg Tablet) 975 mg PO Q6H PRN PRN Reason: Pain, Mild 1-3,fever,headache Calcium Carbonate (Calcium Carbonate 750 Mg Tab.Chew) 750 mg PO Q4H PRN PRN Reason: Heartburn Lactated Ringer's (Lr) 1,000 mls @ 100 mls/hr IVCONT .Q10H [facility] Stop: 11/30/24 11:44 Magnesium Hydroxide (Milk Of Magnesia 30 Ml Oral.Susp) 30 ml PO DAILY PRN PRN Reason: Constipation Melatonin (Melatonin 3 Mg Tablet) 6 mg PO BEDTIME PRN PRN Reason: Insomnia Ondansetron HCl (Ondansetron Hcl 4 Mg/2 Ml Vial) 4 mg IVPUSH Q6H PRN PRN Reason: Nausea and Vomiting Sodium Chloride (0.9 % Sodium Chloride Flush 3 Ml Syringe) 3 ml IVFLUSH QSHIFT [facility] Home Medications ?Medication ?Instructions ?Recorded ?Confirmed ?Last Taken ?Type albuterol sulfate 90 mcg/actuation 2 puff inhalation Q 4H 06/21/22 11/27/24 Unknown History aerosol inhaler (Ventolin HFA) amlodipine 5 mg tablet 5 mg PO DAILY 06/21/2211/2711/27/24 History gabapentin 600 mg tablet 600 mg PO BID 06/21/2211/27 Unknown History metformin 1,000 mg tablet 1,000 mg PO BID 06/21/22 Unknown History aspirin 81 mg chewable tablet 1 tab PO DAILY 11/25/24 11/27/24 11/15/24 History empagliflozin 10 mg tablet 10 mg PO DAILY 11/25/2411/24/24 History (Jardiance) Physical Exam 2 Vital Signs and Narrative: Vital Signs: Last Vital Signs Temp 96.9 F 11/29/24 23:05 Pulse 71 11/29/24 23:05 Resp 18 11/29/24 23:05 BP 111/78 11/29/24 23:05 Pulse Ox 96 11/29/24 23:05 O2 Del Method Room Air 11/29/24 23:05 BMI result Body Mass Index 25.7 Constitutional - Awake and Alert, No apparent distress. Cooperative. HEENT - PER, EOMI Heart - S1S2, RRR, No edema Lungs - Normal lung expansion, Normal respiratory effort, No respiratory distress, CTA bilaterally Abdomen - Nondistended, left flank and left lower quadrant tenderness to palpation without rebound or guarding. Normal bowel sounds. - (+) left CVA tenderness Extremities - no calf tenderness bilaterally, no swelling Musculoskeletal - Normal inspection, normal ROM Skin - Warm/Dry Neurological - Alert & oriented x3. Moving all extremities spontaneously. Normal speech. Psychological - Appropriate affect Results Labs 11/29/24 17:37 11/29/24 17:37 Labs: Laboratory Results - last 24 hr 11/29/24 11/29/24 11/29/24 17:37 20:47 21:49 MCV 77.3 L MCH 26.5 L MCHC 34.2 RDW 14.0 Plt Count 240 MPV 9.9 Immature Gran % (Auto) 0.7 H Neut % (Auto) 65.9 Lymph % (Auto) 21.1 [place] % (Auto) 6.3 Eos % (Auto) 5.5 H Baso % (Auto) 0.5 Lymph # (Auto) 1.9 [place] # (Auto) 0.6 Eos # (Auto) 0.5 H Baso # (Auto) 0.1 Abs Immat Gran (auto) 0.06 H Absolute Neuts (auto) 6.0 Absolute Nucleated RBC 0.000 Nucleated RBC % (auto) 0.0 Smear Tech's Comments VERIFIED Anion Gap 13 Estim Creat Clear Calc 79.6 Estimated GFR > 60 POC Glucose 102 Random Glucose 136 H Lactic Acid Calcium 9.4 Urine Color Dark Yellow Urine Appearance Clear Urine pH 6.0 Ur Specific [place] 1.010 Urine Protein Trace Urine Glucose (UA) 500 H Urine Ketones Negative Urine Blood Large (3+) H Urine Nitrite Positive H Ur Leukocyte Esterase Moderate (2+) H Urine RBC >20 H Urine WBC 6-10 Ur Squamous Epith Cells 0-2 Urine Bacteria None Seen Hyaline Casts 0-2 11/30/24 00:21 MCV MCH MCHC RDW Plt Count MPV Immature Gran % (Auto) Neut % (Auto) Lymph % (Auto) [place] % (Auto) Eos % (Auto) Baso % (Auto) Lymph # (Auto) [place] # (Auto) Eos # (Auto) Baso # (Auto) Abs Immat Gran (auto) Absolute Neuts (auto) Absolute Nucleated RBC Nucleated RBC % (auto) Smear Tech's Comments Anion Gap Estim Creat Clear Calc Estimated GFR POC Glucose Random Glucose Lactic Acid 0.9 Calcium Urine Color Urine Appearance Urine pH Ur Specific [place] Urine Protein Urine Glucose (UA) Urine Ketones Urine Blood Urine Nitrite Ur Leukocyte Esterase Urine RBC Urine WBC Ur Squamous Epith Cells Urine Bacteria Hyaline Casts Assessment and Plan (1) Calculus of left ureter: Status: Acute (2) Urinary tract infection: Qualifiers: Urinary tract infection type: acute cystitis Hematuria presence: with hematuria Qualified Code(s): N30.01 - Acute cystitis with hematuria Status: Acute Plan Reji Marlow is a 59 y/o man with a PMHx significant for nephrolithiasis s/p recent ESWL (11/27/2024) by Dr. Portillo presents with: Intractable left flank pain secondary to large renal calculi 12 mm associated with proximal hydroureter, periureteral fat stranding, hematuria and urinary tract infection. NPO. Pain control with Dilaudid IV as needed. Continue IV fluids. Continue empiric IV antibiotic therapy with ceftriaxone 1 g IV. Continue tamsulosin. Urine cultures obtained -will follow results. Urology consult. Type 2 diabetes mellitus. Hold metformin and Jardiance due to NPO status. BG checks every 6 hours. Insulin sliding scale. Essential hypertension. Continue losartan and amlodipine. Hyperlipidemia. Continue statin. Code status: Full DVT prophylaxis: SCDs (possible procedure). Patient will need hospitalization for at least 2 midnights for intractable left flank pain due to renal calculi associated with UTI management with empiric IV antibiotic therapy and evaluation by Urological Service for possible procedure. Quality Stroke Does the patient have a stroke diagnosis?: No VTE Prior VTE?: No VTE Risk Level:: Medical - moderate - high VTE Device Contraindication: N/A - Device Ordered VTE Drug Contraindication: Treatment Not Indicated
--- NOTE | 2024-11-30 01:48 | PC.NURSE ---
pt state she has pain, request baig medication.
--- NOTE | 2024-11-30 01:57 | PC.NURSE ---
pt medicted per MAR.
[2024-11-30] MEDS: Lactated Ringers 1,000 ML 100 ML IVCONT (02:14)
[2024-11-30 04:01] LABS: Hematocrit 38.1 % (42.0-52.0); Hemoglobin 13.0 g/dl (14.0-18.0); Imm Gran Abs Auto 0.05 X10*3/uL (0.00-0.03); Imm Gran Pct Auto 0.5 % (0.0-0.4); Lymphocytes Absolute Auto 2.2 X10*3/uL (1.2-4.9); MANUAL DIFF FLAG SCAN; Mean Corpuscular HGB Conc 34.1 g/dl (31.0-36.0); Mean Corpuscular Hemoglobin 26.8 pg (27.0-33.0); Mean Corpuscular Volume 78.6 fL (80.0-98.0); NRBC Abs Auto 0.000 X10*3/uL (0.0-0.012); NRBC Pct Auto 0.0 /100WBC (0.0-0.2); Platelet Count 226 X10*3/uL (160-400); Red Blood Count 4.85 X10*6/uL (4.60-5.80); SCAN SMEAR FLAG 1; White Blood Count 9.8 X10*3/uL (4.8-10.8)
[2024-11-30 04:15] LABS: Anion Gap 11 (12-20); Blood Urea Nitrogen 14 mg/dL (9-16); Calcium 8.6 mg/dL (8.4-10.2); Carbon Dioxide 24 mmol/L (22-29); Chloride 108 mmol/L (96-108); Creatinine Clr Calc Pharmacy 80.4; Estimated Glomerular Filt Rate > 60; Magnesium 2.1 mg/dL (1.6-2.6); Potassium 3.9 mmol/L (3.3-5.1); Sodium 139 mmol/L (135-145)
[2024-11-30 05:32] LABS: Hemoglobin A1C 147.0202 umol/L; Total Hemoglobin (HGBA1C) 3347.1169 umol/L
--- NOTE | 2024-11-30 06:10 | PC.NURSE ---
POC 139, no insulin given per protocol
[2024-11-30 07:46] LABS: Glucose, Whole Blood 139 mg/dL (60-115)
--- NOTE | 2024-11-30 08:05 | PM.EVENT ---
Event Note Date of Service: 11/30/24 Event Note: Patient seen and examined still has significant pain left side flank . Physical exam and assessment and plan-similar to H&P Nephrolithiasis/UTI-continue IV fluid, pain medication, IV antibiotics, cultures pending Urology consult Time Spent With Patient Time: Total time managing care of this patient today ____ minutes.
[2024-11-30] MEDS: 0.9 % Sodium Chloride Flush 3 ML SYRINGE IVFLUSH (08:20)
--- NOTE | 2024-11-30 08:30 | HO.NURTONUR ---
Pt alert and oriented x4. Independent with cares. He came to ED with increased pain following placement of renal stent on 11/27. Denies pain at this time. Blood sugars were 139 at 0630, insulin held. 20G IV in left AC, running LR at 100ml/hr. Vitals WNL on room air.
--- NOTE | 2024-11-30 09:10 | PHA.MEDREC ---
Addendum entered by Kenji Alejandre RPh 11/30/24 09:26: Med rec reviewed by [facility]. Original Note: Pharmacy Consult ? Medication Reconciliation Pharmacy has completed the medication reconciliation. Confirmed medication list with patient. Patient indicated that they only took morning dose of Gabapentin 600 mg and Metformin 1000 mg on 11/29. Patient has been off Aspirin and Jardiance since last Monday (11/24) per doctors order. Last dose of other medications on 11/28.
--- NOTE | 2024-11-30 09:39 | PM.UROCN ---
History of Present Illness Consult details Consult date: 11/30/24 Narrative: Jackie is status post left ESWL on 11/27/2024. PMH - Type 2 diabetes, Htn. Admitted with left flank pain. Labs in ED Renal function normal. UA - positive leuks, blood, nitrite positive. The patient was prescribed pyridium on discharge 11/27/24 which will make urine nitrite positive. CTAP left hydronephrosis due to stone streinstrause of stone fragments in the distal left ureter. Review of Systems Review of Systems: Yes all other systems are reviewed and are negative Constitutional: Constitutional: Reports no additional constitutional complaints Eyes: Eyes: Reports no additional eye complaints ENT: Reports system reviewed and no additional complaints, except as documented Cardiovascular: Cardiovascular: Reports no additional cardiovascular complaints Respiratory: Respiratory: Reports no additional respiratory complaints Gastrointestinal: Gastrointestinal: Reports no additional gastrointestinal complaints Genitourinary: Genitourinary: Reports as per HPI Musculoskeletal: Musculoskeletal: Reports no additional musculoskeletal complaints Integumentary/Breasts: Skin/Breast: Reports system reviewed and no additional complaints, except as docu Neurologic: Reports system reviewed and no additional complaints, except as documented Psychiatric: Psychiatric: Reports no additional psychiatric complaints Endocrine: Endocrine: Reports no additional endocrine complaints Hematologic/Lymphatic: Hematologic/Lymphatic: Reports no additional hematologic/lymphatic complaints Allergic/Immunologic: Allergic/Immunologic: Reports no additional allergic/immunologic complaints [facility] Past Medical History Medical History Asthma Transaminitis Mixed anxiety depressive disorder GERD (gastroesophageal reflux disease) Renal calculi HLD (hyperlipidemia) Left flank pain Right foot pain Left shoulder pain HTN (hypertension) Atypical chest pain Diabetes Surgical History Surgical History History of extracorporeal shockwave lithotripsy (ESWL) Hx of colonoscopy Social History Social History Household Members: None Housing: Apartment Do you presently have visiting nurse or other home services: No Patient Tobacco Use Status: Never used Tobacco Current occupational status: employed Current occupation: [employer] Allergies Allergy/AdvReac Type Severity Reaction Status Date / Time No Known Allergies (No Known Allergy Verified 09/19/25 17:24 Allergies*) Active Medications: Current Medications Acetaminophen (Acetaminophen 325 Mg Tablet) 975 mg PO Q6H PRN PRN Reason: Pain, Mild 1-3,fever,headache Calcium Carbonate (Calcium Carbonate 750 Mg Tab.Chew) 750 mg PO Q4H PRN PRN Reason: Heartburn Ceftriaxone Sodium (Ceftriaxone Sodium 1 Gm Vial) 1 gm IVPUSH Q24H [facility] Dextrose (Dextrose 50 % 25 Gm/50 Ml Syringe) 25 gm IVPUSH Q15M PRN; Protocol PRN Reason: per Hypoglycemia Standing Ord. Glucose (Glucose Gel 15 Gm Gel..Gram.) 15 gm PO Q15M PRN; Protocol PRN Reason: per Hypoglycemia Standing Ord. Lactated Ringer's (Lr) 1,000 mls @ 100 mls/hr IVCONT .Q10H [facility] Stop: 11/30/24 11:44 Last Admin: 11/30/24 02:14 Dose: 100 mls/hr Insulin Human Lispro (Insulin Lispro 100 Unit/Ml 3 Ml Vial) 0 unit SUBCUT Q6H [facility]; Protocol Last Admin: 11/30/24 06:10 Dose: Not Given Magnesium Hydroxide (Milk Of Magnesia 30 Ml Oral.Susp) 30 ml PO DAILY PRN PRN Reason: Constipation Melatonin (Melatonin 3 Mg Tablet) 6 mg PO BEDTIME PRN PRN Reason: Insomnia Ondansetron HCl (Ondansetron Hcl 4 Mg/2 Ml Vial) 4 mg IVPUSH Q6H PRN PRN Reason: Nausea and Vomiting Sodium Chloride (0.9 % Sodium Chloride Flush 3 Ml Syringe) [facility] Last Admin: 11/30/24 08:20 Dose: 3 ml Home Medications ?Medication ?Instructions ?Recorded ?Confirmed ?Last Taken ?Type albuterol sulfate 90 mcg/actuation 2 puff inhalation Q4H 06/21/22 11/30/24 Unknown History aerosol inhaler (Ventolin HFA) amlodipine 5 mg tablet 5 mg PO DAILY 06/21/22 11/30/24 11/28/24 History gabapentin 600 mg tablet 600 mg PO BID 06/21/22 11/30/24 11/29/24 History metformin 1,000 mg tablet 1,000 mg PO BID 06/21/22 11/30/24 11/29/24 History aspirin 81 mg chewable tablet 1 tab PO DAILY 11/25/24 11/30/24 11/24/24 History empagliflozin 10 mg tablet 10 mg PO DAILY 11/25/24 11/30/24 11/24/24 History (Jardiance) atorvastatin 20 mg tablet 20 mg PO DAILY 11/30/24 11/30/24 11/29/24 History cyanocobalamin (vitamin B-12) 500 500 mcg PO DAILY 11/30/24 11/30/24 Unknown History mcg tablet hydrocortisone 2.5 % topical cream 1 appl topical BID 11/30/24 11/30/24 11/29/24 History latanoprost 0.005 % eye drops 1 drp ophthalmic (eye) BEDTIME 11/30/24 11/30/24 Unknown History lidocaine 5 % topical patch 1 patch topical DAILY 11/30/24 11/30/24 11/29/24 History losartan 100 mg tablet 100 mg PO DAILY 11/30/24 11/30/24 11/28/24 History Physical Exam Vital Signs: Vital Signs: Last Vital Signs Temp 96.9 F 11/30/24 09:12 Pulse 68 11/30/24 09:12 Resp 16 11/30/24 09:12 BP 122/76 11/30/24 09:12 Pulse Ox 97 11/30/24 09:12 O2 Del Method Room Air 11/30/24 09:12 BMI result Body Mass Index 25.7 Results Labs 11/30/24 03:42 11/30/24 03:42 Labs: Abnormal lab results 11/29/24 11/29/24 11/30/24 Range/Units 17:37 20:47 03:42 Hgb 12.5 L 13.0 L (14.0-18.0) g/dl Hct 36.5 L 38.1 L (42.0-52.0) % MCV 77.3 L 78.6 L (80.0-98.0) fL MCH 26.5 L 26.8 L (27.0-33.0) pg Immature Gran % (Auto) 0.7 H 0.5 H (0.0-0.4) % Eos % (Auto) 5.5 H 7.0 H (0-4) % Eos # (Auto) 0.5 H 0.7 H (0.0-0.4) X10*3/uL Abs Immat Gran (auto) 0.06 H 0.05 H (0.00-0.03) X10*3/uL Anion Gap 11 L (12-20) POC Glucose (60-115) mg/dL Random Glucose 136 H 116 H (60-115) mg/dL Hemoglobin A1c % (<6.0) % Urine Glucose (UA) 500 H (Negative) mg/dL Urine Blood Large (3+) H (Negative) Urine Nitrite Positive H (Negative) Ur Leukocyte Esterase Moderate (2+) H (Negative) Urine RBC >20 H (0-2) /HPF 11/30/24 11/30/24 Range/Units 03:46 06:05 Hgb (14.0-18.0) g/dl Hct (42.0-52.0) % MCV (80.0-98.0) fL MCH (27.0-33.0) pg Immature Gran % (Auto) (0.0-0.4) % Eos % (Auto) (0-4) % Eos # (Auto) (0.0-0.4) X10*3/uL Abs Immat Gran (auto) (0.00-0.03) X10*3/uL Anion Gap (12-20) POC Glucose 139 H (60-115) mg/dL Random Glucose (60-115) mg/dL Hemoglobin A1c % 6.2 H (<6.0) % Urine Glucose (UA) (Negative) mg/dL Urine Blood (Negative) Urine Nitrite (Negative) Ur Leukocyte Esterase (Negative) Urine RBC (0-2) /HPF Short CBC 11/29/24 11/30/24 Range/Units 17:37 03:42 WBC 9.2 9.8 (4.8-10.8) X10*3/uL Hgb 12.5 L 13.0 L (14.0-18.0) g/dl Hct 36.5 L 38.1 L (42.0-52.0) % Plt Count 240 226 (160-400) X10*3/uL BMP 11/29/24 11/30/24 17:37 03:42 Sodium 141 139 Potassium 4.2 3.9 Chloride 105 108 Carbon Dioxide 27 24 BUN 14 14 Creatinine 1.05 1.04 Calcium 9.4 8.6 D Urine 11/29/24 Range/Units 20:47 Urine Color Dark Yellow Urine Appearance Clear Urine pH 6.0 (5.0-9.0) Ur Specific [place] 1.010 (1.005-1.025) Urine Protein Trace (Neg-Trace) mg/dL Urine Glucose (UA) 500 H (Negative) mg/dL Imaging Abdominal x-ray: report reviewed and image reviewed Abdomen CT scan report/results: report reviewed and image reviewed CT scan - pelvis: report reviewed and image reviewed Additional studies: Date of Service: 11/29/24 CT abdomen and pelvis without contrast Comparison: CR/SR - XR KUB - 11/27/24 07:04 EDT Findings: The lung bases are clear. Hepatic parenchyma is normal. Gallbladder is distended. Pancreas is normal. Stomach is decompressed. Adrenal glands are normal. Right kidney is normal. No hydronephrosis. No hydroureter. Left kidney demonstrates hydronephrosis with a dilated renal pelvis and hydroureter. There is a proximal left ureteral 2 mm stone and a distal obstructing 12 mm stone. Ureterovesicular junctions are normal. Bladder is partially distended. There is a small hyperdensity at the anterior bladder wall with associated wall thickening. Small bowel is normal. Large bowel is normal. Retrocecal appendix is normal. No diverticulitis. No pneumatosis or pneumoperitoneum. Pelvic contents unremarkable. No acute fracture. IMPRESSION: Left distal ureteral 12 mm stone with proximal hydroureter and periureteral fat stranding. Smaller proximal left ureteral lithiasis as above. Nonobstructing left renal lithiasis in the lower and interpolar kidney. Other findings as above Date of Service: 11/27/24 KUB PRE-ESWL Reason for Exam: left renal stone EXAMINATION: XR ABDOMEN 1 VIEW (KUB) HISTORY: left renal stone COMPARISON: Comparison is made with the prior examination dated 02/15/2024. FINDINGS: Two supine views of the abdomen are submitted. The bowel gas pattern is unremarkable, without evidence of mechanical obstruction. There is a large amount of stool throughout the colon. There is a 13 mm calcification in the left upper quadrant, likely related to the left kidney. This appears larger than on the prior study. There are no abnormal soft tissue masses. The bones are intact. IMPRESSION: 1. 13 mm calcification in the left upper quadrant, likely related to the left kidney. Assessment and Plan (1) Calculus of left ureter: Status: Acute (2) Hydronephrosis of left kidney: Status: Acute Plan Renal fxn normal. Cont IV fluid hydration and flomax, Strain all urine. Will monitor conservatively today and reassess tomorrow. Procedures Date of Service Date of Service: 11/30/24
[2024-11-30 11:26] LABS: Glucose, Whole Blood 143 mg/dL (60-115)
[2024-11-30 16:19] LABS: Glucose, Whole Blood 117 mg/dL (60-115)
[2024-11-30 20:15] LABS: Glucose, Whole Blood 172 mg/dL (60-115)
[2024-11-30] MEDS: Hydrocortisone 1 % Cream 28.35 GM TUBE 1 APPL TOPICAL (21:02)
[2024-11-30] MEDS: Latanoprost 0.005 % Ophth Sol 2.5 ML DROPS 1 DROP EYE-BOTH (21:02)
[2024-12-01 03:53] VITALS: BP 136/60; PULSE 62; RESP 18; TEMP 36.3; O2SAT 96
[2024-12-01 07:34] LABS: Glucose, Whole Blood 107 mg/dL (60-115)
[2024-12-01 07:35] VITALS: BP 129/86; PULSE 75; RESP 16; TEMP 36.6; O2SAT 98
[2024-12-01] MEDS: Hydrocortisone 1 % Cream 28.35 GM TUBE 1 APPL TOPICAL ×2 (08:54→20:23)
[2024-12-01] MEDS: Lidocaine 4 % Patch ADH..PATCH 1 PATCH TRANSDERMA (08:57)
[2024-12-01 11:35] LABS: Glucose, Whole Blood 152 mg/dL (60-115)
[2024-12-01 12:00] VITALS: BP 145/86; PULSE 77; RESP 16; TEMP 36.6; O2SAT 96
--- NOTE | 2024-12-01 13:08 | HO.PM.IMPN ---
Subjective Subjective Date of Service: 12/01/24 Interval History: Nephrolithiasis/UTI Review of Systems Still has significant pain Physical Exam Vital Signs: Vital Signs: Last Vital Signs Temp 97.9 F 12/01/24 12:00 Pulse 77 12/01/24 12:00 Resp 16 12/01/24 12:00 BP 145/86 H 12/01/24 12:00 Pulse Ox 96 12/01/24 12:00 O2 Del Method Room Air 12/01/24 12:00 BMI result Body Mass Index 25.8 Objective Data Active Medications Acetaminophen (Acetaminophen 325 Mg Tablet) 975 mg PO Q6H PRN PRN Reason: Pain, Mild 1-3,fever,headache Albuterol Sulfate (Albuterol Sulfate 90 Mcg 8 Gm Inhaler) 2 puff INHALE Q4H PRN PRN Reason: Shortness of Breath Amlodipine Besylate (Amlodipine Besylate 5 Mg Tablet) 5 mg PO DAILY [facility]; Protocol Last Admin: 12/01/24 08:52 Dose: 5 mg Documented By: MITCHELL Aspirin (Aspirin 81 Mg Tab.Chew) 81 mg PO DAILY [facility] Last Admin: 12/01/24 08:53 Dose: 81 mg Documented By: MITCHELL Atorvastatin Calcium (Atorvastatin Calcium 20 Mg Tablet) 20 mg PO DAILY [facility] Last Admin: 12/01/24 08:53 Dose: 20 mg Documented By: MITCHELL Calcium Carbonate (Calcium Carbonate 750 Mg Tab.Chew) 750 mg PO Q4H PRN PRN Reason: Heartburn Ceftriaxone Sodium (Ceftriaxone Sodium 1 Gm Vial) 1 gm IVPUSH Q24H [facility] Last Admin: 11/30/24 23:33 Dose: 1 gm Documented By: LESLIE Cyanocobalamin (Cyanocobalamin (Vitamin B-12) 500 Mcg Tablet) 500 mcg PO DAILY [facility] Last Admin: 12/01/24 08:53 Dose: 500 mcg Documented By: MITCHELL Dextrose (Dextrose 50 % 25 Gm/50 Ml Syringe) 25 gm IVPUSH Q15M PRN; Protocol PRN Reason: per Hypoglycemia Standing Ord. Gabapentin (Gabapentin 600 Mg Tablet) 600 mg PO BID [facility] Last Admin: 12/01/24 08:53 Dose: 600 mg Documented By: MITCHELL Glucose (Glucose Gel 15 Gm Gel..Gram.) 15 gm PO Q15M PRN; Protocol PRN Reason: per Hypoglycemia Standing Ord. Hydrocortisone (Hydrocortisone 1 % Cream 28.35 Gm Tube) 1 appl TOPICAL BID [facility] Last Admin: 12/01/24 08:54 Dose: 1 appl Documented By: MITCHELL Hydromorphone HCl (Hydromorphone Hcl 1 Mg/Ml Syringe) 1 mg IVPUSH Q3H PRN; Protocol PRN Reason: Pain, Severe (Pain Scale 7-10) Last Admin: 11/30/24 10:09 Dose: 1 mg Documented By: MITCHELL Sodium Chloride (Ns) 1,000 mls @ 125 mls/hr IVCONT .Q8H [facility] Last Admin: 12/01/24 11:35 Dose: 125 mls/hr Documented By: MITCHELL Insulin Human Lispro (Insulin Lispro 100 Unit/Ml 3 Ml Vial) 0 unit SUBCUT QIDACHS [facility]; Protocol Last Admin: 12/01/24 11:35 Dose: 2 unit Documented By: MITCHELL Ketorolac Tromethamine (Ketorolac Tromethamine 15 Mg/Ml Vial) 15 mg IVPUSH Q8H [facility] Last Admin: 12/01/24 11:29 Dose: 15 mg Documented By: MITCHELL Latanoprost (Latanoprost 0.005 % Ophth Yanni 2.5 Ml Drops) 1 drop EYE-BOTH BEDTIME [facility] Last Admin: 11/30/24 21:02 Dose: 1 drop Documented By: LESLIE Lidocaine (Lidocaine 4 % Patch Adh..Patch) 1 patch TRANSDERMA DAILY [facility] Last Admin: 12/01/24 08:57 Dose: 1 patch Documented By: MITCHELL Losartan Potassium (Losartan Potassium 50 Mg Tablet) 100 mg PO DAILY [facility]; Protocol Last Admin: 12/01/24 08:51 Dose: Not Given Documented By: MITCHELL Non-Admin Reason: hold per Dr. Gutierrez Magnesium Hydroxide (Milk Of Magnesia 30 Ml Oral.Susp) 30 ml PO DAILY PRN PRN Reason: Constipation Melatonin (Melatonin 3 Mg Tablet) 6 mg PO BEDTIME PRN PRN Reason: Insomnia Ondansetron HCl (Ondansetron Hcl 4 Mg/2 Ml Vial) 4 mg IVPUSH Q6H PRN PRN Reason: Nausea and Vomiting Sodium Chloride (0.9 % Sodium Chloride Flush 3 Ml Syringe) 3 ml IVFLUSH QSHIFT [facility] Last Admin: 12/01/24 07:39 Dose: Not Given Documented By: MITCHELL Non-Admin Reason: IV Running Tamsulosin HCl (Tamsulosin Hcl 0.4 Mg Capsule) 0.4 mg PO BEDTIME [facility] Last Admin: 11/30/24 21:02 Dose: 0.4 mg Documented By: LESLIE Labs 11/30/24 03:42 11/30/24 03:42 Labs: Laboratory Results - last 24 hr 11/30/24 11/30/24 12/01/24 16:10 20:12 07:20 POC Glucose 117 H 172 H 107 12/01/24 11:22 POC Glucose 152 H Microbiology Microbiology Results: Microbiology 11/29/24 Unknown Urine Culture - Final Urine clean catch - Clean Catch Midstream No growth. 11/30/24 00:21 Blood Culture - Preliminary Blood - Venous No growth after 24 hours. 11/30/24 00:21 Blood Culture - Preliminary Blood - Venous No growth after 24 hours. Assessment and Plan (1) Hydronephrosis of left kidney: Status: Acute Plan 59 y/o man with a PMHx significant for nephrolithiasis s/p recent ESWL (11/27/2024) by Dr. Portillo presents with: Intractable left flank pain secondary to large renal calculi 12 mm associated with proximal hydroureter, periureteral fat stranding, hematuria and urinary tract infection. plan: Patient says that he has significant pain with the urination Pain control with Dilaudid IV as needed. Continue IV fluids. Continue empiric IV antibiotic therapy with ceftriaxone 1 g IV. Continue tamsulosin. Urine cultures obtained -will follow results. Urology consult-will keep npo past midnight -possible urology procedure in am. Type 2 diabetes mellitus. Hold metformin and Jardiance due to NPO status. BG checks every 6 hours. Insulin sliding scale. Essential hypertension. Continue amlodipine, hold losartan (since going to be npo). Hyperlipidemia. Continue statin. Code status: Full. DVT prophylaxis: SCDs (possible procedure). ongoing need hospitalization for intractable left flank pain due to renal calculi associated with UTI management with empiric IV antibiotic therapy and evaluation by Urological Service for possible procedure. Quality Stroke Does the patient have a stroke diagnosis?: No VTE Prior VTE?: No VTE Risk Level:: Medical - moderate - high VTE Device Contraindication: N/A - Device Ordered VTE Drug Contraindication: Treatment Not Indicated
[2024-12-01 16:00] VITALS: BP 132/85; PULSE 80; RESP 16; TEMP 36.3; O2SAT 98
[2024-12-01 16:16] LABS: Glucose, Whole Blood 117 mg/dL (60-115)
--- NOTE | 2024-12-01 16:36 | MHC.CM.PN ---
PT REPORTS HE LIVES ALONE AND IS INDEPENDENT WITH CARE HE HAS NO DME OR SERVICES COPY OF HCP REQUESTED, HE REPORTS IT IS HIS FRIEND, JAMAAL PCP: SAMMY TAVARES DCP: HOME VIA PRIVATE TRANSPORT PT REPORTS HIS PROCEDURE IS MONDAY, BUT HE IS WORRIED ABOUT LEAVING THE SAME DAY HE REPORTS HE WAS IN SEVERE PAIN, AND IT TOOK MULTIPLE HOURS TO GET TO THE ED BECAUSE OF BIG E TRAFFIC AND SEVERAL MORE TO BE SEEN BY A PROVIDER HE HOPES TO STAY UNTIL MONDAY
[2024-12-01 19:35] LABS: Glucose, Whole Blood 151 mg/dL (60-115)
[2024-12-01 20:00] VITALS: BP 138/74; PULSE 87; RESP 18; TEMP 36.6; O2SAT 97
[2024-12-01] MEDS: Latanoprost 0.005 % Ophth Sol 2.5 ML DROPS 1 DROP EYE-BOTH (20:22)
[2024-12-01] MEDS: 0.9 % Sodium Chloride Flush 3 ML SYRINGE IVFLUSH (20:22)
[2024-12-01 23:43] VITALS: BP 140/82; PULSE 82; RESP 18; TEMP 36.5; O2SAT 97
[2024-12-02] VITALS (11 sets, daily range): BP systolic 102–158; BP diastolic 62–96; PULSE 64–86; RESP 14–18; TEMP 35.6–36.8; O2SAT 95–99
[2024-12-02 07:44] LABS: Glucose, Whole Blood 128 mg/dL (60-115)
--- NOTE | 2024-12-02 08:08 | HO.ANESPROP2 ---
Documented by User: Janessa Encinas NP 12/02/24 08:09 HPI - Anesthesia Eval Consult details Narrative: 59 yr old male for left uteroscopy. s/p ESW lithotripsy with TIVA 11/27/24 Typ 2 DM: A1C 6.2% [facility] Active Problems Active Problems: All Active Problems Urinary tract infection (Acute) Hydronephrosis of left kidney (Acute) Calculus of left ureter (Acute) Bilateral kidney stones (Acute) Trigger finger of right thumb (Acute) Past Medical History Medical History Asthma Transaminitis Mixed anxiety depressive disorder GERD (gastroesophageal reflux disease) Renal calculi HLD (hyperlipidemia) Left flank pain Right foot pain Left shoulder pain HTN (hypertension) Atypical chest pain Diabetes Family History Family history of problems with anesthesia: No Surgical History Surgical History History of extracorporeal shockwave lithotripsy (ESWL) Hx of colonoscopy History of Problems with Anesthesia: No Social History Social History Household Members: None Housing: Apartment Do you presently have visiting nurse or other home services: No Patient Tobacco Use Status: Never used Tobacco service: No Current occupational status: employed Current occupation: [employer] Allergies Allergy/AdvReac Type Severity Reaction Status Date / Time No Known Allergies (No Known Allergy Verified 11/29/24 17:24 Allergies*) Active Medications: Current Medications Acetaminophen (Acetaminophen 325 Mg Tablet) 975 mg PO Q6H PRN PRN Reason: Pain, Mild 1-3,fever,headache Albuterol Sulfate (Albuterol Sulfate 90 Mcg 8 Gm Inhaler) 2 puff INHALE Q4H PRN PRN Reason: Shortness of Breath Amlodipine Besylate (Amlodipine Besylate 5 Mg Tablet) 5 mg PO DAILY [facility]; Protocol Last Admin: 12/01/24 08:52 Dose: 5 mg Aspirin (Aspirin 81 Mg Tab.Chew) 81 mg PO DAILY [facility] Last Admin: 12/01/24 08:53 Dose: 81 mg Atorvastatin Calcium (Atorvastatin Calcium 20 Mg Tablet) 20 mg PO DAILY [facility] Last Admin: 12/01/24 08:53 Dose: 20 mg Calcium Carbonate (Calcium Carbonate 750 Mg Tab.Chew) 750 mg PO Q4H PRN PRN Reason: Heartburn Ceftriaxone Sodium (Ceftriaxone Sodium 1 Gm Vial) 1 gm IVPUSH Q24H [facility] Last Admin: 12/01/24 23:22 Dose: 1 gm Cyanocobalamin (Cyanocobalamin (Vitamin B-12) 500 Mcg Tablet) 500 mcg PO DAILY [facility] Last Admin: 12/01/24 08:53 Dose: 500 mcg Dextrose (Dextrose 50 % 25 Gm/50 Ml Syringe) 25 gm IVPUSH Q15M PRN; Protocol PRN Reason: per Hypoglycemia Standing Ord. Gabapentin (Gabapentin 600 Mg Tablet) 600 mg PO BID [facility] Last Admin: 12/01/24 20:22 Dose: 600 mg Glucose (Glucose Gel 15 Gm Gel..Gram.) 15 gm PO Q15M PRN; Protocol PRN Reason: per Hypoglycemia Standing Ord. Hydrocortisone (Hydrocortisone 1 % Cream 28.35 Gm Tube) 1 appl TOPICAL BID [facility] Last Admin: 12/01/24 20:23 Dose: 1 appl Hydromorphone HCl (Hydromorphone Hcl 1 Mg/Ml Syringe) 1 mg IVPUSH Q3H PRN; Protocol PRN Reason: Pain, Severe (Pain Scale 7-10) Last Admin: 11/30/24 10:09 Dose: 1 mg Sodium Chloride (Ns) 1,000 mls @ 125 mls/hr IVCONT .Q8H [facility] Last Infusion: 12/02/24 07:59 Dose: 0 mls/hr Insulin Human Lispro (Insulin Lispro 100 Unit/Ml 3 Ml Vial) 0 unit SUBCUT QIDACHS [facility]; Protocol Last Admin: 12/02/24 07:49 Dose: Not Given Ketorolac Tromethamine (Ketorolac Tromethamine 15 Mg/Ml Vial) 15 mg IVPUSH Q8H [facility] Last Admin: 12/02/24 03:18 Dose: 15 mg Latanoprost (Latanoprost 0.005 % Ophth Yanni 2.5 Ml Drops) 1 drop EYE-BOTH BEDTIME [facility] Last Admin: 12/01/24 20:22 Dose: 1 drop Lidocaine (Lidocaine 4 % Patch Adh..Patch) 1 patch TRANSDERMA DAILY [facility] Last Admin: 12/01/24 08:57 Dose: 1 patch Losartan Potassium (Losartan Potassium 50 Mg Tablet) 100 mg PO DAILY [facility]; Protocol On Hold: 12/02/24 05:00 Last Admin: 12/01/24 08:51 Dose: Not Given Magnesium Hydroxide (Milk Of Magnesia 30 Ml Oral.Susp) 30 ml PO DAILY PRN PRN Reason: Constipation Melatonin (Melatonin 3 Mg Tablet) 6 mg PO BEDTIME PRN PRN Reason: Insomnia Ondansetron HCl (Ondansetron Hcl 4 Mg/2 Ml Vial) 4 mg IVPUSH Q6H PRN PRN Reason: Nausea and Vomiting Sodium Chloride (0.9 % Sodium Chloride Flush 3 Ml Syringe) 3 ml IVFLUSH QSHIFT [facility] Last Admin: 12/02/24 07:21 Dose: Not Given Tamsulosin HCl (Tamsulosin Hcl 0.4 Mg Capsule) 0.4 mg PO BEDTIME [facility] Last Admin: 12/01/24 20:21 Dose: 0.4 mg Home Medications ?Medication ?Instructions ?Recorded ?Confirmed ?Last Taken ?Type albuterol sulfate 90 mcg/actuation 2 puff inhalation Q4H 06/21/22 11/30/24 Unknown History aerosol inhaler (Ventolin HFA) amlodipine 5 mg tablet 5 mg PO DAILY 06/21/22 11/30/24 11/28/24 History gabapentin 600 mg tablet 600 mg PO BID 06/21/22 11/30/24 11/29/24 History metformin 1,000 mg tablet 1,000 mg PO BID 06/21/22 11/30/24 11/29/24 History aspirin 81 mg chewable tablet 1 tab PO DAILY 11/25/24 11/30/24 11/24/24 History empagliflozin 10 mg tablet 10 mg PO DAILY 11/25/24 11/30/24 11/24/24 History (Jardiance) atorvastatin 20 mg tablet 20 mg PO DAILY 11/30/24 11/30/24 11/29/24 History cyanocobalamin (vitamin B-12) 500 500 mcg PO DAILY 11/30/24 11/30/24 Unknown History mcg tablet hydrocortisone 2.5 % topical cream 1 appl topical BID 11/30/24 11/30/24 11/29/24 History latanoprost 0.005 % eye drops 1 drp ophthalmic (eye) BEDTIME 11/30/24 11/30/24 Unknown History lidocaine 5 % topical patch 1 patch topical DAILY 11/30/24 11/30/24 11/29/24 History losartan 100 mg tablet 100 mg PO DAILY 11/30/24 11/30/24 11/28/24 History Exam Height,Weight and Vital Signs: Height 5 ft 11 in Weight 83.8 kg Last Vital Signs Temp 97.3 F 12/02/24 07:39 Pulse 72 12/02/24 07:39 Resp 16 12/02/24 07:39 BP 139/96 H 12/02/24 07:39 Pulse Ox 98 12/02/24 07:39 O2 Del Method Room Air 12/02/24 07:39 Pertinent Lab Results Pertinent Lab Results: Laboratory Tests 11/29/24 11/29/24 11/29/24 17:37 20:47 21:49 WBC 9.2 RBC 4.72 Hgb 12.5 L Hct 36.5 L MCV 77.3 L MCH 26.5 L MCHC 34.2 RDW 14.0 Plt Count 240 MPV 9.9 Immature Gran % (Auto) 0.7 H Neut % (Auto) 65.9 Lymph % (Auto) 21.1 [place] % (Auto) 6.3 Eos % (Auto) 5.5 H Baso % (Auto) 0.5 Lymph # (Auto) 1.9 [place] # (Auto) 0.6 Eos # (Auto) 0.5 H Baso # (Auto) 0.1 Abs Immat Gran (auto) 0.06 H Absolute Neuts (auto) 6.0 Absolute Nucleated RBC 0.000 Nucleated RBC % (auto) 0.0 Smear Tech's Comments VERIFIED Sodium 141 Potassium 4.2 Chloride 105 Carbon Dioxide 27 Anion Gap 13 BUN 14 Creatinine 1.05 Estim Creat Clear Calc 79.6 Estimated GFR > 60 POC Glucose 102 Random Glucose 136 H Estimat Average Glucose Hemoglobin A1c % Lactic Acid Calcium 9.4 Magnesium Urine Color Dark Yellow Urine Appearance Clear Urine pH 6.0 Ur Specific [place] 1.010 Urine Protein Trace Urine Glucose (UA) 500 H Urine Ketones Negative Urine Blood Large (3+) H Urine Nitrite Positive H Ur Leukocyte Esterase Moderate (2+) H Urine RBC >20 H Urine WBC 6-10 Ur Squamous Epith Cells 0-2 Urine Bacteria None Seen Hyaline Casts 0-2 11/30/24 11/30/24 11/30/24 00:21 03:42 03:46 WBC 9.8 RBC 4.85 Hgb 13.0 L Hct 38.1 L MCV 78.6 L MCH 26.8 L MCHC 34.1 RDW 13.9 Plt Count 226 MPV 10.4 Immature Gran % (Auto) 0.5 H Neut % (Auto) 62.2 Lymph % (Auto) 22.3 [place] % (Auto) 7.5 Eos % (Auto) 7.0 H Baso % (Auto) 0.5 Lymph # (Auto) 2.2 [place] # (Auto) 0.7 Eos # (Auto) 0.7 H Baso # (Auto) 0.1 Abs Immat Gran (auto) 0.05 H Absolute Neuts (auto) 6.1 Absolute Nucleated RBC 0.000 Nucleated RBC % (auto) 0.0 Smear Tech's Comments VERIFIED Sodium 139 Potassium 3.9 Chloride 108 Carbon Dioxide 24 Anion Gap 11 L BUN 14 Creatinine 1.04 Estim Creat Clear Calc 80.4 Estimated GFR > 60 POC Glucose Random Glucose 116 H Estimat Average Glucose 131 Hemoglobin A1c % 6.2 H Lactic Acid 0.9 Calcium 8.6 D Magnesium 2.1 Urine Color Urine Appearance Urine pH Ur Specific [place] Urine Protein Urine Glucose (UA) Urine Ketones Urine Blood Urine Nitrite Ur Leukocyte Esterase Urine RBC Urine WBC Ur Squamous Epith Cells Urine Bacteria Hyaline Casts 11/30/24 11/30/24 11/30/24 06:05 11:13 16:10 WBC RBC Hgb Hct MCV MCH MCHC RDW Plt Count MPV Immature Gran % (Auto) Neut % (Auto) Lymph % (Auto) [place] % (Auto) Eos % (Auto) Baso % (Auto) Lymph # (Auto) [place] # (Auto) Eos # (Auto) Baso # (Auto) Abs Immat Gran (auto) Absolute Neuts (auto) Absolute Nucleated RBC Nucleated RBC % (auto) Smear Tech's Comments Sodium Potassium Chloride Carbon Dioxide Anion Gap BUN Creatinine Estim Creat Clear Calc Estimated GFR POC Glucose 139 H 143 H 117 H Random Glucose Estimat Average Glucose Hemoglobin A1c % Lactic Acid Calcium Magnesium Urine Color Urine Appearance Urine pH Ur Specific [place] Urine Protein Urine Glucose (UA) Urine Ketones Urine Blood Urine Nitrite Ur Leukocyte Esterase Urine RBC Urine WBC Ur Squamous Epith Cells Urine Bacteria Hyaline Casts 11/30/24 12/01/24 12/01/24 20:12 07:20 11:22 WBC RBC Hgb Hct MCV MCH MCHC RDW Plt Count MPV Immature Gran % (Auto) Neut % (Auto) Lymph % (Auto) [place] % (Auto) Eos % (Auto) Baso % (Auto) Lymph # (Auto) [place] # (Auto) Eos # (Auto) Baso # (Auto) Abs Immat Gran (auto) Absolute Neuts (auto) Absolute Nucleated RBC Nucleated RBC % (auto) Smear Tech's Comments Sodium Potassium Chloride Carbon Dioxide Anion Gap BUN Creatinine Estim Creat Clear Calc Estimated GFR POC Glucose 172 H 107 152 H Random Glucose Estimat Average Glucose Hemoglobin A1c % Lactic Acid Calcium Magnesium Urine Color Urine Appearance Urine pH Ur Specific [place] Urine Protein Urine Glucose (UA) Urine Ketones Urine Blood Urine Nitrite Ur Leukocyte Esterase Urine RBC Urine WBC Ur Squamous Epith Cells Urine Bacteria Hyaline Casts 12/01/24 12/01/24 12/02/24 16:09 19:30 07:32 WBC RBC Hgb Hct MCV MCH MCHC RDW Plt Count MPV Immature Gran % (Auto) Neut % (Auto) Lymph % (Auto) [place] % (Auto) Eos % (Auto) Baso % (Auto) Lymph # (Auto) [place] # (Auto) Eos # (Auto) Baso # (Auto) Abs Immat Gran (auto) Absolute Neuts (auto) Absolute Nucleated RBC Nucleated RBC % (auto) Smear Tech's Comments Sodium Potassium Chloride Carbon Dioxide Anion Gap BUN Creatinine Estim Creat Clear Calc Estimated GFR POC Glucose 117 H 151 H 128 H Random Glucose Estimat Average Glucose Hemoglobin A1c % Lactic Acid Calcium Magnesium Urine Color Urine Appearance Urine pH Ur Specific [place] Urine Protein Urine Glucose (UA) Urine Ketones Urine Blood Urine Nitrite Ur Leukocyte Esterase Urine RBC Urine WBC Ur Squamous Epith Cells Urine Bacteria Hyaline Casts Assessment and Plan Final Anesthetic Review Family History of Problems with Anesthesia: No History of Problems with Anesthesia: No Documented by User: Katey Cutler MD 12/02/24 16:24 [facility] Past Medical History Medical History Asthma Transaminitis Mixed anxiety depressive disorder GERD (gastroesophageal reflux disease) Renal calculi HLD (hyperlipidemia) Left flank pain Right foot pain Left shoulder pain HTN (hypertension) Atypical chest pain Diabetes Surgical History Surgical History History of extracorporeal shockwave lithotripsy (ESWL) Hx of colonoscopy Social History Social History Household Members: None Housing: Apartment Do you presently have visiting nurse or other home services: No Patient Tobacco Use Status: Never used Tobacco service: No Current occupational status: employed Current occupation: [employer] Allergies Allergy/AdvReac Type Severity Reaction Status Date / Time No Known Allergies (No Known Allergy Verified 11/29/24 17:24 Allergies*) Home Medications ?Medication ?Instructions ?Recorded ?Confirmed ?Last Taken ?Type albuterol sulfate 90 mcg/actuation 2 puff inhalation Q4H 06/21/22 11/30/24 Unknown History aerosol inhaler (Ventolin HFA) amlodipine 5 mg tablet 5 mg PO DAILY 06/21/22 11/30/24 11/28/24 History gabapentin 600 mg tablet 600 mg PO BID 06/21/22 11/30/24 11/29/24 History metformin 1,000 mg tablet 1,000 mg PO BID 06/21/22 11/30/24 11/29/24 History aspirin 81 mg chewable tablet 1 tab PO DAILY 11/25/24 11/30/24 11/24/24 History empagliflozin 10 mg tablet 10 mg PO DAILY 11/25/24 11/30/24 11/24/24 History (Jardiance) atorvastatin 20 mg tablet 20 mg PO DAILY 11/30/24 11/30/24 11/29/24 History cyanocobalamin (vitamin B-12) 500 500 mcg PO DAILY 11/30/24 11/30/24 Unknown History mcg tablet hydrocortisone 2.5 % topical cream 1 appl topical BID 11/30/24 11/30/24 11/29/24 History latanoprost 0.005 % eye drops 1 drp ophthalmic (eye) BEDTIME 11/30/24 11/30/24 Unknown History lidocaine 5 % topical patch 1 patch topical DAILY 11/30/24 11/30/24 11/29/24 History losartan 100 mg tablet 100 mg PO DAILY 11/30/24 11/30/24 11/28/24 History Exam Airway Mallampati Class: II TM Dist: >3cm Neck ROM: Full Heart: rrr Lungs: cta Assessment and Plan Assessment Anesthesia Assessment: Anesthesia Plan Discussed and Chart Reviewed Final Anesthetic Review NPO: Yes ASA Class: II Final Preanesthetic Review: No Changes in Pt Med Stat, Meds/Allgs Chart Reviewed, Consent Obtained/Reviewed and Anes Risks/Benef Reviewed Patient Risk: Low Procedure Risk: Low Anesthetic Plan Anesthetic Plan: GA and Agree w/ Assess. and Plan Disposition: Standard PACU
[2024-12-02] MEDS: Hydrocortisone 1 % Cream 28.35 GM TUBE 1 APPL TOPICAL ×2 (08:56→20:45)
[2024-12-02 11:24] LABS: Glucose, Whole Blood 119 mg/dL (60-115)
[2024-12-02] MEDS: Lactated Ringers 1,000 ML 100 ML IVCONT ×2 (13:52→18:27)
--- NOTE | 2024-12-02 16:02 | MHC.CM.PN ---
PER ROUNDS PT TO HAVE STENT PLACED TODAY
--- NOTE | 2024-12-02 16:13 | MHC.SHP ---
Pre-Procedural Eval Section A - 24 Hr Update-Section A only Date of Service: 12/02/24 The patient is an INPATIENT: Yes Changes since office visit: No Cold of Flu in the past 2 weeks, No New Medical Problems, No Changes in Medication and No Patient answered all questions The patient has been examined within 24 hours of the surgical procedure. The History & Physical has been completed within 30 days and I have reviewed it.: Yes Section B - Complete if H&P > 30 days Chief Complaint: Left Obstructive Renal Calculi Details of Present Illness: Left ureteric stones following ESWL. Tamie. Plan ureteroscopy with laser lithotripsy. Relevant Social History: None Present Medications: see Short Stay Collaborative assessment Medical History: No relevant PMH History of Previous Operations: Relevant previous surgery/procedure and date(s) Allergies: Allergies Allergy/AdvReac Type Severity Reaction Status Date / Time No Known Allergies (No Known Allergy Verified 11/29/24 17:24 Allergies*) Review of Systems Sugical H&P ROS: Negative: Constitution, Cardiovascular, Respiratory, Neurological, Psychiatric, Hem-Onc, Allergic/Immunologic, Gastrointestinal, Genitourinary, Musculoskeletal, Integumentary, Endocrine and Eyes/Ears/Nose/Throat Exam Surgical H&P Exam: Normal: HEENT, Normal: Heart, Normal: Lungs, Normal: Extremities, Normal: Abdomen, Normal: Skin and Normal: Neurological Plan I have reviewed the history and physical and performed a pertinent physical examination on my patient. No changes have occurred unless specified. Time Spent With Patient Time: Total time managing care of this patient today ____ minutes.
--- NOTE | 2024-12-02 17:40 | W.PM.OPN ---
Operative Note Operative Note Date of Service: 12/02/24 Narrative: PreOperative Diagnosis: 1. Distal left ureteric stones 2. Left renal stone Post Operative Diagnosis: Ureteric edema, left renal stone Procedure: - cystoscopy, left retrograde - left dilatation of ureteric orifice under fluoroscopy - left rigid ureteroscopy - left flexible ureteroscopy with laser lithotripsy and stone basketing - left stent placement Surgeon: Dr Joseph Portillo Anesthesia: General Indications for procedure: Underwent ESWL last week for left renal stone. Presented to emergency room 48 hours ago with abdominal discomfort. On CT scan showed distal left ureteric [place] with left lower pole stones. Recommendation for intervention. Procedure: After informed consent was verified patient was brought to the operating placed in supine position. Anesthesia was administered per protocol. Patient was placed in modified dorsal lithotomy position and prepped and draped in a sterile fashion. Safety pause time-out and side of surgery confirmed. Antibiotics confirmed. A 22 [place]amese cystoscope was inserted per urethra. The urethra and bladder were normal in their entirety. Both ureteric orifices were in normal position. The left ureteric orifice was cannulated and a retrograde examination was performed. Narrowing seen over pelvic vessels consistent with CT finding.. A Sensor guidewire was placed up to the level of the renal pelvis under fluoroscopy. The rigid cystoscope was removed and the Griselda dilator used to dilate the distal portion of the ureter. A rigid ureteral scope was then passed alongside the wire. An area of edema was encountered at the crossing of the pelvic vessels. The stones appeared to have already passed into the bladder. Proximal to this was also examined and no other stones were seen. The rigid ureteral scope was removed. The ureteric access sheath was placed and the inner cannula with access wire removed. The digital flexible ureteral scope was placed. The scope was advanced into the renal pelvis. The renal pelvis were examined. There were fragments of stones in the lower pole. Using a 272 micron fiber with the [place] laser the stones were broken into small pieces. Using a 1.9 [place]inamese ZeroTip basket fragments were removed which will be sent for analysis. At the completion of the stone procedure a Sensor wire was placed back into the renal pelvis. The rigid cystoscope was backloaded over the wire and advanced into the bladder. A 6 [place]e by 28 cm double-J stent was placed into the renal pelvis and bladder under a combination of fluoroscopy and direct visualization. Proximal positioning of the stent was confirmed using fluoroscopy. The bladder was emptied. The patient tolerated the procedure well and was extubated in the operating room, and transferred in stable condition to the recovery area. Pathology: Stone Drains: Stent as above [facility] [place] code [id number] describes cystourethroscopy, with ureteroscopy and/or pyeloscopy, with lithotripsy, and ureteral catheterization for steerable vacuum aspiration of the kidney, collecting system, ureter, bladder, and urethra if applicable (must use a steerable ureteral catheter).
[2024-12-02 18:22] LABS: Glucose, Whole Blood 104 mg/dL (60-115)
--- NOTE | 2024-12-02 18:40 | P.PNIM_ITS ---
Subjective Subjective Date of Service: 12/02/24 Interval History: Nephrolithiasis/UTI Review of Systems Still has significant pain Review of Systems: Yes all other systems are reviewed and are negative Physical Exam 2 Exam: Exam: Appearance: seems somewhat sleepy after procedure .? cvs: rrr, [id number] . res: clear to auscultation ,no rhonchii or wheezing abd: no rebound or guarding ,has some soarness, bs present. ext pulses present , no cyanosis . neuro: axo3 , nonfocal. Vital Signs: Vital Signs: Last Vital Signs Temp 96.9 F 12/02/24 18:21 Pulse 70 12/02/24 18:21 Resp 14 12/02/24 18:21 BP 158/89 H 12/02/24 18:21 Pulse Ox 97 12/02/24 18:21 O2 Del Method Room Air 12/02/24 18:21 O2 Flow Rate 4 12/02/24 17:37 BMI result Body Mass Index 25.8 Objective Data Active Medications Acetaminophen (Acetaminophen 325 Mg Tablet) 975 mg PO Q6H PRN PRN Reason: Pain, Mild 1-3,fever,headache Albuterol Sulfate (Albuterol Sulfate 90 Mcg 8 Gm Inhaler) 2 puff INHALE Q4H PRN PRN Reason: Shortness of Breath Amlodipine Besylate (Amlodipine Besylate 5 Mg Tablet) 5 mg PO DAILY [facility]; Protocol Last Admin: 12/02/24 08:55 Dose: 5 mg Documented By: KATYA Aspirin (Aspirin 81 Mg Tab.Chew) 81 mg PO DAILY [facility] Last Admin: 12/02/24 08:56 Dose: Not Given Documented By: KATYA Non-Admin Reason: procedure Atorvastatin Calcium (Atorvastatin Calcium 20 Mg Tablet) 20 mg PO DAILY [facility] Last Admin: 12/02/24 08:55 Dose: 20 mg Documented By: KATAY Calcium Carbonate (Calcium Carbonate 750 Mg Tab.Chew) 750 mg PO Q4H PRN PRN Reason: Heartburn Ceftriaxone Sodium (Ceftriaxone Sodium 1 Gm Vial) 1 gm IVPUSH Q24H [facility] Last Admin: 12/01/24 23:22 Dose: 1 gm Documented By: RACHEL Cyanocobalamin (Cyanocobalamin (Vitamin B-12) 500 Mcg Tablet) 500 mcg PO DAILY [facility] Last Admin: 12/02/24 08:54 Dose: 500 mcg Documented By: KATYA Dextrose (Dextrose 50 % 25 Gm/50 Ml Syringe) 25 gm IVPUSH Q15M PRN; Protocol PRN Reason: per Hypoglycemia Standing Ord. Fentanyl (Fentanyl Citrate/Pf 100 Mcg/2 Ml Vial) 25 mcg IVPUSH Q5M PRN PRN Reason: Pain, Moderate to Severe (Pain Scale 4-10) Stop: 12/02/24 22:24 Gabapentin (Gabapentin 600 Mg Tablet) 600 mg PO BID [facility] Last Admin: 12/02/24 08:55 Dose: 600 mg Documented By: KATYA Glucose (Glucose Gel 15 Gm Gel..Gram.) 15 gm PO Q15M PRN; Protocol PRN Reason: per Hypoglycemia Standing Ord. Hydrocortisone (Hydrocortisone 1 % Cream 28.35 Gm Tube) 1 appl TOPICAL BID [facility] Last Admin: 12/02/24 08:56 Dose: 1 appl Documented By: KATYA Hydromorphone HCl (Hydromorphone Hcl 1 Mg/Ml Syringe) 1 mg IVPUSH Q3H PRN; Protocol PRN Reason: Pain, Severe (Pain Scale 7-10) Last Admin: 11/30/24 10:09 Dose: 1 mg Documented By: MITCHELL Lactated Ringer's (Lr) 1,000 mls @ 100 mls/hr IVCONT .Q10H [facility] Last Admin: 12/02/24 18:27 Dose: 100 mls/hr Documented By: KATYA Insulin Human Lispro (Insulin Lispro 100 Unit/Ml 3 Ml Vial) 0 unit SUBCUT QIDACHS [facility]; Protocol Last Admin: 12/02/24 18:30 Dose: Not Given Documented By: KATYA Non-Admin Reason: No Insulin Coverage Ketorolac Tromethamine (Ketorolac Tromethamine 15 Mg/Ml Vial) 15 mg IVPUSH Q8H [facility] Last Admin: 12/02/24 18:21 Dose: 15 mg Documented By: KATYA Ketorolac Tromethamine (Ketorolac Tromethamine 15 Mg/Ml Vial) 15 mg IVPUSH Q6H PRN PRN Reason: Pain, Moderate(Pain Scale 4-6) Latanoprost (Latanoprost 0.005 % Ophth Yanni 2.5 Ml Drops) 1 drop EYE-BOTH BEDTIME [facility] Last Admin: 12/01/24 20:22 Dose: 1 drop Documented By: RACHEL Lidocaine (Lidocaine 4 % Patch Adh..Patch) 1 patch TRANSDERMA DAILY [facility] Last Admin: 12/02/24 08:57 Dose: Not Given Documented By: KATYA Non-Admin Reason: pt declining Losartan Potassium (Losartan Potassium 50 Mg Tablet) 100 mg PO DAILY [facility]; Protocol Last Admin: 12/01/24 08:51 Dose: Not Given Documented By: MITCHELL Non-Admin Reason: hold per Dr. Gutierrez Magnesium Hydroxide (Milk Of Magnesia 30 Ml Oral.Susp) 30 ml PO DAILY PRN PRN Reason: Constipation Melatonin (Melatonin 3 Mg Tablet) 6 mg PO BEDTIME PRN PRN Reason: Insomnia Naloxone HCl (Naloxone Hcl 0.4 Mg/Ml Vial) 0.04 mg IVPUSH Q5M PRN PRN Reason: Excessive sedation or RR < 8 Ondansetron HCl (Ondansetron Hcl 4 Mg/2 Ml Vial) 4 mg IVPUSH Q6H PRN PRN Reason: Nausea and Vomiting Ondansetron HCl (Ondansetron Hcl 4 Mg/2 Ml Vial) 4 mg IVPUSH ONCE PRN PRN Reason: Nausea and Vomiting Stop: 12/02/24 22:24 Oxycodone HCl (Oxycodone Hcl Immed Release 5 Mg Tablet) 5 mg PO Q4H PRN PRN Reason: Pain, Mild (Pain Scale 1-3) Sodium Chloride (0.9 % Sodium Chloride Flush 3 Ml Syringe) 3 ml IVFLUSH QSHIFT [facility] Last Admin: 12/02/24 15:01 Dose: Not Given Documented By: KATYA Non-Admin Reason: Off Unit: Surgery Tamsulosin HCl (Tamsulosin Hcl 0.4 Mg Capsule) 0.4 mg PO BEDTIME [facility] Last Admin: 12/01/24 20:21 Dose: 0.4 mg Documented By: RACHEL Labs 11/30/24 03:42 11/30/24 03:42 Labs: Laboratory Results - last 24 hr 12/01/24 12/02/24 12/02/24 19:30 07:32 11:20 POC Glucose 151 H 128 H 119 H 12/02/24 18:17 POC Glucose 104 Microbiology Microbiology Results: Microbiology 11/30/24 00:21 Blood Culture - Preliminary Blood - Venous No growth after 48 hours. 11/30/24 00:21 Blood Culture - Preliminary Blood - Venous No growth after 48 hours. Assessment and Plan (1) Hydronephrosis of left kidney: Status: Acute Plan 59 y/o man with a PMHx significant for nephrolithiasis s/p recent ESWL (11/27/2024) by Dr. Portillo presents with: Intractable left flank pain secondary to large renal calculi 12 mm associated with proximal hydroureter, periureteral fat stranding, hematuria and urinary tract infection. plan: Patient says that he has significant pain with the urination blood /urine culture negative. plan: s/p urology: Take it cystoscopy, left retrograde, left flexible ureteroscopy with laser lithotripsy and stone basketing/left stent placement. Feels very weak and drowsy-continue monitoring, neuro checks, aspiration precautions Pain control with Dilaudid IV as needed. Continue IV fluids, empiric IV antibiotic therapy with ceftriaxone 1 g IV,tamsulosin. Type 2 diabetes mellitus. Hold metformin and Jardiance due to NPO status. BG checks every 6 hours. Insulin sliding scale. Essential hypertension. Continue amlodipine, hold losartan (since going to be npo). Hyperlipidemia. Continue statin. Code status: Full. DVT prophylaxis: SCDs (possible procedure). ongoing need hospitalization for intractable left flank pain due to renal calculi associated with UTI management with empiric IV antibiotic therapy and s/p urological procedure-very weak and drowsy-continue to monitor Quality Stroke Does the patient have a stroke diagnosis?: No VTE Prior VTE?: No VTE Risk Level:: Medical - moderate - high VTE Device Contraindication: N/A - Device Ordered VTE Drug Contraindication: Treatment Not Indicated
[2024-12-02] MEDS: oxyCODONE HCl Immed Release 5 MG TABLET PO (19:49)
[2024-12-02 20:39] LABS: Glucose, Whole Blood 266 mg/dL (60-115)
[2024-12-03] VITALS (8 sets, daily range): BP systolic 114–147; BP diastolic 68–84; PULSE 65–80; RESP 16–18; TEMP 35.7–36.7; O2SAT 96–99
[2024-12-03] MEDS: Lactated Ringers 1,000 ML 100 ML IVCONT ×2 (05:54→17:54)
--- NOTE | 2024-12-03 08:51 | HO.POSTANES ---
Post Anesthesia Evaluation Post Anesthesia Evaluation Date of Service: 12/03/24 Vital Signs: Vital Signs Temp Pulse Resp BP Pulse Ox O2 Del Method 12/03/24 07:41 97.2 F 73 18 122/69 97 Room Air 12/03/24 03:05 97.5 F 68 17 114/72 96 Room Air 12/02/24 23:08 96.1 F L 64 17 122/80 95 Room Air Anesthesia: General Mental Status: Awake Pain Control: Satisfactory Nausea/Vomiting: None Hydration: Adequate Anesthesia-Related Issues: No Anes. Related Issues
[2024-12-03] MEDS: Lidocaine 4 % Patch ADH..PATCH 1 PATCH TRANSDERMA (08:58)
[2024-12-03] MEDS: oxyCODONE HCl Immed Release 5 MG TABLET PO (10:08)
[2024-12-03 11:26] LABS: Glucose, Whole Blood 178 mg/dL (60-115)
[2024-12-03] MEDS: Hydrocortisone 1 % Cream 28.35 GM TUBE 1 APPL TOPICAL ×2 (13:29→20:37)
--- NOTE | 2024-12-03 14:16 | HO.PM.IMPN ---
Subjective Subjective Date of Service: 12/03/24 Interval History: urtral stone s/p lithotripsy last evenin Review of Systems intarcatable pain interfering with function also has pain with urination drowsy and dizzy in morning rounds Review of Systems: Yes all other systems are reviewed and are negative Physical Exam Exam: Exam: Appearance: weak/dizziness .? cvs: rrr, [id number] . res: clear to auscultation ,no rhonchii or wheezing abd: no rebound or guarding ,flank pain/diffcult to move around, bs present. ext pulses present , no cyanosis . neuro: drawosy, nonfocal. Vital Signs: Vital Signs: Last Vital Signs Temp 98.1 F 12/03/24 12:00 Pulse 80 12/03/24 12:00 Resp 16 12/03/24 12:00 BP 133/68 12/03/24 12:00 Pulse Ox 96 12/03/24 12:00 O2 Del Method Room Air 12/03/24 12:00 O2 Flow Rate 4 12/02/24 17:37 BMI result Body Mass Index 25.8 Objective Data Active Medications Acetaminophen (Acetaminophen 325 Mg Tablet) 975 mg PO Q6H PRN PRN Reason: Pain, Mild 1-3,fever,headache Albuterol Sulfate (Albuterol Sulfate 90 Mcg 8 Gm Inhaler) 2 puff INHALE Q4H PRN PRN Reason: Shortness of Breath Amlodipine Besylate (Amlodipine Besylate 5 Mg Tablet) 5 mg PO DAILY [facility]; Protocol Last Admin: 12/03/24 10:07 Dose: 5 mg Documented By: NIESHA Aspirin (Aspirin 81 Mg Tab.Chew) 81 mg PO DAILY [facility] On Hold: 12/03/24 08:01 Last Admin: 12/02/24 08:56 Dose: Not Given Documented By: KATYA Non-Admin Reason: procedure Atorvastatin Calcium (Atorvastatin Calcium 20 Mg Tablet) 20 mg PO DAILY [facility] Last Admin: 12/03/24 10:07 Dose: 20 mg Documented By: NIESHA Calcium Carbonate (Calcium Carbonate 750 Mg Tab.Chew) 750 mg PO Q4H PRN PRN Reason: Heartburn Ceftriaxone Sodium (Ceftriaxone Sodium 1 Gm Vial) 1 gm IVPUSH Q24H [facility] Last Admin: 12/02/24 23:28 Dose: 1 gm Documented By: RACHEL Cyanocobalamin (Cyanocobalamin (Vitamin B-12) 500 Mcg Tablet) 500 mcg PO DAILY [facility] Last Admin: 12/03/24 10:07 Dose: 500 mcg Documented By: NIESHA Dextrose (Dextrose 50 % 25 Gm/50 Ml Syringe) 25 gm IVPUSH Q15M PRN; Protocol PRN Reason: per Hypoglycemia Standing Ord. Gabapentin (Gabapentin 600 Mg Tablet) 600 mg PO BID [facility] Last Admin: 12/03/24 10:07 Dose: 600 mg Documented By: NIESHA Glucose (Glucose Gel 15 Gm Gel..Gram.) 15 gm PO Q15M PRN; Protocol PRN Reason: per Hypoglycemia Standing Ord. Hydrocortisone (Hydrocortisone 1 % Cream 28.35 Gm Tube) 1 appl TOPICAL BID [facility] Last Admin: 12/03/24 13:29 Dose: 1 appl Documented By: NIESHA Hydromorphone HCl (Hydromorphone Hcl 1 Mg/Ml Syringe) 1 mg IVPUSH Q3H PRN; Protocol PRN Reason: Pain, Severe (Pain Scale 7-10) Last Admin: 12/02/24 20:52 Dose: 1 mg Documented By: RACHEL Lactated Ringer's (Lr) 1,000 mls @ 100 mls/hr IVCONT .Q10H [facility] Last Admin: 12/03/24 05:54 Dose: 100 mls/hr Documented By: RACHEL Insulin Human Lispro (Insulin Lispro 100 Unit/Ml 3 Ml Vial) 0 unit SUBCUT QIDACHS [facility]; Protocol Last Admin: 12/03/24 13:16 Dose: 2 unit Documented By: NIESHA Ketorolac Tromethamine (Ketorolac Tromethamine 15 Mg/Ml Vial) 15 mg IVPUSH Q8H [facility] Last Admin: 12/03/24 13:19 Dose: 15 mg Documented By: NIESHA Ketorolac Tromethamine (Ketorolac Tromethamine 15 Mg/Ml Vial) 15 mg IVPUSH Q6H PRN PRN Reason: Pain, Moderate(Pain Scale 4-6) Latanoprost (Latanoprost 0.005 % Ophth Yanni 2.5 Ml Drops) 1 drop EYE-BOTH BEDTIME [facility] Last Admin: 12/02/24 20:46 Dose: Not Given Documented By: RACHEL Non-Admin Reason: Patient Refused Lidocaine (Lidocaine 4 % Patch Adh..Patch) 1 patch TRANSDERMA DAILY [facility] Last Admin: 12/03/24 08:58 Dose: 1 patch Documented By: NIESHA Losartan Potassium (Losartan Potassium 50 Mg Tablet) 100 mg PO DAILY [facility]; Protocol Last Admin: 12/03/24 10:06 Dose: 100 mg Documented By: NIESHA Magnesium Hydroxide (Milk Of Magnesia 30 Ml Oral.Susp) 30 ml PO DAILY PRN PRN Reason: Constipation Melatonin (Melatonin 3 Mg Tablet) 6 mg PO BEDTIME PRN PRN Reason: Insomnia Naloxone HCl (Naloxone Hcl 0.4 Mg/Ml Vial) 0.04 mg IVPUSH Q5M PRN PRN Reason: Excessive sedation or RR < 8 Ondansetron HCl (Ondansetron Hcl 4 Mg/2 Ml Vial) 4 mg IVPUSH Q6H PRN PRN Reason: Nausea and Vomiting Oxycodone HCl (Oxycodone Hcl Immed Release 5 Mg Tablet) 5 mg PO Q4H PRN PRN Reason: Pain, Mild (Pain Scale 1-3) Last Admin: 12/03/24 10:08 Dose: 5 mg Documented By: NIESHA Sodium Chloride (0.9 % Sodium Chloride Flush 3 Ml Syringe) 3 ml IVFLUSH QSHIFT [facility] Last Admin: 12/03/24 08:58 Dose: Not Given Documented By: NIESHA Non-Admin Reason: IV Running Tamsulosin HCl (Tamsulosin Hcl 0.4 Mg Capsule) 0.4 mg PO BEDTIME [facility] Last Admin: 12/02/24 20:44 Dose: 0.4 mg Documented By: RACHEL Labs 11/30/24 03:42 12/03/24 09:01 Labs: Laboratory Results - last 24 hr 12/02/24 12/02/24 12/03/24 18:17 20:24 07:42 Anion Gap Estim Creat Clear Calc Estimated GFR POC Glucose 104 266 H 127 H Random Glucose Calcium 12/03/24 12/03/24 09:01 11:16 Anion Gap 9 L Estim Creat Clear Calc 85.3 Estimated GFR > 60 POC Glucose 178 H Random Glucose 155 H Calcium 8.5 Assessment and Plan (1) Hydronephrosis of left kidney: Status: Acute Plan 59 y/o man with a PMHx significant for nephrolithiasis s/p recent ESWL (11/27/2024) by Dr. Portillo presents with: Intractable left flank pain secondary to large renal calculi 12 mm associated with proximal hydroureter, periureteral fat stranding, hematuria and urinary tract infection. plan: Patient says that he has significant pain with the urination blood /urine culture negative. intractable pain ,drowy and dizziness -somewhat improving plan: s/p urology: s/p cystoscopy, left retrograde, left flexible ureteroscopy with laser lithotripsy and stone basketing/left stent placement. Feels very weak and drowsy-continue monitoring, neuro checks, aspiration precautions Pain control with Dilaudid IV as needed. Continue IV fluids, empiric IV antibiotic therapy with ceftriaxone 1 g IV,tamsulosin. Type 2 diabetes mellitus. Hold metformin and Jardiance due to NPO status. BG checks every 6 hours. Insulin sliding scale. Essential hypertension. Continue amlodipine, hold losartan (since going to be npo). Hyperlipidemia. Continue statin. Code status: Full. DVT prophylaxis: SCDs (possible procedure). ongoing need hospitalization for intractable left flank pain with dworsyness/dizziness due to renal calculi associated with UTI management with empiric IV antibiotic therapy and s/p urological procedure-very weak and drowsy-continue to monitor Quality Stroke Does the patient have a stroke diagnosis?: No VTE Prior VTE?: No VTE Risk Level:: Medical - moderate - high VTE Device Contraindication: N/A - Device Ordered VTE Drug Contraindication: Treatment Not Indicated
[2024-12-03 16:02] LABS: Glucose, Whole Blood 198 mg/dL (60-115)
[2024-12-03] MEDS: 0.9 % Sodium Chloride Flush 3 ML SYRINGE IVFLUSH (17:55)
[2024-12-03] MEDS: Milk of Magnesia 30 ML ORAL.SUSP PO (20:37)
[2024-12-03 20:57] LABS: Glucose, Whole Blood 174 mg/dL (60-115)
[2024-12-04] MEDS: Lactated Ringers 1,000 ML 100 ML IVCONT (02:13)
[2024-12-04 03:43] VITALS: BP 141/76; PULSE 64; RESP 18; TEMP 36.2; O2SAT 98
[2024-12-04 07:46] LABS: Glucose, Whole Blood 124 mg/dL (60-115)
[2024-12-04 08:00] VITALS: BP 124/73; PULSE 64; RESP 16; TEMP 36.6; O2SAT 97
--- NOTE | 2024-12-04 09:01 | P.DS_ITS ---
DS: Providers Provider Date of Service: 12/04/24 Date of admission: 11/30/24 01:33 Date of discharge: 12/04/24 Primary care physician: Vi Cardozo MD Consults: 11/30/24 01:36 Consult to Urology Routine Consulting Provider: [facility] Reason for consultation: L flank pain/intractable,12mm stone L hydroureter Has provider been notified: No Attending physician on discharge: Tammy Gutierrez Discharging clinician: Tammy Gutierrez DS: Diagnosis Discharge Diagnosis (1) Hydronephrosis of left kidney: Status: Acute DS: Summary Hospital Course Hospital Course: HPI: Reji Marlow is a very pleasant 59 years old man with a past medical history significant for nephrolithiasis s/p recent ESWL (11/27/2024) by Dr. Portillo, type 2 diabetes mellitus on metformin only, essential hypertension and hyperlipidemia presents to the emergency department complaining of left flank pain that has been getting worse since associated blood in urine and passing gravel- like fragments. He did not report nausea, vomiting, fever or chills. In the ED, he was found to have normal vital signs. CBC showed hemoglobin of 12.5, MCV 77.3, WBC 9.2 and platelets 240. There is not lactic acidosis. There are no electrolyte imbalances. BUN is 14 and creatinine 1.05. Urinalysis consistent with hematuria and UTI with positive nitrites. Abdominal pelvis CT scan without IV contrast showed left distal ureteral 12 mm stone with proximal hydroureter and periureteral fat stranding, small proximal left ureteral lithiasis as above, nonobstructive left renal lithiasis in the lower and interpolar kidney. ED tx: Dilaudid 1 g, Toradol 15 mg IV, Zofran mg IV, ceftriaxone 2 g IV, NS 1.5 L bolus, tamsulosin 0.4 mg p.o. Hospital course: Intractable left flank pain secondary to large renal calculi 12 mm (CT abd)associated with proximal hydroureter, periureteral fat stranding, hematuria and possible question of urinary tract infection: Patient was given IV hydration, IV pain medications, initially also started on antibiotics and cultures sent as well as seen by urology(ct abd reviewed) - Patient also got cystoscopy, left flexible ureteroscopy with laser lithotripsy, stone basketing/left stent placement. Patient seems to be improved significantly going home with p.o. pain medications. Discussed with the Urology urine and blood culture negative so will defer antibiotics for now. constipation: no abd pain ,passes gases ok,tolerating diet , will give luxatives upon discharge. above amangement d/w patient in detail length,he understands and in agreement with above plan, time spent 45 min.allquestions answered. Time Attestation Total time managing care of this patient today: 45 mintues. Discharge Coordination Time (in mins): 45 min Quality: Safe Use of Opioids Does Pt have an Active Cancer Diagnosis on the Problem List?: No Quality: Stroke Does the patient have a stroke diagnosis?: No Physical Exam Exam: Exam: Appearance: weak/dizziness .? cvs: rrr, [id number] . res: clear to auscultation ,no rhonchii or wheezing abd: no rebound or guarding ,flank pain/diffcult to move around, bs present. ext pulses present , no cyanosis . neuro: drawosy, nonfocal. Vital Signs: Vital Signs: Last Vital Signs Temp 97.9 F 12/04/24 08:00 Pulse 64 12/04/24 08:00 Resp 16 12/04/24 08:00 BP 124/73 12/04/24 08:00 Pulse Ox 97 12/04/24 08:00 O2 Del Method Room Air 12/04/24 08:00 O2 Flow Rate 4 12/02/24 17:37 BMI result Body Mass Index 25.8 DS: Data Data Completed and Pending Pending studies at discharge: Pending at discharge 12/02/24 17:14 Surgical [PTH] Routine Labs on day of discharge: Laboratory Results - last 24 hr 12/03/24 12/03/24 12/03/24 09:01 11:16 15:51 Sodium 140 Potassium 4.0 Chloride 110 H Carbon Dioxide 25 Anion Gap 9 L BUN 13 Creatinine 0.98 Estim Creat Clear Calc 85.3 Estimated GFR > 60 POC Glucose 178 H 198 H Random Glucose 155 H Calcium 8.5 12/03/24 12/04/24 20:47 07:37 Sodium Potassium Chloride Carbon Dioxide Anion Gap BUN Creatinine Estim Creat Clear Calc Estimated GFR POC Glucose 174 H 124 H Random Glucose Calcium Preliminary micro results at discharge 11/30/24 00:21 Blood Culture - Preliminary Blood - Venous No growth after 48 hours. 11/30/24 00:21 Blood Culture - Preliminary Blood - Venous No growth after 48 hours. Imaging Chest x-ray: Radiologist's impression: ITS Impressions Guidance Fluoroscopy 12/02/24 16:59 IMPRESSION: Fluoroscopic guidance. ct abd: Left distal ureteral 12 mm stone with proximal hydroureter and periureteral fat stranding. Smaller proximal left ureteral lithiasis as above. Nonobstructing left renal lithiasis in the lower and interpolar kidney. Anti dependent bladder wall thickening and focal hyperdensity is incompletely evaluated due to nondistention of the bladder. If clinically indicated, further evaluation may be obtained with outpatient CT IVP or cystoscopy. Discharge Plan Discharge Anticipated Discharge Date/Time: 12/04/24 08:38 Patient Disposition: Home, Self-Care Discharge Diagnosis: Nephrolithiasis Referrals: Joseph Portillo MD [Physician, Urology] - 1 Week Vi Kyes MD [Primary Care Provider, Internal Medicine] - 1 Week Discharge Medications: New docusate sodium [Colace] 100 mg capsule 100 mg PO DAILY PRN (Reason: constipation) Qty: 30 0RF bisacodyl [Dulcolax (bisacodyl)] 10 mg suppository 10 mg ME DAILY PRN (Reason: constipation) Qty: 12 0RF Continued aspirin 81 mg tablet,chewable 1 tab PO DAILY Jardiance 10 mg tablet 10 mg PO DAILY tamsulosin 0.4 mg capsule 0.4 mg PO BEDTIME 14 Days Qty: 14 0RF phenazopyridine [Pyridium] 100 mg tablet 100 mg PO TID PRN (Reason: Spasm) 4 Days Qty: 12 0RF oxycodone 5 mg tablet 5 mg PO Q8H PRN (Reason: pain) 3 Days Qty: 8 0RF Rx Instructions: Partial Fill upon patient request. latanoprost 0.005 % drops 1 drp ophthalmic (eye) BEDTIME atorvastatin 20 mg tablet 20 mg PO DAILY cyanocobalamin (vitamin B-12) 500 mcg tablet 500 mcg PO DAILY lidocaine 5 % adhesive patch,medicated 1 patch topical DAILY hydrocortisone 2.5 % cream 1 appl topical BID losartan 100 mg tablet 100 mg PO DAILY naproxen 500 mg tablet 500 mg PO BID PRN (Reason: pain) 7 Days Qty: 14 0RF metformin 1,000 mg tablet 1,000 mg PO BID Patient Comments: Patient only took morning dose. gabapentin 600 mg tablet 600 mg PO BID Patient Comments: Only took yesterday's morning dose. albuterol sulfate [Ventolin HFA] 90 mcg/actuation HFA aerosol inhaler 2 puff inhalation Q4H amlodipine 5 mg tablet 5 mg PO DAILY Discharge Orders: Discharge Order (Routine); Ordered 12/04/24 Ordered By: Tammy Gutierrez Diet: Advance to usual diet Activity on Discharge: As tolerated Stand Alone Forms: Patient Portal Discharge page Print Language: Tuvaluan Care Plan Goals: as below. Health Concerns: P.o. pain medications, encouraged for hydration, follow-up with Urology outpatient. Plan of Treatment: As above. Assessment: As above. Discharge Date/Time: 12/04/24 12:38
[2024-12-04] MEDS: Lidocaine 4 % Patch ADH..PATCH 1 PATCH TRANSDERMA (09:15)
[2024-12-04] MEDS: Hydrocortisone 1 % Cream 28.35 GM TUBE 1 APPL TOPICAL (09:16)
[2024-12-04] MEDS: 0.9 % Sodium Chloride Flush 3 ML SYRINGE IVFLUSH (09:16)
--- NOTE | 2024-12-04 11:13 | MHC.CM.PN ---
Patient medically cleared for dc home self care via private transport.
[2024-12-04 11:16] VITALS: BP 129/76; PULSE 77; RESP 16; TEMP 36.1; O2SAT 99
== END 2024-12-04 12:38 | disposition home or self-care (01) | DRG 446 ==
LOC: HO.ED 11-30 00:23 → HO.EDOVER 11-30 02:14 → HO.S3 11-30 07:59
PROVIDERS: Physician Assistant; Physician Assistant Medical; Urology; Admitting Provider Internal Medicine; Emergency Provider Emergency Medicine; PCP Student in an Organized Health Care Education/Training Program; Visit Provider Internal Medicine
PROC: 0TC78ZZ Extirpation of Matter from Left Ureter, Via Natural or Artificial Opening Endoscopic (ICD-10-PCS; principal; 2024-12-02 15:50)
DX: N13.6 Pyonephrosis (principal); E11.9 Type 2 diabetes mellitus without complications; R31.9 Hematuria, unspecified; I10 Essential (primary) hypertension; E78.5 Hyperlipidemia, unspecified; Z87.442 Personal history of urinary calculi; Z79.82 Long term (current) use of aspirin; Z79.84 Long term (current) use of oral hypoglycemic drugs; Z79.899 Other long term (current) drug therapy
CPT/HCPCS: 36415; 74176; 80048; 81001; 82365; 82947; 83036; 83605; 83735; 85025; 87040; 87086; 88300; 99285; C1758; C1769; C2617; J0696; J1171; J1885; J2003; J2371; J2405; J2704; J3010; J7120; Q9967

== ENCOUNTER → 2024-11-29 21:43 | Outpatient (BNV) | payer MEDICAID, SELFPAY | PROVIDERS: Emergency Provider Emergency Medicine; PCP Student in an Organized Health Care Education/Training Program; Visit Provider Radiology Diagnostic Radiology | DX: N13.4 Hydroureter (principal); N20.1 Calculus of ureter; N32.89 Other specified disorders of bladder | CPT/HCPCS: 74176 ==

== ENCOUNTER → 2024-11-30 01:33 | Outpatient (BNV) | payer MEDICAID, SELFPAY | PROVIDERS: Admitting Provider Internal Medicine; Emergency Provider Emergency Medicine; PCP Student in an Organized Health Care Education/Training Program; Visit Provider Urology | DX: N20.1 Calculus of ureter (principal); N13.30 Unspecified hydronephrosis | CPT/HCPCS: 99024 ==

== ENCOUNTER → 2024-11-30 01:33 | Outpatient (BNV) | payer MEDICAID, SELFPAY | PROVIDERS: Admitting Provider Internal Medicine; Emergency Provider Emergency Medicine; PCP Student in an Organized Health Care Education/Training Program; Visit Provider Internal Medicine | DX: N13.30 Unspecified hydronephrosis (principal) | CPT/HCPCS: 99223; 99232; 99239; 99499 ==

== ENCOUNTER 2024-12-10 11:17 | Outpatient (AMB) | payer MEDICAID, SELFPAY ==
--- NOTE | 2024-12-10 11:31 | MHC.OFFVIS ---
Intake Visit Reasons: cysto/stent removal Intake Note: Patient is present for cystoscopy Urology Rx: Tamsulosin Blood Thinners:aspirin Imaging completed: none Cardiology Nurse Practitioner Required: No Accompanied by: Self / Same As Patient Allergies No Known Allergies (No Known Allergies*) Allergy (Verified 12/10/24 11:32) HPI Comments Details: 10/09/24 History of Present Illness - The patient is a 58-year-old male presenting with nephrolithiasis. - Recent renal ultrasound revealed a 3 mm stone in the right kidney and two stones in the left kidney, the largest measuring 7 to 8 mm. - Underwent laser lithotripsy approximately a year ago, partially successful, performed twice. - Reports intermittent pain, particularly after walking long distances, with recent episodes of pain on the left side. - Increased water intake as a preventative measure. - Urinary hesitancy noted, with initial slow stream improving after 20-30 seconds. Results - Renal ultrasound-02/15/24: 3 mm stone in the right kidney lower pole, 7 mm and 4 mm stones in the left kidney. - KUB: Visible stone in the left kidney, largest measuring 7 to 8 mm. Plan - Repeat renal ultrasound to evaluate for changes in stone size or position. - Consider left shockwave lithotripsy performed as an outpatient procedure with anesthesia. - Order blood work including PSA to assess prostate health due to urinary hesitancy. [facility] Medical History Asthma Transaminitis Mixed anxiety depressive disorder GERD (gastroesophageal reflux disease) Renal calculi HLD (hyperlipidemia) Left flank pain Right foot pain Left shoulder pain HTN (hypertension) Atypical chest pain Diabetes Surgical History History of extracorporeal shockwave lithotripsy (ESWL) Hx of colonoscopy Social History Household Members: None Housing: Apartment Do you presently have visiting nurse or other home services: No Patient Tobacco Use Status: Never used Tobacco service: No Current occupational status: employed Current occupation: [employer] Office Procedures Cystoscopy Consent Discussed risk and benefit or proposed procedure with the patient. Information consent for procedure given to the patient. Discussed technical aspects, risks, benefits and alternatives in full. Addressed all of the patient's questions and concerns regarding the procedure. The patient demonstrated knowledge and understanding. They wish to proceed with this procedure. Preparation The patient was prepped in the usual manner. A dredge lever operator was present and in the room. Genitalia was prepped with betadine solution in a sterile manner. Lidocaine Jelly 2% was placed into the urethra and 16Fr flexible Olympus cystoscope was inserted into the meatus after adequate lubrication. [id number] with stent removal DISPOSABLE SCOPE URO-G FLEXIBLE SCOPE Procedure code (CPT) selection complete Office Meds lidocaine HCl 2 % mucosal jelly in applicator Performing Provider: Joseph Portillo MD Performing Location[place] [facility] Administered by: Mehul Jiménez LPN on 12/10/24 12:03 Dose Route Admin Location Dispensed Lot Number Expiration Date NDC Finance Professor 10 mL intra-urethral 10 mL nitrofurantoin monohydrate/macrocrystals 100 mg capsule Performing Provider: Joseph Portillo MD Performing Location: [facility] Administered by: Mehul Jiménez LPN on 12/10/24 12:03 Dose Route Admin Location Dispensed Lot Number Expiration Date NDC Finance Professor 100 mg PO 1 cap Assessment & Plan Assessment & Plan Orders: Orders AMB Cystoscopy 12/10/24 N20.0 - Calculus of kidney, N30.01 - Acute cystitis with hematuria US renal BI 3 Months N20.1 - Calculus of ureter AMB Urinalysis Automated Today N13.30 - Unspecified hydronephrosis, N20.0 - Calculus of kidney, N30.01 - Acute cystitis with hematuria Coding CPT Codes Cystoscopy - CPT: [id number] with stent removal ([id number])
--- OUTSIDE RECORDS SUMMARY | 2024-12-10 12:42 | XMS_ITS | Encounter Summary ---
Author Organization [employer] Address [address] [place] [address] [address] [place] [address] Care Team Providers Care Farm Agent Name Role Phone Vi Keys MD Primary Care Pro vider Reason for Visit * Reason Comments Med Refill Encounter Details Date Type Department Care Team (Late st Contact Info) Description 06/27/2024 Refill [facility] [address] [employer], [place] [phone] Vi Keys MD [address] [place] [address] Essential hypertension Social History Tobacco Use Types [...] Care Team (Late st Contact Info) Description 12/13/2024 11:00 AM EDT Telemedicine [facility] [address] [place] [phone] 12/27/2024 10:30 AM EDT Telemedicine [facility] [address] [place] [phone] Lina Hayden, PharmD [address] [place] [address] 01/28/2025 1:30 PM EST Immunization [facility] [address] [place] [phone] 02/24/2025 9:00 AM EST Office Visit [facility] [address] [place] [address] Garry, Fannie, OD [address] [place] [address] documented as of this encounter Visit Diagnoses Diagnosis Essential hypertension Unspecified essential hypertension documented in this encounter Additional Health Concerns Assessment Noted Time PHQ-9 Depression Total Score: 0 08/20/19 3:43 PM EDT documented as of this encounter Care Teams Farm Agent Relationship Specialty Start Date End Date Vi Keys MD [address] [place] [address] PCP - General Internal Medicine 12/20/22 documented as of this encounter
--- OUTSIDE RECORDS SUMMARY | 2024-12-10 12:42 | XMS_ITS | Clinical Summary ---
Author Organization [facility] Address [address] [place] [address] Care Team Providers Care Construction Specialist Name Role Phone Unavailable Primary Care Provider [...] Drug Screen 03/13/2024 Depression Annual Screen 03/13/2024 [id number] (3 - 2024- season) 2024 07/14/2020, 06/15/2020 Imm-Influenza (#1) 2024 03/27/2019, 0 05/30/2018, 02/15/2016, Additional history exists Imm-DTaP/Tdap/Td (2 - Td or Tdap) 05/30/2028 05/30/2018 Imm-Hepatitis B Aged Out No longer el igible based on patient's age to complete this topic Insurance C3 [facility]
--- OUTSIDE RECORDS SUMMARY | 2024-12-10 12:42 | XMS_ITS | Clinical Summary ---
Author Organization [facility] Address [address] [place] [address] Phone Care Team Providers Care Resources Representative Name Role Phone Physician, Pcp Unknown Primary [...] Upcoming Encounters Date Type Department Care Team ([facility] Contact Info) Description 01/16/2025 8:15 AM EST Office Visit Orthopedic Surgery [facility] [address] [phone] Nish Tavera DPM [address] [phone] Health Maintenance Due Date Last [...] age to complete this topic Insurance , [place] [address] MEDICAID [place] Care Teams Resources Representative Relationship Specialty Start Date End Date Physician, Pcp Unknown PCP - General 04/18/24
--- OUTSIDE RECORDS SUMMARY | 2024-12-10 12:42 | XMS_ITS | Encounter Summary ---
Author Organization [employer] Address [address] [facility] [address]t [place] [address] Care Team Providers Care Machine Setter Name Role Phone Carmelita Escalona GAS PLANT OPERATOR Primary Care Provider Vi Guardado MD Primary Care Pro vider Reason for Visit * Reason Onset Date Comments ER Follow-up 12/09/2022 Encounter Details Date Type Department Care Team ([facility] st Contact Info) Description 12/09/2022 Telephone [facility] [address] [place] [phone] Carmelita Escalona FNP ER Follow-up Social History [...] For below message, pt. Was admitted at [facility] for loss of vision and suspected seizure from12/07 to 12/09. P. Schedule for HDF on 12/22/2022. Pt. Verbally agreed and understood. HDF cristopher and ED cristopher scanned into pt.'s chart. * Telephone Encounter - Nisa Ramos - 12/09/2022 10:50 AM EDT Patient calling to report ED visit on 12/09/2022 at [facility]. Diagnosed with nothing. Patient advised will forward to nurse for follow up. No symptoms Please contact pt at [phone] documented in this encounter Plan of Treatment Upcoming Encounters Date Type Department Care Team ([facility] st Contact Info) Description 12/13/2024 11:00 AM EDT Telemedicine [address] [address] 12/27/2024 10:30 AM EDT Telemedicine [address] [address] Lina Hayden, PharmD [address] [place] [address] 01/28/2025 1:30 PM EST Immunization [facility] [address] [place] [address] 02/24/2025 9:00 AM EST Office Visit [facility] OPTOMETRY [address] [place] [address] Fannie Castañeda, OD [address] [place] [address] documented as of this encounter Visit Diagnoses Not on filedocumented in this encounter Additional Health Concerns Assessment Noted Time PHQ-9 Depression Total Score: 0 08/20/19 23 3:43 PM EDT documented as of this encounter Care Teams Machine Setter Relationship Specialty Start Date End Date Carmelita Escalona FNP PCP - General Family Medicine 11/02/21 12/19/22 Vi Keys MD [address] [place] [phone] PCP - General Internal Medicine 12/20/22 documented as of this encounter
--- OUTSIDE RECORDS SUMMARY | 2024-12-10 12:42 | XMS_ITS | Encounter Summary ---
Author Organization [employer] Address [address] [place] [address] [address] [place] [address] Care Team Providers Care Wheelchair Rental Clerk Name Role Phone Vi Keys MD Primary Care Pro vider Reason for Visit * Reason Comments Med Change Request Encounter Details Date Type Department Care Team ([facility] st Contact Info) Description 09/03/2024 Refill [facility] [address] [place], [place] [phone] Vi Keys MD [address] [place] [address] Type 2 diabetes mellitus with diabetic nephropathy, without long-term current use of insulin ([facility]) Social History Tobacco Use Types Packs/Day Years [...] Info) Description 12/13/2024 11:00 AM EDT Telemedicine [facility] [address] [place] [phone] 12/27/2024 10:30 AM EDT Telemedicine [facility] [address] [place] [phone] Lina Hayden, PharmD [address] [place] [address] 01/28/2025 1:30 PM EST Immunization [facility] [address] [place] [address] 02/24/2025 9:00 AM EST Office Visit [facility] OPTOMETRY [address] [place] [address] Fannie Castañeda, OD [address] [place] [address] documented as of this encounter Visit Diagnoses Diagnosis Type 2 diabetes mellitus with diabetic nephropathy, without long-term current use of insulin (HCC) documented in this encounter Additional Health Concerns Assessment Noted Time PHQ-9 Depression Total Score: 0 08/20/19 23 3:43 PM EDT documented as of this encounter Care Teams Wheelchair Rental Clerk Relationship Specialty Start Date End Date Vi Keys MD [address] [place] [phone] PCP - General Internal Medicine 12/20/22 documented as of this encounter
--- OUTSIDE RECORDS SUMMARY | 2024-12-10 12:42 | XMS_ITS | Clinical Summary ---
Author Organization [employer] Address [address] [facility] [address] [place] [address] Care Team Providers Care Material Lister Name Role Phone Vi Keys MD Primary Care Pro vider Allergies Active Allergy Reactions Criticality Noted Date Comments Lisinopril Cough 02/23/2021 Pork Allergy 12/22/2022 anglican reasons anglican reasons Medications Alcohol Swabs (Alcohol Prep) pads [...] without long-term current use of insulin (HCC) USE TO CHECK BLOOD SUGAR DAILY 1 kit 025 Active lidocaine (Lidoderm) 5 % patch Apply [...] drop into both eyes 2 times daily. 06/23/2 025 Active gabapentin (Neurontin) 600 MG tabletIndications :Type 2 diabetes mellitus with diabetic nephropathy, without long-term current use of insulin ([facility]) Take 1 tablet (600 mg) by mouth [...] nephropathy, without long-term current use of insulin ([facility]),Mixed hyperlipidemia Take 1 tablet (20 mg) by [...] tablet by mouth Once per day. Active FREESTYLE LITE test stripIndications: Type 2 diabetes mellitus with diabetic nephropathy, without long-term current use of insulin ([facility]) USE 1 STRIP FOR TESTING TWICE A DAY 300 strip 3 Active ammonium lactate (Lac-Hydrin) 12 % lotion Apply topically if needed. 2024 Discontinued(R eorder (will not trigger notification to Pharmacy)) FREESTYLE LITE test stripIndications: Type 2 diabetes mellitus with diabetic nephropathy, without long-term current use of insulin (HCC) 1 each by Other route 2 times daily. 180 each 025 2024 Discontinued metFORMIN (Glucophage) 1000 MG tablet Take 1 [...] Once per day. 90 tablet 025 2024 Discontinued(D ose adjustment) cyanocobalamin (Vitamin B-12) 500 MCG tablet Take 1 tablet (500 mcg) by mouth Once per day. 90 tablet 025 2024 Discontinued(R eorder (will not trigger notification to Pharmacy)) aspirin (Aspirin Low Dose) 81 MG chewable tablet Chew 1 tablet (81 mg) Once per day. 90 tablet 2024 Discontinued(R eorder (will not trigger notification to Pharmacy)) atorvastatin (Lipitor) 20 MG tabletIndications :Type 2 diabetes mellitus with diabetic nephropathy, without long-term current use of insulin (HCC),Mixed hyperlipidemia Take 1 tablet (20 mg) by [...] Encounters Date Type Department Care Team Description 11/30/2024 Refill [facility] [address] [place] [address] Corina Vera MD Type 2 diabetes mellitus with diabetic nephropathy, without long-term current use of insulin ([facility]) 11/30/2024 Orders Only GENERIC EXTERNAL DATA DEPARTMENT Provider, Generic External Data 11/29/2024 Orders Only GENERIC EXTERNAL DATA DEPARTMENT Provider, Generic External Data 11/29/2024 Telephone [facility] [address] [place] [address] Lina Hayden, PharmD Appointment Request 11/27/2024 Orders Only [address] [address] Vi Keys MD Hypertension, unspecified type (Primary Dx) 11/27/2024 Orders Only [facility] External Provider, [facility] 11/25/2024 Refill [facility] [address] [place], [place] [phone] Vi Keys MD Type 2 diabetes mellitus with diabetic nephropathy, without long-term current use of insulin ([facility]/HCC); Mixed hyperlipidemia 11/22/2024 Orders Only [address] [address] Vi Keys MD 11/22/2024 Results Follow-Up [address] [address] Vi Keys MD Chlamydia/Trichomonas/ Neisseria gonorrhoeae, PCR, Urine, Albumin, Random Urine W/Creatinine, CBC, Additional followed-up results: 14 11/22/2024 Orders Only [address] [address] Vi Keys MD Type 2 diabetes mellitus with diabetic nephropathy, without long-term current use of insulin (CMS/HCC) (Primary Dx) 11/22/2024 Orders Only GENERIC EXTERNAL DATA DEPARTMENT Provider, Generic External Data 11/22/2024 Travel 11/20/2024 9:00 AM EDT Office Visit [address] [address] Vi Keys MD Skin cyst (Primary Dx); Type 2 diabetes mellitus with diabetic nephropathy, without long-term current use of insulin (CMS/HCC); Polyp of colon, unspecified part of colon, unspecified type; Essential hypertension; Hyperlipidemia, unspecified hyperlipidemia type; Health care maintenance; Mixed anxiety depressive disorder; Primary insomnia; Epidermal cyst 11/20/2024 Travel 11/19/[address] [address] Vi Keys MD chart prep 11/08/2024 Orders Only [facility] [address] [place] [address] Vi Keys MD Type 2 diabetes mellitus with diabetic nephropathy, without long-term current use of insulin ([facility]) 11/07/2024 Refill [facility] [address] [place] [address] Vi Keys MD Type 2 diabetes mellitus with diabetic nephropathy, without long-term current use of insulin ([facility]) 10/24/2024 Results Follow-Up [facility] [address] [place] [address] Vi Keys MD US Renal Complete 10/24/2024 Orders Only [facility] External Provider, [facility] 10/08/2024 3:30 PM EDT Office Visit [facility] [address] [place] [address] Garry, Fannie, OD Double vision (Primary Dx) 10/08/2024 Travel 09/25/2024 9:45 AM EDT Office Visit [facility] [address] [place] [address] Vi Keys MD Health care maintenance (Primary Dx); Type 2 diabetes mellitus with diabetic nephropathy, without long-term current use of insulin ([facility]); Mild intermittent asthma without complication; Mixed hyperlipidemia; Neck pain; Essential hypertension; Encounter for immunization; Chronic left shoulder pain; Kidney stone; Transaminitis; Glaucoma, unspecified glaucoma type, unspecified laterality 09/25/2024 Travel 09/24/2024 Telephone [facility] [address] [place] [address] Vi Keys MD CHART PREP 09/19/2024 Refill [facility] [address] [place] [phone] Vi Keys MD 09/18/2024 Patient Outreach [facility] [address] [place] [address] Vi Keys MD Pre-visit Planning ([facility] screening completed on 07/24/24 ) from Last 3 Months Immunizations Immunization Administration [...] Info) Description 12/13/2024 11:00 AM EDT Telemedicine [facility] [address] [place] [phone] 12/27/2024 10:30 AM EDT Telemedicine [facility] [address] [place] [address] Lina Hayden, PharmD [address] [place] [address] 01/28/2025 1:30 PM EST Immunization [facility] [address] [place] [address] 02/24/2025 9:00 AM EST Office Visit [facility] [address] [place] [phone] Fannie Castañeda, OD [address] [facility] [place] [address] Health Maintenance Due Date Last Done Comments [...] Procedure Name Priority Date/Time Associated Diagnosis Comments FL GUIDANCE IN OR Routine 12/02/2024 4:5 9 PM EDT LACTIC ACID Routine 11/30/2024 12:[address] ABDOMEN PELVIS WO CONTRAST Routine 11/29/2024 11:56 PM EDT GLUCOSE, WHOLE BLOOD Routine 11/29/2024 9:49 PM EDT URINALYSIS, COMPLETE, WITH REFLEX TO CULTURE Routine 11/29/2024 8:47 PM EDT SLIDE REVIEW Routine 11/29/2024 5:37 PM EDT [...] nephropathy, without long-term current use of insulin ([facility]) POCT GLUCOSE Routine 11/20/2024 9:09 AM EDT Type 2 diabetes mellitus with diabetic nephropathy, without long-term current use of insulin ([facility]) US RENAL COMPLETE Routine 10/24/2024 12: 23 PM EDT ECG 12-LEAD Routine 09/25/2024 11:13 AM EDT Essential hypertension from Last 3 Months Results * FL Guidance in OR (12/02/2024 4:59 PM EDT) Anatomical Region Laterality Modality X-Ray Angiograph y 12/02/2024 4:59 PM EDT Narrative 12/03/2024 8:21 AM EDT [address] [address] Fluoroscopy Report Signed Patient: Jackie Marlow MR#: [id number] : 1965 Acct:[id number] Age/Sex: 59 / M ADM Date: 11/30/24 Loc: .S3 386-[address]: Tammy Gutierrez MD Ordering Physician: Joseph Portillo MD Date of Service: 12/02/24 Procedure(s): FL guidance in OR Accession Number(s): [id number] cc: Joseph Portillo MD; Vi Keys MD Reason for Exam: cystoscopy, ureteroscopy, retro, laser with stent EXAMINATION: XR FLUOROSCOPY WITH IMAGES CLINICAL INFORMATION: Left retrograde ureteroscopy with stent placement. COMPARISON: CT abdomen and pelvis 11/29/2024 TECHNIQUE: Fluoroscopy provided to: Dr. Portillo Fluoroscopy time: 45 seconds DAP: 179.96 uGycm2 Images: 2 FINDINGS: 2 fluoroscopic spot images obtained during left retrograde ureteroscopy and stent placement. Please refer to the full operative report for details. FL/FL guidance in OR IMPRESSION: Fluoroscopic guidance. Electronically signed by: Aakash Trevino MD 12/03/2024 08:18 AM EDT RP Dictated By: Aakash Trevino MD Signed By: <Electronically signed by Aakash Trevino MD in OV> 12/03/24 0818 DD/ 1659 TD/TT: 12/02/24 1800 Swing Ride Operator: Procedure Note Donotuseinterpreter, Image - 12/03/2024 [place] [address] Fluoroscopy Report Signed Patient: Seth Marlow#: [id number] : 1965Acct:[id number] Age/Sex: 59 / MADM Date: 11/30/24 Loc: HO.S3 386-[address]: Tammy Gutierrez MD Ordering Physician: Joseph Portillo MD Date of Service: 12/02/24 Procedure(s): FL guidance in OR Accession Number(s): [id number] cc: Joseph Portillo MD; Vi Keys MD Reason for Exam: cystoscopy, ureteroscopy, retro, laser with stent EXAMINATION: XR FLUOROSCOPY WITH IMAGES CLINICAL INFORMATION: Left retrograde ureteroscopy with stent placement. COMPARISON: CT abdomen and pelvis 11/29/2024 TECHNIQUE: Fluoroscopy provided to: Dr. Portillo Fluoroscopy time: 45 seconds DAP: 179.96 uGycm2 Images: 2 FINDINGS: 2 fluoroscopic spot images obtained during left retrograde ureteroscopy and stent placement. Please refer to the full operative report for details. FL/FL guidance in OR IMPRESSION: Fluoroscopic guidance. Electronically signed by: Aakash Trevino MD 12/03/2024 08:18 AM EDT RP Dictated By: Aakash Trevino MD Signed By: <Electronically signed by Aakash Trevino MD in OV> 12/03/[address] DD/ 1659 TD/TT: 12/02/24 1800 Swing Ride Operator: [facility] External Provider IMG IR PROCEDURES Final Result * Lactic Acid (11/30/2024 12:21 AM EDT) Lactic Acid 0.9 0.5 - 2.0 mmol/L [facility] 11/30/2024 12:2 1 AM EDT 11/30/2024 12:28 AM EDT Generic External Data Provider LAB BLOOD ORDERAB LES Final Result [facility] [address] [place] [address] [phone] * CT Abdomen Pelvis w/o Contrast (11/29/2024 11:56 PM EDT) Anatomical Region Laterality Modality Body, Pelvis, Abdomen Computed T omography 11/29/2024 11:5 6 PM EDT Narrative 11/29/2024 11:57 PM EDT [place] [address] CT Scan Report Signed Patient: Jackie Marlow MR#: [id number] : 1965 Acct:[id number] Age/Sex: 59 / M ADM Date: 11/29/24 Loc: HO.ED Attending Dr: Ordering Physician: Rosanne Dangelo Date of Service: 11/29/24 Procedure(s): CT abdomen pelvis wo IV con Accession Number(s): [id number] cc: Rosanne Dangelo; Vi Keys MD Report Number: [id number]: Total DLP = 698.00 mGy-cm Reason for Exam: left flank pain s/p ureteral stent CLINICAL HISTORY: left flank pain s p ureteral stent CT abdomen and pelvis without contrast Comparison: CR/SR - XR KUB - 11/27/24 07:04 EDT Findings: The lung bases are clear. Hepatic parenchyma is normal. Gallbladder is distended. Pancreas is normal. Stomach is decompressed. Adrenal glands are normal. Right kidney is normal. No hydronephrosis. No hydroureter. Left kidney demonstrates hydronephrosis with a dilated renal pelvis and hydroureter. There is a proximal left ureteral 2 mm stone and a distal obstructing 12 mm stone. Ureterovesicular junctions are normal. Bladder is partially distended. There is a small hyperdensity at the anterior bladder wall with associated wall thickening. Small bowel is normal. Large bowel is normal. Retrocecal appendix is normal. No diverticulitis. No pneumatosis or pneumoperitoneum. Pelvic contents unremarkable. No acute fracture. IMPRESSION: Left distal ureteral 12 mm stone with proximal hydroureter and periureteral fat stranding. Smaller proximal left ureteral lithiasis as above. Nonobstructing left renal lithiasis in the lower and interpolar kidney. Anti dependent bladder wall thickening and focal hyperdensity is incompletely evaluated due to nondistention of the bladder. If clinically indicated, further evaluation may be obtained with outpatient CT IVP or cystoscopy. This document has been electronically signed by: Adam Wise III, MD PHD on 11/29/2024 23:56:23 Dictated By: Adam Wise MD Signed By: <Electronically signed by Adam Wise MD in OV> 11/29/242356 DD/ 55 TD/TT: 11/29/242355 Swing Ride Operator: Procedure Note Donotuseinterpreter, Image - 11/29/[address] [address] [address] Scan Report Signed Patient: Seth Marlow#: [id number] : 1965Acct:[id number] Age/Sex: 59 / MADM Date: 11/29/24 Loc: HO.ED Attending Dr: Ordering Physician: Rosanne Dangelo Date of Service: 11/29/24 Procedure(s): CT abdomen pelvis wo IV con Accession Number(s): [id number] cc: Rosanne Dangelo; Vi Keys MD Report Number: [id number]: Total DLP = 698.00 mGy-cm Reason for Exam: left flank pain s/p ureteral stent CLINICAL HISTORY: left flank pain s p ureteral stent CT abdomen and pelvis without contrast Comparison: CR/SR - XR KUB - 11/27/24 07:04 EDT Findings: The lung bases are clear. Hepatic parenchyma is normal. Gallbladder is distended. Pancreas isnormal. Stomach is decompressed. Adrenal glands are normal. Right kidney is normal. No hydronephrosis. No hydroureter. Left kidney demonstrates hydronephrosis with a dilated renal pelvis and hydroureter. There is a proximal left ureteral 2 mm stone and a distal obstructing 12 mm stone. Ureterovesicular junctions are normal. Bladder is partially distended. There is a small hyperdensity at the anterior bladder wall with associated wall thickening. Small bowel is normal. Large bowel is normal. Retrocecal appendix is normal. No diverticulitis. No pneumatosis or pneumoperitoneum. Pelvic contents unremarkable. No acute fracture. IMPRESSION: Left distal ureteral 12 mm stone with proximal hydroureter and periureteral fat stranding. Smaller proximal left ureteral lithiasis as above. Nonobstructing left renal lithiasis in the lower and interpolar kidney. Anti dependent bladder wall thickening and focal hyperdensity is incompletely evaluated due to nondistention of the bladder. If clinically indicated, further evaluation may be obtained with outpatient CT IVP or cystoscopy. This document has been electronically signed by: Adam Wise III, MD PHD on 11/29/2024 23:56:23 Dictated By: Adam Wise MD Signed By: <Electronically signed by Adam Wise MD in OV> 11/29/24 5619 DD/ 55 TD/TT: 11/29/242355 Swing Ride Operator: us [facility] External Provider IMG CT PROCEDURES Edited Result - Final * Glucose, Whole Blood (11/29/2024 9:49 PM EDT) Only the most recent of2 resultswithin the time period is included. Glucose, Whole Blood 102 60 - 115 mg/dL [facility] Comment:METER #: [id number] 11/29/2024 9:49 PM EDT 11/29/2024 9:53 PM EDT Generic External Data Provider LAB BLOOD ORDERAB LES Final Result [facility] [address] [place] [phone] * (ABNORMAL) Urinalysis, Complete, with Reflex to Culture (11/29/2024 8:47 PM EDT) Color Urine Dark Yellow [facility] Appearance Urine Clear [facility] PH 6.0 5.0 - 9.0 [facility] Glucose Urine UA 500(A) Negative mg/dL [facility] Urine Blood Large (3+)(A) Negative [facility] Specific [place] - Urine 1.010 1.005 - 1.025 [facility] Urine Protein Trace Neg-Trace mg/dL [facility] Urine Ketones Negative Negative mg/dL [facility] Nitrite Urine Positive(A) Negative [facility] Leukocyte Esterase Urine Moderate (2+)(A) Negative [facility] RBC Urine >20(A) 0 - 2 /HPF [facility] Urine WBC 6-10 0 - 5 /HPF [facility] Urine Squamous Epithelial Cell 0-2 0 - 2 /HPF [facility] Urine Bacteria None Seen None Seen [facility] Hyaline Casts, Urine 0-2 0 - 2 /LPF [facility] 11/29/2024 8:47 PM EDT 11/29/2024 8:52 PM EDT Narrative [facility] - 11/29/2024 9:06 PM EDT Urine, Clean Catch us Generic External Data Provider LAB URINE ORDERAB LES Final Result Performing Organization Address [facility] Co de Phone Number [facility] [address] [place] [phone] * Slide Review (11/29/2024 5:37 PM EDT) Slide Review VERIFIED [facility] 11/29/2024 5:37 PM EDT 11/29/2024 5:39 PM EDT us Generic External Data Provider LAB BLOOD ORDERAB LES Final Result Performing Organization Address [facility] Phone Number [facility] [address] [place] [phone] * (ABNORMAL) CBC auto differential (11/29/2024 5:37 PM EDT) White Blood Count 9.2 4.8 - 10.8 X10*3/uL [facility] Red Blood Count 4.72 4.60 - 5.80 X10*6/uL [facility] Hemoglobin 12.5(L) 14.0 - 18.0 g/dl [facility] Hematocrit 36.5(L) 42.0 - 52.0 % [facility] Mean Corpuscular Volume 77.3(L) 80.0 - 98.0 fL [facility] Mean Corpuscular Hemoglobin 26.5(L) 27.0 - 33.0 pg [facility] Mean Corpuscular HGB Conc 34.2 31.0 - 36.0 g/dl [facility] Red Cell Distribution Width 14.0 11.0 - 16.0 % [facility] Platelet Count 240 160 - 400 X10*3/uL [facility] Mean Platelet Volume 9.9 9.4 - 12.4 fL [facility] Neutrophils Percent Auto 65.9 45 - 73 % [facility] Imm Gran Pct Auto 0.7(H) 0.0 - 0.4 % [facility] Lymphocytes Percent Auto 21.1 20 - 40 % [facility] Monocytes Percent Auto 6.3 2 - 11 % [facility] Eosinophils Percent Auto 5.5(H) 0 - 4 % [facility] Basophils Percent Auto 0.5 0 - 2 % [facility] NRBC Pct Auto 0.0 0.0 - 0.2 /100WBC [facility] Neutrophils Absolute Auto 6.0 2.0 - 8.3 x10*3/uL [facility] Imm Gran Abs Auto 0.06(H) 0.00 - 0.03 X10*3/uL [facility] Lymphocytes Absolute Auto 1.9 1.2 - 4.9 X10*3/uL [facility] Monocytes Absolute Auto 0.6 0.1 - 1.2 X10*3/uL [facility] Eosinophils Absolute Auto 0.5(H) 0.0 - 0.4 X10*3/uL [facility] Basophils Absolute Auto 0.1 0.0 - 0.2 X10*3/uL [facility] NRBC Abs Auto 0.000 0.0 - 0.012 X10*3/uL [facility] 11/29/2024 5:37 PM EDT 11/29/2024 5:39 PM EDT us Generic External Data Provider LAB BLOOD ORDERAB LES Edited Result - Final [facility] [address] [place] [phone] * (ABNORMAL) Basic Metabolic Panel (11/29/2024 5:37 PM EDT) Sodium 141 135 - 145 mmol/L [facility] Potassium 4.2 3.3 - 5.1 mmol/L [facility] Chloride 105 96 - 108 mmol/L [facility] Carbon Dioxide 27 22 - 29 mmol/L [facility] Anion Gap 13 12 - 20 [facility] Urea Nitrogen (BUN) 14 9 - 16 mg/dL [facility] Creatinine, Serum 1.05 0.5 - 1.4 mg/dL [facility] Creatinine Clr Calc Pharmacy 79.6 [facility] Comment:eGFR (calculated fro m the MDRD study equation) and eCrCl(calculated from the Cockcroft-Gault equation) are based ondifferent parameters and may not yield comparable results.If eCrCl result is absurd, please check patient'sheight/weight. Estimated Glomerular Filt Rate >60 [facility] Comment:Chronic Kidney Disea se: Estimated GFR < 60 mL/min/1.63x0Rfmnlr Kidney Disease: Estimated GFR < 15 mL/min/1.73m2 Glucose 136(H) 60 - 115 mg/dL [facility] Calcium 9.4 8.4 - 10.2 mg/dL [facility] 11/29/2024 5:37 PM EDT 11/29/2024 5:39 PM EDT us Generic External Data Provider LAB BLOOD ORDERAB LES Final Result [facility] [address] [place] [address] [phone] * XR KUB and Upright 2 Views (11/27/2024 7:04 AM EDT) Anatomical Region Laterality Modality Radiographic Isabel ging 11/27/2024 7:04 AM EDT Narrative 11/27/2024 7:21 AM EDT [address] [address] XRay Report Signed Patient: Jackie Marlow MR#: [id number] : 1965 Acct:[id number] Age/Sex: 59 / M ADM Date: 11/27/24 Loc: HO.[facility] Attending Dr: Joseph Portillo MD Ordering Physician: Joseph Portillo MD Date of Service: 11/27/24 Procedure(s): XR KUB Accession Number(s): [id number] cc: Joseph Portillo MD; Vi Keys MD [...] 11/27/24 0719 DD/ 0704 TD/TT: 11/27/24 0707 Swing Ride Operator: Procedure Note Donotuseinterpreter, Image - 11/27/2024 [place] [address] XRay Report Signed Patient: Seth Marlow#: [id number] : 1965Acct:[id number] Age/Sex: 59 / MADM Date: 11/27/24 Loc: HO.SSS Attending Dr: Joseph Portillo MD Ordering Physician: Joseph Portillo MD Date of Service: 11/27/24 Procedure(s): XR KUB Accession Number(s): [id number] cc: Joseph Portillo MD; Vi Keys MD [...] MD in OV> 11/27/24718 DD/ 3 TD/TT: 11/27/2407 Swing Ride Operator: [facility] External Provider IMG XR PROCEDURES Edited Result - Final * Syphilis Screen (11/22/2024 9:04 AM EDT) Syphilis Screen Nonreactive Nonreactive [facility] Blood 11/22/2024 9:04 AM EDT 11/22/2024 11:24 AM EDT Vi Cardozo MD LAB BLOOD ORDERAB LES Final Result [facility] [address] [place] [phone] * (ABNORMAL) Vitamin D, 25-Hydroxy, Total, Immunoassay (11/22/2024 9:04 AM EDT) Vitamin D 25-OH Total 24.2(L) >30 ng/mL [facility] Comment: Health Based Reference Values*< 20 ng/mL [id number] ng/mL Insufficient> 30 ng/mL Sufficient*Dwight ANDREW. N [...] ORDERAB LES Final Result Performing Organization Address City/State/[facility] Co de Phone Number [facility] [address] [place] [phone] * Vitamin B12 (Cobalamin) and Folate Panel, Serum (11/22/2024 9:04 AM EDT) Vitamin B12 492 200 - 900 pg/mL [facility] Comment:NORMAL 200-900 PG/ML INDETERMINATE 160-199 PG/ML DEFICIENT < 160 PG/ML Folate 5.6 > or = 4.0 ng/mL [facility] Comment:Reference Values:> o r = 4.0 ng/mL< 4.0 ng/mL suggests folate deficiency Methotrexate, aminopterin and folinic acid(leucovorin) are chemotherapeutic agents whose molecularstructures are similar to folate; therefore, the Architectfolate assay cannot be used for patients using these drugs. Blood 11/22/2024 9:04 AM EDT 11/22/2024 11:24 AM EDT Vi Cardozo MD LAB BLOOD ORDERAB LES Final Result Performing Organization Address City/State/[facility] Co de Phone Number [facility] [address] [place] [phone] * TSH with Reflex to Free T4 (11/22/2024 9:04 AM EDT) TSH reflex Free T4 0.97 0.32 - 4.0 uIU/mL [facility] Blood 11/22/2024 9:04 AM EDT 11/22/2024 11:24 AM EDT Vi Cardozo MD LAB BLOOD ORDERAB LES Final Result Performing Organization Address [facility] Phone Number [facility] [address] [place] [phone] * Albumin, Random Urine W/Creatinine (11/22/2024 9:04 AM EDT) Creatinine, Urine 173.17 mg/dL [facility] Microalbumin Urine 50.0 mg/L [facility] Microalbum Creatinine Ratio Ur 28.8 <30 ug/mg cr [facility] Comment:Albumin/Creatinine R atio Reference Ranges: Normal: < 30 ug/mg creatinine Microalbuminuria: 30 - 300 ug/mg creatinineClinical Albuminuria: > 300 ug/mg creatinine Urine (Urine, Random) 11/22/2024 9:04 AM EDT 11/22/2024 11:41 AM EDT us Vi Cardozo MD LAB URINE ORDERAB LES Final Result Performing Organization Address [facility] de Phone Number [facility] [address] [place] [phone] * Hepatitis C Antibody with Reflex to HCV, RNA, Quantitative, Real-Time PCR (11/22/2024 9:04 AM EDT) Hepatitis C Antibody Nonreactive Nonreactive [facility] Comment:Antibodies to HCV no t detected; does not exclude early acuteHCV infection. Blood Venous blood specimen / Unknown 11/22/2024 9:04 AM EDT 11/22/2024 11:11 AM EDT Vi Cardozo MD LAB BLOOD ORDERAB LES Final Result Performing Organization Address [facility] Co de Phone Number [facility] [address] [place] [address] [phone] * Hepatitis B surface antigen, EIA (11/22/2024 9:04 AM EDT) Hepatitis B Surface Ag Negative Negative [facility] Blood Venous blood specimen / Unknown 11/22/2024 9:04 AM EDT 11/22/2024 11:11 AM EDT Vi Cardozo MD LAB BLOOD ORDERAB LES Final Result Performing Organization Address [facility] Co de Phone Number [facility] [address] [place] [address] [phone] * Hepatitis B Core Antibody, Total (11/22/2024 9:04 AM EDT) Pathologist [facility] Hepatitis B Core Antibody Nonreactive Nonreactive [facility] Blood Venous blood specimen / Unknown 11/22/2024 9:04 AM EDT 11/22/2024 11:11 AM EDT Vi Cardozo MD LAB BLOOD ORDERAB LES Final Result Performing Organization Address [facility] Co de Phone Number [facility] [address] [place] [address] [phone] * HIV-1/2 Antigen and Antibodies, Fourth Generation, with Reflexes (11/22/2024 9:04 AM EDT) HIV AB/AG Nonreactive Nonreactive [facility] Comment:HIV-1 p24 Ag and/or HIV-1/HIV-2 Ab not detected.A test result that is nonreactive does not exclude thepossibility of exposure to or infection with HIV-1 and/orHIV-2. Nonreactive results in this assay for individualswith prior exposure to HIV-1 and/or HIV-2 may be due toantigen and antibody levels that are below the limit ofdetection of this assay.The [employer] Alinity HIV Ag/Ab Combo assay result andsupplemental assay results should be interpreted inconjunction with the patient's clinical presentation,history and other laboratory results. If the results areinconsistent with clinical evidence, additional testing issuggested to confirm the result. Blood Venous blood specimen / Unknown 11/22/2024 9:04 AM EDT 11/22/2024 11:11 AM EDT us Vi Cardozo MD LAB BLOOD ORDERAB LES Final Result Performing Organization Address [facility]/ZIP Co de Phone Number [facility] [address] [place] [address] [phone] * Hepatitis B Surface Antibody, Qualitative (11/22/2024 9:04 AM EDT) ~Hepatitis B Surface Antibody NONREACTIVE Nonreactive [facility] Comment:Nonreactive: < 8.00 mIU/mL Blood Venous blood specimen / Unknown 11/22/2024 9:04 AM EDT 11/22/2024 11:11 AM EDT us Vi Cardozo MD LAB BLOOD ORDERAB LES Final Result Performing Organization Address [facility]/ZIP Co de Phone Number [facility] [address] [place] [address] [phone] * Sed Rate by Modified Jannaren (11/22/2024 9:04 AM EDT) Erythrocyte Sedimentation Rate 7 0 - 15 MM/HR [facility] Comment:Patients with polycy themia and many hemoglobin abnormalitiesmay have depressed sed rates whereas patients with anemiamay have elevated sed rates. Blood Venous blood specimen / Unknown 11/22/2024 9:04 AM EDT 11/22/2024 11:11 AM EDT us Vi Cardozo MD LAB BLOOD ORDERAB LES Final Result Performing Organization Address City/[facility]/ZIP Co de Phone Number [facility] [address] [place] [address] [phone] * (ABNORMAL) CBC (11/22/2024 9:04 AM EDT) White Blood Count 8.4 4.8 - 10.8 X10*3/uL [facility] Red Blood Count 5.35 4.60 - 5.80 X10*6/uL [facility] Hemoglobin 14.1 14.0 - 18.0 g/dl [facility] Hematocrit 42.5 42.0 - 52.0 % [facility] Mean Corpuscular Volume 79.4(L) 80.0 - 98.0 fL [facility] Mean Corpuscular Hemoglobin 26.4(L) 27.0 - 33.0 pg [facility] Mean Corpuscular HGB Conc 33.2 31.0 - 36.0 g/dl [facility] Red Cell Distribution Width 14.0 11.0 - 16.0 % [facility] Platelet Count 262 160 - 400 X10*3/uL [facility] Mean Platelet Volume 11.0 9.4 - 12.4 fL [facility] NRBC Pct Auto 0.0 0.0 - 0.2 /100WBC [facility] NRBC Abs Auto 0.000 0.0 - 0.012 X10*3/uL [facility] Blood Venous blood specimen / Unknown 11/22/2024 9:04 AM EDT 11/22/2024 11:11 AM EDT us Vi Cardozo MD LAB BLOOD ORDERAB LES Final Result [facility] [address] [place] [phone] * (ABNORMAL) C-reactive Protein (11/22/2024 9:04 AM EDT) C Reactive Protein 0.63(H) < or = 0.50 mg/dL [facility] Blood Venous blood specimen / Unknown 11/22/2024 9:04 AM EDT 11/22/2024 11:24 AM EDT us Vi Cardozo MD LAB BLOOD ORDERAB LES Final Result [facility] [address] [place] [address] [phone] * PSA,Total (11/22/2024 9:04 AM EDT) Only the most recent of2 resultswithin the time period is included. Prostate Specific Antigen 1.12 <0.05 - 4.0 ng/mL [facility] Comment:PSA methodology: Abb anthony Aliblane i ChemiluminescentMicroparticle Immunoassay (CMIA) 11/22/2024 9:04 AM EDT 11/22/2024 11:24 AM EDT us Generic External Data Provider LAB BLOOD ORDERAB LES Final Result [facility] [address] [place] [address] [phone] * (ABNORMAL) Hemoglobin A1c (11/22/2024 9:04 AM EDT) Hemoglobin A1c 6.2(H) <6.0 % [facility] Comment:Hemoglobin A1C Refer ence Range Adults: 4.8 - 6.0 % Non diabetic: < 6.0 % Goal: < 7.0 %Additional Action Suggested: > 8.0 %Note: Hemoglobin A1c results are invalid for patients with abnormal amounts of HbF. Blood transfusions may impact the HbA1c concentration in the patient sample. Estimated Average Glucose 131 mg/dL [facility] Comment:eAG = Estimated ave rage glucose which is %A1C expressed asaverage glucose, using the formula of the S1J-HuotxooGbdmhno Glucose study (ADAG), Diabetes Care, Vol.31,#8,Oct. 2007 Blood Venous blood specimen / Unknown 11/22/2024 9:04 AM EDT 11/22/2024 11:11 AM EDT us Vi Cardozo MD LAB BLOOD ORDERAB LES Final Result Performing Organization Address City/[facility]/ZIP Co de Phone Number [facility] [address] [place] [address] [phone] * (ABNORMAL) Lipid Panel, Standard (11/22/2024 9:04 AM EDT) Triglycerides 109 <150 mg/dL [facility] Comment:Desirable Triglyceri de: less than 150 mg/dLBorderline High Triglyceride 150-199 mg/dLHigh Triglyceride: 200-499 mg/dLVery High Triglyceride: greater than or equal to 5OO mg/dL Cholesterol 105 <200 mg/dL [facility] Comment:Desirable Cholestero l: less than 200 mg/dLBorderline High Cholesterol: 200-239 mg/dLHigh Cholesterol: greater than 239 mg/dL LDL Cholesterol Calculated 57 <100 mg/dL [facility] Comment:Desirable LDL: less than 100 mg/dLNear Optimal/Above Optimal LDL: 110- 129 mg/dLBorderline High LDL: 130-159 mg/dLHigh LDL: 160-189 mg/dLVery High LDL: greater than or equal to 190 mg/dL HDL Cholesterol 27(L) >40 mg/dL [facility] Comment:Desirable HDL: great er than 40 mg/dL Note: This HDL assay may give artificially low results in patients with liver disease. Blood Venous blood specimen / Unknown 11/22/2024 9:04 AM EDT 11/22/2024 11:24 AM EDT us Vi Cardozo MD LAB BLOOD ORDERAB LES Final Result [facility] [address] [place] [phone] * (ABNORMAL) Comprehensive Metabolic Panel (11/22/2024 9:04 AM EDT) Sodium 142 135 - 145 mmol/L [facility] Potassium 3.8 3.3 - 5.1 mmol/L [facility] Chloride 107 96 - 108 mmol/L [facility] Carbon Dioxide 26 22 - 29 mmol/L [facility] Anion Gap 13 12 - 20 [facility] Urea Nitrogen (BUN) 18(H) 9 - 16 mg/dL [facility] Creatinine, Serum 0.88 0.5 - 1.4 mg/dL [facility] Estimated Glomerular Filt Rate >60 [facility] Comment:Chronic Kidney Disea se: Estimated GFR < 60 mL/min/1.65j3Qamayq Kidney Disease: Estimated GFR < 15 mL/min/1.73m2 Glucose 107 60 - 115 mg/dL [facility] Calcium 9.0 8.4 - 10.2 mg/dL [facility] Bilirubin, Total 0.6 0.0 - 1.0 mg/dL [facility] Aspartate Amino Transferase 30 5 - 37 U/L [facility] Alanine Aminotransferase 27 0 - 40 U/L [facility] Total Protein 7.5 6.5 - 8.0 g/dL [facility] Albumin Level 4.7 3.5 - 5.0 g/dL [facility] Alkaline Phosphatase 76 39 - 117 U/L [facility] Blood Venous blood specimen / Unknown 11/22/2024 9:04 AM EDT 11/22/2024 11:24 AM EDT us Vi Cardozo MD LAB BLOOD ORDERAB LES Final Result Performing Organization Address City/[facility]/ZIP Co de Phone Number [facility] [address] [place] [phone] * Chlamydia/Trichomonas/Neisseria gonorrhoeae, PCR, Urine (11/22/2024 9:00 AM EDT) CT PCR, Urine NOT DETECTED Not Detect. [facility] Comment:A not detected test result does [...] NG PCR, Urine NOT DETECTED Not Detect. [facility] Comment:A not detected test result does [...] MD LAB URINE ORDERAB LES Final Result [facility] [address] [place] [address] [phone] * Measles, Mumps, and Rubella (MMR) Antibodies??(IgG) Panel, Immune Status (11/22/2024 9:00 AM EDT) Mumps Virus IgG Antibody 23.20 AU/mL [facility] Comment:AU/mL Interpretation ------- <9.00 Not consistent with immunity9.00-10.99 Equivocal>10.99 Consistent with immunityThe presence of mumps IgG antibody suggests immunizationor past or current infection with mumps virus. Rubella IgG Antibody 7.20 Index [facility] Comment:Index Interpretatio n ----- <0.90 Not consistent with immunity 0.90-0.99 Equivocal > or = 1.00 Consistent with immunityThe presence of rubella IgG antibody suggestsimmunization or past or current infection withrubella virus.THIS TEST WAS PERFORMED AT:[facility] [place] [id number] LO MD Rubeola IgG (Measles) >300.00 AU/mL [facility] Comment:AU/mL Interpretation ----- <13.50 Not consistent with .50-16.49 Equivocal>16.49 Consistent with immunityThe presence of measles IgG suggests immunization orpast or current infection with measles virus.For additional information, please refer [email or web address].[employer]/faq/JLF457(This link is being provided for informational/educational purposes only.) Blood Venous blood specimen / Unknown 11/22/2024 9:00 AM EDT 11/22/2024 11:24 AM EDT us Vi Cardozo MD LAB BLOOD ORDERAB LES Final Result [facility] [address] [place] [address] [phone] * (ABNORMAL) POCT Hgb A1c (11/20/2024 9:12 AM EDT) Hemoglobin A1C 6.2(A) 4.0 - 5.7 % QC Media Lot # [id number] Lot# Expiration Date 726, Blood 11/20/2024 9:12 AM EDT us Vi Cardozo MD POINT OF CARE EMILE T ENTER/EDIT ORDERABLES Final Result * POCT Glucose (11/20/2024 9:09 AM EDT) Glucose Blood, POC 198 60 - 200 mg/dL QC Media Lot # [id number] Lot# Expiration Date 818,328 Blood Capillary blood specimen / Unknown 11/20/2024 9:09 AM EDT Vi Cardozo MD POINT OF CARE EMILE T ENTER/EDIT ORDERABLES Final Result * US Renal Complete (10/24/2024 12:23 PM EDT) Anatomical Region Laterality Modality Kidney Ultrasound 10/24/2024 12:2 3 PM EDT Narrative 10/24/2024 12:23 PM EDT [place] [id number] Ultrasound Report Signed with Addenda Patient: Jackie Marlow MR#: [id number] : 1965 Acct:[id number] Age/Sex: 58 / M ADM Date: 10/24/24 Loc: . Attending Dr: Santiago Yu MD Ordering Physician: Santiago Yu MD Date of Service: 10/24/24 Procedure(s): US renal BI Accession Number(s): [id number] cc: Santiago Yu MD; Vi Keys MD [...] 10/24/24 1223 DD/ 1223 TD/TT: 10/24/24 122 Swing Ride Operator: Procedure Note Donotuseinterpreter, Image - 10/28/[address] [address] Ultrasound Report Signed with Addenda Patient: Seth Marlow#: [id number] : 1965Acct:[id number] Age/Sex: 58 / MADM Date: 10/24/24 Loc: HO.US Attending Dr: Santiago Yu MD Ordering Physician: Santiago Yu MD Date of Service: 10/24/24 Procedure(s): US renal BI Accession Number(s): [id number] cc: Santiago Yu MD; Vi Keys MD [...] By: <Electronically signed by Aimee Franklin MD inO> 10/28/24 1210 Addendum Cosigned By: DD/ TD/TT: [...] in OV> 10/24/241222 DD/ 22 TD/TT: 10/24/241222 Swing Ride Operator: us [facility] External Provider IMG US PROCEDURES Edited Result - Final * ECG 12 lead (09/25/2024 11:13 AM EDT) Narrative Vi Keys MD - 09/25/2024 11:13 AM EDT EKG today 09/2024 for baseline HR 83x',Qtc 396, NSR,no ischemic findings Vi Cardozo MD ECG ORDERABLES F inal Result from Last 3 Months Insurance [employer] * Guarantor: Jackie Marlow Account Type Relation to Patient Date of Phone Billing Address Personal/Family Self [address] Antelmo Lozano [place] Care Teams Material Lister Relationship Specialty Start Date End Date Vi Keys MD [address] [place] [phone] PCP - General Internal Medicine 12/20/22
--- OUTSIDE RECORDS SUMMARY | 2024-12-10 12:42 | XMS_ITS | Encounter Summary ---
Author Organization [employer] Address [address] [place] [address] Care Team Providers Care Sanitation Laborer Name Role Phone Vi Keys MD Primary Care Pro vider Reason for Visit * Reason Comments Med Refill Encounter Details Date Type Department Care Team ([facility] st Contact Info) Description 09/04/2024 Refill [facility] [address] [place], [place] [phone] Mandie Chavez DO [address] [place], [place] [phone] Type 2 diabetes mellitus with diabetic nephropathy, without long-term current use of insulin ([facility]) Social History Tobacco Use Types Packs/Day [...] Info) Description 12/13/2024 11:00 AM EDT Telemedicine [facility] [address] [place] [phone] 12/27/2024 10:30 AM EDT Telemedicine [facility] [address] [place] [phone] Lina Hayden, PharmD [address] [place] [address] 01/28/2025 1:30 PM EST Immunization [facility] [address] [place] [phone] 02/24/2025 9:00 AM EST Office Visit [facility] [address] [place] [address] Fannie Castañeda, OD [address] [place] [address] documented as of this encounter Visit Diagnoses Diagnosis Type 2 diabetes mellitus with diabetic nephropathy, without long-term current use of insulin (HCC) documented in this encounter Additional Health Concerns Assessment Noted Time PHQ-9 Depression Total Score: 0 08/20/19 23 3:43 PM EDT documented as of this encounter Care Teams Sanitation Laborer Relationship Specialty Start Date End Date Vi Keys MD [address] [place] [phone] PCP - General Internal Medicine 12/20/22 documented as of this encounter
--- OUTSIDE RECORDS SUMMARY | 2024-12-10 12:42 | XMS_ITS | Encounter Summary ---
Author Organization [employer] Address [address] [facility] 7t [place] [address] Care Team Providers Care Forest Aide Name Role Phone Carmelita Escalona ELECTRICAL ASSEMBLY TECHNICIAN Primary Care Provider Vi Guardado MD Primary Care Pro vider Encounter Details Date Type Department Care Team (Latest Contact Info) Description 11/23/[address] [facility] Dental, Provider, DDS Social History [...] Info) Description 12/13/2024 11:[address] [facility] [address] [place] [phone] 12/27/2024 10:[address] [facility] [address] [place] [phone] Lina Hayden, PharmD [address] [place] [address] 01/28/2025 1:[address] [facility] [address] [place] [address] [phone] 02/24/2025 9:00 AM EST Office Visit [facility] [address] [place] [phone] Fannie Castañeda OD [address] [place], [place] [phone] documented as of this encounter Visit Diagnoses Not on filedocumented in this encounter Care Teams Forest Aide Relationship Specialty Start Date End Date Carmelita Escalona FNP PCP - General Family Medicine 11/02/21 12/19/22 Vi Keys MD [address] [place], [place] [phone] PCP - General Internal Medicine 12/20/22 documented as of this encounter
--- OUTSIDE RECORDS SUMMARY | 2024-12-10 12:43 | XMS_ITS | Encounter Summary ---
Author Organization [employer] Address [address] [facility] 7t [place] [address] Care Team Providers Care Lamination Inspector Name Role Phone PolaCarmelita MUSICAL STRING MAKER Primary Care Provider Vi Guardado MD Primary Care Pro vider Encounter Details Date Type Department Care Team (Latest Contact Info) Description 07/13/2018 Abstract [facility] CONVERSION[facility] Dental, Provider, DDS Social History [...] Info) Description 12/13/2024 11:00 AM EDT Telemedicine [facility] [address] [place] [address] 12/27/2024 10:30 AM EDT Telemedicine [facility] [address] [place] [phone] Lina Hayden, PharmD [address] [place] [address] 01/28/2025 1:30 PM EST Immunization [facility] [address] [place] [address] 02/24/2025 9:00 AM EST Office Visit [facility] [address] [place] [phone] Fannie Castañeda, OD [address] [place], [place] [phone] documented as of this encounter Visit Diagnoses Not on filedocumented in this encounter Care Teams Lamination Inspector Relationship Specialty Start Date End Date Carmelita Escalona FNP PCP - General Family Medicine 11/02/21 12/19/22 Vi Keys MD [address] [place], [place] [phone] PCP - General Internal Medicine 12/20/22 documented as of this encounter
--- OUTSIDE RECORDS SUMMARY | 2024-12-10 12:43 | XMS_ITS | Encounter Summary ---
Author Organization [employer] Address [address] [facility] [address]t [place] [address] Care Team Providers Care Stove Tender Name Role Phone Vi Keys MD Primary Care Pro vider Encounter Details Date Type Department Care Team (Late st Contact Info) Description 10/24/2024 Results Follow-Up [facility] [address] [place], [place] [phone] Vi Keys MD [address] [place] [address] US Renal Complete Social History Tobacco Use [...] Info) Description 12/13/2024 11:00 AM EDT Telemedicine [facility] [address] [place] [address] 12/27/2024 10:30 AM EDT Telemedicine [facility] [address] [place] [address] Lina Hayden, PharmD [address] [place] [address] 01/28/2025 1:30 PM EST Immunization [facility] [address] [place] [address] 02/24/2025 9:00 AM EST Office Visit [facility] [address] [place] [phone] Fannie Castañeda, OD [address] [place] [address] documented as of this encounter Visit Diagnoses Not on filedocumented in this encounter Additional Health Concerns Assessment Noted Time PHQ-9 Depression Total Score: 0 09/26/19 25 10:23 AM EDT documented as of this encounter Care Teams Stove Tender Relationship Specialty Start Date End Date Vi Keys MD [address] [place] [phone] PCP - General Internal Medicine 12/20/22 documented as of this encounter
--- OUTSIDE RECORDS SUMMARY | 2024-12-10 12:43 | XMS_ITS | Data Portability ---
Author Organization [place] - Juarez Taveras [facility], [facility] Address [address] [place] [address] Assessment Encounter Date Assessment Date Assessment LastModified by Organization Details LastModified Time 02/06/2024 02/06/2024 Chief Complaint: Left shoulder pain and stiffness HPI: The patient is a 58-year-old diabetic male here today regarding a greater than one history of primarily left shoulder pain but also to a lesser degree right shoulder pain. He also complains of left shoulder stiffness. He states that he passed out in the fall of 2022 coming home from the grocery store and was down on the ground until emergency personnel to take him to the hospital. He does deal with episodes of hypoglycemia per his report. He began having shoulder pain after that incident. He has tried rest and activity modification along with some oral anti-inflammatories . No prior shoulder surgery or major trauma. Also has nighttime symptoms. Rest makes his pain better while lifting and reaching activity was to make his pain worse. I reviewed previous X-rays ordered, obtained and reviewed at [facility] from February 2023. These images included Grashey, scapular outlet and axillary views of the bilateral shoulders. No acute fractures or dislocations. Normal glenoid humeral joint space. Normal acromial humeral distance. Type II acromion bilaterally. Moderate acromioclavicular joint arthrosis bilaterally. No os acromiale. He has a past medical history of hypertension and diabetes. He takes gabapentin, metformin and amlodipine. He has no allergies to medications. He is . He denies tobacco use. No personal or family history of blood clots. Past medical, surgical, family and social history; Medications, Allergies and 12-point review of systems have been reviewed, updated and charted. Physical Examination: Height and weight as noted in chart. Constitutional: Patient pleasant, well appearing and in NAD. Mental status: Patient is alert and oriented to person, place and time. No short-term memory deficits. Psychiatric: Mood and affect are appropriate. Head: Normocephalic and atraumatic. Exterior inspection of the ears and nose was unremarkable. Hearing grossly intact. Eyes: Sclera are not blue. micro lab analyst II-XII are grossly intact. Full extraocular motion. Neck: Supple with age-appropriate ROM. No tracheal deviation. No obvious JVD. Respiratory: Non-labored breathing. Symmetric excursion. No audible wheezing or crackles. Peripheral Vascular: No peripheral edema. Distal pulses intact. Skin: No rashes, lesions, wounds to the upper extremities. Normal turgor and coloration. Musculoskeletal: On examination of the left shoulder, there is no effusion, erythema or ecchymosis. Active shoulder elevation to approximately 165 . This is compared to 170 of active elevation on the right side. External rotation to 50 on the left compared to 60 on the right. Internal rotation to the L4 level on the left and thoracolumbar junction on the right. 4+/5 strength resisted abduction. Positive impingement signs. Procedure: Injection of Steroid and Anesthetic, Subacromial Space All reasonable risks and benefits of injection were discussed. Risks include bleeding, infection, non-relief of symptoms, recurrence of symptoms, allergic type reaction, scarring, fat atrophy, and hyperglycemia. After obtaining consent, the left posterior shoulder was prepped in sterile fashion using an alcohol swab. The skin was anesthetized with ethyl chloride spray, wiped again with alcohol, and an injection of 1cc of Kenalog 40 and 4cc s of Lidocaine 1% was performed using a 22-gauge needle into the subacromial space. The medication flowed freely and the patient tolerated this procedure well. The patient was instructed to avoid strenuous activity following the injection for approximately 24 to 48 hours, ice the area as needed and then a gradual return to normal activities is allowed. Impression and Plan: 58-year-old diabetic male with a greater than one history of left shoulder pain and stiffness that began after passing out while entering his home in a likely hypoglycemic episode and overall history and examination today consistent with left shoulder subacromial impingement and probable underlying partial thickness rotator cuff tear given the chronicity of his symptoms and weakness on exam. I discussed the etiology of the patient's symptoms with him at length today. I discussed options and recommended a conservative course. This included a subacromial injection of steroid to the symptomatic shoulder today that the patient tolerated very well. I stressed the importance of activity modification with avoidance of exacerbating activities including heavy lifting overhead or lifting heavy away from the body. I discussed good lifting mechanics. I also recommended a low-dose oral anti-inflammatory such as ibuprofen [id number] and/or Tylenol as needed. I am referring him for an MRI of the left shoulder to evaluate for rotator cuff tear and associated pathology. All questions and concerns were addressed. Today's visit involved examining the patient, reviewing the history, reviewing the radiographic studies, counseling the patient regarding treatment options, and the administrative tasks including placing orders, preparing patient information and home handouts and preparing the visit note. This note was generated with [email or web address] speech recognition wastewater treatment plant supervisor dictation software. Please excuse any errors that may have been overlooked during review of this note. Sometimes, these errors may affect the content or meaning of a given sentence. Please call for corrections. [email or web address] Not available 02/06/2024 15:23:14 05/16/2024 05/16/2024 Chief Complaint: Left shoulder adhesive capsulitis HPI: The patient is a 58-year-old diabetic male here today regarding a greater than one history of primarily left shoulder pain but also to a lesser degree right shoulder pain. He also complains of left shoulder stiffness. He states that he passed out in the fall of 2022 coming home from the grocery store and was down on the ground until emergency personnel to take him to the hospital. He does deal with episodes of hypoglycemia per his report. He began having shoulder pain after that incident. He has tried rest and activity modification along with some oral anti-inflammatories . No prior shoulder surgery or major trauma. Also has nighttime symptoms. Rest makes his pain better while lifting and reaching activity was to make his pain worse. I previously evaluated him back in January 2024 performed a subacromial cortisone injection. He did have some symptomatic improvement without injection, however, his pain and stiffness of the left shoulder has persisted. I subsequently have ordered an MRI of the left shoulder and he comes in today for reevaluation and MRI review. I independently reviewed the outside MRI of the left shoulder dated 03/19/2024 from [facility]. She was , subscapularis and teres minor intact. Biceps tendon intact. Superior, posterior and anterior labrum intact. Cartilage of the glenohumeral joint intact. Thickening of the capsule in the axillary pouch consistent with adhesive capsulitis. I reviewed previous X-rays ordered, obtained and reviewed at [facility] from February 2023. These images included Grashey, scapular outlet and axillary views of the bilateral shoulders. No acute fractures or dislocations. Normal glenoid humeral joint space. Normal acromial humeral distance. Type II acromion bilaterally. Moderate acromioclavicular joint arthrosis bilaterally. No os acromiale. He has a past medical history of hypertension and diabetes. He takes gabapentin, metformin and amlodipine. He has no allergies to medications. He is . He denies tobacco use. No personal or family history of blood clots. Past medical, surgical, family and social history; Medications, Allergies and 12-point review of systems have been reviewed, updated and charted. Physical Examination: Height and weight as noted in chart. Constitutional: Patient pleasant, well appearing and in NAD. Mental status: Patient is alert and oriented to person, place and time. No short-term memory deficits. Psychiatric: Mood and affect are appropriate. Head: Normocephalic and atraumatic. Exterior inspection of the ears and nose was unremarkable. Hearing grossly intact. Eyes: Sclera are not blue. micro lab analyst II-XII are grossly intact. Full extraocular motion. Neck: Supple with age-appropriate ROM. No tracheal deviation. No obvious JVD. Skin: No rashes, lesions, wounds to the upper extremities. Normal turgor and coloration. Musculoskeletal: On examination of the left shoulder, there is no effusion, erythema or ecchymosis. Active shoulder elevation to approximately 165 . This is compared to 170 of active elevation on the right side. External rotation to 50 on the left compared to 60 on the right. Internal rotation to the L4 level on the left and thoracolumbar junction on the right. 4+/5 strength resisted abduction. Positive impingement signs. Procedure: Injection of Steroid and Anesthetic, Glenohumeral Joint All reasonable risks and benefits of injection were discussed. Risks include bleeding, infection, non-relief of symptoms, recurrence of symptoms, allergic type reaction, scarring, fat atrophy, and hyperglycemia. After obtaining verbal consent, the left posterior shoulder was prepped in sterile fashion using an alcohol swab. The skin was anesthetized with ethyl chloride spray, wiped again with alcohol, and an intraarticular injection of 1cc of Kenalog 40 and 4cc s of Lidocaine 1% was performed using a 22-gauge needle into the shoulder joint. The medication flowed freely into the joint and the patient tolerated this procedure well. The patient was instructed to avoid strenuous activity following the injection for approximately 24 to 48 hours, ice the area as needed and then a gradual return to normal activities is allowed. Impression and Plan: 58-year-old diabetic male with a greater than one history of left shoulder pain and stiffness that began after passing out while entering his home in a likely hypoglycemic episode and overall history, MRI and examination today consistent with left shoulder adhesive capsulitis. I discussed the etiology of the patient's symptoms with him at length today. I discussed options and recommended a conservative course. This included a intra-articular injection of steroid to the symptomatic shoulder today that the patient tolerated very well. I stressed the importance of activity modification with avoidance of exacerbating activities including heavy lifting overhead or lifting heavy away from the body. I discussed good lifting mechanics. I also recommended a low-dose oral anti-inflammatory such as ibuprofen [id number] and/or Tylenol as needed. I provided a packet with information and stretches regarding adhesive capsulitis and recommendations to perform these on a daily basis. I discussed that resolution of adhesive capsulitis may take several months. He may follow up as needed. All questions and concerns were addressed. Today's visit involved examining the patient, reviewing the history, reviewing the radiographic studies, counseling the patient regarding treatment options, and the administrative tasks including placing orders, preparing patient information and home handouts and preparing the visit note. This note was generated with [facility] speech recognition wastewater treatment plant supervisor dictation software. Please excuse any errors that may have been overlooked during review of this note. Sometimes, these errors may affect the content or meaning of a given sentence. Please call for corrections. Not available 05/16/2024 13:23:55 Plan of Treatment Reminders Order Date Submit Date Provider Last Modified By Organization Details Last Modified Time Details Appointments None recorded. Lab None recorded. Referral None recorded. Procedures None recorded. Surgeries None recorded. Imaging MRI, shoulder, w/o contrast - ? RCT 2023 024 [email or web address] 4 [facility], [address], [facility] [address], [place], [address], 4 16:06:57 Medication Orders None recorded. Patient TargetsNo targets recorded. Patient InstructionsNo instructions recorded. Reason for Referral None Reported. Results Created Date Observation Date Name Description Value Unit Range Abnormal Flag Note LastModifiedBy Organization Detail LastModifiedTime 03/20/19 25 03/19/2024 MRI, shoul kimi, w/o contr ast No observ ation record ed. [facility] [address] [facility] [address], [place], [address], 03/20/2024 13:32:03 Result Notes None recorded. Problems Name Problem SNOMED Code Status Onset Date Resolution Date Notes Provider Name and Address Organization Details Recorded Time Impingement syndrome of left shoulder region [id number] 04 Active 2024 SAGE BILLS [facility] [place] [facility] 5 13:38:36 Problem Notes None recorded. Procedures Surgical History Date Name Laterality Status Provider Name and Address Organization Details Recorded Time 5 Sports Shoulder completed Leonardo Gay MD [address] [facility] [address], [address], [facility] 05/16/2024 13:24:01 4 Sports Shoulder completed Leonardo Gay MD [address], [address], [facility] 02/06/2024 15:23:21 Imaging Results None recorded. Procedure Notes None recorded. Medical Equipment None Reported. Allergies No known drug allergies Medications Name Sig Start Date Stop Date Status Note LastModified by Organization Details LastModified Time latanoprost 0.005 % eye drops INSTILL 1 DROP INTO BOTH EYES IN THE EVENING active Not Available Not Available No t Available metformin 500 mg tablet TAKE 2 TABLETS BY MOUTH WITH BREAKFAST AND EVENING MEAL active Not Available Not Available No t Available gabapentin 600 mg tablet TAKE 1 TABLET BY MOUTH 3 TIMES DAILY. active Not Available Not Available No t Available doxycycline hyclate 100 mg capsule TAKE 1 CAPSULE BY MOUTH TWICE A DAY active Not Available Not Available No t Available atorvastatin 20 mg tablet TAKE 1 TABLET BY MOUTH EVERY DAY active Not Available Not Available No t Available naproxen 375 mg tablet TAKE 1 TABLET BY MOUTH TWICE DAILY WITH FOOD NEEDED FOR BACK PAIN active Not Available Not Available No t Available ammonium lactate 12 % lotion APPLY TOPICALLY ONCE DAILY IF NEEDED FOR DRY SKIN. active Not Available Not Available No t Available FreeStyle Lancets 28 gauge USE TWICE A DAY TO TEST BLOOD SUGAR active Not Available Not Available Not Available amlodipine 5 mg tablet TAKE 1 TABLET (5 MG) BY MOUTH ONCE PER DAY. active Not Available Not Available No t Available bacitracin zinc 500 unit/gram topical ointment APPLY TOPICALLY TO THE AFFECTED AREA(S) EVERY DAY active Not Available Not Available No t Available sulfamethoxa zole 800 mg-trimethop rim 160 mg tablet TAKE 1 TABLET BY MOUTH TWICE A DAY FOR 7 DAYS active Not Available Not Available No t Available tramadol 50 mg tablet TAKE 1 TABLET BY MOUTH EVERY 8 HOURS NEEDED FOR SEVERE PAIN FOR UP TO 5 DAYS active Not Available Not Available No t Available acetaminophe n 500 mg tablet TAKE 2 TABLETS BY MOUTH EVERY 8 HOURS NEEDED FOR MILD PAIN FOR UP TO 10 DAYS active Not Available Not Available No t Available acetaminophe n ER 650 mg tablet,exten ded release TAKE 1 TABLET BY MOUTH EVERY 8 HOURS NEEDED FOR MILD PAIN. DO NOT CRUSH, CHEW, OR SPLIT. active Not Available Not Available No t Available ketorolac 0.5 % eye drops INSTILL 1 DROP INTO BOTH EYES FOUR TIMES A DAY FOR TWO DAYS active Not Available Not Available No t Available cefadroxil 500 mg capsule TAKE 1 CAPSULE (500 MG) BY MOUTH 2 TIMES DAILY FOR 10 DAYS active Not Available Not Available Not Available cyanocobalam in (vit B-12) 500 mcg tablet TAKE 1 TABLET BY MOUTH ONCE PER DAY. active Not Available Not Available No t Available Triple Antibiotic 3.5 mg-400 unit-5,000 unit/gram topical ointment APPLY TO AFFECTED AREA TWICE A DAY active Not Available Not Available No t Available Valium 5 mg tablet Take 1 tablet approximate ly 1 hour prior to you MRI. May repeat x1 as needed for effect. 2024 active Not Available Not Available Not Avai lable amlodipine 10 mg tablet TAKE 1 TABLET BY MOUTH EVERY DAY FOR 90 DAYS active Not Available Not Available No t Available cephalexin 500 mg capsule TAKE 1 CAPSULE BY MOUTH 4 TIMES A DAY FOR 7 DAYS active Not Available Not Available N ot Available metformin 1,000 mg tablet TAKE 1 TABLET BY MOUTH DAILY WITH BREAKFAST AND WITH EVENING MEAL active Not Available Not Available No t Available oxycodone 5 mg capsule TAKE 1 CAPSULE BY MOUTH EVERY 8 HOURS NEEDED FOR PAIN active Not Available Not Available No t Available docusate sodium 100 mg capsule TAKE 1 CAPSULE BY MOUTH TWICE A DAY NEEDED FOR CONSTIPATIO N active Not Available Not Available No t Available aspirin 81 mg chewable tablet CHEW 1 TABLET (81 MG) ONCE PER DAY. active Not Available Not Available No t Available mupirocin 2 % topical ointment APPLY TOPICALLY TO RIGHT BIG TOE EVERY DAY FOR 10 DAYS active Not Available Not Available Not Available naproxen 500 mg tablet TAKE 1 TABLET BY MOUTH TWICE A DAY NEEDED FOR PAIN active Not Available Not Available No t Available cyclobenzapr ine 5 mg tablet TAKE 1-2 TABLETS BY MOUTH NEEDED UP TO 3 TIMES A DAY active Not Available Not Available No t Available Alcohol Prep Pads USE 1 PREP PAD 2 TIMES DAILY. active Not Available Not Available No t Available FreeStyle Lite Strips TEST 2 TIMES DAILY. active Not Available Not Available No t Available diclofenac 1 % topical gel APPLY TO RIGHT FOOT IN THE MORNING & AT BEDTIME NEEDED FOR PAIN active Not Available Not Available No t Available blood pressure test kit-large cuff USE DIRECTED TO CHECK BLOOD PRESSURE 2 TIMES PER WEEK active Not Available Not Available No t Available Vitals Date Recorded Body height Body mass index (BMI) Body weight Provider Name and Address Organization Details Last Updated DateTime 05/16/2024 180.34 cm 25.4 kg/m2 66284.81 g JESSICA GOTTLIEB [facility] 05/16/2024 13:02:11 Date Recorded Body height Body mass index (BMI) Body weight Provider Name and Address Organization Details Last Updated DateTime 02/06/2024 180.34 cm 25.4 kg/m2 98415.81 g JESSICA GOTTLIEB [facility] 02/06/2024 14:41:44 Social History None recorded. Functional Status None recorded. Mental Status None recorded. Family History Nothing Reported. Medical History No medical history recorded. Past Encounters Encounter ID Performer Location Encounter Start Date Encounter Closed Date Diagnosis/Indication Diagnosis SNOMED-CT Code Diagnosis ICD10 Code Diagnosis IMO Codes Diagnosis Note [id number] MD [facility] [address] [place] [address] 02/06/2024 14:29:24 03/07/2024 09:41:47 Pain of left shoulder joint [id number] 4371614 M25.512 660902 Impingemen t syndrome of left shoulder region 6078753960 44182 M75.42 [id number] [facility] [address] [place] [address] 05/16/2024 12:27:29 06/03/2024 14:55:33 Adhesive capsulitis of left shoulder [id number] 76441 M75.02 [id number] Health Concerns Section Related Observation LastModified by Organization Detai ls LastModified Time None Recorded Concern Status LastModified by Organization Details LastModified Time None Recorded Advance Directives Directive None Recorded Payers Insurance Date Sequence Insurance Name Policy Number Policy Escobar Covered Member ID Escobar Member ID Guarantor Name 05/16/2024 1 [place] [facility] Jackie Marlow [id number] Jackie Marlow
--- OUTSIDE RECORDS SUMMARY | 2024-12-10 12:43 | XMS_ITS | Encounter Summary ---
Author Organization [employer] Address [address] [place] [address] [address] [place] [address] Care Team Providers Care Certified Midwife Name Role Phone Vi Keys MD Primary Care Pro vider Reason for Visit * Reason Comments Med Change Request Encounter Details Date Type Department Care Team ([facility] st Contact Info) Description 11/07/2024 Refill [facility] MED[facility]INE [address] [place], [place] [phone] Vi Keys MD [address] [place] [address] Type 2 diabetes mellitus with diabetic nephropathy, without long-term current use of insulin ([facility]) Social History Tobacco Use Types Packs/Day [...] Info) Description 12/13/2024 11:00 AM EDT Telemedicine [facility] MED[facility]INE [address] [place] [phone] 12/27/2024 10:30 AM EDT Telemedicine [facility] [address] [place] [id number] Lina Hayden, PharmD [address] [place] [address] 01/28/2025 1:30 PM EST Immunization [facility] [address] [place] [id number] 02/24/2025 9:00 AM EST Office Visit [facility] OPTOMETRY [address] [place] [phone] Fannie Castañeda, OD [address] [place] [address] documented as of this encounter Visit Diagnoses Diagnosis Type 2 diabetes mellitus with diabetic nephropathy, without long-term current use of insulin (HCC) documented in this encounter Additional Health Concerns Assessment Noted Time PHQ-9 Depression Total Score: 0 09/26/19 25 10:23 AM EDT documented as of this encounter Care Teams Certified Midwife Relationship Specialty Start Date End Date Vi Keys MD [address] [place] [id number] PCP - General Internal Medicine 12/20/22 documented as of this encounter
== END 2024-12-10 12:25 | disposition home or self-care (01) ==
LOC: HO.HUSH 11:17
PROVIDERS: PCP Student in an Organized Health Care Education/Training Program; Visit Provider Urology
DX: N30.01 Acute cystitis with hematuria (principal); N20.0 Calculus of kidney; N13.30 Unspecified hydronephrosis

== ENCOUNTER → 2024-12-10 11:17 | Outpatient (BNVA) | payer MEDICAID, SELFPAY | PROVIDERS: PCP Student in an Organized Health Care Education/Training Program; Visit Provider Urology | DX: N20.0 Calculus of kidney (principal); N13.30 Unspecified hydronephrosis; N30.01 Acute cystitis with hematuria | CPT/HCPCS: 52310; 81003; 99212 ==

== ENCOUNTER 2024-12-19 13:01 | Outpatient (REF) | payer MEDICAID, SELFPAY ==
--- NOTE | ~2024-12-19 | US_ITS ---
CLINICAL HISTORY: N20.1 - Calculus of ureter US Renal Comparison: 10/24/2024 Findings: Right kidney normal size and echotexture, 10.5 cm length. Left kidney normal size and echotexture, 10.2 cm length. There are bilateral renal parenchymal calculi and bosniak 1 cysts Minimal hydronephrosis of left kidney. Normal color Doppler IMPRESSION: 1. Minimal left hydronephrosis This document has been electronically signed by: Marco Tejeda MD on 12/20/2024 08:57:37
== END 2024-12-19 13:02 | disposition home or self-care (01) ==
LOC: HO.HMGCX 13:01
PROVIDERS: PCP Student in an Organized Health Care Education/Training Program; Visit Provider Urology
DX: N20.1 Calculus of ureter (principal); N20.0 Calculus of kidney
CPT/HCPCS: 76775

== ENCOUNTER → 2024-12-19 13:09 | Outpatient (BNV) | payer MEDICAID, SELFPAY | PROVIDERS: PCP Student in an Organized Health Care Education/Training Program; Visit Provider Specialist | DX: N20.1 Calculus of ureter (principal) | CPT/HCPCS: 76775 ==

== ENCOUNTER 2025-01-07 12:56 | Outpatient (AMB) | payer MEDICAID, SELFPAY ==
--- NOTE | 2025-01-07 12:58 | A.OFFVIS_ITS ---
Intake Visit Reasons: ESWL follow up/US/KUB Intake Note: Patient is present for Post Op ESWL Urology Rx: Tamsulosin, Pyridium Blood Thinners:aspirin Imaging completed CT & 12/20/24 Ultrasound Classer Required: No Accompanied by: Uncle Allergies No Known Allergies (No Known Allergies*) Allergy (Verified 01/07/25 12:59) HPI Comments Details: Jackie is a pleasant Pashto male. He is seen for the following urologic conditions - nephrolithiasis Ultrasound shows stones resolved Family history Add vitamin B6 Discussed lemon juice Stone composition - calcium oxalate monohydrate Nephrolithiasis. - Recent renal ultrasound revealed a 3 mm stone in the right kidney and two stones in the left kidney, the largest measuring 7 to 8 mm. - Underwent laser lithotripsy approximately a year ago, partially successful, performed twice. - Reports intermittent pain, particularly after walking long distances, with recent episodes of pain on the left side. - Increased water intake as a preventative measure. - Urinary hesitancy noted, with initial slow stream improving after 20-30 seconds. Results - Renal ultrasound-02/15/24: 3 mm stone in the right kidney lower pole, 7 mm and 4 mm stones in the left kidney. - KUB: Visible stone in the left kidney, largest measuring 7 to 8 mm. - 01/04 renal ultrasound no stone Plan - surveillance [facility] Medical History Asthma Transaminitis Mixed anxiety depressive disorder GERD (gastroesophageal reflux disease) Renal calculi HLD (hyperlipidemia) Left flank pain Right foot pain Left shoulder pain HTN (hypertension) Atypical chest pain Diabetes Surgical History History of extracorporeal shockwave lithotripsy (ESWL) Hx of colonoscopy Social History Household Members: None Housing: Apartment Do you presently have visiting nurse or other home services: No Patient Tobacco Use Status: Never used Tobacco service: No Current occupational status: employed Current occupation: [employer] Review of Systems Const Denies chills and Denies fever(s) Card Reports no additional complaints and Denies syncope Resp Denies cough GI Denies abdominal pain and Denies heartburn Reports as per HPI and Denies change in libido Neuro Denies syncope Psych Denies change in libido Endo Denies change in libido Physical Exam Const General: cooperative, healthy appearing, comfortable and no acute distress Orientation/consciousness: patient oriented x3 HEENT Face and sinus: Yes normal facial exam Mouth: moist mucous membranes Neck Neck: Yes normal visual inspection, Yes full ROM and Yes trachea midline Chest Chest palpation & inspection: normal inspection of the chest Resp Effort & Inspection: normal respiratory effort, able to speak in complete sentences and no respiratory distress GI Inspection: Yes normal to inspection Back/Spine/Pelvis Cervical Spine: normal cervical lordosis Thoracic/Lumbar Spine: thoracic and lumbar spine normal to inspection Skin General skin exam: no rashes or lesions noted Neuro General: patient oriented x3, gait normal, tone normal and moves all extremities Extrem General: Yes normal to inspection and Yes capillary refill normal Assessment & Plan Assessment & Plan (1) Bilateral kidney stones: Code(s): N20.0 - Calculus of kidney Category: Medical Plan Six-month follow-up renal ultrasound Vitamin B6 Orders: Orders US renal BI 6 Months N20.1 - Calculus of ureter Medications: New pyridoxine (vitamin B6) 50 mg PO DAILY 90 tabs 1RF 90 days N20.1 - Calculus of ureter Patient Instructions: This note is constructed using voice recognition software. While every effort has been made to ensure accuracy community health specialist errors may have been included. Imaging studies, laboratory and physical exam results were discussed and reviewed in detail. No major barriers to patient understanding were identified. An opportunity to ask questions regarding the treatment plan was provided. All questions were answered. The patient expressed understanding and agreement with the above treatment plan. The patient is aware they should contact our office by phone for worsening of their current condition or the appearance of new urologic symptoms. Compliance is encouraged with any medications and followup testing that is ordered. It is a privilege to participate in the urologic care of your patient. If you have any questions or concerns regarding treatment for the above conditions, or other urologic issues, please do not hesitate to contact me. The office telephone contact is [phone]. Sincerely, Dr Joseph Portillo MD, [facility] - Urology Compassionate Specialist Care for the Genitourinary System Coding Level of Care Code Est Pt Level 4 (76732) Complex EM visit Add On G2211 Diagnoses Bilateral kidney stones N20.0
--- OUTSIDE RECORDS SUMMARY | 2025-01-07 16:19 | XMS_ITS | Encounter Summary ---
Author Organization [employer] Address [address] [place] [address] [address] [place] [address] Care Team Providers Care Sole Cutter Name Role Phone Vi Keys MD Primary Care Pro vider Reason for Visit * Reason Comments Med Change Request Encounter Details Date Type Department Care Team ([facility] st Contact Info) Description 11/07/2024 Refill [facility] MEDICINE [address] [place], [place] [phone] Vi Keys MD [address] [place] [address] Type 2 diabetes mellitus with diabetic nephropathy, without long-term current use of insulin ([facility]) Social History Tobacco Use Types Packs/Day [...] Care Team (Late st Contact Info) Description 01/28/2025 1:30 PM EST Immunization [facility] MEDICINE [address] [place] [address] 02/24/2025 9:00 AM EST Office Visit [facility] OPTOMETRY [address] [place], [place] [phone] Fannie Castañeda, OD [address] [place] [address] documented as of this encounter Visit Diagnoses Diagnosis Type 2 diabetes mellitus with diabetic nephropathy, without long-term current use of insulin (HCC) documented in this encounter Additional Health Concerns Assessment Noted Time PHQ-9 Depression Total Score: 0 09/26/19 25 10:23 AM EDT documented as of this encounter Care Teams Sole Cutter Relationship Specialty Start Date End Date Vi Keys MD [address] [place] [address] PCP - General Internal Medicine 12/20/22 documented as of this encounter
--- OUTSIDE RECORDS SUMMARY | 2025-01-07 16:19 | XMS_ITS | Encounter Summary ---
Author Organization [employer] Address [address] [place] [address] Care Team Providers Care Tool And Die Technician Name Role Phone Vi Keys MD Primary Care Pro vider Encounter Details Date Type Department Care Team (Late st Contact Info) Description 12/27/2024 Refill [facility] MEDICINE [address] [place], [place] [phone] Lina Hayden, PharmD [address] [place] [address] Type 2 diabetes mellitus with diabetic nephropathy, without long-term current use of insulin (HCC) Social History Tobacco Use Types Packs/Day Years [...] Telephone Encounter - Lina Hayden PharmD - 12/27/2024 1:24 PM EDT Patient is requesting a new glucometer due to losing his. Glucometer prescription pended to this TC. Thank you! documented in this encounter Plan of Treatment Upcoming Encounters Date Type Department Care Team (Late st Contact Info) Description 01/28/2025 1:30 PM EST Immunization [facility] MEDICINE [address] [place] [address] 02/24/2025 9:00 AM EST Office Visit [facility] OPTOMETRY [address] [place] [address] Fannie Castañeda, OD [address] [place] [address] documented as of this encounter Visit Diagnoses Diagnosis Type 2 diabetes mellitus with diabetic nephropathy, without long-term current use of insulin (HCC) documented in this encounter Additional Health Concerns Assessment Noted Time PHQ-9 Depression Total Score: 0 09/26/19 25 10:23 AM EDT documented as of this encounter Care Teams Tool And Die Technician Relationship Specialty Start Date End Date Vi Keys MD [address] [place] [id number] PCP - General Internal Medicine 12/20/22 documented as of this encounter
--- OUTSIDE RECORDS SUMMARY | 2025-01-07 16:19 | XMS_ITS | Encounter Summary ---
Author Organization [employer] Address [address] [place] [address] [address] [place] [address] Care Team Providers Care Heating Element Repairer Name Role Phone Carmelita EscalonaP Primary Care Provider Vi Guardado MD Primary Care Pro vider Encounter Details Date Type Department Care Team (Latest Contact Info) Description 11/23/2021 Abstract [facility] CONVERSIONS Dental, Provider, DDS Social [...] Info) Description 01/28/2025 1:30 PM EST Immunization [facility] MEDICINE [address] [place] [address] 02/24/2025 9:00 AM EST Office Visit [facility] OPTOMETRY [address] [place] [address] Garry, Fannie, OD [address] [place] [address] documented as of this encounter Visit Diagnoses Not on filedocumented in this encounter Care Teams Heating Element Repairer Relationship Specialty Start Date End Date Carmelita Escalona FNP PCP - General Family Medicine 11/02/21 12/19/22 Vi Keys MD [address] [place] [id number] PCP - General Internal Medicine 12/20/22 documented as of this encounter
--- OUTSIDE RECORDS SUMMARY | 2025-01-07 16:19 | XMS_ITS | Encounter Summary ---
Author Organization [employer] Address [address] [place] [address] [address] [place] [address] Care Team Providers Care Sheetrock Applicator Name Role Phone Vi Keys MD Primary Care Pro vider Reason for Visit * Reason Comments Med Refill Encounter Details Date Type Department Care Team (Late st Contact Info) Description 06/27/2024 Refill [facility] MEDICINE [address] [place], [place] [phone] Vi Keys MD [address] [place] [address] Essential hypertension Social History Tobacco Use Types [...] Info) Description 01/28/2025 1:30 PM EST Immunization [facility] MEDICINE [address] [place] [address] 02/24/2025 9:00 AM EST Office Visit [facility] OPTOMETRY [address] [place] [address] Garry, Fannie, OD [address] [place] [address] documented as of this encounter Visit Diagnoses Diagnosis Essential hypertension Unspecified essential hypertension documented in this encounter Additional Health Concerns Assessment Noted Time PHQ-9 Depression Total Score: 0 08/20/19 23 3:43 PM EDT documented as of this encounter Care Teams Sheetrock Applicator Relationship Specialty Start Date End Date Vi Keys MD [address] [place] [address] PCP - General Internal Medicine 12/20/22 documented as of this encounter
--- OUTSIDE RECORDS SUMMARY | 2025-01-07 16:19 | XMS_ITS | Clinical Summary ---
Author Organization [employer] Address [address] [facility] [address] [place] [address] Care Team Providers Care Construction Producer Name Role Phone Vi Keys MD Primary Care Pro vider Allergies Active Allergy Reactions Criticality Noted Date Comments Lisinopril Cough 02/23/2021 Pork Allergy 12/22/2022 jew reasons jew reasons Medications * This document contains information received from the source organization and may not represent a complete record from that organization. Alcohol Swabs (Alcohol Prep) pads 1 each 2 times daily. 100 each 11 023 Active Blood Glucose Calibration (FreeStyle Control Solution) liquid USE 2 TIMES DAILY. 023 Active Blood Pressure Monitoring (Blood Pressure Kit) kitIndications:Es sential hypertension 1 each 2 (two) times a week. 1 kit Active latanoprost (Xalatan) 0.005 % ophthalmic solution Administer 1 drop into both eyes at bedtime. 2.5 mL 11 024 2024 Active lidocaine (Lidoderm) 5 % patch Apply 1 patch topically Once per day. Remove & discard patch within 12 hours or as directed by MD. 30 patch 2 Active albuterol 108 (90 Base) MCG/ACT inhalerIndication s:Mild intermittent asthma without complication Inhale 2 puffs every 4 (four) hours. 18 g 2 025 2026 Active Restasis 0.05 % ophthalmic emulsion Administer 1 drop into both eyes 2 times daily. 025 Active gabapentin (Neurontin) 600 MG tabletIndications :Type 2 diabetes mellitus with diabetic nephropathy, without long-term current use of insulin (HCC) Take 1 tablet (600 mg) by mouth 2 times daily. 180 tablet Active ammonium lactate (Lac-Hydrin) 12 % lotion Apply topically if needed for dry skin. 396 g 1 025 2025 Active empagliflozin (Jardiance) 10 MG Take 1 tablet (10 mg) by mouth Once per day. 90 tablet 2025 Active hydrocortisone 2.5 % cream Apply pea sized amount to skin bid for 1 week behind left knee 3.5 g Active melatonin 5 MG tablet Take 1 tablet (5 mg) by mouth at bedtime. 30 tablet 2 2025 Active cholecalciferol (Vitamin D-3) 25 MCG (1000 UT) tablet Take 1 tablet (25 mcg) by mouth Once per day. 90 tablet 1 Active atorvastatin (Lipitor) 20 MG tabletIndications :Type 2 diabetes mellitus with diabetic nephropathy, without long-term current use of insulin ([facility]),Mixed hyperlipidemia Take 1 tablet (20 mg) by [...] with evening meal. 180 tablet 2025 Active aspirin (Aspirin Low Dose) 81 [...] nephropathy, without long-term current use of insulin ([facility]) USE 1 STRIP FOR TESTING TWICE A DAY 300 strip 3 Active Blood Glucose Monitoring Suppl w/Device kitIndications:Ty pe 2 diabetes mellitus with diabetic nephropathy, without long-term current use of insulin (HCC) USE TO CHECK BLOOD SUGAR DAILY 1 kit 025 Active Blood Glucose Monitoring Suppl w/Device kitIndications:Ty pe 2 diabetes mellitus with diabetic nephropathy, without long-term current use of insulin (HCC) USE TO CHECK BLOOD SUGAR DAILY 1 kit 025 2024 Discontinued(R eorder (will not trigger [...] low back pain 01/06/2021 08/20/19 23 Encounters * This document contains information received from the source organization and may not represent a complete record from that organization. Date Type Department Care Team Description 01/07/2025 Telephone [facility] [address] [place] [address] Vi Keys MD 01/03/2025 Orders Only [facility] [address] [place] [address] Vi Keys MD Essential hypertension (Primary Dx) 12/27/2024 10:30 AM EDT Telemedicine [facility] [address] [place] [address] Lina Hayden PharmCarlita Type 2 diabetes mellitus with diabetic nephropathy, without long-term current use of insulin ([facility]) 12/27/2024 Refill [facility] [address] [place] [address] Lina Hayden PharmD Type 2 diabetes mellitus with diabetic nephropathy, without long-term current use of insulin ([facility]) 12/19/2024 Orders Only [facility] External Provider, [facility] 12/13/2024 11:00 AM EDT Telemedicine [facility] [address] [place] [address] Makenzie Self RN Essential hypertension 12/13/2024 Travel 11/30/2024 Refill [facility] [address] [place] [phone] Corina Vera MD Type 2 diabetes mellitus with diabetic nephropathy, without long-term current use of insulin ([facility]) 11/30/2024 Orders Only [facility] EXTERNAL DATA DEPARTMENT Provider, Generic External Data 11/29/2024 Orders Only GENERIC EXTERNAL DATA DEPARTMENT Provider, Generic External Data 11/29/2024 Telephone [facility] [address] [place] [phone] Lina Hayden PharmD Appointment Request 11/27/2024 Orders Only [facility] [address], [place] [phone] Vi Keys MD Hypertension, unspecified type (Primary Dx) 11/27/2024 Orders Only [facility] External Provider, [facility] 11/25/2024 Refill [facility] [address], [place] [phone] iV Keys MD Type 2 diabetes mellitus with diabetic nephropathy, without long-term current use of insulin ([facility]); Mixed hyperlipidemia 11/22/2024 Orders Only [facility] [place] [address] Vi Keys MD 11/22/2024 Results Follow-Up [facility] [address] [facility] [place] [address] Vi Keys MD Chlamydia/Trichomonas /Neisseria gonorrhoeae, PCR, Urine, Albumin, Random Urine W/Creatinine, CBC, Additional followed-up results: 14 11/22/2024 Orders Only [facility] [place] [address] Vi Keys MD Type 2 diabetes mellitus with diabetic nephropathy, without long-term current use of insulin (CMS/HCC) (Primary Dx) 11/22/2024 Orders Only GENERIC EXTERNAL DATA DEPARTMENT Provider, Generic External Data 11/22/2024 Travel 11/20/2024 9:00 AM EDT Office Visit [facility] [place] [address] Vi Keys MD Skin cyst (Primary Dx); Type 2 diabetes mellitus with diabetic nephropathy, without long-term current use of insulin (CMS/HCC); Polyp of colon, unspecified part of colon, unspecified type; Essential hypertension; Hyperlipidemia, unspecified hyperlipidemia type; Health care maintenance; Mixed anxiety depressive disorder; Primary insomnia; Epidermal cyst 11/20/2024 Travel 11/19/2024 Telephone [facility] [place] [phone] Vi Keys MD chart prep 11/08/2024 Orders Only [facility] [place] [address] Vi Keys MD Type 2 diabetes mellitus with diabetic nephropathy, without long-term current use of insulin (CMS/HCC) 11/07/2024 Refill [facility] [place] [address] Vi Keys MD Type 2 diabetes mellitus with diabetic nephropathy, without long-term current use of insulin ([facility]) 10/24/2024 Results Follow-Up [facility] [address] [place] [address] Vi Keys MD US Renal Complete 10/24/2024 Orders Only [facility] External Provider, [facility] 10/08/2024 3:30 PM EDT Office Visit [facility] [address] [place] [address] Garry, Fannie, OD Double vision (Primary Dx) 10/08/2024 Travel from Last 3 Months Immunizations Immunization [...] Info) Description 01/28/2025 1:30 PM EST Immunization [facility] [address] [place] [phone] 02/24/2025 9:00 AM EST Office Visit [facility] [address] [place] [address] Fannie Castañeda, OD [address] [place] [address] Health Maintenance Due Date Last Done Comments [...] Additional history exists Eye Exam 10/08/2026 10/08/2024, 0504/2024, 01/11/2024, Additional history exists DTaP/Tdap/Td Vaccines (3 [...] Procedure Name Priority Date/Time Associated Diagnosis Comments US RENAL COMPLETE Routine 12/20/2024 8:5 7 AM EDT FL GUIDANCE IN OR Routine 12/02/2024 4:5 [...] 11/22/2024 9:00 AM EDT Health care maintenance CHLAMYDIA/TRICHOMONAS/ NEISSERIA GONORRHOEAE, PCR, URINE Routine 11/22/2024 9:00 AM EDT Health care maintenance POCT GLYCATED HEMOGLOBIN, TOTAL Routine 11/20/2024 9:12 AM EDT Type 2 diabetes mellitus with diabetic nephropathy, without long-term current use of insulin ([facility]) POCT GLUCOSE Routine 11/20/2024 9:09 AM EDT Type 2 diabetes mellitus with diabetic nephropathy, without long-term current use of insulin ([facility]) US RENAL COMPLETE Routine 10/24/2024 12: 23 PM EDT from Last 3 Months Results * US Renal Complete (12/20/2024 8:57 AM EDT) Only the most recent of2 resultswithin the time period is included. Anatomical Region Laterality Modality Kidney Ultrasound 12/20/2024 8:57 AM EDT Narrative 12/20/2024 8:58 AM EDT [facility] [place] [address] Ultrasound Report Signed Patient: Jackie Marlow MR#: [id number] : 1965 Acct:[id number] Age/Sex: 59 / M ADM Date: 12/19/24 Loc: DBCX Attending Dr: Joseph Portillo MD Ordering Physician: Joseph Portillo MD Date of Service: 12/19/24 Procedure(s): US renal BI Accession Number(s): [id number] cc: Joseph Portillo MD; Vi Keys MD Reason for Exam: N20.1 - Calculus of ureter CLINICAL HISTORY: N20.1 - Calculus of ureter US Renal Comparison: 10/24/2024 Findings: Right kidney normal size and echotexture, 10.5 cm length. Left kidney normal size and echotexture, 10.2 cm length. There are bilateral renal parenchymal calculi and bosniak 1 cysts Minimal hydronephrosis of left kidney. Normal color Doppler IMPRESSION: 1. Minimal left hydronephrosis This document has been electronically signed by: Marco Tejeda MD on 12/20/2024 08:57:37 Dictated By: Marco Tejeda MD Signed By: <Electronically signed by Marco Tejeda MD in OV> 12/20/24856 DD/ 6 TD/TT: 12/20/24856 Match Maker: Procedure Note Donotuseinterpreter, Image - 12/20/2024 [facility] [address] [place] [address] [place] [address] Ultrasound Report Signed Patient: Seth Marlow#: [id number] : 1965Acct:[id number] Age/Sex: 59 / MADM Date: 12/19/24 Loc: HMGCX Attending Dr: Joseph Portillo MD Ordering Physician: Joseph Portillo MD Date of Service: 12/19/24 Procedure(s): US renal BI Accession Number(s): [id number] cc: Joseph Portillo MD; Vi Keys MD Reason for Exam: N20.1 - Calculus of ureter CLINICAL HISTORY: N20.1 - Calculus of ureter US Renal Comparison: 10/24/2024 Findings: Right kidney normal size and echotexture, 10.5 cm length. Left kidney normal size and echotexture, 10.2 cm length. There are bilateral renal parenchymal calculi and bosniak 1 cysts Minimal hydronephrosis of left kidney. Normal color Doppler IMPRESSION: 1. Minimal left hydronephrosis This document has been electronically signed by: Marco Tejeda MD on 12/20/2024 08:57:37 Dictated By: Marco Tejeda MD Signed By: <Electronically signed by Marco Tejeda MD in OV> 12/20/24856 DD/ 6 TD/TT: 12/20/24856 Match Maker: us [facility] External Provider IMG US PROCEDURES Final Result * FL Guidance in OR (12/02/2024 4:59 PM EDT) Anatomical Region Laterality Modality X-Ray Angiograph y 12/02/2024 4:59 PM EDT Narrative 12/03/2024 8:21 AM EDT [place] [address] Fluoroscopy Report Signed Patient: Jackie Marlow MR#: [id number] : 1965 Acct:[id number] Age/Sex: 59 / M ADM Date: 11/30/24 Loc: HO.S3 386-[address]: Tammy Gutierrez MD Ordering Physician: Joseph Portillo MD Date of Service: 12/02/24 Procedure(s): FL guidance in OR Accession Number(s): [id number] cc: Joseph Portillo MD; Vi Keys MD [...] OV> 12/03/24817 DD/ 1659 TD/TT: 12/02/24 1800 Match Maker: Procedure Note Donotjenniferinterpreter, Image - 12/03/[address] [address] Fluoroscopy Report Signed Patient: Seth Marlow#: [id number] : 1965Acct:[id number] Age/Sex: 59 / MADM Date: 11/30/24 Loc: .S3 386-[address]: Tammy Gutierrez MD Ordering Physician: Joseph Portillo MD Date of Service: 12/02/24 Procedure(s): FL guidance in OR Accession Number(s): [id number] cc: Joseph Portillo MD; Vi Keys MD [...] OV> 12/03/24817 DD/ 1659 TD/TT: 12/02/24 1800 Match Maker: [facility] External Provider IMG IR PROCEDURES Final Result * Lactic Acid (11/30/2024 12:21 AM EDT) Lactic Acid 0.9 0.5 - 2.0 mmol/L [facility] 11/30/2024 12:2 1 AM EDT 11/30/2024 12:28 AM EDT us Generic External Data Provider LAB BLOOD ORDERAB LES Final Result Performing Organization Address City/State/[facility] Co de Phone Number [facility] [address] [place] [phone] * CT Abdomen Pelvis w/o Contrast (11/29/2024 11:56 PM EDT) Anatomical Region Laterality Modality Body, Pelvis, Abdomen Computed T omography 11/29/2024 11:5 6 PM EDT Narrative 11/29/2024 11:57 PM EDT [address] [address] [address] Scan Report Signed Patient: Jackie Marlow MR#: [id number] : 1965 Acct:[id number] Age/Sex: 59 / M ADM Date: 11/29/24 Loc: HO.ED Attending Dr: Ordering Physician: Rosanne Dangelo Date of Service: 11/29/24 Procedure(s): CT abdomen pelvis wo IV con Accession Number(s): [id number] cc: Rosanne Dangelo; Vi Keys MD Report Number: [id number]: Total DLP = 698.00 mGy-cm Reason for [...] in OV> 11/29/242356 DD/ 55 TD/TT: 11/29/242355 Match Maker: Procedure Note Donotuseinterpreter, Image - 11/29/[address] [place] [address] [address] Scan Report Signed Patient: Seth Marlow#: [id number] : 1965Acct:[id number] Age/Sex: 59 / MADM Date: 11/29/24 Loc: HO.ED Attending Dr: Ordering Physician: Rosanne Dangelo Date of Service: 11/29/24 Procedure(s): CT abdomen pelvis wo IV con Accession Number(s): [id number] cc: Rosanne Dangelo; Vi Keys MD Report Number: [id number]: Total DLP = 698.00 mGy-cm Reason for [...] in OV> 11/29/242356 DD/ 55 TD/TT: 11/29/242355 Match Maker: us [facility] External Provider IMG CT PROCEDURES Edited Result - Final * Glucose, Whole Blood (11/29/2024 9:49 PM EDT) Only the most recent of2 resultswithin the time period is included. Glucose, Whole Blood 102 60 - 115 mg/dL [facility] Comment:METER #: [id number] 11/29/2024 9:49 PM EDT 11/29/2024 9:53 PM EDT Generic External Data Provider LAB BLOOD ORDERAB LES Final Result [facility] [address] [place] [phone] * (ABNORMAL) Urinalysis, Complete, with Reflex to Culture (11/29/2024 8:47 PM EDT) Color Urine Dark Yellow [facility] Appearance Urine Clear [facility] PH 6.0 5.0 - 9.0 [facility] Glucose Urine UA 500(A) Negative mg/dL [facility] Urine Blood Large (3+)(A) Negative [facility] Specific [place] - Urine 1.010 1.005 - 1.025 [facility] Urine Protein Trace Neg-Trace mg/dL [facility] Urine Ketones Negative Negative mg/dL [facility] Nitrite Urine Positive(A) Negative [facility] Leukocyte Esterase Urine Moderate (2+)(A) Negative [facility] RBC Urine >20(A) 0 - 2 /HPF [facility] Urine WBC 6-10 0 - 5 /HPF [facility] Urine Squamous Epithelial Cell 0-2 0 - 2 /HPF [facility] Urine Bacteria None Seen None Seen [facility] Hyaline Casts, Urine 0-2 0 - 2 /LPF [facility] 11/29/2024 8:47 PM EDT 11/29/2024 8:52 PM EDT Narrative [facility] - 11/29/2024 9:06 PM EDT Urine, Clean Catch us Generic External Data Provider LAB URINE ORDERAB LES Final Result [facility] [address] [place] [phone] * Slide Review (11/29/2024 5:37 PM EDT) Slide Review VERIFIED [facility] 11/29/2024 5:37 PM EDT 11/29/2024 5:39 PM EDT us Generic External Data Provider LAB BLOOD ORDERAB LES Final Result [facility] [address] [place], [place] [phone] * (ABNORMAL) CBC auto differential (11/29/2024 5:37 PM EDT) White Blood Count 9.2 4.8 - 10.8 X10*3/uL [facility] Red Blood Count 4.72 4.60 - 5.80 X10*6/uL [facility] Hemoglobin 12.5(L) 14.0 - 18.0 g/dl [facility] Hematocrit 36.5(L) 42.0 - 52.0 % [facility] Mean Corpuscular Volume 77.3(L) 80.0 - 98.0 fL [facility] Mean Corpuscular Hemoglobin 26.5(L) 27.0 - 33.0 pg [facility] Mean Corpuscular HGB Conc 34.2 31.0 - 36.0 g/dl [facility] Red Cell Distribution Width 14.0 11.0 - 16.0 % [facility] Platelet Count 240 160 - 400 X10*3/uL [facility] Mean Platelet Volume 9.9 9.4 - 12.4 fL [facility] Neutrophils Percent Auto 65.9 45 - 73 % [facility] Imm Gran Pct Auto 0.7(H) 0.0 - 0.4 % [facility] Lymphocytes Percent Auto 21.1 20 - 40 % [facility] Monocytes Percent Auto 6.3 2 - 11 % [facility] Eosinophils Percent Auto 5.5(H) 0 - 4 % [facility] Basophils Percent Auto 0.5 0 - 2 % [facility] NRBC Pct Auto 0.0 0.0 - 0.2 /100WBC [facility] Neutrophils Absolute Auto 6.0 2.0 - 8.3 x10*3/uL [facility] Imm Gran Abs Auto 0.06(H) 0.00 - 0.03 X10*3/uL [facility] Lymphocytes Absolute Auto 1.9 1.2 - 4.9 X10*3/uL [facility] Monocytes Absolute Auto 0.6 0.1 - 1.2 X10*3/uL [facility] Eosinophils Absolute Auto 0.5(H) 0.0 - 0.4 X10*3/uL [facility] Basophils Absolute Auto 0.1 0.0 - 0.2 X10*3/uL [facility] NRBC Abs Auto 0.000 0.0 - 0.012 X10*3/uL [facility] 11/29/2024 5:37 PM EDT 11/29/2024 5:39 PM EDT us Generic External Data Provider LAB BLOOD ORDERAB LES Edited Result - Final [facility] [address] [place] [phone] * (ABNORMAL) Basic Metabolic Panel (11/29/2024 5:37 PM EDT) Sodium 141 135 - 145 mmol/L [facility] Potassium 4.2 3.3 - 5.1 mmol/L [facility] Chloride 105 96 - 108 mmol/L [facility] Carbon Dioxide 27 22 - 29 mmol/L [facility] Anion Gap 13 12 - 20 [facility] Urea Nitrogen (BUN) 14 9 - 16 mg/dL [facility] Creatinine, Serum 1.05 0.5 - 1.4 mg/dL [facility] Creatinine Clr Calc Pharmacy 79.6 [facility] Comment:eGFR (calculated fro m the MDRD study equation) and eCrCl(calculated from the Cockcroft-Gault equation) are based ondifferent parameters and may not yield comparable results.If eCrCl result is absurd, please check patient'sheight/weight. Estimated Glomerular Filt Rate >60 [facility] Comment:Chronic Kidney Disea se: Estimated GFR < 60 mL/min/1.90q5Mezseb Kidney Disease: Estimated GFR < 15 mL/min/1.73m2 Glucose 136(H) 60 - 115 mg/dL [facility] Calcium 9.4 8.4 - 10.2 mg/dL [facility] 11/29/2024 5:37 PM EDT 11/29/2024 5:39 PM EDT us Generic External Data Provider LAB BLOOD ORDERAB LES Final Result Performing Organization Address City/State/[facility] Co de Phone Number [facility] [address] [place] [phone] * XR KUB and Upright 2 Views (11/27/2024 7:04 AM EDT) Anatomical Region Laterality Modality Radiographic Isabel ging 11/27/2024 7:04 AM EDT Narrative 11/27/2024 7:21 AM EDT [address] [address] XRay Report Signed Patient: Jackie Marlow MR#: [id number] : 1965 Acct:[id number] Age/Sex: 59 / M ADM Date: 11/27/24 Loc: HO.[facility] Attending Dr: Joseph Portillo MD Ordering Physician: Joseph Portillo MD Date of Service: 11/27/24 Procedure(s): XR KUB Accession Number(s): [id number] cc: Joseph Portillo MD; Vi Keys MD [...] in OV> 11/27/24718 DD/ 3 TD/TT: 11/27/24706 Match Maker: Procedure Note Donotuseinterpreter, Image - 11/27/[address] [address] XRay Report Signed Patient: Seth Marlow#: [id number] : 1965Acct:[id number] Age/Sex: 59 / MADM Date: 11/27/24 Loc: .[facility] Attending Dr: Joseph Portillo MD Ordering Physician: Joseph Portillo MD Date of Service: 11/27/24 Procedure(s): XR KUB Accession Number(s): [id number] cc: Joseph Portillo MD; Vi Keys MD [...] in OV> 11/27/24718 DD/ 3 TD/TT: 11/27/24706 Match Maker: [facility] External Provider IMG XR PROCEDURES Edited Result - Final * Syphilis Screen (11/22/2024 9:04 AM EDT) Syphilis Screen Nonreactive Nonreactive [facility] Blood 11/22/2024 9:04 AM EDT 11/22/2024 11:24 AM EDT Vi Cardozo MD LAB BLOOD ORDERAB LES Final Result [facility] [address] [place] [phone] * (ABNORMAL) Vitamin D, 25-Hydroxy, Total, Immunoassay (11/22/2024 9:04 AM EDT) Vitamin D 25-OH Total 24.2(L) >30 ng/mL [facility] Comment: Health Based Reference Values*< 20 ng/mL Soolmaqow81-70 ng/mL Insufficient> 30 ng/mL Sufficient*Dwight ANDREW. N [...] ORDERAB LES Final Result Performing Organization Address City/[facility]/ZIP Co de Phone Number [facility] [address] [place] [phone] * Vitamin B12 (Cobalamin) and Folate Panel, Serum (11/22/2024 9:04 AM EDT) Vitamin B12 492 200 - 900 pg/mL [facility] Comment:NORMAL 200-900 PG/M L INDETERMINATE 160-199 PG/ML DEFICIENT < 160 PG/ML Folate 5.6 > or = 4.0 ng/mL [facility] Comment:Reference Values:> o r = 4.0 ng/mL< 4.0 ng/mL suggests folate deficiency Methotrexate, aminopterin and folinic acid(leucovorin) are chemotherapeutic agents whose molecularstructures are similar to folate; therefore, the Architectfolate assay cannot be used for patients using these drugs. Blood 11/22/2024 9:04 AM EDT 11/22/2024 11:24 AM EDT us Vi Cardozo MD LAB BLOOD ORDERAB LES Final Result Performing Organization Address [facility] Co de Phone Number [facility] [address] [place] [phone] * TSH with Reflex to Free T4 (11/22/2024 9:04 AM EDT) TSH reflex Free T4 0.97 0.32 - 4.0 uIU/mL [facility] Blood 11/22/2024 9:04 AM EDT 11/22/2024 11:24 AM EDT us Vi Cardozo MD LAB BLOOD ORDERAB LES Final Result Performing Organization Address City/[facility]/ZIP Co de Phone Number [facility] [address] [place] [phone] * Albumin, Random Urine W/Creatinine (11/22/2024 9:04 AM EDT) Creatinine, Urine 173.17 mg/dL [facility] Microalbumin Urine 50.0 mg/L [facility] Microalbum Creatinine Ratio Ur 28.8 <30 ug/mg cr [facility] Comment:Albumin/Creatinine R atio Reference Ranges: Normal: < 30 ug/mg creatinine Microalbuminuria: 30 - 300 ug/mg creatinineClinical Albuminuria: > 300 ug/mg creatinine Urine (Urine, Random) 11/22/2024 9:04 AM EDT 11/22/2024 11:41 AM EDT us Vi Cardozo MD LAB URINE ORDERAB LES Final Result Performing Organization Address [facility]/ZIP Co de Phone Number [facility] [address] [place] [address] [phone] * Hepatitis C Antibody with Reflex to HCV, RNA, Quantitative, Real-Time PCR (11/22/2024 9:04 AM EDT) Hepatitis C Antibody Nonreactive Nonreactive [facility] Comment:Antibodies to HCV no t detected; does not exclude early acuteHCV infection. Blood Venous blood specimen / Unknown 11/22/2024 9:04 AM EDT 11/22/2024 11:11 AM EDT us Vi Cardozo MD LAB BLOOD ORDERAB LES Final Result [facility] [address] [place] [address] [phone] * Hepatitis B surface antigen, EIA (11/22/2024 9:04 AM EDT) Hepatitis B Surface Ag Negative Negative [facility] Blood Venous blood specimen / Unknown 11/22/2024 9:04 AM EDT 11/22/2024 11:11 AM EDT us Vi Cardozo MD LAB BLOOD ORDERAB LES Final Result [facility] [address] [place] [address] [phone] * Hepatitis B Core Antibody, Total (11/22/2024 9:04 AM EDT) Hepatitis B Core Antibody Nonreactive Nonreactive [facility] Blood Venous blood specimen / Unknown 11/22/2024 9:04 AM EDT 11/22/2024 11:11 AM EDT Vi Cardozo MD LAB BLOOD ORDERAB LES Final Result Performing Organization Address [facility] Co de Phone Number [facility] [address] [place] [address] [phone] * HIV-1/2 Antigen and Antibodies, Fourth Generation, with Reflexes (11/22/2024 9:04 AM EDT) HIV AB/AG Nonreactive Nonreactive [facility] Comment:HIV-1 p24 Ag and/or HIV-1/HIV-2 Ab not detected.A test result that is nonreactive does not exclude thepossibility of exposure to or infection with HIV-1 and/orHIV-2. Nonreactive results in this assay for individualswith prior exposure to HIV-1 and/or HIV-2 may be due toantigen and antibody levels that are below the limit ofdetection of this assay.The [employer] HIV Ag/Ab Combo assay result andsupplemental assay results should be interpreted inconjunction with the patient's clinical presentation,history and other laboratory results. If the results areinconsistent with clinical evidence, additional testing issuggested to confirm the result. Blood Venous blood specimen / Unknown 11/22/2024 9:04 AM EDT 11/22/2024 11:11 AM EDT iV Cardozo MD LAB BLOOD ORDERAB LES Final Result Performing Organization Address [facility] Co de Phone Number [facility] [address] [place] [phone] * Hepatitis B Surface Antibody, Qualitative (11/22/2024 9:04 AM EDT) [facility] ~Hepatitis B Surface Antibody NONREACTIVE Nonreactive [facility] Comment:Nonreactive: < 8.00 mIU/mL Blood Venous blood specimen / Unknown 11/22/2024 9:04 AM EDT 11/22/2024 11:11 AM EDT us Vi Cardozo MD LAB BLOOD ORDERAB LES Final Result Performing Organization Address [facility] de Phone Number [facility] [address] [place] [phone] * Sed Rate by Modified Jongergren (11/22/2024 9:04 AM EDT) [facility] Erythrocyte Sedimentation Rate 7 0 - 15 MM/HR [facility] Comment:Patients with polycy themia and many hemoglobin abnormalitiesmay have depressed sed rates whereas patients with anemiamay have elevated sed rates. Blood Venous blood specimen / Unknown 11/22/2024 9:04 AM EDT 11/22/2024 11:11 AM EDT us Vi Cardozo MD LAB BLOOD ORDERAB LES Final Result Performing Organization Address [facility] Co de Phone Number [facility] [address] [place] [phone] * (ABNORMAL) CBC (11/22/2024 9:04 AM EDT) [facility] White Blood Count 8.4 4.8 - 10.8 X10*3/uL [facility] Red Blood Count 5.35 4.60 - 5.80 X10*6/uL [facility] Hemoglobin 14.1 14.0 - 18.0 g/dl [facility] Hematocrit 42.5 42.0 - 52.0 % [facility] Mean Corpuscular Volume 79.4(L) 80.0 - 98.0 fL [facility] Mean Corpuscular Hemoglobin 26.4(L) 27.0 - 33.0 pg [facility] Mean Corpuscular HGB Conc 33.2 31.0 - 36.0 g/dl [facility] Red Cell Distribution Width 14.0 11.0 - 16.0 % [facility] Platelet Count 262 160 - 400 X10*3/uL [facility] Mean Platelet Volume 11.0 9.4 - 12.4 fL [facility] NRBC Pct Auto 0.0 0.0 - 0.2 /100WBC [facility] NRBC Abs Auto 0.000 0.0 - 0.012 X10*3/uL [facility] Blood Venous blood specimen / Unknown 11/22/2024 9:04 AM EDT 11/22/2024 11:11 AM EDT us Vi Cardozo MD LAB BLOOD ORDERAB LES Final Result [facility] [address] [place] [address] [phone] * (ABNORMAL) C-reactive Protein (11/22/2024 9:04 AM EDT) C Reactive Protein 0.63(H) < or = 0.50 mg/dL [facility] Blood Venous blood specimen / Unknown 11/22/2024 9:04 AM EDT 11/22/2024 11:24 AM EDT us Vi Cardozo MD LAB BLOOD ORDERAB LES Final Result [facility] [address] [place] [address] [phone] * PSA,Total (11/22/2024 9:04 AM EDT) Only the most recent of2 resultswithin the time period is included. Prostate Specific Antigen 1.12 <0.05 - 4.0 ng/mL [facility] Comment:PSA methodology: Luz cruz Aliblane i ChemiluminescentMicroparticle Immunoassay (CMIA) 11/22/2024 9:04 AM EDT 11/22/2024 11:24 AM EDT us Generic External Data Provider LAB BLOOD ORDERAB LES Final Result Performing Organization Address City/[facility]/ZIP Co de Phone Number [facility] [address] [place] [address] [phone] * (ABNORMAL) Hemoglobin A1c (11/22/2024 9:04 AM EDT) Hemoglobin A1c 6.2(H) <6.0 % [facility] Comment:Hemoglobin A1C Refer ence Range Adults: 4.8 - 6.0 % Non diabetic: < 6.0 % Goal: < 7.0 %Additional Action Suggested: > 8.0 %Note: Hemoglobin A1c results are invalid for patients with abnormal amounts of HbF. Blood transfusions may impact the HbA1c concentration in the patient sample. Estimated Average Glucose 131 mg/dL [facility] Comment:eAG = Estimated ave rage glucose which is %A1C expressed asaverage glucose, using the formula of the K7L-SnrkrkhEtyzvqc Glucose study (ADAG), Diabetes Care, Vol.31,#8,2007 Blood Venous blood specimen / Unknown 11/22/2024 9:04 AM EDT 11/22/2024 11:11 AM EDT us Vi Cardozo MD LAB BLOOD ORDERAB LES Final Result Performing Organization Address City/[facility]/ZIP Co de Phone Number [facility] [address] [place] [address] [phone] * (ABNORMAL) Lipid Panel, Standard (11/22/2024 9:04 AM EDT) Triglycerides 109 <150 mg/dL [facility] Comment:Desirable Triglyceri de: less than 150 mg/dLBorderline High Triglyceride 150-199 mg/dLHigh Triglyceride: 200-499 mg/dLVery High Triglyceride: greater than or equal to 5OO mg/dL Cholesterol 105 <200 mg/dL [facility] Comment:Desirable Cholestero l: less than 200 mg/dLBorderline High Cholesterol: 200-239 mg/dLHigh Cholesterol: greater than 239 mg/dL LDL Cholesterol Calculated 57 <100 mg/dL [facility] Comment:Desirable LDL: less than 100 mg/dLNear Optimal/Above Optimal LDL: 110- 129 mg/dLBorderline High LDL: 130-159 mg/dLHigh LDL: 160-189 mg/dLVery High LDL: greater than or equal to 190 mg/dL HDL Cholesterol 27(L) >40 mg/dL [facility] Comment:Desirable HDL: great er than 40 mg/dL Note: This HDL assay may give artificially low results in patients with liver disease. Blood Venous blood specimen / Unknown 11/22/2024 9:04 AM EDT 11/22/2024 11:24 AM EDT us Vi Cardozo MD LAB BLOOD ORDERAB LES Final Result [facility] [address] [place] [address] [phone] * (ABNORMAL) Comprehensive Metabolic Panel (11/22/2024 9:04 AM EDT) Sodium 142 135 - 145 mmol/L [facility] Potassium 3.8 3.3 - 5.1 mmol/L [facility] Chloride 107 96 - 108 mmol/L [facility] Carbon Dioxide 26 22 - 29 mmol/L [facility] Anion Gap 13 12 - 20 [facility] Urea Nitrogen (BUN) 18(H) 9 - 16 mg/dL [facility] Creatinine, Serum 0.88 0.5 - 1.4 mg/dL [facility] Estimated Glomerular Filt Rate >60 [facility] Comment:Chronic Kidney Disea se: Estimated GFR < 60 mL/min/1.82a9Iejidx Kidney Disease: Estimated GFR < 15 mL/min/1.73m2 Glucose 107 60 - 115 mg/dL [facility] Calcium 9.0 8.4 - 10.2 mg/dL [facility] Bilirubin, Total 0.6 0.0 - 1.0 mg/dL [facility] Aspartate Amino Transferase 30 5 - 37 U/L [facility] Alanine Aminotransferase 27 0 - 40 U/L [facility] Total Protein 7.5 6.5 - 8.0 g/dL [facility] Albumin Level 4.7 3.5 - 5.0 g/dL [facility] Alkaline Phosphatase 76 39 - 117 U/L [facility] Blood Venous blood specimen / Unknown 11/22/2024 9:04 AM EDT 11/22/2024 11:24 AM EDT Vi Cardozo MD LAB BLOOD ORDERAB LES Final Result [facility] [address] [place] [phone] * Chlamydia/Trichomonas/Neisseria gonorrhoeae, PCR, Urine (11/22/2024 9:00 AM EDT) CT PCR, Urine NOT DETECTED Not Detect. [facility] Comment:A not detected test result does [...] NG PCR, Urine NOT DETECTED Not Detect. [facility] Comment:A not detected test result does [...] 9:00 AM EDT 11/22/2024 12:10 PM EDT Vi Cardozo MD LAB URINE ORDERAB LES Final Result [facility] [address] [place] [address] [phone] * Measles, Mumps, and Rubella (MMR) Antibodies??(IgG) Panel, Immune Status (11/22/2024 9:00 AM EDT) Mumps Virus IgG Antibody 23.20 AU/mL [facility] Comment:AU/mL Interpretation ------- <9.00 Not consistent with immunity9.00-10.99 Equivocal>10.99 Consistent with immunityThe presence of mumps IgG antibody suggests immunizationor past or current infection with mumps virus. Rubella IgG Antibody 7.20 Index [facility] Comment:Index Interpretation ----- <0.90 Not consistent with immunity 0.90-0.99 Equivocal > or = 1.00 Consistent with immunityThe presence of rubella IgG antibody suggestsimmunization or past or current infection withrubella virus.THIS TEST WAS PERFORMED AT:[facility] [place] [phone] Chana MONSVIAIS IgG (Measles) >300.00 AU/mL [facility] Comment:AU/mL Interpretation ----- <13.50 Not consistent with lzyiyjik32.50-16.49 Equivocal>16.49 Consistent with immunityThe presence of measles IgG suggests immunization orpast or current infection with measles virus.For additional information, please refer [email or web address].Docurated/faq/[email or web address](This link is being provided for informational/educational purposes only.) Blood Venous blood specimen / Unknown 11/22/2024 9:00 AM EDT 11/22/2024 11:24 AM EDT Vi Cardozo MD LAB BLOOD ORDERAB LES Final Result [facility] [address] [place] [address] [phone] * (ABNORMAL) POCT Hgb A1c (11/20/2024 9:12 AM EDT) Hemoglobin A1C 6.2(A) 4.0 - 5.7 % QC Media Lot # [id number] Lot# Expiration Date [id number] Blood 11/20/2024 9:12 AM EDT Vi Cardozo MD POINT OF CARE EMILE T ENTER/EDIT ORDERABLES Final Result * POCT Glucose (11/20/2024 9:09 AM EDT) Glucose Blood, POC 198 60 - 200 mg/dL QC Media Lot # [id number] Lot# Expiration Date [id number] Blood Capillary blood specimen / Unknown 11/20/2024 9:09 AM EDT Vi Cardozo MD POINT OF CARE EMILE T ENTER/EDIT ORDERABLES Final Result from Last 3 Months Insurance * Guarantor: Jackie Marlow Account Type Relation to Patient Date of Phone Billing Address Personal/Family Self [address] Care Teams Construction Producer Relationship Specialty Start Date End Date Vi Keys MD [address] [place] [phone] PCP - General Internal Medicine 12/20/22
--- OUTSIDE RECORDS SUMMARY | 2025-01-07 16:19 | XMS_ITS | Encounter Summary ---
Author Organization [employer] Address [address] [place] [address] Care Team Providers Care Silverware Buffing Machine Operator Name Role Phone Vi Keys MD Primary Care Pro vider Reason for Visit * Reason Comments Med Refill Encounter Details Date Type Department Care Team ([facility] st Contact Info) Description 09/04/2024 Refill [facility] [address] [place], [place] [phone] Mandie Chavez DO [address] [place], [place] [phone] Type 2 diabetes mellitus with diabetic nephropathy, without long-term current use of insulin ([facility]) Social History Tobacco Use Types [...] Info) Description 01/28/2025 1:30 PM EST Immunization [facility] [address] [place] [address] 02/24/2025 9:00 AM EST Office Visit [facility] [address] [place] [address] Garry, Fannie, OD [address] [place] [address] documented as of this encounter Visit Diagnoses Diagnosis Type 2 diabetes mellitus with diabetic nephropathy, without long-term current use of insulin (HCC) documented in this encounter Additional Health Concerns Assessment Noted Time PHQ-9 Depression Total Score: 0 08/20/19 3:43 PM EDT documented as of this encounter Care Teams Silverware Buffing Machine Operator Relationship Specialty Start Date End Date Vi Keys MD [address] [place] [address] PCP - General Internal Medicine 12/20/22 documented as of this encounter
--- OUTSIDE RECORDS SUMMARY | 2025-01-07 16:19 | XMS_ITS | Data Portability ---
Author Organization [place] [facility] Address [address] [place] [address] Assessment Encounter Date Assessment Date Assessment LastModified [...] previous X-rays ordered, obtained and reviewed at [facility] from February 2023. These images included [...] grossly intact. Eyes: Sclera are not blue. day haul or farm charter bus driver II-XII are grossly intact. Full extraocular motion. [...] a low-dose oral anti-inflammatory such as ibuprofen [id number] and/or Tylenol as needed. I am referring [...] visit note. This note was generated with [employer] speech recognition building cleaning supervisor dictation software. Please excuse any errors that may have been overlooked during review of this note. Sometimes, these errors may affect the content or meaning of a given sentence. Please call for corrections. [email or web address] Not available 02/06/2024 15:23:14 05/16/2024 05/16/2024 Chief [...] previous X-rays ordered, obtained and reviewed at [facility] from February 2023. These images included [...] grossly intact. Eyes: Sclera are not blue. day haul or farm charter bus driver II-XII are grossly intact. Full extraocular motion. [...] a low-dose oral anti-inflammatory such as ibuprofen [id number]-[id number] and/or Tylenol as needed. I provided a [...] visit note. This note was generated with [facility] speech recognition building cleaning supervisor dictation software. Please excuse any errors that may have been overlooked during review of this note. Sometimes, these errors may affect the content or meaning of a given sentence. Please call for corrections. [email or web address] Not available 05/16/2024 13:23:55 Plan of Treatment Reminders Order Date Submit Date Provider Last Modified By Organization Details Last Modified Time Details Appointments None recorded. Lab None recorded. Referral None recorded. Procedures None recorded. Surgeries None recorded. Imaging MRI, shoulder, w/o contrast - ? RCT 2023 024 [email or web address] 4 [facility], [address], [facility] [address], [place], [address], 4 16:06:57 Medication Orders None recorded. Patient TargetsNo targets recorded. Patient InstructionsNo instructions recorded. Reason for Referral None Reported. Results Created Date Observation Date Name Description Value Unit Range Abnormal Flag Note LastModifiedBy Organization Detail LastModifiedTime 03/20/19 25 03/19/2024 MRI, shoul kimi, w/o contr ast No observ ation record ed. [email or web address] [facility] [address] [facility] [address], [place], [address], 03/20/2024 13:32:03 Result Notes None recorded. Problems Name Problem SNOMED Code Status Onset Date Resolution Date Notes Provider Name and Address Organization Details Recorded Time Impingement syndrome of left shoulder region 8485117250514 04 Active [address] [facility] 5 13:38:36 Problem Notes None recorded. Procedures Surgical History Date Name Laterality Status Provider Name and Address Organization Details Recorded Time 5 Sports Shoulder completed Leonardo Gay MD [address] [facility] [address], [phone], [facility] 05/16/2024 13:24:01 4 Sports Shoulder completed Leonardo Gay MD [address] [facility] [address], [phone], [facility] 02/06/2024 15:23:21 Imaging Results None [...] Updated DateTime 05/16/2024 180.34 cm 25.4 kg/m2 87208.81 g JESSICA GOTTLIEB [facility] 05/16/2024 13:02:11 Date Recorded Body height Body mass index (BMI) Body weight Provider Name and Address Organization Details Last Updated DateTime 02/06/2024 180.34 cm 25.4 kg/m2 66609.81 g JESSICA GOTTLIEB [facility] 02/06/2024 14:41:44 Social History None recorded. Functional Status None recorded. Mental Status None recorded. Family History Nothing Reported. Medical History No medical history recorded. Past Encounters Encounter ID Performer Location Encounter Start Date Encounter Closed Date Diagnosis/Indication Diagnosis SNOMED-CT Code Diagnosis ICD10 Code Diagnosis IMO Codes Diagnosis Note [id number] MD Angel [facility] [address] [place] [address] 02/06/2024 14:29:24 03/07/2024 09:41:47 Pain of left shoulder joint [id number] M25.512 239040 Impingemen t syndrome of left shoulder region 2164270644 36708 M75.42 [id number] [facility] [address] [place] [address] 05/16/2024 12:27:29 06/03/2024 14:55:33 Adhesive capsulitis of left shoulder 0699602453 08349 M75.02 [id number] Health Concerns Section Related Observation LastModified by Organization Detai ls LastModified Time None Recorded Concern Status LastModified by Organization Details LastModified Time None Recorded Advance Directives Directive None Recorded Payers Insurance Date Sequence Insurance Name Policy Number Policy Escobar Covered Member ID Escobar Member ID Guarantor Name 05/16/2024 1 [place] [facility] Jackie Marlow [id number] Jackie Marlow
--- OUTSIDE RECORDS SUMMARY | 2025-01-07 16:19 | XMS_ITS | Encounter Summary ---
Author Organization [employer] Address [address] [facility] 7t [place] [address] Care Team Providers Care Outboard Motors Experimental Mechanic Name Role Phone Vi Keys MD Primary Care Pro vider Encounter Details Date Type Department Care Team ([facility] st Contact Info) Description 01/07/2025 Telephone [facility] [address] [place], [place] [phone] Vi Keys MD [address] [place] [address] Social History Tobacco Use Types Packs/Day Years [...] encounter Miscellaneous Notes * Telephone Encounter - Malgorzata Rodriguez [place] - 01/07/2025 11:44 AM EDT T/c- sherwin called for following message Please can you advise pt to get done chem ordered today Explain is to monitor after a month that started high dose losartan w his maintenance mechanic supervisor -will informlab results I know he did it in 11/2024 But was too close since he started losartan so need to make sure kidney and potassium are ok documented in this encounter Plan of Treatment Upcoming Encounters Date Type Department Care Team (Late st Contact Info) Description 01/28/2025 1:30 PM EST Immunization [facility] [address] [place] [address] 02/24/2025 9:00 AM EST Office Visit [facility] [address] [place] [address] Garry, Fannie, OD [address] [place] [address] documented as of this encounter Visit Diagnoses Not on filedocumented in this encounter Additional Health Concerns Assessment Noted Time PHQ-9 Depression Total Score: 0 09/26/19 25 10:23 AM EDT documented as of this encounter Care Teams Outboard Motors Experimental Mechanic Relationship Specialty Start Date End Date Vi Keys MD [address] [place] [phone] PCP - General Internal Medicine 12/20/22 documented as of this encounter
--- OUTSIDE RECORDS SUMMARY | 2025-01-07 16:19 | XMS_ITS | Encounter Summary ---
Author Organization [employer] Address [address] [facility] 7[address] [place] [address] Care Team Providers Care School Bus Driver/Teacher Assistant Name Role Phone Vi Keys MD Primary Care Pro vider Encounter Details Date Type Department Care Team (Late st Contact Info) Description 01/03/2025 Orders Only [facility] [address] [place], [place] [phone] Vi Keys MD [address] [place] [address] Essential hypertension (Primary Dx) Social History Tobacco Use Types [...] Info) Description 01/28/2025 1:30 PM EST Immunization [facility] [address] [place] [address] 02/24/2025 9:00 AM EST Office Visit [facility] [address] [place] [address] Garry, Fannie, OD [address] [place] [address] Scheduled Orders Name Type Priority Associated Diagnoses Orde r Schedule Comprehensive Metabolic Panel Lab Routine Essential hypertension Expected: 01/03/2025 (Approximate), Expires: 01/03/2026 documented as of this encounter Visit Diagnoses Diagnosis Essential hypertension- Primary Unspecified essential hypertension documented in this encounter Additional Health Concerns Assessment Noted Time PHQ-9 Depression Total Score: 0 09/26/19 25 10:23 AM EDT documented as of this encounter Care Teams School Bus Driver/Teacher Assistant Relationship Specialty Start Date End Date Vi Keys MD [address] [place] [address] PCP - General Internal Medicine 12/20/22 documented as of this encounter
--- OUTSIDE RECORDS SUMMARY | 2025-01-07 16:19 | XMS_ITS | Encounter Summary ---
Author Organization [employer] Address [address] [place] [address] 7 [place] [address] Care Team Providers Care Orthoptist Name Role Phone Carmelita Escalona Primary Care Provider Vi Guardado MD Primary Care Pro vider Encounter Details Date Type Department Care Team (Latest Contact Info) Description 07/13/2018 Abstract [facility] CON[facility] Dental, Provider, DDS [...] Info) Description 01/28/2025 1:30 PM EST Immunization [facility] MEDICINE [address] [place] [address] 02/24/2025 9:00 AM EST Office Visit [facility] OPTOMETRY [address] [place] [address] Garry, Fannie, OD [address] [place] [address] documented as of this encounter Visit Diagnoses Not on filedocumented in this encounter Care Teams Orthoptist Relationship Specialty Start Date End Date Carmelita Escalona FNP PCP - General Family Medicine 11/02/21 12/19/22 Vi Keys MD [address] [place] [id number] PCP - General Internal Medicine 12/20/22 documented as of this encounter
--- OUTSIDE RECORDS SUMMARY | 2025-01-07 16:19 | XMS_ITS | Encounter Summary ---
Author Organization [employer] Address [address] [facility] 7t [place] [address] Care Team Providers Care Geometry Professor Name Role Phone Carmelita Escalona [employer] ARCHITECT Primary Care Provider Vi Guardado MD Primary Care Pro vider Reason for Visit * Reason Onset Date Comments ER Follow-up 12/09/2022 Encounter Details Date Type Department Care Team ([facility] st Contact Info) Description 12/09/2022 Telephone [facility] MEDICINE [address] [place] [phone] Carmelita Escalona FNP ER Follow-up Social History [...] For below message, pt. Was admitted at [facility] for loss of vision and suspected seizure from12/07 to 12/09. P. Schedule for HDF on 12/22/2022. Pt. Verbally agreed and understood. HDF cristopher and ED cristopher scanned into pt.'s chart. * Telephone Encounter - Nisa Ramos - 12/09/2022 10:50 AM EDT Patient calling to report ED visit on 12/09/2022 at [facility]. Diagnosed with nothing. Patient advised will forward to nurse for follow up. No symptoms Please contact pt at [phone] documented in this encounter Plan of Treatment Upcoming Encounters Date Type Department Care Team (Late st Contact Info) Description 01/28/2025 1:30 PM EST Immunization [facility] MEDICINE [address] [place] [address] 02/24/2025 9:00 AM EST Office Visit [facility] OPTOMETRY [address] [place] [address] Garry, Fannie, OD [address] [place] [address] documented as of this encounter Visit Diagnoses Not on filedocumented in this encounter Additional Health Concerns Assessment Noted Time PHQ-9 Depression Total Score: 0 08/20/19 23 3:43 PM EDT documented as of this encounter Care Teams Geometry Professor Relationship Specialty Start Date End Date Carmelita Escalona FNP PCP - General Family Medicine 11/02/21 12/19/22 Vi Keys MD [address] [place] [address] PCP - General Internal Medicine 12/20/22 documented as of this encounter
--- OUTSIDE RECORDS SUMMARY | 2025-01-07 16:19 | XMS_ITS | Encounter Summary ---
Author Organization [employer] Address [address] [place] [address] [address] [place] [address] Care Team Providers Care Sheep Or Calf Grader Name Role Phone Vi Keys MD Primary Care Pro vider Reason for Visit * Reason Comments Med Change Request Encounter Details Date Type Department Care Team ([facility] st Contact Info) Description 09/03/2024 Refill [facility] MEDICINE [address] [place], [place] [phone] Vi Keys MD [address] [place] [address] Type 2 diabetes mellitus with diabetic nephropathy, without long-term current use of insulin ([facility]) Social History Tobacco Use Types Packs/Day Years [...] Info) Description 01/28/2025 1:30 PM EST Immunization [facility] MEDICINE [address] [place] [address] 02/24/2025 9:00 AM EST Office Visit [facility] OPTOMETRY [address] [place] [address] Garry, Fannie, OD [address] [place] [address] documented as of this encounter Visit Diagnoses Diagnosis Type 2 diabetes mellitus with diabetic nephropathy, without long-term current use of insulin (HCC) documented in this encounter Additional Health Concerns Assessment Noted Time PHQ-9 Depression Total Score: 0 08/20/19 3:43 PM EDT documented as of this encounter Care Teams Sheep Or Calf Grader Relationship Specialty Start Date End Date Vi Keys MD [address] [place] [address] PCP - General Internal Medicine 12/20/22 documented as of this encounter
--- OUTSIDE RECORDS SUMMARY | 2025-01-07 16:19 | XMS_ITS | Clinical Summary ---
Author Organization [facility] Address [address] [place] [address] Care Team Providers Care Metals Analyst Name Role Phone Unavailable Primary Care Provider [...] Drug Screen 03/13/2024 Depression Annual Screen 03/13/2024 [id number] (3 - 2024- season) 2024 07/14/2020, 06/15/2020 Imm-Influenza (#1) 2024 03/27/2019, 0 05/30/2018, 02/15/2016, Additional history exists Imm-DTaP/Tdap/Td (2 - Td or Tdap) 05/30/2028 05/30/2018 Imm-Hepatitis B Aged Out No longer el igible based on patient's age to complete this topic Insurance C3 [facility]
--- OUTSIDE RECORDS SUMMARY | 2025-01-07 16:19 | XMS_ITS | Clinical Summary ---
Author Organization [facility] Address [address] [place] [address] Phone Care Team Providers Care Vocational Case Manager Name Role Phone Physician, Pcp Unknown Primary [...] Upcoming Encounters Date Type Department Care Team ([facility] st Contact Info) Description 01/16/2025 8:15 AM EST Office Visit Orthopedic Surgery - [place] [address] [facility] [address] [place] [phone] Nish Tavera DPM [address] [place] [address] Health Maintenance Due Date Last Done Comments Colorectal Cancer Screening: Colonoscopy 1964 Diabetes: Annual Foot Exam 1974 Diabetes: Annual Retina Eye Exam 1974 IPV Vaccines (2 of 3 - Adult catch-up series) 10/07/2009 09/09/2009 RSV Immunization Adult Patients (1 - Risk 50-74 years 1-dose series) 2014 Zoster Vaccines (1 of 2) 2014 Pneumococcal Vaccine: 50+ Years (2 of 2 - PCV) 04/25/2017 04/25/2016, 04/23/2011 Social Influencers of Health Screening 02/23/2024 Depression [...] topic Insurance MEDICAID - [place] Care Teams Vocational Case Manager Relationship Specialty Start Date End Date Physician, Pcp Unknown PCP - General 04/18/24
== END 2025-01-07 14:16 | disposition home or self-care (01) ==
LOC: HO.HUSH 12:56
PROVIDERS: PCP Student in an Organized Health Care Education/Training Program; Visit Provider Urology
DX: N20.0 Calculus of kidney (principal)
CPT/HCPCS: 99024

== ENCOUNTER → 2025-01-07 12:56 | Outpatient (BNVA) | payer MEDICAID, SELFPAY | PROVIDERS: PCP Student in an Organized Health Care Education/Training Program; Visit Provider Urology | DX: N20.0 Calculus of kidney (principal); Z87.442 Personal history of urinary calculi; Z98.890 Other specified postprocedural states | CPT/HCPCS: 99212 ==